=== PATIENT | male | born 1965 | race Caucasian/White ===

== ENCOUNTER 2018-01-19 14:39 | Inpatient (IN) | payer OTHER ==
[2018-01-19] VITALS (13 sets, daily range): BP systolic 70–124; BP diastolic 36–64
[~2018-01-19] VITALS: Ht 190.5 cm; Wt 85.8 kg
--- OUTSIDE RECORDS SUMMARY | 2018-01-19 14:46 | XMS REPORT ---
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 Allergies, Adverse Reactions, Alerts This patient has no known allergies or adverse reactions. Medications This patient has no known medications. Results Test Description Test Time Test Comments Text Results Atomic Results Result Comments PREALBUMIN 2017-12-21 04:54:00 PREALBUMIN (BEAKER) (test ejnc=986) 19 mg/dL 14-45 PROTEIN, [id number] 04:49:00* Test Item Value Reference Range Comments TOTAL PROTEIN (BEAKER) (test rtdt=517) 7.2 gm/dL 6.0-8.3 [id number] 04:49:00* Test Item Value Reference Range Comments ALBUMIN (BEAKER) (test twvp=3479) 3.3 g/dL 3.5-5.0 ANG, CV ACCESS, [id number] 16:19:00Pls insert PICCReason for exam:->very difficult access, pt with multiple antbiotics,FINAL REPORT Exam: PICC insertion Clinical History: Need for long-term IV antibiotics Consent: Risks and benefits were explained to the patient who gave consent to the procedure. Complication: Non immediate. Total fluoro time: 0.2 minutes Total images 1 Procedure: Sterile barrier technique was followed including cap, mask, sterile gown, sterile gloves, sterile sheet, hand hygiene and 2% chlorhexidine for cutaneous antisepsis. The left arm was prepped and draped in usual sterile fashion. 2% lidocaine was used as local anesthetics. Under ultrasound guidance the left basilic vein, which is patent, was accessed using a 21g micropuncture needle. A hard copy of the ultrasound image was obtained. A 5 FR dual lumen PICC was inserted through the venotomy site until the tip is at the cavoatrial junction under fluoroscopic guidance. The lumens aspirated and flushed easily. The patient tolerated the procedure well without any adverse reactions and was transferred from the radiology department in stable condition. Impression: Successful PICC insertion as described. Signed: Ian Sibley MDReport Verified Date/Time: 12/18/2017 16:19:15 Reading Location: [facility] Radiology Reading Room , CHEST, 1 VIEW, NON [id number] 13:55: 00Reason for exam:->PICC line placement Should this be performed at the bedside? ->YesFINAL REPORT Chest one view AP 12/18/2017 1:55 PM CLINICAL INDICATION: PICC line placement COMPARISON: 11/23/2017 IMPRESSION: The tip of a left PICC projects over the superior vena cava. Cardiomediastinal contours are stable. There is central pulmonary vasculature congestion without overt pulmonary edema. Opacity in the right lung base suggests a combination of small volume pleural fluid and airspace disease, atelectasis versus pneumonia. There is subsegmental atelectasis in the left lung base. Remaining support hardware is unchanged in position. Signed: Ryder Baker Verified Date/Time: 12/18/2017 13:55:58 Reading Location: [facility] C013W Consult Reading Room [id number] 08:24:00* Test Item Value Reference Range Comments PHOSPHORUS (BEAKER) (test iyqw=065) 3.6 mg/dL 2.3-4.7 [id number] 08:24:00* Test Item Value Reference Range Comments MAGNESIUM (BEAKER) (test qept=939) 1.6 mg/dL 1.6-2.6 BASIC METABOLIC [id number] 08:24:00* Test Item Value Reference Range Comments SODIUM (BEAKER) (test gtiv=165) 141 meq/L 136-145 POTASSIUM (BEAKER) (test euiy=029) 4.3 meq/L 3.5-5.1 CHLORIDE (BEAKER) (test btiv=837) 100 meq/L 98-107 CO2 (BEAKER) (test tvjk=469) 32 meq/L 22-29 BLOOD UREA NITROGEN (BEAKER) (test wdvo=528) 24 mg/dL 7-21 CREATININE (BEAKER) (test fqmi=137) 0.46 mg/dL 0.57-1.25 GLUCOSE RANDOM (BEAKER) (test aosz=878) 100 mg/dL 70-105 CALCIUM (BEAKER) (test lzmr=379) 9.1 mg/dL 8.4-10.2 EGFR (BEAKER) (test ogxs=5725) 192 mL/min/1.73 sq m ESTIMATED GFR IS NOT ACCURATE CREATININE CLEARANCE IN PREDICTING GLOMERULAR FILTRATION RATE. ESTIMATED GFR IS NOT APPLICABLE FOR DIALYSIS PATIENTS. FL, ESOPH, SWALLOW FUNCTION, WITH CINE OR [id number] 17:35:00Reason for exam:->dysphagiaFINAL REPORT Modified barium swallow exam with speech pathology service CLINICAL HISTORY: dysphagia IMPRESSION: Please see the speech pathology service report for details. Barium contrast of multiple consistencies is given to the patient to swallow. Fluoroscopic observation is performed during swallowing. No aspiration Fluoro time: 0.95 minutes Number of images: 12 Signed: Wil Blackmaneport Verified Date/Time: 06/2018 17:35:33 Reading Location: [address] Ortho Consult Reading Room [id number] 04:40:00* Test Item Value Reference Range Comments PHOSPHORUS (BEAKER) (test oiws=230) 3.3 mg/dL 2.3-4.7 [id number] 04:40:00* Test Item Value Reference Range Comments MAGNESIUM (BEAKER) (test sjbf=385) 1.8 mg/dL 1.6-2.6 BASIC METABOLIC [id number] 04:40:00* Test Item Value Reference Range Comments SODIUM (BEAKER) (test ggwm=328) 142 meq/L 136-145 POTASSIUM (BEAKER) (test ityk=047) 3.7 meq/L 3.5-5.1 CHLORIDE (BEAKER) (test ggjr=861) 100 meq/L 98-107 CO2 (BEAKER) (test uyeb=274) 36 meq/L 22-29 BLOOD UREA NITROGEN (BEAKER) (test gqal=514) 26 mg/dL 7-21 CREATININE (BEAKER) (test abyh=495) 0.41 mg/dL 0.57-1.25 GLUCOSE RANDOM (BEAKER) (test vqae=317) 108 mg/dL 70-105 CALCIUM (BEAKER) (test vksz=119) 8.9 mg/dL 8.4-10.2 EGFR (BEAKER) (test bwaa=3019) 220 mL/min/1.73 sq m ESTIMATED GFR IS NOT ACCURATE CREATININE CLEARANCE IN PREDICTING GLOMERULAR FILTRATION RATE. ESTIMATED GFR IS NOT APPLICABLE FOR DIALYSIS PATIENTS. [id number] 04:14:00* Test Item Value Reference Range Comments PHOSPHORUS (BEAKER) (test bgwc=053) 3.6 mg/dL 2.3-4.7 [id number] 04:14:00* Test Item Value Reference Range Comments MAGNESIUM (BEAKER) (test futa=039) 1.6 mg/dL 1.6-2.6 BASIC METABOLIC [id number] 04:14:00* Test Item Value Reference Range Comments SODIUM (BEAKER) (test xosu=469) 142 meq/L 136-145 POTASSIUM (BEAKER) (test rebo=763) 3.7 meq/L 3.5-5.1 CHLORIDE (BEAKER) (test ufui=865) 101 meq/L 98-107 CO2 (BEAKER) (test fxqy=834) 34 meq/L 22-29 BLOOD UREA NITROGEN (BEAKER) (test oipu=374) 25 mg/dL 7-21 CREATININE (BEAKER) (test vlsv=086) 0.45 mg/dL 0.57-1.25 GLUCOSE RANDOM (BEAKER) (test feix=097) 120 mg/dL 70-105 CALCIUM (BEAKER) (test eejd=172) 9.0 mg/dL 8.4-10.2 EGFR (BEAKER) (test ympr=4093) 197 mL/min/1.73 sq m ESTIMATED GFR IS NOT ACCURATE CREATININE CLEARANCE IN PREDICTING GLOMERULAR FILTRATION RATE. ESTIMATED GFR IS NOT APPLICABLE FOR DIALYSIS PATIENTS. [id number] 03:45:00* Test Item Value Reference Range Comments PHOSPHORUS (BEAKER) (test lpna=273) 3.8 mg/dL 2.3-4.7 [id number] 03:45:00* Test Item Value Reference Range Comments MAGNESIUM (BEAKER) (test edem=725) 1.9 mg/dL 1.6-2.6 BASIC METABOLIC [id number] 03:45:00* Test Item Value Reference Range Comments SODIUM (BEAKER) (test oact=725) 141 meq/L 136-145 POTASSIUM (BEAKER) (test qoib=449) 3.6 meq/L 3.5-5.1 CHLORIDE (BEAKER) (test pzxi=259) 100 meq/L 98-107 CO2 (BEAKER) (test glnd=975) 35 meq/L 22-29 BLOOD UREA NITROGEN (BEAKER) (test oixk=151) 27 mg/dL 7-21 CREATININE (BEAKER) (test fojw=064) 0.42 mg/dL 0.57-1.25 GLUCOSE RANDOM (BEAKER) (test bvse=455) 107 mg/dL 70-105 CALCIUM (BEAKER) (test vtkx=589) 9.0 mg/dL 8.4-10.2 EGFR (BEAKER) (test nbcc=3587) 214 mL/min/1.73 sq m ESTIMATED GFR IS NOT ACCURATE CREATININE CLEARANCE IN PREDICTING GLOMERULAR FILTRATION RATE. ESTIMATED GFR IS NOT APPLICABLE FOR DIALYSIS PATIENTS. CBC W/PLT COUNT & AUTO [id number] 03:23:00* Test Item Value Reference Range Comments WHITE BLOOD CELL COUNT (BEAKER) (test ehdl=661) 6.9 K/ L 3.5-10.5 RED BLOOD CELL COUNT (BEAKER) (test ywsn=398) 3.40 M/ L 4.63-6.08 HEMOGLOBIN (BEAKER) (test kgry=036) 8.4 GM/DL 13.7-17.5 HEMATOCRIT (BEAKER) (test ugli=113) 28.4 % 40.1-51.0 MEAN CORPUSCULAR VOLUME (BEAKER) (test asxm=939) 83.5 fL 79.0-92.2 MEAN CORPUSCULAR HEMOGLOBIN (BEAKER) (test buut=928) 24.7 pg 25.7-32.2 MEAN CORPUSCULAR HEMOGLOBIN CONC (BEAKER) (test jtgs=818) 29.6 GM/DL 32.3- 36.5 RED CELL DISTRIBUTION WIDTH (BEAKER) (test iltz=245) 16.1 % 11.6-14.4 PLATELET COUNT (BEAKER) (test clcj=461) 195 K/CU MM 150-450 MEAN PLATELET VOLUME (BEAKER) (test xcip=239) 9.5 fL 9.4-12.4 NUCLEATED RED BLOOD CELLS (BEAKER) (test fwba=027) 0 /100 WBC 0-0 NEUTROPHILS RELATIVE PERCENT (BEAKER) (test blin=741) 58 % LYMPHOCYTES RELATIVE PERCENT (BEAKER) (test fzot=079) 23 % MONOCYTES RELATIVE PERCENT (BEAKER) (test ldcw=133) 13 % EOSINOPHILS RELATIVE PERCENT (BEAKER) (test bzyl=669) 5 % BASOPHILS RELATIVE PERCENT (BEAKER) (test jxyd=459) 0 % NEUTROPHILS ABSOLUTE COUNT (BEAKER) (test oqtx=226) 4.03 K/ L 1.78-5.38 LYMPHOCYTES ABSOLUTE COUNT (BEAKER) (test uril=078) 1.61 K/ L 1.32-3.57 MONOCYTES ABSOLUTE COUNT (BEAKER) (test buqq=928) 0.87 K/ L 0.30-0.82 EOSINOPHILS ABSOLUTE COUNT (BEAKER) (test enbt=947) 0.37 K/ L 0.04-0.54 BASOPHILS ABSOLUTE COUNT (BEAKER) (test kibk=026) 0.03 K/ L 0.01-0.08 IMMATURE GRANULOCYTES-RELATIVE PERCENT (BEAKER) (test wbyk=3375) 0 % 0-1 [id number] 05:28:00* Test Item Value Reference Range Comments PREALBUMIN (BEAKER) (test ltsa=650) 21 mg/dL 14-45 PROTEIN, [id number] 05:24:00* Test Item Value Reference Range Comments TOTAL PROTEIN (BEAKER) (test qcys=369) 7.4 gm/dL 6.0-8.3 [id number] 05:24:00* Test Item Value Reference Range Comments MAGNESIUM (BEAKER) (test pjpq=138) 1.6 mg/dL 1.6-2.6 [id number] 05:24:00* Test Item Value Reference Range Comments PHOSPHORUS (BEAKER) (test sbwo=291) 3.5 mg/dL 2.3-4.7 BASIC METABOLIC [id number] 05:24:00* Test Item Value Reference Range Comments SODIUM (BEAKER) (test dcjl=453) 142 meq/L 136-145 POTASSIUM (BEAKER) (test sbfv=759) 3.9 meq/L 3.5-5.1 CHLORIDE (BEAKER) (test dwrb=403) 100 meq/L 98-107 CO2 (BEAKER) (test vnfj=228) 35 meq/L 22-29 BLOOD UREA NITROGEN (BEAKER) (test tsss=048) 22 mg/dL 7-21 CREATININE (BEAKER) (test oqss=578) 0.43 mg/dL 0.57-1.25 GLUCOSE RANDOM (BEAKER) (test utte=629) 103 mg/dL 70-105 CALCIUM (BEAKER) (test uflw=860) 9.3 mg/dL 8.4-10.2 EGFR (BEAKER) (test ygek=9351) 208 mL/min/1.73 sq m ESTIMATED GFR IS NOT ACCURATE CREATININE CLEARANCE IN PREDICTING GLOMERULAR FILTRATION RATE. ESTIMATED GFR IS NOT APPLICABLE FOR DIALYSIS PATIENTS. [id number] 05:24:00* Test Item Value Reference Range Comments ALBUMIN (BEAKER) (test fqzg=9690) 3.4 g/dL 3.5-5.0 [id number] 05:53:00* Test Item Value Reference Range Comments PHOSPHORUS (BEAKER) (test mjlf=594) 3.4 mg/dL 2.3-4.7 [id number] 05:53:00* Test Item Value Reference Range Comments MAGNESIUM (BEAKER) (test jreu=021) 1.7 mg/dL 1.6-2.6 BASIC METABOLIC [id number] 05:53:00* Test Item Value Reference Range Comments SODIUM (BEAKER) (test pppv=688) 141 meq/L 136-145 POTASSIUM (BEAKER) (test ituf=051) 4.0 meq/L 3.5-5.1 CHLORIDE (BEAKER) (test fqda=583) 100 meq/L 98-107 CO2 (BEAKER) (test odjn=438) 33 meq/L 22-29 BLOOD UREA NITROGEN (BEAKER) (test ghjr=788) 24 mg/dL 7-21 CREATININE (BEAKER) (test adke=418) 0.40 mg/dL 0.57-1.25 GLUCOSE RANDOM (BEAKER) (test nmdn=956) 92 mg/dL 70-105 CALCIUM (BEAKER) (test sejw=024) 9.1 mg/dL 8.4-10.2 EGFR (BEAKER) (test vdds=9152) 226 mL/min/1.73 sq m ESTIMATED GFR IS NOT ACCURATE CREATININE CLEARANCE IN PREDICTING GLOMERULAR FILTRATION RATE. ESTIMATED GFR IS NOT APPLICABLE FOR DIALYSIS PATIENTS. [id number] 04:34:00* Test Item Value Reference Range Comments PHOSPHORUS (BEAKER) (test ohko=772) 3.3 mg/dL 2.3-4.7 [id number] 04:34:00* Test Item Value Reference Range Comments MAGNESIUM (BEAKER) (test rkfi=594) 1.7 mg/dL 1.6-2.6 BASIC METABOLIC [id number] 04:34:00* Test Item Value Reference Range Comments SODIUM (BEAKER) (test jfuq=789) 142 meq/L 136-145 POTASSIUM (BEAKER) (test zmhk=791) 3.8 meq/L 3.5-5.1 CHLORIDE (BEAKER) (test wubj=056) 100 meq/L 98-107 CO2 (BEAKER) (test bywg=239) 34 meq/L 22-29 BLOOD UREA NITROGEN (BEAKER) (test chzc=623) 24 mg/dL 7-21 CREATININE (BEAKER) (test wczc=857) 0.46 mg/dL 0.57-1.25 GLUCOSE RANDOM (BEAKER) (test isoh=445) 111 mg/dL 70-105 CALCIUM (BEAKER) (test jrtb=107) 9.2 mg/dL 8.4-10.2 EGFR (BEAKER) (test idib=1942) 192 mL/min/1.73 sq m ESTIMATED GFR IS NOT ACCURATE CREATININE CLEARANCE IN PREDICTING GLOMERULAR FILTRATION RATE. ESTIMATED GFR IS NOT APPLICABLE FOR DIALYSIS PATIENTS. CBC W/PLT COUNT & AUTO [id number] 03:33:00* Test Item Value Reference Range Comments WHITE BLOOD CELL COUNT (BEAKER) (test otai=320) 5.3 K/ L 3.5-10.5 RED BLOOD CELL COUNT (BEAKER) (test oxux=940) 3.50 M/ L 4.63-6.08 HEMOGLOBIN (BEAKER) (test barq=504) 8.7 GM/DL 13.7-17.5 HEMATOCRIT (BEAKER) (test inro=479) 29.0 % 40.1-51.0 MEAN CORPUSCULAR VOLUME (BEAKER) (test cmgs=721) 82.9 fL 79.0-92.2 MEAN CORPUSCULAR HEMOGLOBIN (BEAKER) (test mpso=261) 24.9 pg 25.7-32.2 MEAN CORPUSCULAR HEMOGLOBIN CONC (BEAKER) (test pbmo=567) 30.0 GM/DL 32.3- 36.5 RED CELL DISTRIBUTION WIDTH (BEAKER) (test cmtc=690) 15.9 % 11.6-14.4 PLATELET COUNT (BEAKER) (test pgcv=258) 234 K/CU MM 150-450 MEAN PLATELET VOLUME (BEAKER) (test mrrl=941) 10.3 fL 9.4-12.4 NUCLEATED RED BLOOD CELLS (BEAKER) (test dlzd=683) 0 /100 WBC 0-0 NEUTROPHILS RELATIVE PERCENT (BEAKER) (test vtku=889) 58 % LYMPHOCYTES RELATIVE PERCENT (BEAKER) (test wsaa=315) 27 % MONOCYTES RELATIVE PERCENT (BEAKER) (test lkng=293) 10 % EOSINOPHILS RELATIVE PERCENT (BEAKER) (test zqce=952) 5 % BASOPHILS RELATIVE PERCENT (BEAKER) (test hoap=746) 1 % NEUTROPHILS ABSOLUTE COUNT (BEAKER) (test dalu=711) 3.08 K/ L 1.78-5.38 LYMPHOCYTES ABSOLUTE COUNT (BEAKER) (test wdso=330) 1.44 K/ L 1.32-3.57 MONOCYTES ABSOLUTE COUNT (BEAKER) (test egaq=009) 0.52 K/ L 0.30-0.82 EOSINOPHILS ABSOLUTE COUNT (BEAKER) (test gkls=344) 0.24 K/ L 0.04-0.54 BASOPHILS ABSOLUTE COUNT (BEAKER) (test loyk=984) 0.03 K/ L 0.01-0.08 IMMATURE GRANULOCYTES-RELATIVE PERCENT (BEAKER) (test kwtf=8805) 0 % 0-1 [id number] 07:35:00* Test Item Value Reference Range Comments PHOSPHORUS (BEAKER) (test vnmf=290) 3.6 mg/dL 2.3-4.7 [id number] 07:35:00* Test Item Value Reference Range Comments MAGNESIUM (BEAKER) (test rven=935) 1.6 mg/dL 1.6-2.6 BASIC METABOLIC [id number] 07:35:00* Test Item Value Reference Range Comments SODIUM (BEAKER) (test exsf=104) 141 meq/L 136-145 POTASSIUM (BEAKER) (test yagt=315) 4.0 meq/L 3.5-5.1 CHLORIDE (BEAKER) (test ytfb=492) 102 meq/L 98-107 CO2 (BEAKER) (test zrvg=893) 30 meq/L 22-29 BLOOD UREA NITROGEN (BEAKER) (test iwvr=279) 22 mg/dL 7-21 CREATININE (BEAKER) (test mfta=435) 0.43 mg/dL 0.57-1.25 GLUCOSE RANDOM (BEAKER) (test peeb=187) 96 mg/dL 70-105 CALCIUM (BEAKER) (test efyi=974) 9.1 mg/dL 8.4-10.2 EGFR (BEAKER) (test ezqi=4400) 208 mL/min/1.73 sq m ESTIMATED GFR IS NOT ACCURATE CREATININE CLEARANCE IN PREDICTING GLOMERULAR FILTRATION RATE. ESTIMATED GFR IS NOT APPLICABLE FOR DIALYSIS PATIENTS. [id number] 05:27:00* Test Item Value Reference Range Comments PHOSPHORUS (BEAKER) (test xagh=347) 3.4 mg/dL 2.3-4.7 [id number] 05:27:00* Test Item Value Reference Range Comments MAGNESIUM (BEAKER) (test zglz=502) 1.7 mg/dL 1.6-2.6 BASIC METABOLIC [id number] 05:27:00* Test Item Value Reference Range Comments SODIUM (BEAKER) (test lqiw=192) 138 meq/L 136-145 POTASSIUM (BEAKER) (test yxgd=091) 3.8 meq/L 3.5-5.1 CHLORIDE (BEAKER) (test rsdp=750) 100 meq/L 98-107 CO2 (BEAKER) (test krej=664) 31 meq/L 22-29 BLOOD UREA NITROGEN (BEAKER) (test etxz=284) 25 mg/dL 7-21 CREATININE (BEAKER) (test hpvx=446) 0.42 mg/dL 0.57-1.25 GLUCOSE RANDOM (BEAKER) (test mden=123) 106 mg/dL 70-105 CALCIUM (BEAKER) (test tihp=772) 8.8 mg/dL 8.4-10.2 EGFR (BEAKER) (test wkkm=4541) 214 mL/min/1.73 sq m ESTIMATED GFR IS NOT ACCURATE CREATININE CLEARANCE IN PREDICTING GLOMERULAR FILTRATION RATE. ESTIMATED GFR IS NOT APPLICABLE FOR DIALYSIS PATIENTS. CBC W/PLT COUNT & AUTO [id number] 04:51:00* Test Item Value Reference Range Comments WHITE BLOOD CELL COUNT (BEAKER) (test ebaq=366) 6.8 K/ L 3.5-10.5 RED BLOOD CELL COUNT (BEAKER) (test tana=397) 3.59 M/ L 4.63-6.08 HEMOGLOBIN (BEAKER) (test vsut=881) 8.9 GM/DL 13.7-17.5 HEMATOCRIT (BEAKER) (test uwwf=691) 29.9 % 40.1-51.0 MEAN CORPUSCULAR VOLUME (BEAKER) (test cadu=676) 83.3 fL 79.0-92.2 MEAN CORPUSCULAR HEMOGLOBIN (BEAKER) (test avuy=231) 24.8 pg 25.7-32.2 MEAN CORPUSCULAR HEMOGLOBIN CONC (BEAKER) (test jfuc=929) 29.8 GM/DL 32.3- 36.5 RED CELL DISTRIBUTION WIDTH (BEAKER) (test ciyh=510) 15.8 % 11.6-14.4 PLATELET COUNT (BEAKER) (test fvls=933) 218 K/CU MM 150-450 MEAN PLATELET VOLUME (BEAKER) (test jssm=069) 9.7 fL 9.4-12.4 NUCLEATED RED BLOOD CELLS (BEAKER) (test zpbr=450) 0 /100 WBC 0-0 NEUTROPHILS RELATIVE PERCENT (BEAKER) (test nbmn=099) 62 % LYMPHOCYTES RELATIVE PERCENT (BEAKER) (test vhly=055) 23 % MONOCYTES RELATIVE PERCENT (BEAKER) (test azxj=906) 10 % EOSINOPHILS RELATIVE PERCENT (BEAKER) (test bkhu=561) 5 % BASOPHILS RELATIVE PERCENT (BEAKER) (test xaqa=674) 0 % NEUTROPHILS ABSOLUTE COUNT (BEAKER) (test jfob=227) 4.22 K/ L 1.78-5.38 LYMPHOCYTES ABSOLUTE COUNT (BEAKER) (test myki=796) 1.54 K/ L 1.32-3.57 MONOCYTES ABSOLUTE COUNT (BEAKER) (test oigd=428) 0.68 K/ L 0.30-0.82 EOSINOPHILS ABSOLUTE COUNT (BEAKER) (test nyea=562) 0.32 K/ L 0.04-0.54 BASOPHILS ABSOLUTE COUNT (BEAKER) (test bwge=884) 0.03 K/ L 0.01-0.08 IMMATURE GRANULOCYTES-RELATIVE PERCENT (BEAKER) (test qsbr=8960) 0 % 0-1 [id number] 04:50:00* Test Item Value Reference Range Comments PHOSPHORUS (BEAKER) (test ckhg=372) 3.8 mg/dL 2.3-4.7 [id number] 04:50:00* Test Item Value Reference Range Comments MAGNESIUM (BEAKER) (test ugdg=965) 1.8 mg/dL 1.6-2.6 BASIC METABOLIC [id number] 04:50:00* Test Item Value Reference Range Comments SODIUM (BEAKER) (test cxdq=388) 139 meq/L 136-145 POTASSIUM (BEAKER) (test qtkz=403) 3.7 meq/L 3.5-5.1 CHLORIDE (BEAKER) (test qsgi=495) 100 meq/L 98-107 CO2 (BEAKER) (test ktbq=401) 34 meq/L 22-29 BLOOD UREA NITROGEN (BEAKER) (test stxl=427) 25 mg/dL 7-21 CREATININE (BEAKER) (test aosu=274) 0.43 mg/dL 0.57-1.25 GLUCOSE RANDOM (BEAKER) (test fbmd=842) 117 mg/dL 70-105 CALCIUM (BEAKER) (test brns=517) 8.6 mg/dL 8.4-10.2 EGFR (BEAKER) (test sqyo=1103) 208 mL/min/1.73 sq m ESTIMATED GFR IS NOT ACCURATE CREATININE CLEARANCE IN PREDICTING GLOMERULAR FILTRATION RATE. ESTIMATED GFR IS NOT APPLICABLE FOR DIALYSIS PATIENTS. PROTEIN, [id number] 03:55:00* Test Item Value Reference Range Comments TOTAL PROTEIN (BEAKER) (test aulj=088) 7.0 gm/dL 6.0-8.3 [id number] 03:55:00* Test Item Value Reference Range Comments MAGNESIUM (BEAKER) (test ccpq=443) 1.5 mg/dL 1.6-2.6 [id number] 03:55:00* Test Item Value Reference Range Comments PHOSPHORUS (BEAKER) (test hahg=438) 3.6 mg/dL 2.3-4.7 BASIC METABOLIC [id number] 03:55:00* Test Item Value Reference Range Comments SODIUM (BEAKER) (test ocay=611) 140 meq/L 136-145 POTASSIUM (BEAKER) (test fjxw=044) 3.6 meq/L 3.5-5.1 CHLORIDE (BEAKER) (test hdfx=650) 101 meq/L 98-107 CO2 (BEAKER) (test elyb=035) 32 meq/L 22-29 BLOOD UREA NITROGEN (BEAKER) (test xcuq=570) 26 mg/dL 7-21 CREATININE (BEAKER) (test naom=507) 0.42 mg/dL 0.57-1.25 GLUCOSE RANDOM (BEAKER) (test ppap=065) 100 mg/dL 70-105 CALCIUM (BEAKER) (test zovd=270) 8.6 mg/dL 8.4-10.2 EGFR (BEAKER) (test oaif=9885) 214 mL/min/1.73 sq m ESTIMATED GFR IS NOT ACCURATE CREATININE CLEARANCE IN PREDICTING GLOMERULAR FILTRATION RATE. ESTIMATED GFR IS NOT APPLICABLE FOR DIALYSIS PATIENTS. [id number] 03:55:00* Test Item Value Reference Range Comments ALBUMIN (BEAKER) (test dphv=2053) 3.2 g/dL 3.5-5.0 CREATINE KINASE (CK)2017-12-07 03:55:00* Test Item Value Reference Range Comments CREATINE KINASE TOTAL (BEAKER) (test bkec=754) 65 U/L 29-200 [id number] 03:53:00* Test Item Value Reference Range Comments PREALBUMIN (BEAKER) (test iifr=162) 22 mg/dL 14-45 [id number] 04:54:00* Test Item Value Reference Range Comments PHOSPHORUS (BEAKER) (test aiqe=306) 3.7 mg/dL 2.3-4.7 [id number] 04:54:00* Test Item Value Reference Range Comments MAGNESIUM (BEAKER) (test iulm=860) 1.9 mg/dL 1.6-2.6 BASIC METABOLIC [id number] 04:54:00* Test Item Value Reference Range Comments SODIUM (BEAKER) (test xgkq=198) 142 meq/L 136-145 POTASSIUM (BEAKER) (test qbef=727) 4.0 meq/L 3.5-5.1 CHLORIDE (BEAKER) (test ghsn=213) 101 meq/L 98-107 CO2 (BEAKER) (test dgrh=118) 33 meq/L 22-29 BLOOD UREA NITROGEN (BEAKER) (test qsgc=816) 28 mg/dL 7-21 CREATININE (BEAKER) (test tysa=123) 0.43 mg/dL 0.57-1.25 GLUCOSE RANDOM (BEAKER) (test pjex=769) 92 mg/dL 70-105 CALCIUM (BEAKER) (test gflb=593) 9.1 mg/dL 8.4-10.2 EGFR (BEAKER) (test blir=3111) 208 mL/min/1.73 sq m ESTIMATED GFR IS NOT ACCURATE CREATININE CLEARANCE IN PREDICTING GLOMERULAR FILTRATION RATE. ESTIMATED GFR IS NOT APPLICABLE FOR DIALYSIS PATIENTS. CBC W/PLT COUNT & AUTO [id number] 04:37:00* Test Item Value Reference Range Comments WHITE BLOOD CELL COUNT (BEAKER) (test drtr=873) 6.3 K/ L 3.5-10.5 RED BLOOD CELL COUNT (BEAKER) (test soyr=159) 3.52 M/ L 4.63-6.08 HEMOGLOBIN (BEAKER) (test bepu=231) 8.7 GM/DL 13.7-17.5 HEMATOCRIT (BEAKER) (test bprs=305) 29.4 % 40.1-51.0 MEAN CORPUSCULAR VOLUME (BEAKER) (test opht=829) 83.5 fL 79.0-92.2 MEAN CORPUSCULAR HEMOGLOBIN (BEAKER) (test xpao=369) 24.7 pg 25.7-32.2 MEAN CORPUSCULAR HEMOGLOBIN CONC (BEAKER) (test jcsr=763) 29.6 GM/DL 32.3- 36.5 RED CELL DISTRIBUTION WIDTH (BEAKER) (test govr=730) 15.9 % 11.6-14.4 PLATELET COUNT (BEAKER) (test crtt=184) 246 K/CU MM 150-450 MEAN PLATELET VOLUME (BEAKER) (test wynb=364) 9.8 fL 9.4-12.4 NUCLEATED RED BLOOD CELLS (BEAKER) (test srim=244) 0 /100 WBC 0-0 NEUTROPHILS RELATIVE PERCENT (BEAKER) (test sqmo=028) 51 % LYMPHOCYTES RELATIVE PERCENT (BEAKER) (test fqqf=981) 32 % MONOCYTES RELATIVE PERCENT (BEAKER) (test yqzv=194) 10 % EOSINOPHILS RELATIVE PERCENT (BEAKER) (test prss=891) 5 % BASOPHILS RELATIVE PERCENT (BEAKER) (test yglw=165) 1 % NEUTROPHILS ABSOLUTE COUNT (BEAKER) (test ypnt=243) 3.22 K/ L 1.78-5.38 LYMPHOCYTES ABSOLUTE COUNT (BEAKER) (test ddsy=388) 2.02 K/ L 1.32-3.57 MONOCYTES ABSOLUTE COUNT (BEAKER) (test bzwe=381) 0.65 K/ L 0.30-0.82 EOSINOPHILS ABSOLUTE COUNT (BEAKER) (test peqi=865) 0.32 K/ L 0.04-0.54 BASOPHILS ABSOLUTE COUNT (BEAKER) (test lyxr=446) 0.04 K/ L 0.01-0.08 IMMATURE GRANULOCYTES-RELATIVE PERCENT (BEAKER) (test nttz=0759) 0 % 0-1 [id number] 06:57:00* Test Item Value Reference Range Comments PHOSPHORUS (BEAKER) (test twrx=318) 3.5 mg/dL 2.3-4.7 [id number] 06:57:00* Test Item Value Reference Range Comments MAGNESIUM (BEAKER) (test rzjv=843) 1.6 mg/dL 1.6-2.6 BASIC METABOLIC [id number] 06:57:00* Test Item Value Reference Range Comments SODIUM (BEAKER) (test ogee=747) 139 meq/L 136-145 POTASSIUM (BEAKER) (test drvi=360) 4.1 meq/L 3.5-5.1 CHLORIDE (BEAKER) (test qzbe=674) 100 meq/L 98-107 CO2 (BEAKER) (test eadk=383) 30 meq/L 22-29 BLOOD UREA NITROGEN (BEAKER) (test xzxb=024) 27 mg/dL 7-21 CREATININE (BEAKER) (test zghf=840) 0.44 mg/dL 0.57-1.25 GLUCOSE RANDOM (BEAKER) (test seis=949) 102 mg/dL 70-105 CALCIUM (BEAKER) (test uqpf=733) 8.8 mg/dL 8.4-10.2 EGFR (BEAKER) (test jsmm=4183) 202 mL/min/1.73 sq m ESTIMATED GFR IS NOT ACCURATE CREATININE CLEARANCE IN PREDICTING GLOMERULAR FILTRATION RATE. ESTIMATED GFR IS NOT APPLICABLE FOR DIALYSIS PATIENTS. [id number] 06:46:00* Test Item Value Reference Range Comments PHOSPHORUS (BEAKER) (test isww=814) 3.5 mg/dL 2.3-4.7 [id number] 06:46:00* Test Item Value Reference Range Comments MAGNESIUM (BEAKER) (test mphu=485) 1.8 mg/dL 1.6-2.6 BASIC METABOLIC [id number] 06:46:00* Test Item Value Reference Range Comments SODIUM (BEAKER) (test qevv=362) 141 meq/L 136-145 POTASSIUM (BEAKER) (test ivdx=456) 4.1 meq/L 3.5-5.1 CHLORIDE (BEAKER) (test zwtq=375) 100 meq/L 98-107 CO2 (BEAKER) (test harh=235) 35 meq/L 22-29 BLOOD UREA NITROGEN (BEAKER) (test wbih=365) 25 mg/dL 7-21 CREATININE (BEAKER) (test rnyg=193) 0.41 mg/dL 0.57-1.25 GLUCOSE RANDOM (BEAKER) (test vgek=732) 85 mg/dL 70-105 CALCIUM (BEAKER) (test bjfi=255) 9.1 mg/dL 8.4-10.2 EGFR (BEAKER) (test cfue=3122) 220 mL/min/1.73 sq m ESTIMATED GFR IS NOT ACCURATE CREATININE CLEARANCE IN PREDICTING GLOMERULAR FILTRATION RATE. ESTIMATED GFR IS NOT APPLICABLE FOR DIALYSIS PATIENTS. [id number] 06:22:00* Test Item Value Reference Range Comments PHOSPHORUS (BEAKER) (test hnkl=032) 3.1 mg/dL 2.3-4.7 [id number] 06:22:00* Test Item Value Reference Range Comments MAGNESIUM (BEAKER) (test nupm=373) 1.8 mg/dL 1.6-2.6 BASIC METABOLIC [id number] 06:22:00* Test Item Value Reference Range Comments SODIUM (BEAKER) (test ygpt=834) 141 meq/L 136-145 POTASSIUM (BEAKER) (test fido=809) 3.9 meq/L 3.5-5.1 CHLORIDE (BEAKER) (test grfv=654) 101 meq/L 98-107 CO2 (BEAKER) (test zrnx=611) 33 meq/L 22-29 BLOOD UREA NITROGEN (BEAKER) (test pqdm=068) 31 mg/dL 7-21 CREATININE (BEAKER) (test sovz=027) 0.44 mg/dL 0.57-1.25 GLUCOSE RANDOM (BEAKER) (test hksp=356) 93 mg/dL 70-105 CALCIUM (BEAKER) (test rzvf=086) 8.9 mg/dL 8.4-10.2 EGFR (BEAKER) (test eyiw=4257) 202 mL/min/1.73 sq m ESTIMATED GFR IS NOT ACCURATE CREATININE CLEARANCE IN PREDICTING GLOMERULAR FILTRATION RATE. ESTIMATED GFR IS NOT APPLICABLE FOR DIALYSIS PATIENTS. CBC W/PLT COUNT & AUTO [id number] 05:44:00* Test Item Value Reference Range Comments WHITE BLOOD CELL COUNT (BEAKER) (test ogxr=049) 7.2 K/ L 3.5-10.5 RED BLOOD CELL COUNT (BEAKER) (test jdky=709) 3.51 M/ L 4.63-6.08 HEMOGLOBIN (BEAKER) (test osxi=695) 8.7 GM/DL 13.7-17.5 HEMATOCRIT (BEAKER) (test cdzn=186) 29.7 % 40.1-51.0 MEAN CORPUSCULAR VOLUME (BEAKER) (test xgzl=297) 84.6 fL 79.0-92.2 MEAN CORPUSCULAR HEMOGLOBIN (BEAKER) (test axzq=378) 24.8 pg 25.7-32.2 MEAN CORPUSCULAR HEMOGLOBIN CONC (BEAKER) (test oopr=704) 29.3 GM/DL 32.3- 36.5 RED CELL DISTRIBUTION WIDTH (BEAKER) (test cspc=388) 15.9 % 11.6-14.4 PLATELET COUNT (BEAKER) (test xipa=728) 265 K/CU MM 150-450 MEAN PLATELET VOLUME (BEAKER) (test dvyh=133) 10.5 fL 9.4-12.4 NUCLEATED RED BLOOD CELLS (BEAKER) (test fjmr=764) 0 /100 WBC 0-0 NEUTROPHILS RELATIVE PERCENT (BEAKER) (test jrjc=621) 57 % LYMPHOCYTES RELATIVE PERCENT (BEAKER) (test brsb=351) 30 % MONOCYTES RELATIVE PERCENT (BEAKER) (test eghz=572) 9 % EOSINOPHILS RELATIVE PERCENT (BEAKER) (test zcrf=570) 4 % BASOPHILS RELATIVE PERCENT (BEAKER) (test wyux=255) 1 % NEUTROPHILS ABSOLUTE COUNT (BEAKER) (test fhyq=623) 4.05 K/ L 1.78-5.38 LYMPHOCYTES ABSOLUTE COUNT (BEAKER) (test mivt=420) 2.12 K/ L 1.32-3.57 MONOCYTES ABSOLUTE COUNT (BEAKER) (test caql=025) 0.62 K/ L 0.30-0.82 EOSINOPHILS ABSOLUTE COUNT (BEAKER) (test tbik=822) 0.29 K/ L 0.04-0.54 BASOPHILS ABSOLUTE COUNT (BEAKER) (test oele=938) 0.05 K/ L 0.01-0.08 IMMATURE GRANULOCYTES-RELATIVE PERCENT (BEAKER) (test mlje=4638) 0 % 0-1 [id number] 09:23:00* Test Item Value Reference Range Comments PHOSPHORUS (BEAKER) (test fhpu=951) 3.8 mg/dL 2.3-4.7 [id number] 09:23:00* Test Item Value Reference Range Comments MAGNESIUM (BEAKER) (test yhas=562) 1.7 mg/dL 1.6-2.6 BASIC METABOLIC [id number] 09:23:00* Test Item Value Reference Range Comments SODIUM (BEAKER) (test pvwj=463) 140 meq/L 136-145 POTASSIUM (BEAKER) (test gsjw=688) 4.3 meq/L 3.5-5.1 CHLORIDE (BEAKER) (test iqxv=779) 102 meq/L 98-107 CO2 (BEAKER) (test ospo=097) 31 meq/L 22-29 BLOOD UREA NITROGEN (BEAKER) (test pqan=578) 31 mg/dL 7-21 CREATININE (BEAKER) (test jzha=218) 0.43 mg/dL 0.57-1.25 GLUCOSE RANDOM (BEAKER) (test ocdh=504) 93 mg/dL 70-105 CALCIUM (BEAKER) (test dmfh=057) 9.0 mg/dL 8.4-10.2 EGFR (BEAKER) (test fqll=2991) 208 mL/min/1.73 sq m ESTIMATED GFR IS NOT ACCURATE CREATININE CLEARANCE IN PREDICTING GLOMERULAR FILTRATION RATE. ESTIMATED GFR IS NOT APPLICABLE FOR DIALYSIS PATIENTS. AFB CULTURE + [id number] 08:30:00* Test Item Value Reference Range Comments CULTURE (BEAKER) (test budu=0359) No acid-fast bacilli isolated in 42 days AFB SMEAR (BEAKER) (test ezce=671) No acid fast bacilli seen [id number] 06:32:00* Test Item Value Reference Range Comments PHOSPHORUS (BEAKER) (test vdkg=875) 3.4 mg/dL 2.3-4.7 [id number] 06:32:00* Test Item Value Reference Range Comments MAGNESIUM (BEAKER) (test btux=336) 1.7 mg/dL 1.6-2.6 BASIC METABOLIC [id number] 06:32:00* Test Item Value Reference Range Comments SODIUM (BEAKER) (test lasw=846) 142 meq/L 136-145 POTASSIUM (BEAKER) (test uhxb=002) 3.7 meq/L 3.5-5.1 CHLORIDE (BEAKER) (test aiyn=951) 101 meq/L 98-107 CO2 (BEAKER) (test sgya=034) 33 meq/L 22-29 BLOOD UREA NITROGEN (BEAKER) (test qcgg=113) 26 mg/dL 7-21 CREATININE (BEAKER) (test fyav=587) 0.42 mg/dL 0.57-1.25 GLUCOSE RANDOM (BEAKER) (test tsre=527) 95 mg/dL 70-105 CALCIUM (BEAKER) (test coni=833) 8.9 mg/dL 8.4-10.2 EGFR (BEAKER) (test odhs=6135) 214 mL/min/1.73 sq m ESTIMATED GFR IS NOT ACCURATE CREATININE CLEARANCE IN PREDICTING GLOMERULAR FILTRATION RATE. ESTIMATED GFR IS NOT APPLICABLE FOR DIALYSIS PATIENTS. [id number] 05:55:00* Test Item Value Reference Range Comments PREALBUMIN (BEAKER) (test lmxq=380) 21 mg/dL 14-45 PROTEIN, [id number] 05:46:00* Test Item Value Reference Range Comments TOTAL PROTEIN (BEAKER) (test mbxl=158) 7.0 gm/dL 6.0-8.3 [id number] 05:46:00* Test Item Value Reference Range Comments MAGNESIUM (BEAKER) (test aegl=647) 1.7 mg/dL 1.6-2.6 [id number] 05:46:00* Test Item Value Reference Range Comments PHOSPHORUS (BEAKER) (test xunh=836) 3.5 mg/dL 2.3-4.7 BASIC METABOLIC [id number] 05:46:00* Test Item Value Reference Range Comments SODIUM (BEAKER) (test cqpo=947) 142 meq/L 136-145 POTASSIUM (BEAKER) (test ffbc=360) 3.8 meq/L 3.5-5.1 CHLORIDE (BEAKER) (test zpok=735) 103 meq/L 98-107 CO2 (BEAKER) (test lfdu=716) 33 meq/L 22-29 BLOOD UREA NITROGEN (BEAKER) (test qhns=844) 29 mg/dL 7-21 CREATININE (BEAKER) (test eved=116) 0.44 mg/dL 0.57-1.25 GLUCOSE RANDOM (BEAKER) (test lslz=684) 107 mg/dL 70-105 CALCIUM (BEAKER) (test puvy=871) 8.8 mg/dL 8.4-10.2 EGFR (BEAKER) (test jiya=7037) 202 mL/min/1.73 sq m ESTIMATED GFR IS NOT ACCURATE CREATININE CLEARANCE IN PREDICTING GLOMERULAR FILTRATION RATE. ESTIMATED GFR IS NOT APPLICABLE FOR DIALYSIS PATIENTS. [id number] 05:46:00* Test Item Value Reference Range Comments ALBUMIN (BEAKER) (test qyal=6394) 3.3 g/dL 3.5-5.0 CREATINE KINASE (CK)2017-11-30 05:46:00* Test Item Value Reference Range Comments CREATINE KINASE TOTAL (BEAKER) (test ppux=344) 73 U/L 29-200 CBC W/PLT COUNT & AUTO [id number] 05:01:00* Test Item Value Reference Range Comments WHITE BLOOD CELL COUNT (BEAKER) (test oxsi=573) 7.1 K/ L 3.5-10.5 RED BLOOD CELL COUNT (BEAKER) (test wdqa=254) 3.48 M/ L 4.63-6.08 HEMOGLOBIN (BEAKER) (test vlhn=183) 8.7 GM/DL 13.7-17.5 HEMATOCRIT (BEAKER) (test gpbx=923) 29.3 % 40.1-51.0 MEAN CORPUSCULAR VOLUME (BEAKER) (test cgzu=306) 84.2 fL 79.0-92.2 MEAN CORPUSCULAR HEMOGLOBIN (BEAKER) (test kffj=277) 25.0 pg 25.7-32.2 MEAN CORPUSCULAR HEMOGLOBIN CONC (BEAKER) (test oshs=878) 29.7 GM/DL 32.3- 36.5 RED CELL DISTRIBUTION WIDTH (BEAKER) (test agam=332) 15.6 % 11.6-14.4 PLATELET COUNT (BEAKER) (test ijmf=346) 263 K/CU MM 150-450 MEAN PLATELET VOLUME (BEAKER) (test wylw=204) 10.2 fL 9.4-12.4 NUCLEATED RED BLOOD CELLS (BEAKER) (test nqgb=751) 0 /100 WBC 0-0 NEUTROPHILS RELATIVE PERCENT (BEAKER) (test zbok=874) 57 % LYMPHOCYTES RELATIVE PERCENT (BEAKER) (test ukgl=655) 29 % MONOCYTES RELATIVE PERCENT (BEAKER) (test eaol=951) 8 % EOSINOPHILS RELATIVE PERCENT (BEAKER) (test xzvd=980) 5 % BASOPHILS RELATIVE PERCENT (BEAKER) (test ssff=451) 1 % NEUTROPHILS ABSOLUTE COUNT (BEAKER) (test bahe=127) 4.07 K/ L 1.78-5.38 LYMPHOCYTES ABSOLUTE COUNT (BEAKER) (test txdt=074) 2.08 K/ L 1.32-3.57 MONOCYTES ABSOLUTE COUNT (BEAKER) (test wrpv=589) 0.60 K/ L 0.30-0.82 EOSINOPHILS ABSOLUTE COUNT (BEAKER) (test ppyq=420) 0.32 K/ L 0.04-0.54 BASOPHILS ABSOLUTE COUNT (BEAKER) (test ggfg=603) 0.05 K/ L 0.01-0.08 IMMATURE GRANULOCYTES-RELATIVE PERCENT (BEAKER) (test lara=3794) 0 % 0-1 [id number] 05:02:00* Test Item Value Reference Range Comments PHOSPHORUS (BEAKER) (test eazn=966) 3.4 mg/dL 2.3-4.7 [id number] 05:02:00* Test Item Value Reference Range Comments MAGNESIUM (BEAKER) (test vbnr=037) 1.7 mg/dL 1.6-2.6 BASIC METABOLIC [id number] 05:02:00* Test Item Value Reference Range Comments SODIUM (BEAKER) (test fcjz=981) 141 meq/L 136-145 POTASSIUM (BEAKER) (test kcdj=989) 3.8 meq/L 3.5-5.1 CHLORIDE (BEAKER) (test uskx=442) 102 meq/L 98-107 CO2 (BEAKER) (test sjvz=424) 33 meq/L 22-29 BLOOD UREA NITROGEN (BEAKER) (test gkir=735) 31 mg/dL 7-21 CREATININE (BEAKER) (test iulx=280) 0.40 mg/dL 0.57-1.25 GLUCOSE RANDOM (BEAKER) (test hlif=509) 102 mg/dL 70-105 CALCIUM (BEAKER) (test mddb=497) 8.9 mg/dL 8.4-10.2 EGFR (BEAKER) (test gqpi=5523) 226 mL/min/1.73 sq m ESTIMATED GFR IS NOT ACCURATE CREATININE CLEARANCE IN PREDICTING GLOMERULAR FILTRATION RATE. ESTIMATED GFR IS NOT APPLICABLE FOR DIALYSIS PATIENTS. BLOOD GAS, [id number] 06:59:00* Test Item Value Reference Range Comments PH ARTERIAL (BEAKER) (test etbr=437) 7.36 7.35-7.45 PCO2 ARTERIAL (BEAKER) (test pkbp=945) 64 mmHg 35-45 PO2 ARTERIAL (BEAKER) (test drsn=112) 120 mmHg 80-90 O2 SATURATION ARTERIAL (BEAKER) (test tmzo=507) 98.0 % 96.0-97.0 HCO3 ARTERIAL (BEAKER) (test cgfa=928) 35 mmol/L 21-29 BASE EXCESS ARTERIAL (BEAKER) (test wmvm=244) 7.8 mmol/L -2.0-3.0 PATIENT TEMPERATURE (BEAKER) (test zwyv=7351) 37.5 C FIO2 (BEAKER) (test pqel=5778) 40.0 % SEDIMENTATION [id number] 06:16:00* Test Item Value Reference Range Comments SEDIMENTATION RATE, ERYTHROCYTE (BEAKER) (test zyke=778) 76 mm/HR 0-20 BASIC METABOLIC [id number] 04:54:00* Test Item Value Reference Range Comments SODIUM (BEAKER) (test cujy=884) 141 meq/L 136-145 POTASSIUM (BEAKER) (test xjbp=952) 4.2 meq/L 3.5-5.1 CHLORIDE (BEAKER) (test szji=990) 101 meq/L 98-107 CO2 (BEAKER) (test tlyr=775) 31 meq/L 22-29 BLOOD UREA NITROGEN (BEAKER) (test rjph=990) 26 mg/dL 7-21 CREATININE (BEAKER) (test mpsu=724) 0.45 mg/dL 0.57-1.25 GLUCOSE RANDOM (BEAKER) (test xfsd=227) 101 mg/dL 70-105 CALCIUM (BEAKER) (test tgzn=967) 9.1 mg/dL 8.4-10.2 EGFR (BEAKER) (test dpdi=3699) 197 mL/min/1.73 sq m ESTIMATED GFR IS NOT ACCURATE CREATININE CLEARANCE IN PREDICTING GLOMERULAR FILTRATION RATE. ESTIMATED GFR IS NOT APPLICABLE FOR DIALYSIS PATIENTS. [id number] 04:39:00* Test Item Value Reference Range Comments PHOSPHORUS (BEAKER) (test poxp=812) 3.7 mg/dL 2.3-4.7 [id number] 04:39:00* Test Item Value Reference Range Comments MAGNESIUM (BEAKER) (test dnbq=669) 1.8 mg/dL 1.6-2.6 C-REACTIVE [id number] 04:39:00* Test Item Value Reference Range Comments C-REACTIVE PROTEIN (BEAKER) (test hrad=607) 2.61 mg/dL 0.00-0.50 [id number] 04:24:00* Test Item Value Reference Range Comments PHOSPHORUS (BEAKER) (test hqsn=024) 3.8 mg/dL 2.3-4.7 [id number] 04:24:00* Test Item Value Reference Range Comments MAGNESIUM (BEAKER) (test rqve=152) 1.8 mg/dL 1.6-2.6 BASIC METABOLIC [id number] 04:24:00* Test Item Value Reference Range Comments SODIUM (BEAKER) (test vjln=268) 142 meq/L 136-145 POTASSIUM (BEAKER) (test gsnr=544) 4.2 meq/L 3.5-5.1 CHLORIDE (BEAKER) (test qjtb=198) 104 meq/L 98-107 CO2 (BEAKER) (test wadj=393) 32 meq/L 22-29 BLOOD UREA NITROGEN (BEAKER) (test aeot=271) 31 mg/dL 7-21 CREATININE (BEAKER) (test rumq=668) 0.44 mg/dL 0.57-1.25 GLUCOSE RANDOM (BEAKER) (test cqse=845) 97 mg/dL 70-105 CALCIUM (BEAKER) (test vfdc=568) 9.0 mg/dL 8.4-10.2 EGFR (BEAKER) (test scwl=3911) 202 mL/min/1.73 sq m ESTIMATED GFR IS NOT ACCURATE CREATININE CLEARANCE IN PREDICTING GLOMERULAR FILTRATION RATE. ESTIMATED GFR IS NOT APPLICABLE FOR DIALYSIS PATIENTS. CBC W/PLT COUNT & AUTO [id number] 04:08:00* Test Item Value Reference Range Comments WHITE BLOOD CELL COUNT (BEAKER) (test wvyb=669) 7.2 K/ L 3.5-10.5 RED BLOOD CELL COUNT (BEAKER) (test bmyy=872) 3.44 M/ L 4.63-6.08 HEMOGLOBIN (BEAKER) (test xzwx=897) 8.7 GM/DL 13.7-17.5 HEMATOCRIT (BEAKER) (test lzpa=404) 29.2 % 40.1-51.0 MEAN CORPUSCULAR VOLUME (BEAKER) (test tvia=716) 84.9 fL 79.0-92.2 MEAN CORPUSCULAR HEMOGLOBIN (BEAKER) (test vgkp=969) 25.3 pg 25.7-32.2 MEAN CORPUSCULAR HEMOGLOBIN CONC (BEAKER) (test rcgg=658) 29.8 GM/DL 32.3- 36.5 RED CELL DISTRIBUTION WIDTH (BEAKER) (test aneq=160) 15.9 % 11.6-14.4 PLATELET COUNT (BEAKER) (test cnwa=083) 262 K/CU MM 150-450 MEAN PLATELET VOLUME (BEAKER) (test yppx=383) 9.7 fL 9.4-12.4 NUCLEATED RED BLOOD CELLS (BEAKER) (test hwio=514) 0 /100 WBC 0-0 NEUTROPHILS RELATIVE PERCENT (BEAKER) (test fzre=473) 57 % LYMPHOCYTES RELATIVE PERCENT (BEAKER) (test cxmu=407) 29 % MONOCYTES RELATIVE PERCENT (BEAKER) (test uszq=432) 8 % EOSINOPHILS RELATIVE PERCENT (BEAKER) (test runs=138) 4 % BASOPHILS RELATIVE PERCENT (BEAKER) (test yqzv=148) 1 % NEUTROPHILS ABSOLUTE COUNT (BEAKER) (test vywh=141) 4.11 K/ L 1.78-5.38 LYMPHOCYTES ABSOLUTE COUNT (BEAKER) (test wnew=216) 2.11 K/ L 1.32-3.57 MONOCYTES ABSOLUTE COUNT (BEAKER) (test tydd=343) 0.60 K/ L 0.30-0.82 EOSINOPHILS ABSOLUTE COUNT (BEAKER) (test xqyt=265) 0.31 K/ L 0.04-0.54 BASOPHILS ABSOLUTE COUNT (BEAKER) (test hplq=997) 0.05 K/ L 0.01-0.08 IMMATURE GRANULOCYTES-RELATIVE PERCENT (BEAKER) (test aixp=8842) 0 % 0-1 CBC W/PLT COUNT & AUTO [id number] 10:06:00* Test Item Value Reference Range Comments WHITE BLOOD CELL COUNT (BEAKER) (test ruzb=577) 7.2 K/ L 3.5-10.5 RED BLOOD CELL COUNT (BEAKER) (test jxnp=555) 3.70 M/ L 4.63-6.08 HEMOGLOBIN (BEAKER) (test yagh=955) 9.3 GM/DL 13.7-17.5 HEMATOCRIT (BEAKER) (test yvey=814) 31.6 % 40.1-51.0 MEAN CORPUSCULAR VOLUME (BEAKER) (test gqod=209) 85.4 fL 79.0-92.2 MEAN CORPUSCULAR HEMOGLOBIN (BEAKER) (test deqt=492) 25.1 pg 25.7-32.2 MEAN CORPUSCULAR HEMOGLOBIN CONC (BEAKER) (test ilsc=397) 29.4 GM/DL 32.3- 36.5 RED CELL DISTRIBUTION WIDTH (BEAKER) (test yxzu=056) 15.9 % 11.6-14.4 PLATELET COUNT (BEAKER) (test lhci=942) 267 K/CU MM 150-450 MEAN PLATELET VOLUME (BEAKER) (test djfq=713) 9.9 fL 9.4-12.4 NUCLEATED RED BLOOD CELLS (BEAKER) (test usoa=501) 0 /100 WBC 0-0 NEUTROPHILS RELATIVE PERCENT (BEAKER) (test euta=901) 61 % LYMPHOCYTES RELATIVE PERCENT (BEAKER) (test gsdm=873) 25 % MONOCYTES RELATIVE PERCENT (BEAKER) (test ngzj=848) 8 % EOSINOPHILS RELATIVE PERCENT (BEAKER) (test jexu=589) 5 % BASOPHILS RELATIVE PERCENT (BEAKER) (test biap=373) 1 % NEUTROPHILS ABSOLUTE COUNT (BEAKER) (test dhoq=237) 4.38 K/ L 1.78-5.38 LYMPHOCYTES ABSOLUTE COUNT (BEAKER) (test sqrs=855) 1.77 K/ L 1.32-3.57 MONOCYTES ABSOLUTE COUNT (BEAKER) (test hwev=122) 0.60 K/ L 0.30-0.82 EOSINOPHILS ABSOLUTE COUNT (BEAKER) (test uwej=619) 0.39 K/ L 0.04-0.54 BASOPHILS ABSOLUTE COUNT (BEAKER) (test vewj=451) 0.05 K/ L 0.01-0.08 IMMATURE GRANULOCYTES-RELATIVE PERCENT (BEAKER) (test gjab=6600) 0 % 0-1 [id number] 04:52:00* Test Item Value Reference Range Comments PHOSPHORUS (BEAKER) (test ihrb=537) 3.2 mg/dL 2.3-4.7 [id number] 04:52:00* Test Item Value Reference Range Comments MAGNESIUM (BEAKER) (test nzdd=241) 1.7 mg/dL 1.6-2.6 BASIC METABOLIC [id number] 04:52:00* Test Item Value Reference Range Comments SODIUM (BEAKER) (test llng=681) 144 meq/L 136-145 POTASSIUM (BEAKER) (test buqe=131) 3.7 meq/L 3.5-5.1 CHLORIDE (BEAKER) (test dxtz=485) 106 meq/L 98-107 CO2 (BEAKER) (test wbmo=859) 31 meq/L 22-29 BLOOD UREA NITROGEN (BEAKER) (test nsxt=075) 39 mg/dL 7-21 CREATININE (URSULAAKER) (test tjto=410) 0.43 mg/dL 0.57-1.25 GLUCOSE RANDOM (IFRAH) (test opkg=185) 117 mg/dL 70-105 CALCIUM (BEAKER) (test wkrm=129) 9.0 mg/dL 8.4-10.2 EGFR (IFRAH) (test kxoh=2198) 208 mL/min/1.73 sq m ESTIMATED GFR IS NOT ACCURATE CREATININE CLEARANCE IN PREDICTING GLOMERULAR FILTRATION RATE. ESTIMATED GFR IS NOT APPLICABLE FOR DIALYSIS PATIENTS. CT, SOFT TISSUE NECK, [id number] 13:37:00FINAL REPORT CT neck soft tissues with contrast Comparison: October 08, 2017 Reason for exam: follow up previous cervical osteo and abscess ; Discussion: Multiple axial CT images of the neck are provided after IV contrast evaluated from the orbital region to the upper chest level. Dose modulation, iterative reconstruction, and/or weight based adjustment of the mA/kV was utilized to reduce the radiation dose to as low as reasonably achievable. Visible intracranial and intraorbital contents are unremarkable. Superficial and deep facial soft tissues unremarkable. Paranasal sinuses and temporal bones are unremarkable. Tracheostomy is in place. The right-sided piriform sinus is effaced but without grossly apparent regional mass. The appearance is similar to the prior study. Cervical fusion is again noted from C4 to C7 with intervertebral grafts. Posterior element fusion extends from C4 to T1. Hazy sclerotic vertebral body changes are seen at each level from C4 to T1 and involving the right-sided superior T2 region all unchanged. Chronic osteomyelitis could not be excluded. There is ill-defined infiltration along the paraspinal paravertebral region low cervical and upper thoracic region minimally regressed in appearance from that of the prior study. Nonspecific air focus along the ventral right perivertebral region near the midline is present at the C5 and C6 levels, grossly unchanged. Pleural effusions are persistent right greater than left albeit improved. Impressions: Minimally regressed paraspinal infiltrative changes in the cervical thoracic region with persistence of a nonspecific air focus at the C5/[address] neck appearance is otherwise similar. Signed: Evin Griggs Verified Date/Time: 2017 13:37:07 [id number] 05:51:00* Test Item Value Reference Range Comments PHOSPHORUS (BEAKER) (test oamx=157) 4.3 mg/dL 2.3-4.7 [id number] 05:51:00* Test Item Value Reference Range Comments MAGNESIUM (BEAKER) (test pkjk=659) 1.8 mg/dL 1.6-2.6 BASIC METABOLIC [id number] 05:51:00* Test Item Value Reference Range Comments SODIUM (BEAKER) (test eihu=554) 144 meq/L 136-145 POTASSIUM (BEAKER) (test vcth=918) 3.9 meq/L 3.5-5.1 CHLORIDE (BEAKER) (test ogld=496) 106 meq/L 98-107 CO2 (BEAKER) (test rrqd=772) 30 meq/L 22-29 BLOOD UREA NITROGEN (BEAKER) (test ldee=612) 44 mg/dL 7-21 CREATININE (BEAKER) (test okwq=069) 0.44 mg/dL 0.57-1.25 GLUCOSE RANDOM (BEAKER) (test bxmg=041) 98 mg/dL 70-105 CALCIUM (BEAKER) (test rrmy=995) 9.2 mg/dL 8.4-10.2 EGFR (BEAKER) (test msul=6017) 202 mL/min/1.73 sq m ESTIMATED GFR IS NOT ACCURATE CREATININE CLEARANCE IN PREDICTING GLOMERULAR FILTRATION RATE. ESTIMATED GFR IS NOT APPLICABLE FOR DIALYSIS PATIENTS. SPUTUM CULTURE + GRAM [id number] 10:08:00* Test Item Value Reference Range Comments CULTURE (BEAKER) (test mpar=5152) Amikacin (test code=1) Susceptible 0-16 , Resistant <0 or >16 Aztreonam (test code=32) Susceptible 0-8 , Resistant <0 or >8 Cefepime (test code=51) Susceptible 0-8 , Resistant <0 or >8 Ceftazidime (test code=27) Susceptible 0-8 , Resistant <0 or >8 Ciprofloxacin (test code=7) Susceptible 0-1 , Resistant <0 or >1 Doripenem (test bosw=606) Susceptible 0-2 , Resistant <0 or >2 Gentamicin (test code=18) Susceptible 0-4 , Resistant <0 or >4 Imipenem (test code=19) Susceptible 0-2 , Resistant <0 or >2 Levofloxacin (test code=22) Susceptible 0-2 , Resistant <0 or >2 Meropenem (test code=34) Susceptible 0-2 , Resistant <0 or >2 Piperacillin (test code=24) Susceptible 0-16 , Resistant <0 or >16 Piperacillin + Tazobactam (test code=29) Susceptible 0-16 , Resistant <0 or >16 Tobramycin (test code=25) Susceptible 0-4 , Resistant <0 or >4 CULTURE ([employer] 360 TechnologyAKER) (test bwse=0282) 4+ Pseudomonas aeruginosa CULTURE (BEAKER) (test hlmd=0167) KLEBSIELLA PNEUMONIAE 2+ Klebsiella pneumoniaeESBL Positive Amikacin (test code=1) Aztreonam (test code=32) Cefepime (test code=51) Cefoxitin (test code=68) Ceftazidime (test code=27) Ceftriaxone (test code=52) Ertapenem (test code=38) Gentamicin (test code=18) Levofloxacin (test code=22) Meropenem (test code=34) Piperacillin + Tazobactam (test code=29) Tetracycline (test code=2) Tobramycin (test code=25) Trimethoprim + Sulfamethoxazole (test code=47) CULTURE (BEAKER) (test fhfx=0803) ACINETOBACTER BAUMANNII COMPLEX 2+ Acinetobacter baumannii complex Amikacin (test code=1) Susceptible 0-16 , Resistant <0 or >16 Ampicillin + Sulbactam (test code=6) Susceptible 0-8 , Resistant <0 or >8 Cefepime (test code=51) Susceptible 0-8 , Resistant <0 or >8 Ceftazidime (test code=27) Susceptible 0-8 , Resistant <0 or >8 Ceftriaxone (test code=52) Susceptible 0-8 , Resistant <0 or >8 Ciprofloxacin (test code=7) Susceptible 0-1 , Resistant <0 or >1 Gentamicin (test code=18) Susceptible 0-4 , Resistant <0 or >4 Imipenem (test code=19) Susceptible 0-2 , Resistant <0 or >2 Levofloxacin (test code=22) Susceptible 0-2 , Resistant <0 or >2 Meropenem (test code=34) Susceptible 0-2 , Resistant <0 or >2 Minocycline (test code=35) Susceptible 0-4 , Resistant <0 or >4 Piperacillin (test code=24) Susceptible 0-16 , Resistant <0 or >16 Piperacillin + Tazobactam (test code=29) Susceptible 0-16 , Resistant <0 or >16 Tetracycline (test code=2) Susceptible 0-4 , Resistant <0 or >4 Tobramycin (test code=25) Susceptible 0-4 , Resistant <0 or >4 Trimethoprim + Sulfamethoxazole (test code=47) Susceptible 0-40 , Resistant <0 or >40 GRAM STAIN RESULT (BEAKER) (test oxhf=1159) 3+ WBCs GRAM STAIN RESULT (BEAKER) (test tbfu=533611) 0-5 epithelial cells GRAM STAIN RESULT (BEAKER) (test srba=510539) No organisms seen 1+ yeastNo Normal respiratory rodney [id number] 08:09:00* Test Item Value Reference Range Comments PREALBUMIN (BEAKER) (test dpua=463) 25 mg/dL 14-45 Specimen slightly hemolyzed [id number] 07:04:00* Test Item Value Reference Range Comments PHOSPHORUS (BEAKER) (test srjl=605) 3.8 mg/dL 2.3-4.7 [id number] 07:04:00* Test Item Value Reference Range Comments MAGNESIUM (BEAKER) (test ltsd=356) 1.6 mg/dL 1.6-2.6 BASIC METABOLIC [id number] 07:04:00* Test Item Value Reference Range Comments SODIUM (BEAKER) (test idtw=624) 141 meq/L 136-145 POTASSIUM (BEAKER) (test vjxj=078) 3.8 meq/L 3.5-5.1 CHLORIDE (BEAKER) (test mvuj=361) 104 meq/L 98-107 CO2 (BEAKER) (test olit=610) 29 meq/L 22-29 BLOOD UREA NITROGEN (BEAKER) (test sdtm=211) 27 mg/dL 7-21 CREATININE (BEAKER) (test juei=286) 0.47 mg/dL 0.57-1.25 GLUCOSE RANDOM (BEAKER) (test sftn=150) 115 mg/dL 70-105 CALCIUM (BEAKER) (test nqgg=108) 9.3 mg/dL 8.4-10.2 EGFR (BEAKER) (test dhap=4132) 188 mL/min/1.73 sq m ESTIMATED GFR IS NOT ACCURATE CREATININE CLEARANCE IN PREDICTING GLOMERULAR FILTRATION RATE. ESTIMATED GFR IS NOT APPLICABLE FOR DIALYSIS PATIENTS. CBC W/PLT COUNT & AUTO [id number] 06:27:00* Test Item Value Reference Range Comments WHITE BLOOD CELL COUNT (BEAKER) (test trym=005) 8.4 K/ L 3.5-10.5 RED BLOOD CELL COUNT (BEAKER) (test utkq=050) 4.02 M/ L 4.63-6.08 HEMOGLOBIN (BEAKER) (test rutm=261) 10.1 GM/DL 13.7-17.5 HEMATOCRIT (BEAKER) (test xlru=286) 34.0 % 40.1-51.0 MEAN CORPUSCULAR VOLUME (BEAKER) (test kkui=230) 84.6 fL 79.0-92.2 MEAN CORPUSCULAR HEMOGLOBIN (BEAKER) (test rpon=084) 25.1 pg 25.7-32.2 MEAN CORPUSCULAR HEMOGLOBIN CONC (BEAKER) (test spnb=168) 29.7 GM/DL 32.3- 36.5 RED CELL DISTRIBUTION WIDTH (BEAKER) (test higo=650) 15.9 % 11.6-14.4 PLATELET COUNT (BEAKER) (test pnju=003) 280 K/CU MM 150-450 MEAN PLATELET VOLUME (BEAKER) (test hckn=020) 9.7 fL 9.4-12.4 NUCLEATED RED BLOOD CELLS (BEAKER) (test iknl=843) 0 /100 WBC 0-0 NEUTROPHILS RELATIVE PERCENT (BEAKER) (test vlgj=695) 59 % LYMPHOCYTES RELATIVE PERCENT (BEAKER) (test sizx=642) 26 % MONOCYTES RELATIVE PERCENT (BEAKER) (test kqal=746) 9 % EOSINOPHILS RELATIVE PERCENT (BEAKER) (test vuli=436) 6 % BASOPHILS RELATIVE PERCENT (BEAKER) (test tzyn=697) 1 % NEUTROPHILS ABSOLUTE COUNT (BEAKER) (test ylxl=705) 4.90 K/ L 1.78-5.38 LYMPHOCYTES ABSOLUTE COUNT (BEAKER) (test eotg=657) 2.13 K/ L 1.32-3.57 MONOCYTES ABSOLUTE COUNT (BEAKER) (test gbrr=206) 0.75 K/ L 0.30-0.82 EOSINOPHILS ABSOLUTE COUNT (BEAKER) (test xrva=675) 0.47 K/ L 0.04-0.54 BASOPHILS ABSOLUTE COUNT (BEAKER) (test fgpx=367) 0.08 K/ L 0.01-0.08 IMMATURE GRANULOCYTES-RELATIVE PERCENT (BEAKER) (test xbot=3026) 0 % 0-1 RAD, CHEST, 1 VIEW, NON [id number] 03:24:00Reason for exam:->follow up PneumoniaShould this be performed at the bedside?->YesFINAL REPORT CLINICAL INDICATION: Follow-up pneumonia Comparison: 11/09/2017 A frontal view of the chest is submitted. There is stable prominence of the cardiac silhouette.. Central pulmonary vascular congestion and bilateral interstitial and patchy airspace opacities, centered on the perihilar lungs, are suggestive of pulmonary edema. A moderate right and small left pleural effusions appear similar to previous as do subjacent pulmonary opacities, probably a combination of atelectasis and edema. Pneumonitis should be excluded clinically. There is no pneumothorax. A tracheostomy tube is stable. IMPRESSION : No significant interval change. Signed: [facility] MDReport Verified Date/ Time: 11/23/2017 03:24:46 Reading Location: [address] Reading Room -GLUCOSE [id number] 21:06:00* Test Item Value Reference Range Comments POC-GLUCOSE METER (BEAKER) (test wvek=6859) 99 mg/dL 70-110 TESTED AT [place] [id number] [facility] [id number] 04:16:00* Test Item Value Reference Range Comments MAGNESIUM (BEAKER) (test jboa=247) 1.6 mg/dL 1.6-2.6 Specimen slightly hemolyzed [id number] 04:16:00* Test Item Value Reference Range Comments PHOSPHORUS (BEAKER) (test aqds=382) 3.6 mg/dL 2.3-4.7 Specimen slightly hemolyzed BASIC METABOLIC [id number] 04:16:00* Test Item Value Reference Range Comments SODIUM (BEAKER) (test zret=112) 141 meq/L 136-145 POTASSIUM (BEAKER) (test mgei=129) 3.7 meq/L 3.5-5.1 Specimen slightly hemolyzed CHLORIDE (BEAKER) (test xlca=604) 107 meq/L 98-107 CO2 (BEAKER) (test cugn=180) 26 meq/L 22-29 BLOOD UREA NITROGEN (BEAKER) (test mkzb=599) 31 mg/dL 7-21 CREATININE (BEAKER) (test dmxt=001) 0.40 mg/dL 0.57-1.25 Specimen slightly hemolyzed GLUCOSE RANDOM (BEAKER) (test uxpn=973) 96 mg/dL 70-105 CALCIUM (BEAKER) (test shxf=382) 8.6 mg/dL 8.4-10.2 EGFR (BEAKER) (test wfsd=2929) 226 mL/min/1.73 sq m ESTIMATED GFR IS NOT ACCURATE CREATININE CLEARANCE IN PREDICTING GLOMERULAR FILTRATION RATE. ESTIMATED GFR IS NOT APPLICABLE FOR DIALYSIS PATIENTS. CBC W/PLT COUNT & AUTO [id number] 05:52:00* Test Item Value Reference Range Comments WHITE BLOOD CELL COUNT (BEAKER) (test ymmp=215) 6.5 K/ L 3.5-10.5 RED BLOOD CELL COUNT (BEAKER) (test iumu=517) 3.99 M/ L 4.63-6.08 HEMOGLOBIN (BEAKER) (test kclj=254) 10.1 GM/DL 13.7-17.5 HEMATOCRIT (BEAKER) (test spdy=613) 33.7 % 40.1-51.0 MEAN CORPUSCULAR VOLUME (BEAKER) (test dzcg=100) 84.5 fL 79.0-92.2 MEAN CORPUSCULAR HEMOGLOBIN (BEAKER) (test kilo=648) 25.3 pg 25.7-32.2 MEAN CORPUSCULAR HEMOGLOBIN CONC (BEAKER) (test tybq=937) 30.0 GM/DL 32.3- 36.5 RED CELL DISTRIBUTION WIDTH (BEAKER) (test wpec=618) 16.1 % 11.6-14.4 PLATELET COUNT (BEAKER) (test fsnc=161) 295 K/CU MM 150-450 MEAN PLATELET VOLUME (BEAKER) (test qsoh=332) 10.0 fL 9.4-12.4 NUCLEATED RED BLOOD CELLS (BEAKER) (test hidd=886) 0 /100 WBC 0-0 NEUTROPHILS RELATIVE PERCENT (BEAKER) (test bqqd=301) 53 % LYMPHOCYTES RELATIVE PERCENT (BEAKER) (test neik=219) 33 % MONOCYTES RELATIVE PERCENT (BEAKER) (test xobr=058) 9 % EOSINOPHILS RELATIVE PERCENT (BEAKER) (test mvca=794) 4 % BASOPHILS RELATIVE PERCENT (BEAKER) (test nzry=142) 1 % NEUTROPHILS ABSOLUTE COUNT (BEAKER) (test bjrv=777) 3.50 K/ L 1.78-5.38 LYMPHOCYTES ABSOLUTE COUNT (BEAKER) (test spfb=691) 2.16 K/ L 1.32-3.57 MONOCYTES ABSOLUTE COUNT (BEAKER) (test alfs=459) 0.56 K/ L 0.30-0.82 EOSINOPHILS ABSOLUTE COUNT (BEAKER) (test zrcx=300) 0.26 K/ L 0.04-0.54 BASOPHILS ABSOLUTE COUNT (BEAKER) (test jvtb=968) 0.05 K/ L 0.01-0.08 IMMATURE GRANULOCYTES-RELATIVE PERCENT (BEAKER) (test fwtk=1021) 0 % 0-1 [id number] 05:00:00* Test Item Value Reference Range Comments PHOSPHORUS (BEAKER) (test lxmh=174) 3.8 mg/dL 2.3-4.7 [id number] 05:00:00* Test Item Value Reference Range Comments MAGNESIUM (BEAKER) (test qrck=545) 1.7 mg/dL 1.6-2.6 BASIC METABOLIC [id number] 05:00:00* Test Item Value Reference Range Comments SODIUM (BEAKER) (test daec=261) 141 meq/L 136-145 POTASSIUM (BEAKER) (test xvfl=728) 4.2 meq/L 3.5-5.1 CHLORIDE (BEAKER) (test xrtf=798) 104 meq/L 98-107 CO2 (BEAKER) (test oknv=068) 29 meq/L 22-29 BLOOD UREA NITROGEN (BEAKER) (test hwdp=635) 34 mg/dL 7-21 CREATININE (BEAKER) (test ucik=118) 0.42 mg/dL 0.57-1.25 GLUCOSE RANDOM (BEAKER) (test umrd=348) 106 mg/dL 70-105 CALCIUM (BEAKER) (test dqed=392) 9.4 mg/dL 8.4-10.2 EGFR (BEAKER) (test gkww=7444) 214 mL/min/1.73 sq m ESTIMATED GFR IS NOT ACCURATE CREATININE CLEARANCE IN PREDICTING GLOMERULAR FILTRATION RATE. ESTIMATED GFR IS NOT APPLICABLE FOR DIALYSIS PATIENTS. [id number] 06:14:00* Test Item Value Reference Range Comments MAGNESIUM (BEAKER) (test xass=362) 1.7 mg/dL 1.6-2.6 Specimen slightly hemolyzed [id number] 06:14:00* Test Item Value Reference Range Comments PHOSPHORUS (BEAKER) (test kzlh=009) 3.0 mg/dL 2.3-4.7 Specimen slightly hemolyzed BASIC METABOLIC [id number] 06:14:00* Test Item Value Reference Range Comments SODIUM (BEAKER) (test gzho=231) 141 meq/L 136-145 POTASSIUM (BEAKER) (test itbu=926) 4.2 meq/L 3.5-5.1 Specimen slightly hemolyzed CHLORIDE (BEAKER) (test xoxe=589) 105 meq/L 98-107 CO2 (BEAKER) (test hrdl=821) 24 meq/L 22-29 BLOOD UREA NITROGEN (BEAKER) (test vial=037) 28 mg/dL 7-21 CREATININE (BEAKER) (test vstr=071) 0.48 mg/dL 0.57-1.25 Specimen slightly hemolyzed GLUCOSE RANDOM (BEAKER) (test ojgo=082) 100 mg/dL 70-105 CALCIUM (BEAKER) (test qlud=549) 9.1 mg/dL 8.4-10.2 EGFR (BEAKER) (test gyvx=9545) 183 mL/min/1.73 sq m ESTIMATED GFR IS NOT ACCURATE CREATININE CLEARANCE IN PREDICTING GLOMERULAR FILTRATION RATE. ESTIMATED GFR IS NOT APPLICABLE FOR DIALYSIS PATIENTS. [id number] 10:01:00* Test Item Value Reference Range Comments PHOSPHORUS (BEAKER) (test cbbo=346) 3.8 mg/dL 2.3-4.7 [id number] 10:01:00* Test Item Value Reference Range Comments MAGNESIUM (BEAKER) (test srhz=565) 1.6 mg/dL 1.6-2.6 BASIC METABOLIC [id number] 10:01:00* Test Item Value Reference Range Comments SODIUM (BEAKER) (test fpfo=793) 143 meq/L 136-145 POTASSIUM (BEAKER) (test hpwl=031) 4.0 meq/L 3.5-5.1 CHLORIDE (BEAKER) (test gqtd=848) 102 meq/L 98-107 CO2 (BEAKER) (test mypt=975) 33 meq/L 22-29 BLOOD UREA NITROGEN (BEAKER) (test kihb=320) 27 mg/dL 7-21 CREATININE (BEAKER) (test lbdv=541) 0.48 mg/dL 0.57-1.25 GLUCOSE RANDOM (BEAKER) (test prvj=575) 120 mg/dL 70-105 CALCIUM (BEAKER) (test bxde=541) 9.4 mg/dL 8.4-10.2 EGFR (BEAKER) (test syvn=8152) 183 mL/min/1.73 sq m ESTIMATED GFR IS NOT ACCURATE CREATININE CLEARANCE IN PREDICTING GLOMERULAR FILTRATION RATE. ESTIMATED GFR IS NOT APPLICABLE FOR DIALYSIS PATIENTS. CBC W/PLT COUNT & AUTO [id number] 09:50:00* Test Item Value Reference Range Comments WHITE BLOOD CELL COUNT (BEAKER) (test rerd=750) 7.3 K/ L 3.5-10.5 RED BLOOD CELL COUNT (BEAKER) (test pekb=684) 3.96 M/ L 4.63-6.08 HEMOGLOBIN (BEAKER) (test zoca=496) 10.0 GM/DL 13.7-17.5 HEMATOCRIT (BEAKER) (test rntc=494) 33.9 % 40.1-51.0 MEAN CORPUSCULAR VOLUME (BEAKER) (test euzg=931) 85.6 fL 79.0-92.2 MEAN CORPUSCULAR HEMOGLOBIN (BEAKER) (test mvwx=780) 25.3 pg 25.7-32.2 MEAN CORPUSCULAR HEMOGLOBIN CONC (BEAKER) (test jkop=181) 29.5 GM/DL 32.3- 36.5 RED CELL DISTRIBUTION WIDTH (BEAKER) (test gfis=576) 16.2 % 11.6-14.4 PLATELET COUNT (BEAKER) (test fbqo=602) 262 K/CU MM 150-450 MEAN PLATELET VOLUME (BEAKER) (test vhkq=118) 9.5 fL 9.4-12.4 NUCLEATED RED BLOOD CELLS (BEAKER) (test gkcp=021) 0 /100 WBC 0-0 NEUTROPHILS RELATIVE PERCENT (BEAKER) (test texl=153) 60 % LYMPHOCYTES RELATIVE PERCENT (BEAKER) (test jtzt=144) 26 % MONOCYTES RELATIVE PERCENT (BEAKER) (test igvt=906) 9 % EOSINOPHILS RELATIVE PERCENT (BEAKER) (test sxzo=062) 4 % BASOPHILS RELATIVE PERCENT (BEAKER) (test tscw=413) 1 % NEUTROPHILS ABSOLUTE COUNT (BEAKER) (test ucox=402) 4.35 K/ L 1.78-5.38 LYMPHOCYTES ABSOLUTE COUNT (BEAKER) (test xdts=221) 1.86 K/ L 1.32-3.57 MONOCYTES ABSOLUTE COUNT (BEAKER) (test vsbg=583) 0.67 K/ L 0.30-0.82 EOSINOPHILS ABSOLUTE COUNT (BEAKER) (test verd=490) 0.32 K/ L 0.04-0.54 BASOPHILS ABSOLUTE COUNT (BEAKER) (test cfrc=138) 0.04 K/ L 0.01-0.08 IMMATURE GRANULOCYTES-RELATIVE PERCENT (BEAKER) (test vzad=7068) 0 % 0-1 CALCIUM, [id number] 09:41:00* Test Item Value Reference Range Comments CALCIUM IONIZED (BEAKER) (test hmmn=058) 1.13 mmol/L 1.12-1.27 PH, BLOOD (BEAKER) (test fgjq=1630) 7.37 CBC W/PLT COUNT & AUTO [id number] 05:04:00* Test Item Value Reference Range Comments WHITE BLOOD CELL COUNT (BEAKER) (test qhkp=116) 7.0 K/ L 3.5-10.5 RED BLOOD CELL COUNT (BEAKER) (test gkja=513) 4.03 M/ L 4.63-6.08 HEMOGLOBIN (BEAKER) (test bvcj=435) 10.4 GM/DL 13.7-17.5 HEMATOCRIT (BEAKER) (test nucs=504) 34.4 % 40.1-51.0 MEAN CORPUSCULAR VOLUME (BEAKER) (test vztc=586) 85.4 fL 79.0-92.2 MEAN CORPUSCULAR HEMOGLOBIN (BEAKER) (test fomk=712) 25.8 pg 25.7-32.2 MEAN CORPUSCULAR HEMOGLOBIN CONC (BEAKER) (test vvzq=221) 30.2 GM/DL 32.3- 36.5 RED CELL DISTRIBUTION WIDTH (BEAKER) (test hgms=918) 16.3 % 11.6-14.4 PLATELET COUNT (BEAKER) (test sqyu=893) 266 K/CU MM 150-450 MEAN PLATELET VOLUME (BEAKER) (test vdai=971) 10.1 fL 9.4-12.4 NUCLEATED RED BLOOD CELLS (BEAKER) (test qspb=955) 0 /100 WBC 0-0 NEUTROPHILS RELATIVE PERCENT (BEAKER) (test pvdw=007) 58 % LYMPHOCYTES RELATIVE PERCENT (BEAKER) (test qxgs=050) 27 % MONOCYTES RELATIVE PERCENT (BEAKER) (test tcdm=560) 9 % EOSINOPHILS RELATIVE PERCENT (BEAKER) (test wyfv=409) 5 % BASOPHILS RELATIVE PERCENT (BEAKER) (test thvp=871) 1 % NEUTROPHILS ABSOLUTE COUNT (BEAKER) (test dhli=114) 4.04 K/ L 1.78-5.38 LYMPHOCYTES ABSOLUTE COUNT (BEAKER) (test mlsu=054) 1.85 K/ L 1.32-3.57 MONOCYTES ABSOLUTE COUNT (BEAKER) (test xyjs=063) 0.65 K/ L 0.30-0.82 EOSINOPHILS ABSOLUTE COUNT (BEAKER) (test wvkp=184) 0.33 K/ L 0.04-0.54 BASOPHILS ABSOLUTE COUNT (BEAKER) (test zmth=703) 0.05 K/ L 0.01-0.08 IMMATURE GRANULOCYTES-RELATIVE PERCENT (BEAKER) (test euaq=9567) 1 % 0-1 [id number] 04:25:00* Test Item Value Reference Range Comments PHOSPHORUS (BEAKER) (test kgkn=544) 3.4 mg/dL 2.3-4.7 [id number] 04:25:00* Test Item Value Reference Range Comments MAGNESIUM (BEAKER) (test kmer=736) 1.6 mg/dL 1.6-2.6 BASIC METABOLIC [id number] 04:25:00* Test Item Value Reference Range Comments SODIUM (BEAKER) (test vfqs=394) 142 meq/L 136-145 POTASSIUM (BEAKER) (test gqwd=905) 4.1 meq/L 3.5-5.1 CHLORIDE (BEAKER) (test kevz=250) 103 meq/L 98-107 CO2 (BEAKER) (test zojb=561) 30 meq/L 22-29 BLOOD UREA NITROGEN (BEAKER) (test tabf=628) 30 mg/dL 7-21 CREATININE (BEAKER) (test lgwb=803) 0.43 mg/dL 0.57-1.25 GLUCOSE RANDOM (BEAKER) (test bohw=569) 107 mg/dL 70-105 CALCIUM (BEAKER) (test gxvh=430) 9.2 mg/dL 8.4-10.2 EGFR (BEAKER) (test mykb=0045) 208 mL/min/1.73 sq m ESTIMATED GFR IS NOT ACCURATE CREATININE CLEARANCE IN PREDICTING GLOMERULAR FILTRATION RATE. ESTIMATED GFR IS NOT APPLICABLE FOR DIALYSIS PATIENTS. [id number] 06:30:00* Test Item Value Reference Range Comments MAGNESIUM (BEAKER) (test ktjd=369) 1.6 mg/dL 1.6-2.6 [id number] 06:30:00* Test Item Value Reference Range Comments PHOSPHORUS (BEAKER) (test ihau=626) 2.8 mg/dL 2.3-4.7 BASIC METABOLIC [id number] 06:30:00* Test Item Value Reference Range Comments SODIUM (BEAKER) (test naox=997) 140 meq/L 136-145 POTASSIUM (BEAKER) (test pqgq=003) 4.2 meq/L 3.5-5.1 CHLORIDE (BEAKER) (test oxpa=728) 100 meq/L 98-107 CO2 (BEAKER) (test blct=874) 33 meq/L 22-29 BLOOD UREA NITROGEN (BEAKER) (test lygc=793) 35 mg/dL 7-21 CREATININE (BEAKER) (test ecng=793) 0.42 mg/dL 0.57-1.25 GLUCOSE RANDOM (BEAKER) (test qffa=580) 116 mg/dL 70-105 CALCIUM (BEAKER) (test nhss=308) 9.2 mg/dL 8.4-10.2 EGFR (BEAKER) (test ylzx=9086) 214 mL/min/1.73 sq m ESTIMATED GFR IS NOT ACCURATE CREATININE CLEARANCE IN PREDICTING GLOMERULAR FILTRATION RATE. ESTIMATED GFR IS NOT APPLICABLE FOR DIALYSIS PATIENTS. FUNGUS CULTURE + [id number] 16:29:00* Test Item Value Reference Range Comments CULTURE (BEAKER) (test hayc=9614) No fungus isolated in 28 days FUNGUS SMEAR (BEAKER) (test wltc=9670) No fungi seen [id number] 05:46:00* Test Item Value Reference Range Comments PREALBUMIN (BEAKER) (test cxno=368) 23 mg/dL 14-45 PROTEIN, [id number] 05:38:00* Test Item Value Reference Range Comments TOTAL PROTEIN (BEAKER) (test xjvj=797) 7.0 gm/dL 6.0-8.3 [id number] 05:38:00* Test Item Value Reference Range Comments MAGNESIUM (BEAKER) (test eitd=655) 1.6 mg/dL 1.6-2.6 [id number] 05:38:00* Test Item Value Reference Range Comments PHOSPHORUS (BEAKER) (test cgac=741) 2.8 mg/dL 2.3-4.7 BASIC METABOLIC [id number] 05:38:00* Test Item Value Reference Range Comments SODIUM (BEAKER) (test jrpg=281) 142 meq/L 136-145 POTASSIUM (BEAKER) (test frbf=130) 3.7 meq/L 3.5-5.1 CHLORIDE (BEAKER) (test aotv=305) 104 meq/L 98-107 CO2 (BEAKER) (test cfpo=877) 30 meq/L 22-29 BLOOD UREA NITROGEN (BEAKER) (test smur=485) 35 mg/dL 7-21 CREATININE (BEAKER) (test pwgm=204) 0.41 mg/dL 0.57-1.25 GLUCOSE RANDOM (BEAKER) (test blhg=625) 106 mg/dL 70-105 CALCIUM (BEAKER) (test btod=037) 8.9 mg/dL 8.4-10.2 EGFR (BEAKER) (test jgxz=8927) 220 mL/min/1.73 sq m ESTIMATED GFR IS NOT ACCURATE CREATININE CLEARANCE IN PREDICTING GLOMERULAR FILTRATION RATE. ESTIMATED GFR IS NOT APPLICABLE FOR DIALYSIS PATIENTS. [id number] 05:38:00* Test Item Value Reference Range Comments ALBUMIN (BEAKER) (test ojou=0994) 3.2 g/dL 3.5-5.0 CREATINE KINASE (CK)2017-11-16 05:38:00* Test Item Value Reference Range Comments CREATINE KINASE TOTAL (BEAKER) (test phgr=366) 67 U/L 29-200 [id number] 10:22:00* Test Item Value Reference Range Comments PHOSPHORUS (BEAKER) (test ekic=131) 3.5 mg/dL 2.3-4.7 [id number] 10:22:00* Test Item Value Reference Range Comments MAGNESIUM (BEAKER) (test nkgf=442) 1.5 mg/dL 1.6-2.6 BASIC METABOLIC [id number] 10:22:00* Test Item Value Reference Range Comments SODIUM (BEAKER) (test gbva=205) 140 meq/L 136-145 POTASSIUM (BEAKER) (test vfml=680) 4.3 meq/L 3.5-5.1 CHLORIDE (BEAKER) (test glnh=620) 101 meq/L 98-107 CO2 (BEAKER) (test osqs=827) 34 meq/L 22-29 BLOOD UREA NITROGEN (BEAKER) (test xunk=233) 29 mg/dL 7-21 CREATININE (BEAKER) (test rzac=216) 0.44 mg/dL 0.57-1.25 GLUCOSE RANDOM (BEAKER) (test oixn=683) 125 mg/dL 70-105 CALCIUM (BEAKER) (test zqre=308) 8.9 mg/dL 8.4-10.2 EGFR (BEAKER) (test wmcx=6283) 202 mL/min/1.73 sq m ESTIMATED GFR IS NOT ACCURATE CREATININE CLEARANCE IN PREDICTING GLOMERULAR FILTRATION RATE. ESTIMATED GFR IS NOT APPLICABLE FOR DIALYSIS PATIENTS. CBC W/PLT COUNT & AUTO [id number] 09:34:00* Test Item Value Reference Range Comments WHITE BLOOD CELL COUNT (BEAKER) (test wzxw=742) 6.8 K/ L 3.5-10.5 RED BLOOD CELL COUNT (BEAKER) (test syls=548) 3.71 M/ L 4.63-6.08 HEMOGLOBIN (BEAKER) (test bnfe=650) 9.5 GM/DL 13.7-17.5 HEMATOCRIT (BEAKER) (test hbly=596) 32.1 % 40.1-51.0 MEAN CORPUSCULAR VOLUME (BEAKER) (test xkrh=890) 86.5 fL 79.0-92.2 MEAN CORPUSCULAR HEMOGLOBIN (BEAKER) (test raho=335) 25.6 pg 25.7-32.2 MEAN CORPUSCULAR HEMOGLOBIN CONC (BEAKER) (test cblv=932) 29.6 GM/DL 32.3- 36.5 RED CELL DISTRIBUTION WIDTH (BEAKER) (test nagy=100) 16.5 % 11.6-14.4 PLATELET COUNT (BEAKER) (test terr=102) 246 K/CU MM 150-450 MEAN PLATELET VOLUME (BEAKER) (test zzqd=641) 10.2 fL 9.4-12.4 NUCLEATED RED BLOOD CELLS (BEAKER) (test rbiq=549) 0 /100 WBC 0-0 NEUTROPHILS RELATIVE PERCENT (BEAKER) (test znsx=943) 69 % LYMPHOCYTES RELATIVE PERCENT (BEAKER) (test xjxk=083) 21 % MONOCYTES RELATIVE PERCENT (BEAKER) (test opvc=413) 6 % EOSINOPHILS RELATIVE PERCENT (BEAKER) (test qxke=921) 3 % BASOPHILS RELATIVE PERCENT (BEAKER) (test nqds=423) 1 % NEUTROPHILS ABSOLUTE COUNT (BEAKER) (test dfwo=183) 4.65 K/ L 1.78-5.38 LYMPHOCYTES ABSOLUTE COUNT (BEAKER) (test kzwt=098) 1.41 K/ L 1.32-3.57 MONOCYTES ABSOLUTE COUNT (BEAKER) (test pgxr=319) 0.43 K/ L 0.30-0.82 EOSINOPHILS ABSOLUTE COUNT (BEAKER) (test vqem=989) 0.21 K/ L 0.04-0.54 BASOPHILS ABSOLUTE COUNT (BEAKER) (test sdyg=865) 0.04 K/ L 0.01-0.08 IMMATURE GRANULOCYTES-RELATIVE PERCENT (BEAKER) (test tgnf=9661) 0 % 0-1 HEMOGLOBIN AND [id number] 11:00:00* Test Item Value Reference Range Comments HEMOGLOBIN (BEAKER) (test rtrt=984) 9.1 GM/DL 13.7-17.5 HEMATOCRIT (BEAKER) (test nvxi=300) 30.5 % 40.1-51.0 NOTIFY W/ RESULTS OF REPEAT H/HCBC W/PLT COUNT & AUTO [id number] 07:39:00* Test Item Value Reference Range Comments WHITE BLOOD CELL COUNT (BEAKER) (test wnej=736) 5.5 K/ L 3.5-10.5 RED BLOOD CELL COUNT (BEAKER) (test kdbp=118) 2.76 M/ L 4.63-6.08 HEMOGLOBIN (BEAKER) (test mfbd=819) 7.2 GM/DL 13.7-17.5 HEMATOCRIT (BEAKER) (test tjfx=620) 24.4 % 40.1-51.0 MEAN CORPUSCULAR VOLUME (BEAKER) (test suel=067) 88.4 fL 79.0-92.2 MEAN CORPUSCULAR HEMOGLOBIN (BEAKER) (test qdnj=953) 26.1 pg 25.7-32.2 MEAN CORPUSCULAR HEMOGLOBIN CONC (BEAKER) (test wfey=933) 29.5 GM/DL 32.3- 36.5 RED CELL DISTRIBUTION WIDTH (BEAKER) (test gjvb=556) 16.8 % 11.6-14.4 PLATELET COUNT (BEAKER) (test vwgo=421) 94 K/CU MM 150-450 MEAN PLATELET VOLUME (BEAKER) (test cseb=695) 11.4 fL 9.4-12.4 NUCLEATED RED BLOOD CELLS (BEAKER) (test hzer=704) 0 /100 WBC 0-0 NEUTROPHILS RELATIVE PERCENT (BEAKER) (test wuis=734) 60 % LYMPHOCYTES RELATIVE PERCENT (BEAKER) (test ktig=566) 25 % MONOCYTES RELATIVE PERCENT (BEAKER) (test kflv=314) 10 % EOSINOPHILS RELATIVE PERCENT (BEAKER) (test fesn=127) 5 % BASOPHILS RELATIVE PERCENT (BEAKER) (test zsnm=796) 0 % NEUTROPHILS ABSOLUTE COUNT (BEAKER) (test msrz=961) 3.30 K/ L 1.78-5.38 LYMPHOCYTES ABSOLUTE COUNT (BEAKER) (test paun=350) 1.38 K/ L 1.32-3.57 MONOCYTES ABSOLUTE COUNT (BEAKER) (test kfdj=028) 0.56 K/ L 0.30-0.82 EOSINOPHILS ABSOLUTE COUNT (BEAKER) (test qlko=427) 0.25 K/ L 0.04-0.54 BASOPHILS ABSOLUTE COUNT (BEAKER) (test qlep=170) 0.02 K/ L 0.01-0.08 IMMATURE GRANULOCYTES-RELATIVE PERCENT (BEAKER) (test nsmp=3723) 0 % 0-1 [id number] 06:36:00* Test Item Value Reference Range Comments PHOSPHORUS (BEAKER) (test oewd=790) 4.0 mg/dL 2.3-4.7 [id number] 06:36:00* Test Item Value Reference Range Comments MAGNESIUM (BEAKER) (test pzfv=370) 1.6 mg/dL 1.6-2.6 BASIC METABOLIC [id number] 06:36:00* Test Item Value Reference Range Comments SODIUM (BEAKER) (test ilrs=694) 140 meq/L 136-145 POTASSIUM (BEAKER) (test wyah=489) 4.5 meq/L 3.5-5.1 CHLORIDE (BEAKER) (test ljim=989) 105 meq/L 98-107 CO2 (BEAKER) (test qsjc=404) 26 meq/L 22-29 BLOOD UREA NITROGEN (BEAKER) (test wagb=026) 26 mg/dL 7-21 CREATININE (BEAKER) (test wnnn=118) 0.40 mg/dL 0.57-1.25 GLUCOSE RANDOM (BEAKER) (test dlwg=236) 89 mg/dL 70-105 CALCIUM (BEAKER) (test ldqr=388) 8.6 mg/dL 8.4-10.2 EGFR (BEAKER) (test zhju=7513) 226 mL/min/1.73 sq m ESTIMATED GFR IS NOT ACCURATE CREATININE CLEARANCE IN PREDICTING GLOMERULAR FILTRATION RATE. ESTIMATED GFR IS NOT APPLICABLE FOR DIALYSIS PATIENTS. [id number] 05:49:00* Test Item Value Reference Range Comments PHOSPHORUS (BEAKER) (test aonb=938) 3.3 mg/dL 2.3-4.7 [id number] 05:49:00* Test Item Value Reference Range Comments MAGNESIUM (BEAKER) (test hryb=933) 1.7 mg/dL 1.6-2.6 BASIC METABOLIC [id number] 05:49:00* Test Item Value Reference Range Comments SODIUM (BEAKER) (test oynp=903) 141 meq/L 136-145 POTASSIUM (BEAKER) (test qbmx=681) 3.8 meq/L 3.5-5.1 CHLORIDE (BEAKER) (test niac=014) 103 meq/L 98-107 CO2 (BEAKER) (test abzt=017) 32 meq/L 22-29 BLOOD UREA NITROGEN (BEAKER) (test cyzz=607) 25 mg/dL 7-21 CREATININE (BEAKER) (test jfih=455) 0.43 mg/dL 0.57-1.25 GLUCOSE RANDOM (BEAKER) (test ifjp=276) 106 mg/dL 70-105 CALCIUM (BEAKER) (test ripg=738) 8.8 mg/dL 8.4-10.2 EGFR (BEAKER) (test pwtr=8645) 208 mL/min/1.73 sq m ESTIMATED GFR IS NOT ACCURATE CREATININE CLEARANCE IN PREDICTING GLOMERULAR FILTRATION RATE. ESTIMATED GFR IS NOT APPLICABLE FOR DIALYSIS PATIENTS. CBC W/PLT COUNT & AUTO [id number] 05:08:00* Test Item Value Reference Range Comments WHITE BLOOD CELL COUNT (BEAKER) (test ditu=516) 8.4 K/ L 3.5-10.5 RED BLOOD CELL COUNT (BEAKER) (test kpel=648) 3.56 M/ L 4.63-6.08 HEMOGLOBIN (BEAKER) (test hnbq=640) 9.1 GM/DL 13.7-17.5 HEMATOCRIT (BEAKER) (test tocw=675) 30.9 % 40.1-51.0 MEAN CORPUSCULAR VOLUME (BEAKER) (test neqv=388) 86.8 fL 79.0-92.2 MEAN CORPUSCULAR HEMOGLOBIN (BEAKER) (test iokj=783) 25.6 pg 25.7-32.2 MEAN CORPUSCULAR HEMOGLOBIN CONC (BEAKER) (test oxcd=990) 29.4 GM/DL 32.3- 36.5 RED CELL DISTRIBUTION WIDTH (BEAKER) (test xgdi=293) 16.9 % 11.6-14.4 PLATELET COUNT (BEAKER) (test asgz=106) 260 K/CU MM 150-450 MEAN PLATELET VOLUME (BEAKER) (test ggkl=479) 10.5 fL 9.4-12.4 NUCLEATED RED BLOOD CELLS (BEAKER) (test oziw=915) 0 /100 WBC 0-0 NEUTROPHILS RELATIVE PERCENT (BEAKER) (test rihs=937) 61 % LYMPHOCYTES RELATIVE PERCENT (BEAKER) (test vbes=004) 24 % MONOCYTES RELATIVE PERCENT (BEAKER) (test gfqg=238) 10 % EOSINOPHILS RELATIVE PERCENT (BEAKER) (test dveq=293) 4 % BASOPHILS RELATIVE PERCENT (BEAKER) (test lynr=841) 1 % NEUTROPHILS ABSOLUTE COUNT (BEAKER) (test wjso=810) 5.14 K/ L 1.78-5.38 LYMPHOCYTES ABSOLUTE COUNT (BEAKER) (test bshn=628) 2.01 K/ L 1.32-3.57 MONOCYTES ABSOLUTE COUNT (BEAKER) (test vosl=215) 0.86 K/ L 0.30-0.82 EOSINOPHILS ABSOLUTE COUNT (BEAKER) (test jlyf=999) 0.35 K/ L 0.04-0.54 BASOPHILS ABSOLUTE COUNT (BEAKER) (test vail=300) 0.05 K/ L 0.01-0.08 IMMATURE GRANULOCYTES-RELATIVE PERCENT (BEAKER) (test fayw=4343) 0 % 0-1 [id number] 05:52:00* Test Item Value Reference Range Comments PHOSPHORUS (BEAKER) (test upfv=417) 2.6 mg/dL 2.3-4.7 [id number] 05:52:00* Test Item Value Reference Range Comments MAGNESIUM (BEAKER) (test dpor=975) 1.7 mg/dL 1.6-2.6 BASIC METABOLIC [id number] 05:52:00* Test Item Value Reference Range Comments SODIUM (BEAKER) (test dvie=997) 140 meq/L 136-145 POTASSIUM (BEAKER) (test iwcv=001) 3.1 meq/L 3.5-5.1 CHLORIDE (BEAKER) (test aadw=577) 101 meq/L 98-107 CO2 (BEAKER) (test zfml=617) 32 meq/L 22-29 BLOOD UREA NITROGEN (BEAKER) (test tder=538) 28 mg/dL 7-21 CREATININE (BEAKER) (test rplr=460) 0.42 mg/dL 0.57-1.25 GLUCOSE RANDOM (BEAKER) (test hlee=357) 108 mg/dL 70-105 CALCIUM (BEAKER) (test mhcv=556) 8.7 mg/dL 8.4-10.2 EGFR (BEAKER) (test glyh=1162) 214 mL/min/1.73 sq m ESTIMATED GFR IS NOT ACCURATE CREATININE CLEARANCE IN PREDICTING GLOMERULAR FILTRATION RATE. ESTIMATED GFR IS NOT APPLICABLE FOR DIALYSIS PATIENTS. CBC W/PLT COUNT & AUTO [id number] 05:35:00* Test Item Value Reference Range Comments WHITE BLOOD CELL COUNT (BEAKER) (test ggpp=465) 7.0 K/ L 3.5-10.5 RED BLOOD CELL COUNT (BEAKER) (test spbw=170) 3.48 M/ L 4.63-6.08 HEMOGLOBIN (BEAKER) (test jhoa=101) 9.0 GM/DL 13.7-17.5 HEMATOCRIT (BEAKER) (test nqzg=105) 29.9 % 40.1-51.0 MEAN CORPUSCULAR VOLUME (BEAKER) (test rmvz=861) 85.9 fL 79.0-92.2 MEAN CORPUSCULAR HEMOGLOBIN (BEAKER) (test jaaj=913) 25.9 pg 25.7-32.2 MEAN CORPUSCULAR HEMOGLOBIN CONC (BEAKER) (test skev=704) 30.1 GM/DL 32.3- 36.5 RED CELL DISTRIBUTION WIDTH (BEAKER) (test nehh=806) 17.1 % 11.6-14.4 PLATELET COUNT (BEAKER) (test jjvl=207) 267 K/CU MM 150-450 MEAN PLATELET VOLUME (BEAKER) (test qdvd=983) 10.4 fL 9.4-12.4 NUCLEATED RED BLOOD CELLS (BEAKER) (test swpx=059) 0 /100 WBC 0-0 NEUTROPHILS RELATIVE PERCENT (BEAKER) (test rejh=966) 60 % LYMPHOCYTES RELATIVE PERCENT (BEAKER) (test btyw=528) 26 % MONOCYTES RELATIVE PERCENT (BEAKER) (test wsfu=731) 9 % EOSINOPHILS RELATIVE PERCENT (BEAKER) (test lvmr=639) 4 % BASOPHILS RELATIVE PERCENT (BEAKER) (test zdqu=564) 0 % NEUTROPHILS ABSOLUTE COUNT (BEAKER) (test oalf=682) 4.17 K/ L 1.78-5.38 LYMPHOCYTES ABSOLUTE COUNT (BEAKER) (test cjxr=208) 1.81 K/ L 1.32-3.57 MONOCYTES ABSOLUTE COUNT (BEAKER) (test wnxx=647) 0.66 K/ L 0.30-0.82 EOSINOPHILS ABSOLUTE COUNT (BEAKER) (test hqhw=767) 0.31 K/ L 0.04-0.54 BASOPHILS ABSOLUTE COUNT (BEAKER) (test wcwt=857) 0.03 K/ L 0.01-0.08 IMMATURE GRANULOCYTES-RELATIVE PERCENT (BEAKER) (test dtas=7562) 0 % 0-1 [id number] 09:14:00* Test Item Value Reference Range Comments MAGNESIUM (BEAKER) (test wsue=665) 1.7 mg/dL 1.6-2.6 Specimen slightly hemolyzed [id number] 09:14:00* Test Item Value Reference Range Comments PHOSPHORUS (BEAKER) (test jmsl=424) 3.1 mg/dL 2.3-4.7 Specimen slightly hemolyzed BASIC METABOLIC [id number] 09:14:00* Test Item Value Reference Range Comments SODIUM (BEAKER) (test rcye=984) 141 meq/L 136-145 POTASSIUM (BEAKER) (test rqte=818) 4.0 meq/L 3.5-5.1 Specimen slightly hemolyzed CHLORIDE (BEAKER) (test sdrv=984) 103 meq/L 98-107 CO2 (BEAKER) (test fthm=111) 30 meq/L 22-29 BLOOD UREA NITROGEN (BEAKER) (test yxbw=239) 19 mg/dL 7-21 CREATININE (BEAKER) (test dcjq=957) 0.41 mg/dL 0.57-1.25 Specimen slightly hemolyzed GLUCOSE RANDOM (BEAKER) (test sout=844) 108 mg/dL 70-105 CALCIUM (BEAKER) (test bknk=287) 8.9 mg/dL 8.4-10.2 EGFR (BEAKER) (test qbes=4447) 220 mL/min/1.73 sq m ESTIMATED GFR IS NOT ACCURATE CREATININE CLEARANCE IN PREDICTING GLOMERULAR FILTRATION RATE. ESTIMATED GFR IS NOT APPLICABLE FOR DIALYSIS PATIENTS. CBC W/PLT COUNT & AUTO [id number] 08:37:00* Test Item Value Reference Range Comments WHITE BLOOD CELL COUNT (BEAKER) (test ivon=123) 8.7 K/ L 3.5-10.5 RED BLOOD CELL COUNT (BEAKER) (test dgoa=763) 3.51 M/ L 4.63-6.08 HEMOGLOBIN (BEAKER) (test jmxk=510) 9.0 GM/DL 13.7-17.5 HEMATOCRIT (BEAKER) (test lmcs=093) 30.4 % 40.1-51.0 MEAN CORPUSCULAR VOLUME (BEAKER) (test mvua=468) 86.6 fL 79.0-92.2 MEAN CORPUSCULAR HEMOGLOBIN (BEAKER) (test oznq=320) 25.6 pg 25.7-32.2 MEAN CORPUSCULAR HEMOGLOBIN CONC (BEAKER) (test wnbi=715) 29.6 GM/DL 32.3- 36.5 RED CELL DISTRIBUTION WIDTH (BEAKER) (test abew=764) 17.0 % 11.6-14.4 PLATELET COUNT (BEAKER) (test ewlp=559) 252 K/CU MM 150-450 MEAN PLATELET VOLUME (BEAKER) (test rouu=614) 10.7 fL 9.4-12.4 NUCLEATED RED BLOOD CELLS (BEAKER) (test ebjm=378) 0 /100 WBC 0-0 NEUTROPHILS RELATIVE PERCENT (BEAKER) (test vzaz=007) 75 % LYMPHOCYTES RELATIVE PERCENT (BEAKER) (test bqyj=752) 14 % MONOCYTES RELATIVE PERCENT (BEAKER) (test udij=813) 8 % EOSINOPHILS RELATIVE PERCENT (BEAKER) (test ygie=166) 2 % BASOPHILS RELATIVE PERCENT (BEAKER) (test adhg=829) 1 % NEUTROPHILS ABSOLUTE COUNT (BEAKER) (test hyjp=232) 6.52 K/ L 1.78-5.38 LYMPHOCYTES ABSOLUTE COUNT (BEAKER) (test jaaz=896) 1.26 K/ L 1.32-3.57 MONOCYTES ABSOLUTE COUNT (BEAKER) (test zfvy=343) 0.71 K/ L 0.30-0.82 EOSINOPHILS ABSOLUTE COUNT (BEAKER) (test qxuy=790) 0.17 K/ L 0.04-0.54 BASOPHILS ABSOLUTE COUNT (BEAKER) (test anmm=909) 0.05 K/ L 0.01-0.08 IMMATURE GRANULOCYTES-RELATIVE PERCENT (BEAKER) (test gfre=5884) 0 % 0-1 [id number] 13:14:00Medical Cytology Report Case: [id number] Authorizing Provider: Jimmie Cooper, Collected: 11/05/2017 Brigid YANEZ Ordering Location: [address] Received: 0827 Pathologist: Shelly Thompson MD Specimen: Pleural, Right RIGHT PLEURAL FLUID (CYTOSPINS): - NO MALIGNANT CELLS IDENTIFIED Signing Pathologist Direct Phone Line: [phone] signed by Shelly Thompson MD on 11/10/2017 at 1:14 [id number] pleural effusionRIGHT PLEURAL [id number] ml brown fluid; 4 cytospins preparedCollected: [id number]: [id number] [facility], Department of Pathology, [address] [place] [address], [facility], Department of Pathology, [address] [place] [address], CLNNXOWUAE LEVEL, [id number] 12:02:00* Test Item Value Reference Range Comments VANCOMYCIN TROUGH (BEAKER) (test wour=449) 16.9 ug/mL 10.0-20.0 CBC W/PLT COUNT & AUTO [id number] 08:58:00* Test Item Value Reference Range Comments WHITE BLOOD CELL COUNT (BEAKER) (test mhlu=310) 6.2 K/ L 3.5-10.5 RED BLOOD CELL COUNT (BEAKER) (test qknc=961) 3.36 M/ L 4.63-6.08 HEMOGLOBIN (BEAKER) (test teoh=923) 8.7 GM/DL 13.7-17.5 HEMATOCRIT (BEAKER) (test zkde=607) 29.5 % 40.1-51.0 MEAN CORPUSCULAR VOLUME (BEAKER) (test zqpc=245) 87.8 fL 79.0-92.2 MEAN CORPUSCULAR HEMOGLOBIN (BEAKER) (test wmkl=842) 25.9 pg 25.7-32.2 MEAN CORPUSCULAR HEMOGLOBIN CONC (BEAKER) (test njms=810) 29.5 GM/DL 32.3- 36.5 RED CELL DISTRIBUTION WIDTH (BEAKER) (test cjkl=312) 17.1 % 11.6-14.4 PLATELET COUNT (BEAKER) (test osds=579) 251 K/CU MM 150-450 MEAN PLATELET VOLUME (BEAKER) (test hnvi=918) 10.1 fL 9.4-12.4 NUCLEATED RED BLOOD CELLS (BEAKER) (test szgx=125) 0 /100 WBC 0-0 NEUTROPHILS RELATIVE PERCENT (BEAKER) (test egmu=269) 66 % LYMPHOCYTES RELATIVE PERCENT (BEAKER) (test gdzs=615) 20 % MONOCYTES RELATIVE PERCENT (BEAKER) (test hkjk=240) 9 % EOSINOPHILS RELATIVE PERCENT (BEAKER) (test mvpx=948) 4 % BASOPHILS RELATIVE PERCENT (BEAKER) (test pidv=109) 1 % NEUTROPHILS ABSOLUTE COUNT (BEAKER) (test xfbm=211) 4.10 K/ L 1.78-5.38 LYMPHOCYTES ABSOLUTE COUNT (BEAKER) (test sojg=967) 1.26 K/ L 1.32-3.57 MONOCYTES ABSOLUTE COUNT (BEAKER) (test mpeb=999) 0.53 K/ L 0.30-0.82 EOSINOPHILS ABSOLUTE COUNT (BEAKER) (test bntt=255) 0.26 K/ L 0.04-0.54 BASOPHILS ABSOLUTE COUNT (BEAKER) (test sfwe=978) 0.03 K/ L 0.01-0.08 IMMATURE GRANULOCYTES-RELATIVE PERCENT (BEAKER) (test kqaw=2913) 1 % 0-1 (MANUAL DIFFERENTIAL)2017-11-10 08:58:00* Test Item Value Reference Range Comments TOTAL COUNTED (BEAKER) (test ieky=1801) WBC MORPHOLOGY (BEAKER) (test fddk=455) Normal PLT MORPHOLOGY (BEAKER) (test yppp=649) Normal RBC MORPHOLOGY (BEAKER) (test glxh=475) Normal [id number] 04:11:00* Test Item Value Reference Range Comments PHOSPHORUS (BEAKER) (test zbof=033) 2.6 mg/dL 2.3-4.7 [id number] 04:11:00* Test Item Value Reference Range Comments MAGNESIUM (BEAKER) (test sgwp=461) 1.6 mg/dL 1.6-2.6 BASIC METABOLIC [id number] 04:11:00* Test Item Value Reference Range Comments SODIUM (BEAKER) (test josd=376) 142 meq/L 136-145 POTASSIUM (BEAKER) (test mqio=977) 3.8 meq/L 3.5-5.1 CHLORIDE (BEAKER) (test ivfl=748) 103 meq/L 98-107 CO2 (BEAKER) (test jlac=699) 32 meq/L 22-29 BLOOD UREA NITROGEN (BEAKER) (test hosg=538) 23 mg/dL 7-21 CREATININE (BEAKER) (test vtsn=049) 0.42 mg/dL 0.57-1.25 GLUCOSE RANDOM (BEAKER) (test umow=612) 134 mg/dL 70-105 CALCIUM (BEAKER) (test rtdc=493) 8.8 mg/dL 8.4-10.2 EGFR (BEAKER) (test pklp=9006) 214 mL/min/1.73 sq m ESTIMATED GFR IS NOT ACCURATE CREATININE CLEARANCE IN PREDICTING GLOMERULAR FILTRATION RATE. ESTIMATED GFR IS NOT APPLICABLE FOR DIALYSIS PATIENTS. PROTEIN, [id number] 05:22:00* Test Item Value Reference Range Comments TOTAL PROTEIN (BEAKER) (test ovdy=967) 7.2 gm/dL 6.0-8.3 [id number] 05:22:00* Test Item Value Reference Range Comments MAGNESIUM (BEAKER) (test elbn=550) 1.6 mg/dL 1.6-2.6 [id number] 05:22:00* Test Item Value Reference Range Comments PHOSPHORUS (BEAKER) (test yzhp=799) 2.8 mg/dL 2.3-4.7 BASIC METABOLIC [id number] 05:22:00* Test Item Value Reference Range Comments SODIUM (BEAKER) (test ewvm=509) 143 meq/L 136-145 POTASSIUM (BEAKER) (test ubgz=592) 4.1 meq/L 3.5-5.1 CHLORIDE (BEAKER) (test lvnu=197) 103 meq/L 98-107 CO2 (BEAKER) (test vhdw=565) 32 meq/L 22-29 BLOOD UREA NITROGEN (BEAKER) (test oxnv=474) 26 mg/dL 7-21 CREATININE (BEAKER) (test njib=594) 0.43 mg/dL 0.57-1.25 GLUCOSE RANDOM (BEAKER) (test xyrq=741) 112 mg/dL 70-105 CALCIUM (BEAKER) (test mepc=169) 9.1 mg/dL 8.4-10.2 EGFR (BEAKER) (test bxvj=0693) 208 mL/min/1.73 sq m ESTIMATED GFR IS NOT ACCURATE CREATININE CLEARANCE IN PREDICTING GLOMERULAR FILTRATION RATE. ESTIMATED GFR IS NOT APPLICABLE FOR DIALYSIS PATIENTS. [id number] 05:22:00* Test Item Value Reference Range Comments ALBUMIN (BEAKER) (test jzjl=6648) 3.2 g/dL 3.5-5.0 CREATINE KINASE (CK)2017-11-09 05:22:00* Test Item Value Reference Range Comments CREATINE KINASE TOTAL (BEAKER) (test fcic=608) 64 U/L 29-200 [id number] 05:20:00* Test Item Value Reference Range Comments PREALBUMIN (BEAKER) (test cfao=675) 22 mg/dL 14-45 CBC W/PLT COUNT & AUTO [id number] 04:47:00* Test Item Value Reference Range Comments WHITE BLOOD CELL COUNT (BEAKER) (test jjwq=158) 5.7 K/ L 3.5-10.5 RED BLOOD CELL COUNT (BEAKER) (test volb=849) 3.50 M/ L 4.63-6.08 HEMOGLOBIN (BEAKER) (test tuta=297) 9.0 GM/DL 13.7-17.5 HEMATOCRIT (BEAKER) (test wqns=813) 30.8 % 40.1-51.0 MEAN CORPUSCULAR VOLUME (BEAKER) (test rjip=716) 88.0 fL 79.0-92.2 MEAN CORPUSCULAR HEMOGLOBIN (BEAKER) (test qmxv=348) 25.7 pg 25.7-32.2 MEAN CORPUSCULAR HEMOGLOBIN CONC (BEAKER) (test nvsl=570) 29.2 GM/DL 32.3- 36.5 RED CELL DISTRIBUTION WIDTH (BEAKER) (test sfwi=024) 17.1 % 11.6-14.4 PLATELET COUNT (BEAKER) (test myji=565) 272 K/CU MM 150-450 MEAN PLATELET VOLUME (BEAKER) (test ugdw=641) 10.3 fL 9.4-12.4 NUCLEATED RED BLOOD CELLS (BEAKER) (test udcn=343) 0 /100 WBC 0-0 NEUTROPHILS RELATIVE PERCENT (BEAKER) (test xaga=385) 61 % LYMPHOCYTES RELATIVE PERCENT (BEAKER) (test svhr=675) 28 % MONOCYTES RELATIVE PERCENT (BEAKER) (test trpk=210) 6 % EOSINOPHILS RELATIVE PERCENT (BEAKER) (test mmuz=421) 4 % BASOPHILS RELATIVE PERCENT (BEAKER) (test elee=186) 1 % NEUTROPHILS ABSOLUTE COUNT (BEAKER) (test prsq=763) 3.50 K/ L 1.78-5.38 LYMPHOCYTES ABSOLUTE COUNT (BEAKER) (test ieum=184) 1.59 K/ L 1.32-3.57 MONOCYTES ABSOLUTE COUNT (BEAKER) (test cgrb=271) 0.36 K/ L 0.30-0.82 EOSINOPHILS ABSOLUTE COUNT (BEAKER) (test gepk=969) 0.24 K/ L 0.04-0.54 BASOPHILS ABSOLUTE COUNT (BEAKER) (test ebpi=554) 0.04 K/ L 0.01-0.08 IMMATURE GRANULOCYTES-RELATIVE PERCENT (BEAKER) (test vjba=3810) 0 % 0-1 RAD, CHEST, 1 VIEW, NON [id number] 04:38:00Reason for exam:->medistinal abscessShould this be performed at the bedside?->YesFINAL REPORT CLINICAL INDICATION: Mediastinal abscess Comparison: 11/08/2017 The cardiomediastinal contours are stable. Central pulmonary vascular congestion and right greater than left parenchymal and pleuralopacities are unchanged. There is no pneumothorax. A tracheostomy tube is stable. Signed: Cruz Hampton MDReport Verified Date/Time: 11/09/2017 04:38:30 Reading Location: [address] Reading Room FLUID CULTURE + GRAM [id number] 12:57:00* Test Item Value Reference Range Comments CULTURE (BEAKER) (test yvih=5490) No growth GRAM STAIN RESULT (BEAKER) (test fdsr=2987) 1+ WBCs GRAM STAIN RESULT (BEAKER) (test eogg=99807) No organisms seen RAD, CHEST, 1 VIEW, NON [id number] 08:14:00Reason for exam:->medistinal abscessShould this be performed at the bedside?->YesFINAL REPORT TECHNIQUE: Frontal view of the chest. INDICATION: 52-year-old man with mediastinal abscess. COMPARISON: Chest radiograph 11/07/2017. FINDINGS: LINES/ TUBES: Unchanged tracheostomy tube. LUNGS/PLEURA: No significant change in the small right pleural effusion and adjacent airspace opacities in the right mid and lower lung zones. Unchanged trace left pleural effusion. Persistent central pulmonary venous congestion. No pneumothorax. HEART AND MEDIASTINUM: The cardiomediastinal silhouette is enlarged, but unchanged. SOFT TISSUES AND BONES : Unchanged cervical fusion hardware. IMPRESSION:No significant change since . Signed: Christina Prescott MDReport Verified Date/Time: 11/08/2017 08:14 :54 Reading Location: [facility] C013Y CT Body Reading Room [id number] 05:41:00* Test Item Value Reference Range Comments PHOSPHORUS (BEAKER) (test pczu=969) 3.2 mg/dL 2.3-4.7 [id number] 05:41:00* Test Item Value Reference Range Comments MAGNESIUM (BEAKER) (test cuyx=630) 1.7 mg/dL 1.6-2.6 BASIC METABOLIC [id number] 05:41:00* Test Item Value Reference Range Comments SODIUM (BEAKER) (test orcl=105) 141 meq/L 136-145 POTASSIUM (BEAKER) (test tssq=550) 4.2 meq/L 3.5-5.1 CHLORIDE (BEAKER) (test csgu=513) 102 meq/L 98-107 CO2 (BEAKER) (test ldmg=542) 31 meq/L 22-29 BLOOD UREA NITROGEN (BEAKER) (test edjr=175) 16 mg/dL 7-21 CREATININE (BEAKER) (test nqig=807) 0.39 mg/dL 0.57-1.25 GLUCOSE RANDOM (BEAKER) (test pvcm=067) 88 mg/dL 70-105 CALCIUM (BEAKER) (test hjyl=446) 8.9 mg/dL 8.4-10.2 EGFR (BEAKER) (test fkao=1128) 233 mL/min/1.73 sq m ESTIMATED GFR IS NOT ACCURATE CREATININE CLEARANCE IN PREDICTING GLOMERULAR FILTRATION RATE. ESTIMATED GFR IS NOT APPLICABLE FOR DIALYSIS PATIENTS. CBC W/PLT COUNT & AUTO [id number] 05:18:00* Test Item Value Reference Range Comments WHITE BLOOD CELL COUNT (BEAKER) (test sfkm=141) 5.7 K/ L 3.5-10.5 RED BLOOD CELL COUNT (BEAKER) (test ilsm=421) 3.34 M/ L 4.63-6.08 HEMOGLOBIN (BEAKER) (test hleo=333) 8.7 GM/DL 13.7-17.5 HEMATOCRIT (BEAKER) (test ctlr=635) 29.5 % 40.1-51.0 MEAN CORPUSCULAR VOLUME (BEAKER) (test fjgj=135) 88.3 fL 79.0-92.2 MEAN CORPUSCULAR HEMOGLOBIN (BEAKER) (test nrqq=615) 26.0 pg 25.7-32.2 MEAN CORPUSCULAR HEMOGLOBIN CONC (BEAKER) (test ztpp=183) 29.5 GM/DL 32.3- 36.5 RED CELL DISTRIBUTION WIDTH (BEAKER) (test icwz=987) 17.3 % 11.6-14.4 PLATELET COUNT (BEAKER) (test zynh=650) 256 K/CU MM 150-450 MEAN PLATELET VOLUME (BEAKER) (test bgvx=566) 10.0 fL 9.4-12.4 NUCLEATED RED BLOOD CELLS (BEAKER) (test ejnb=934) 0 /100 WBC 0-0 NEUTROPHILS RELATIVE PERCENT (BEAKER) (test gbjl=297) 60 % LYMPHOCYTES RELATIVE PERCENT (BEAKER) (test zpiw=730) 25 % MONOCYTES RELATIVE PERCENT (BEAKER) (test euph=974) 9 % EOSINOPHILS RELATIVE PERCENT (BEAKER) (test rsog=580) 5 % BASOPHILS RELATIVE PERCENT (BEAKER) (test sajk=236) 1 % NEUTROPHILS ABSOLUTE COUNT (BEAKER) (test mjhc=180) 3.41 K/ L 1.78-5.38 LYMPHOCYTES ABSOLUTE COUNT (BEAKER) (test sjou=009) 1.40 K/ L 1.32-3.57 MONOCYTES ABSOLUTE COUNT (BEAKER) (test eixx=637) 0.52 K/ L 0.30-0.82 EOSINOPHILS ABSOLUTE COUNT (BEAKER) (test lemg=600) 0.30 K/ L 0.04-0.54 BASOPHILS ABSOLUTE COUNT (BEAKER) (test spxs=959) 0.04 K/ L 0.01-0.08 IMMATURE GRANULOCYTES-RELATIVE PERCENT (BEAKER) (test bcoi=4920) 0 % 0-1 RAD, CHEST, 1 VIEW, NON [id number] 11:18:00Reason for exam:->medistinal abscessShould this be performed at the bedside?->YesFINAL REPORT Chest, 1 view Clinical history: mediastinal abscess Comparison: 2016 Discussion: There is no pneumothorax. Again seen are layering bilateral pleural effusions with associated atelectasis or airspace disease, which appears similar. The cardiac silhouette is enlarged with persistent perihilar edema. Support hardware appears in appropriate positions. No acute osseous abnormality. Signed: Matheus Baires MDReport Verified Date/Time: 11/07/2017 11:18: 38 Reading Location: [facility] C013X Ortho Consult Reading Room [id number] 07:29:00* Test Item Value Reference Range Comments PHOSPHORUS (BEAKER) (test fkkx=927) 3.0 mg/dL 2.3-4.7 [id number] 07:29:00* Test Item Value Reference Range Comments MAGNESIUM (BEAKER) (test bwsb=675) 1.6 mg/dL 1.6-2.6 BASIC METABOLIC [id number] 07:29:00* Test Item Value Reference Range Comments SODIUM (BEAKER) (test qmtu=713) 141 meq/L 136-145 POTASSIUM (BEAKER) (test veun=418) 3.9 meq/L 3.5-5.1 CHLORIDE (BEAKER) (test akxh=795) 103 meq/L 98-107 CO2 (BEAKER) (test lfjn=056) 32 meq/L 22-29 BLOOD UREA NITROGEN (BEAKER) (test vrjk=192) 19 mg/dL 7-21 CREATININE (BEAKER) (test wuhj=646) 0.41 mg/dL 0.57-1.25 GLUCOSE RANDOM (BEAKER) (test nkzt=368) 102 mg/dL 70-105 CALCIUM (BEAKER) (test lrzk=226) 9.0 mg/dL 8.4-10.2 EGFR (BEAKER) (test nqtm=7752) 220 mL/min/1.73 sq m ESTIMATED GFR IS NOT ACCURATE CREATININE CLEARANCE IN PREDICTING GLOMERULAR FILTRATION RATE. ESTIMATED GFR IS NOT APPLICABLE FOR DIALYSIS PATIENTS. CBC W/PLT COUNT & AUTO [id number] 06:56:00* Test Item Value Reference Range Comments WHITE BLOOD CELL COUNT (BEAKER) (test blmr=217) 5.7 K/ L 3.5-10.5 RED BLOOD CELL COUNT (BEAKER) (test gazm=752) 3.36 M/ L 4.63-6.08 HEMOGLOBIN (BEAKER) (test kxxr=815) 8.6 GM/DL 13.7-17.5 HEMATOCRIT (BEAKER) (test tkyd=431) 29.5 % 40.1-51.0 MEAN CORPUSCULAR VOLUME (BEAKER) (test pnrr=302) 87.8 fL 79.0-92.2 MEAN CORPUSCULAR HEMOGLOBIN (BEAKER) (test ezhq=728) 25.6 pg 25.7-32.2 MEAN CORPUSCULAR HEMOGLOBIN CONC (BEAKER) (test yfzj=763) 29.2 GM/DL 32.3- 36.5 RED CELL DISTRIBUTION WIDTH (BEAKER) (test oflj=893) 17.3 % 11.6-14.4 PLATELET COUNT (BEAKER) (test hcpk=478) 273 K/CU MM 150-450 MEAN PLATELET VOLUME (BEAKER) (test doaz=311) 10.5 fL 9.4-12.4 NUCLEATED RED BLOOD CELLS (BEAKER) (test xcny=997) 0 /100 WBC 0-0 NEUTROPHILS RELATIVE PERCENT (BEAKER) (test kuon=705) 57 % LYMPHOCYTES RELATIVE PERCENT (BEAKER) (test gkcl=712) 28 % MONOCYTES RELATIVE PERCENT (BEAKER) (test xnxv=285) 9 % EOSINOPHILS RELATIVE PERCENT (BEAKER) (test ulyf=256) 5 % BASOPHILS RELATIVE PERCENT (BEAKER) (test iwnp=075) 1 % NEUTROPHILS ABSOLUTE COUNT (BEAKER) (test sloy=469) 3.25 K/ L 1.78-5.38 LYMPHOCYTES ABSOLUTE COUNT (BEAKER) (test mpsg=572) 1.62 K/ L 1.32-3.57 MONOCYTES ABSOLUTE COUNT (BEAKER) (test lgzw=924) 0.50 K/ L 0.30-0.82 EOSINOPHILS ABSOLUTE COUNT (BEAKER) (test vgwm=321) 0.29 K/ L 0.04-0.54 BASOPHILS ABSOLUTE COUNT (BEAKER) (test fgxp=795) 0.04 K/ L 0.01-0.08 IMMATURE GRANULOCYTES-RELATIVE PERCENT (BEAKER) (test vfzo=8412) 0 % 0-1 [id number] 05:39:00* Test Item Value Reference Range Comments PHOSPHORUS (BEAKER) (test bvrn=762) 2.9 mg/dL 2.3-4.7 [id number] 05:39:00* Test Item Value Reference Range Comments MAGNESIUM (BEAKER) (test refp=461) 1.5 mg/dL 1.6-2.6 BASIC METABOLIC [id number] 05:39:00* Test Item Value Reference Range Comments SODIUM (BEAKER) (test keme=921) 141 meq/L 136-145 POTASSIUM (BEAKER) (test auti=167) 3.9 meq/L 3.5-5.1 CHLORIDE (BEAKER) (test usnc=483) 103 meq/L 98-107 CO2 (BEAKER) (test ockw=884) 30 meq/L 22-29 BLOOD UREA NITROGEN (BEAKER) (test ylsg=810) 20 mg/dL 7-21 CREATININE (BEAKER) (test hfxy=630) 0.39 mg/dL 0.57-1.25 GLUCOSE RANDOM (BEAKER) (test ucup=976) 94 mg/dL 70-105 CALCIUM (BEAKER) (test dwwa=258) 8.8 mg/dL 8.4-10.2 EGFR (BEAKER) (test ohli=1155) 233 mL/min/1.73 sq m ESTIMATED GFR IS NOT ACCURATE CREATININE CLEARANCE IN PREDICTING GLOMERULAR FILTRATION RATE. ESTIMATED GFR IS NOT APPLICABLE FOR DIALYSIS PATIENTS. CBC W/PLT COUNT & AUTO [id number] 05:12:00* Test Item Value Reference Range Comments WHITE BLOOD CELL COUNT (BEAKER) (test bzbw=643) 6.1 K/ L 3.5-10.5 RED BLOOD CELL COUNT (BEAKER) (test dinn=176) 3.28 M/ L 4.63-6.08 HEMOGLOBIN (BEAKER) (test osdb=988) 8.5 GM/DL 13.7-17.5 HEMATOCRIT (BEAKER) (test tsai=869) 28.6 % 40.1-51.0 MEAN CORPUSCULAR VOLUME (BEAKER) (test vtgq=446) 87.2 fL 79.0-92.2 MEAN CORPUSCULAR HEMOGLOBIN (BEAKER) (test akek=259) 25.9 pg 25.7-32.2 MEAN CORPUSCULAR HEMOGLOBIN CONC (BEAKER) (test qjvi=747) 29.7 GM/DL 32.3- 36.5 RED CELL DISTRIBUTION WIDTH (BEAKER) (test tcfm=303) 17.4 % 11.6-14.4 PLATELET COUNT (BEAKER) (test qano=290) 268 K/CU MM 150-450 MEAN PLATELET VOLUME (BEAKER) (test gktm=296) 10.0 fL 9.4-12.4 NUCLEATED RED BLOOD CELLS (BEAKER) (test iifp=535) 0 /100 WBC 0-0 NEUTROPHILS RELATIVE PERCENT (BEAKER) (test tvho=874) 62 % LYMPHOCYTES RELATIVE PERCENT (BEAKER) (test yazs=963) 24 % MONOCYTES RELATIVE PERCENT (BEAKER) (test wnvt=078) 9 % EOSINOPHILS RELATIVE PERCENT (BEAKER) (test thlu=301) 5 % BASOPHILS RELATIVE PERCENT (BEAKER) (test rxfk=630) 1 % NEUTROPHILS ABSOLUTE COUNT (BEAKER) (test cnlj=177) 3.75 K/ L 1.78-5.38 LYMPHOCYTES ABSOLUTE COUNT (BEAKER) (test ysth=696) 1.47 K/ L 1.32-3.57 MONOCYTES ABSOLUTE COUNT (BEAKER) (test dlmc=424) 0.52 K/ L 0.30-0.82 EOSINOPHILS ABSOLUTE COUNT (BEAKER) (test yjsy=005) 0.29 K/ L 0.04-0.54 BASOPHILS ABSOLUTE COUNT (BEAKER) (test gjgm=822) 0.04 K/ L 0.01-0.08 IMMATURE GRANULOCYTES-RELATIVE PERCENT (BEAKER) (test diez=2417) 0 % 0-1 RAD, CHEST, 1 VIEW, NON [id number] 04:09:00Reason for exam:->medistinal abscessShould this be performed at the bedside?->YesFINAL REPORT CLINICAL INDICATION: Mediastinal abscess Comparison: 11/05/2017 The cardiomediastinal contours are stable. Central pulmonary vascular congestion and bilateral parenchymal and pleural opacities are unchanged. There is no pneumothorax. Support lines are stable. Signed: Cruz Hampton MDRollieort Verified Date/Time: 11/06/2017 04:09:19 Reading Location: [address] Reading Room ATE DEHYDROGENASE (LDH), BODY [id number] 14:49:00* Test Item Value Reference Range Comments LACTATE DEHYDROGENASE FLUID (BEAKER) (test hzxg=936) 92 U/L Light's criteria identifies effusions if one or more are pre Absence of reference range indicates that normals have not been defined.Assay performance has not been validated for this type of specimen.PROTEIN, BODY [id number] 14:49:00* Test Item Value Reference Range Comments PROTEIN FLUID (BEAKER) (test wjaj=599) 2.6 g/dL Light's criteria identifies effusions if one or more are pre Absence of reference range indicates that normals have not been defined.Assay performance has not been validated for this type of specimen.RAD, CHEST, 1 VIEW , NON [id number] 14:19:00Reason for exam:->right thoracentesis Reason for exam:->right thoracentesisFINAL REPORT INDICATION: right thoracentesisright thoracentesis COMPARISON: November 05, 2017 at 3:58 AM TECHNIQUE: Chest radiograph, single view, portable technique. FINDINGS / IMPRESSION: Right pleural effusion is decreased in size, remains moderate. Moderate left pleural effusion unchanged. No pneumothorax. Enlarged heart shadow and tracheostomy tube again demonstrated. Left retrocardiac opacity likely represents atelectasis related to the pleural effusion. Signed: Estuardo Peck MDReport Verified Date/Time: 11/05/2017 14:19:49 Reading Location: [facility] Reading Room U/S, [id number] 14:11:00Laterality?-> RightReason for exam:->SOB, right moderate plueral effusionSpecimen to be collected:->yesFINAL REPORT Ultrasound guided right thoracentesis: Pre/post procedure diagnosis: Pleural effusion Approach: Right Posterior Lateral Intercostal Sedation: None Local Anesthesia: 1% Xylocaine Findings: The risks, benefits, and alternatives of the procedure were explained. Questions were answered, and informed, written consent was then obtained. After an appropriate site for drainage was found, the skin was prepped and draped, and local anesthesia was given. A 5 F multipurpose catheter was inserted into the right pleural space, and approximately 1200 cc of clear yellow pleural fluid was aspirated. Specimen were collected for the lab. No immediate complications were noted. A post-procedure chest radiograph is pending. Estimated blood loss: None. Impression: Uncomplicated ultrasound- guided right thoracentesis Signed: Matheus Baires Verified Date/Time: 14:11:24 Reading Location: [address] Ortho Consult Reading Room HROMBIN TIME/[id number] 10:35:00* Test Item Value Reference Range Comments PROTIME (BEAKER) (test lsbx=263) 16.1 seconds 11.7-14.7 INR (BEAKER) (test wiis=445) 1.3 <=5.9 RECOMMENDED COUMADIN/WARFARIN INR THERAPY RANGESSTANDARD DOSE: 2.0 - 3.0 Includes: PROPHYLAXIS for venous thrombosis, systemic embolization; TREATMENT for venous thrombosis and/or pulmonary embolus.HIGH RISK: Target INR is 2.5-3.5 for patients with mechanical heart valves.[id number] 10:35:00* Test Item Value Reference Range Comments PARTIAL THROMBOPLASTIN TIME (BEAKER) (test ccju=389) 34.3 seconds 22.5-36.0 RAD, CHEST, 1 VIEW, NON [id number] 04:19:00Reason for exam:->medistinal abscessShould this be performed at the bedside?->YesFINAL REPORT CLINICAL INDICATION: Mediastinal abscess Comparison: 11/04/2017 The cardiomediastinal contours are stable. Central pulmonary vascular congestion and bilateral parenchymal and pleural opacities are unchanged. There is no pneumothorax. Support lines are stable. Signed: Hampton, Cruz MDReport Verified Date/Time: 11/05/2017 04:19:52 Reading Location: [address] Reading Room [id number] 04:07:00* Test Item Value Reference Range Comments PHOSPHORUS (BEAKER) (test guzr=618) 2.8 mg/dL 2.3-4.7 [id number] 04:07:00* Test Item Value Reference Range Comments MAGNESIUM (BEAKER) (test gzkl=021) 1.6 mg/dL 1.6-2.6 BASIC METABOLIC [id number] 04:07:00* Test Item Value Reference Range Comments SODIUM (BEAKER) (test lakp=645) 142 meq/L 136-145 POTASSIUM (BEAKER) (test wfyg=183) 3.4 meq/L 3.5-5.1 CHLORIDE (BEAKER) (test irhh=890) 103 meq/L 98-107 CO2 (BEAKER) (test anbr=960) 31 meq/L 22-29 BLOOD UREA NITROGEN (BEAKER) (test hmog=571) 22 mg/dL 7-21 CREATININE (BEAKER) (test cews=532) 0.41 mg/dL 0.57-1.25 GLUCOSE RANDOM (BEAKER) (test ovfi=961) 113 mg/dL 70-105 CALCIUM (BEAKER) (test snlc=688) 8.9 mg/dL 8.4-10.2 EGFR (BEAKER) (test vlne=9817) 220 mL/min/1.73 sq m ESTIMATED GFR IS NOT ACCURATE CREATININE CLEARANCE IN PREDICTING GLOMERULAR FILTRATION RATE. ESTIMATED GFR IS NOT APPLICABLE FOR DIALYSIS PATIENTS. CBC W/PLT COUNT & AUTO [id number] 03:36:00* Test Item Value Reference Range Comments WHITE BLOOD CELL COUNT (BEAKER) (test aiwx=836) 6.7 K/ L 3.5-10.5 RED BLOOD CELL COUNT (BEAKER) (test tvnl=756) 3.49 M/ L 4.63-6.08 HEMOGLOBIN (BEAKER) (test fkmm=038) 8.9 GM/DL 13.7-17.5 HEMATOCRIT (BEAKER) (test visc=280) 30.2 % 40.1-51.0 MEAN CORPUSCULAR VOLUME (BEAKER) (test vmsn=880) 86.5 fL 79.0-92.2 MEAN CORPUSCULAR HEMOGLOBIN (BEAKER) (test ivju=698) 25.5 pg 25.7-32.2 MEAN CORPUSCULAR HEMOGLOBIN CONC (BEAKER) (test pumz=324) 29.5 GM/DL 32.3- 36.5 RED CELL DISTRIBUTION WIDTH (BEAKER) (test myou=086) 17.6 % 11.6-14.4 PLATELET COUNT (BEAKER) (test ixdo=595) 285 K/CU MM 150-450 MEAN PLATELET VOLUME (BEAKER) (test omof=456) 9.8 fL 9.4-12.4 NUCLEATED RED BLOOD CELLS (BEAKER) (test ucvx=052) 0 /100 WBC 0-0 NEUTROPHILS RELATIVE PERCENT (BEAKER) (test rcxy=042) 66 % LYMPHOCYTES RELATIVE PERCENT (BEAKER) (test qemb=565) 22 % MONOCYTES RELATIVE PERCENT (BEAKER) (test fnzs=940) 8 % EOSINOPHILS RELATIVE PERCENT (BEAKER) (test barp=214) 4 % BASOPHILS RELATIVE PERCENT (BEAKER) (test hhyg=308) 1 % NEUTROPHILS ABSOLUTE COUNT (BEAKER) (test iqnv=036) 4.37 K/ L 1.78-5.38 LYMPHOCYTES ABSOLUTE COUNT (BEAKER) (test kjwm=516) 1.44 K/ L 1.32-3.57 MONOCYTES ABSOLUTE COUNT (BEAKER) (test ktbd=874) 0.51 K/ L 0.30-0.82 EOSINOPHILS ABSOLUTE COUNT (BEAKER) (test eetd=835) 0.29 K/ L 0.04-0.54 BASOPHILS ABSOLUTE COUNT (BEAKER) (test nhwu=332) 0.04 K/ L 0.01-0.08 IMMATURE GRANULOCYTES-RELATIVE PERCENT (BEAKER) (test itfs=6896) 0 % 0-1 [id number] 11:10:00* Test Item Value Reference Range Comments PHOSPHORUS (BEAKER) (test jjid=644) 4.1 mg/dL 2.3-4.7 [id number] 11:10:00* Test Item Value Reference Range Comments MAGNESIUM (BEAKER) (test pfel=404) 1.7 mg/dL 1.6-2.6 BASIC METABOLIC [id number] 11:10:00* Test Item Value Reference Range Comments SODIUM (BEAKER) (test agux=146) 139 meq/L 136-145 POTASSIUM (BEAKER) (test hjkj=671) 4.5 meq/L 3.5-5.1 CHLORIDE (BEAKER) (test ilbw=397) 100 meq/L 98-107 CO2 (BEAKER) (test ghby=858) 35 meq/L 22-29 BLOOD UREA NITROGEN (BEAKER) (test jeww=296) 21 mg/dL 7-21 CREATININE (BEAKER) (test roxj=734) 0.41 mg/dL 0.57-1.25 GLUCOSE RANDOM (BEAKER) (test vvgb=365) 120 mg/dL 70-105 CALCIUM (BEAKER) (test uhju=172) 8.9 mg/dL 8.4-10.2 EGFR (BEAKER) (test myen=1584) 220 mL/min/1.73 sq m ESTIMATED GFR IS NOT ACCURATE CREATININE CLEARANCE IN PREDICTING GLOMERULAR FILTRATION RATE. ESTIMATED GFR IS NOT APPLICABLE FOR DIALYSIS PATIENTS. CBC W/PLT COUNT & AUTO [id number] 10:51:00* Test Item Value Reference Range Comments WHITE BLOOD CELL COUNT (BEAKER) (test ebph=371) 7.2 K/ L 3.5-10.5 RED BLOOD CELL COUNT (BEAKER) (test kacm=066) 3.33 M/ L 4.63-6.08 HEMOGLOBIN (BEAKER) (test ijmx=868) 8.7 GM/DL 13.7-17.5 HEMATOCRIT (BEAKER) (test wnpw=321) 29.7 % 40.1-51.0 MEAN CORPUSCULAR VOLUME (BEAKER) (test dezg=189) 89.2 fL 79.0-92.2 MEAN CORPUSCULAR HEMOGLOBIN (BEAKER) (test lqig=747) 26.1 pg 25.7-32.2 MEAN CORPUSCULAR HEMOGLOBIN CONC (BEAKER) (test xhqy=136) 29.3 GM/DL 32.3- 36.5 RED CELL DISTRIBUTION WIDTH (BEAKER) (test wvlh=692) 17.6 % 11.6-14.4 PLATELET COUNT (BEAKER) (test sbzv=191) 265 K/CU MM 150-450 MEAN PLATELET VOLUME (BEAKER) (test lvuz=760) 9.8 fL 9.4-12.4 NUCLEATED RED BLOOD CELLS (BEAKER) (test oqma=498) 0 /100 WBC 0-0 NEUTROPHILS RELATIVE PERCENT (BEAKER) (test luab=966) 61 % LYMPHOCYTES RELATIVE PERCENT (BEAKER) (test wmja=966) 23 % MONOCYTES RELATIVE PERCENT (BEAKER) (test sbrg=912) 11 % EOSINOPHILS RELATIVE PERCENT (BEAKER) (test kxjj=429) 4 % BASOPHILS RELATIVE PERCENT (BEAKER) (test leew=733) 1 % NEUTROPHILS ABSOLUTE COUNT (BEAKER) (test bbct=019) 4.33 K/ L 1.78-5.38 LYMPHOCYTES ABSOLUTE COUNT (BEAKER) (test zzuz=728) 1.64 K/ L 1.32-3.57 MONOCYTES ABSOLUTE COUNT (BEAKER) (test olun=036) 0.80 K/ L 0.30-0.82 EOSINOPHILS ABSOLUTE COUNT (BEAKER) (test pafe=914) 0.31 K/ L 0.04-0.54 BASOPHILS ABSOLUTE COUNT (BEAKER) (test iqji=910) 0.05 K/ L 0.01-0.08 IMMATURE GRANULOCYTES-RELATIVE PERCENT (BEAKER) (test wkxl=2269) 0 % 0-1 RAD, CHEST, 1 VIEW, NON [id number] 07:25:00Reason for exam:->medistinal abscessShould this be performed at the bedside?->YesFINAL REPORT CLINICAL HISTORY: mediastinal abscess TECHNIQUE: 1 view of the chest. COMPARISON: 11/03/2017 IMPRESSION: A tracheostomy tube is again seen. Diffuse bilateral airspace opacities with moderate right and small left pleural effusions are grossly unchanged. The cardiomediastinal silhouette is magnified by technique and unchanged. Cervical fusion hardware is again seen. Signed: Eva Olmedo MDReport Verified Date/Time: 11/04/2017 07:25:26 Reading Location : [facility] Radiology Reading Room HROMBIN [id number] 17:22:00* Test Item Value Reference Range Comments PROTIME (BEAKER) (test xnzi=670) 16.9 seconds 11.7-14.7 INR (BEAKER) (test flta=029) 1.4 <=5.9 RECOMMENDED COUMADIN/WARFARIN INR THERAPY RANGESSTANDARD DOSE: 2.0 - 3.0 Includes: PROPHYLAXIS for venous thrombosis, systemic embolization; TREATMENT for venous thrombosis and/or pulmonary embolus.HIGH RISK: Target INR is 2.5-3.5 for patients with mechanical heart valves.PROTEIN, [id number] 05:45:00* Test Item Value Reference Range Comments TOTAL PROTEIN (BEAKER) (test cndm=158) 6.7 gm/dL 6.0-8.3 [id number] 05:45:00* Test Item Value Reference Range Comments MAGNESIUM (BEAKER) (test fpzm=012) 1.7 mg/dL 1.6-2.6 [id number] 05:45:00* Test Item Value Reference Range Comments PHOSPHORUS (BEAKER) (test hicl=937) 2.7 mg/dL 2.3-4.7 BASIC METABOLIC [id number] 05:45:00* Test Item Value Reference Range Comments SODIUM (BEAKER) (test vcif=041) 143 meq/L 136-145 POTASSIUM (BEAKER) (test uagp=808) 3.3 meq/L 3.5-5.1 CHLORIDE (BEAKER) (test npmk=685) 104 meq/L 98-107 CO2 (BEAKER) (test lxyn=747) 30 meq/L 22-29 BLOOD UREA NITROGEN (BEAKER) (test htwa=370) 15 mg/dL 7-21 CREATININE (BEAKER) (test xpdp=058) 0.40 mg/dL 0.57-1.25 GLUCOSE RANDOM (BEAKER) (test eymu=102) 111 mg/dL 70-105 CALCIUM (BEAKER) (test ceis=411) 8.8 mg/dL 8.4-10.2 EGFR (BEAKER) (test wadl=2468) 226 mL/min/1.73 sq m ESTIMATED GFR IS NOT ACCURATE CREATININE CLEARANCE IN PREDICTING GLOMERULAR FILTRATION RATE. ESTIMATED GFR IS NOT APPLICABLE FOR DIALYSIS PATIENTS. LACTATE DEHYDROGENASE (LDH)2017-11-03 05:45:00* Test Item Value Reference Range Comments LACTATE DEHYDROGENASE (BEAKER) (test vtee=320) 207 U/L 125-220 CBC W/PLT COUNT & AUTO [id number] 05:32:00* Test Item Value Reference Range Comments WHITE BLOOD CELL COUNT (BEAKER) (test prps=083) 8.2 K/ L 3.5-10.5 RED BLOOD CELL COUNT (BEAKER) (test ovkt=979) 3.22 M/ L 4.63-6.08 HEMOGLOBIN (BEAKER) (test magv=048) 8.3 GM/DL 13.7-17.5 HEMATOCRIT (BEAKER) (test mykp=752) 27.7 % 40.1-51.0 MEAN CORPUSCULAR VOLUME (BEAKER) (test lrjy=725) 86.0 fL 79.0-92.2 MEAN CORPUSCULAR HEMOGLOBIN (BEAKER) (test xvfl=268) 25.8 pg 25.7-32.2 MEAN CORPUSCULAR HEMOGLOBIN CONC (BEAKER) (test lvhd=570) 30.0 GM/DL 32.3- 36.5 RED CELL DISTRIBUTION WIDTH (BEAKER) (test ceto=031) 17.9 % 11.6-14.4 PLATELET COUNT (BEAKER) (test tyap=348) 317 K/CU MM 150-450 MEAN PLATELET VOLUME (BEAKER) (test eilp=015) 9.9 fL 9.4-12.4 NUCLEATED RED BLOOD CELLS (BEAKER) (test ttfz=546) 0 /100 WBC 0-0 NEUTROPHILS RELATIVE PERCENT (BEAKER) (test muwj=761) 69 % LYMPHOCYTES RELATIVE PERCENT (BEAKER) (test tyln=048) 18 % MONOCYTES RELATIVE PERCENT (BEAKER) (test rmxd=482) 9 % EOSINOPHILS RELATIVE PERCENT (BEAKER) (test xfnm=753) 3 % BASOPHILS RELATIVE PERCENT (BEAKER) (test jkbv=457) 1 % NEUTROPHILS ABSOLUTE COUNT (BEAKER) (test wjmd=464) 5.69 K/ L 1.78-5.38 LYMPHOCYTES ABSOLUTE COUNT (BEAKER) (test zpvz=217) 1.44 K/ L 1.32-3.57 MONOCYTES ABSOLUTE COUNT (BEAKER) (test ftzx=222) 0.75 K/ L 0.30-0.82 EOSINOPHILS ABSOLUTE COUNT (BEAKER) (test dzbx=048) 0.24 K/ L 0.04-0.54 BASOPHILS ABSOLUTE COUNT (BEAKER) (test nywv=454) 0.04 K/ L 0.01-0.08 IMMATURE GRANULOCYTES-RELATIVE PERCENT (BEAKER) (test hdzg=9084) 1 % 0-1 RAD, CHEST, 1 VIEW, NON [id number] 04:34:00Reason for exam:->medistinal abscessShould this be performed at the bedside?->YesFINAL REPORT CLINICAL INDICATION: Mediastinal abscess Comparison: 11/02/2017 The cardiomediastinal contours are stable. Central pulmonary vascular congestion and bilateral parenchymal and pleural opacities are similar to previous. There is no pneumothorax. Support lines are stable. Signed: Cruz Hampton MDReport Verified Date/Time: 11/03/2017 04:34:39 Reading Location: [address] Reading Room Electronically signed by: CRUZ HAMPTON M.D. on 04:34 AM B-TYPE NATRIURETIC FACTOR (BNP)2017-11-02 17:54:00* Test Item Value Reference Range Comments B-TYPE NATRIURETIC PEPTIDE (IFRAH) (test apkw=283) 584 pg/mL 0-100 RAD, CHEST, 1 VIEW, NON [id number] 08:33:00Reason for exam:->medistinal abscess Should this be performed at the bedside?->YesFINAL REPORT HISTORY : mediastinal abscess. Comparison: 11/01/2017 Comment: Single portable view of the chest was obtained. The cardiac silhouette size is enlarged. There are findings of pulmonary venous congestion. Interstitial prominence may represent interstitial edema. There are bilateral pleural effusions, right greater than left, with some adjacent consolidation/airspace disease. Support lines and tubes and hardware are in stable position. A looped density over the neck region may represent a drainage catheter. The findings should be correlated with the patient's procedural history. No definite pneumothorax is seen. Signed: Fatoumata Francisco MDReport Verified Date/Time: 2016 08:33:20 Reading Location: [address] Reading Room -GLUCOSE [id number] 06:24:00* Test Item Value Reference Range Comments POC-GLUCOSE METER (IFRAH) (test xgmn=3276) 101 mg/dL 70-110 TESTED AT [address] [address] [id number] 05:39:00* Test Item Value Reference Range Comments PREALBUMIN (BEAKER) (test wyqr=937) 23 mg/dL 14-45 Specimen slightly hemolyzed CBC W/PLT COUNT & AUTO [id number] 05:31:00* Test Item Value Reference Range Comments WHITE BLOOD CELL COUNT (BEAKER) (test ufhj=431) 6.7 K/ L 3.5-10.5 RED BLOOD CELL COUNT (BEAKER) (test qwbi=037) 3.29 M/ L 4.63-6.08 HEMOGLOBIN (BEAKER) (test bwln=968) 8.7 GM/DL 13.7-17.5 HEMATOCRIT (BEAKER) (test dsic=887) 28.9 % 40.1-51.0 MEAN CORPUSCULAR VOLUME (BEAKER) (test oneb=037) 87.8 fL 79.0-92.2 MEAN CORPUSCULAR HEMOGLOBIN (BEAKER) (test wayu=664) 26.4 pg 25.7-32.2 MEAN CORPUSCULAR HEMOGLOBIN CONC (BEAKER) (test didn=497) 30.1 GM/DL 32.3- 36.5 RED CELL DISTRIBUTION WIDTH (BEAKER) (test iilm=809) 18.3 % 11.6-14.4 PLATELET COUNT (BEAKER) (test yjic=882) 265 K/CU MM 150-450 MEAN PLATELET VOLUME (BEAKER) (test zirn=817) 9.3 fL 9.4-12.4 NUCLEATED RED BLOOD CELLS (BEAKER) (test ciou=841) 0 /100 WBC 0-0 NEUTROPHILS RELATIVE PERCENT (BEAKER) (test lyps=473) 56 % LYMPHOCYTES RELATIVE PERCENT (BEAKER) (test nyeg=492) 29 % MONOCYTES RELATIVE PERCENT (BEAKER) (test topa=582) 11 % EOSINOPHILS RELATIVE PERCENT (BEAKER) (test svjc=059) 3 % BASOPHILS RELATIVE PERCENT (BEAKER) (test tkbz=546) 1 % NEUTROPHILS ABSOLUTE COUNT (BEAKER) (test ijne=387) 3.74 K/ L 1.78-5.38 LYMPHOCYTES ABSOLUTE COUNT (BEAKER) (test jlnw=138) 1.95 K/ L 1.32-3.57 MONOCYTES ABSOLUTE COUNT (BEAKER) (test abzb=802) 0.75 K/ L 0.30-0.82 EOSINOPHILS ABSOLUTE COUNT (BEAKER) (test ikwb=546) 0.22 K/ L 0.04-0.54 BASOPHILS ABSOLUTE COUNT (BEAKER) (test vief=951) 0.04 K/ L 0.01-0.08 IMMATURE GRANULOCYTES-RELATIVE PERCENT (BEAKER) (test abeq=9770) 1 % 0-1 PROTEIN, [id number] 05:17:00* Test Item Value Reference Range Comments TOTAL PROTEIN (BEAKER) (test ukbb=574) 6.9 gm/dL 6.0-8.3 [id number] 05:17:00* Test Item Value Reference Range Comments MAGNESIUM (BEAKER) (test wseb=477) 1.5 mg/dL 1.6-2.6 [id number] 05:17:00* Test Item Value Reference Range Comments PHOSPHORUS (BEAKER) (test gemd=249) 3.0 mg/dL 2.3-4.7 BASIC METABOLIC [id number] 05:17:00* Test Item Value Reference Range Comments SODIUM (BEAKER) (test addm=426) 142 meq/L 136-145 POTASSIUM (BEAKER) (test dgbo=474) 3.8 meq/L 3.5-5.1 CHLORIDE (BEAKER) (test czxe=419) 103 meq/L 98-107 CO2 (BEAKER) (test jixi=333) 30 meq/L 22-29 BLOOD UREA NITROGEN (BEAKER) (test clxq=980) 20 mg/dL 7-21 CREATININE (BEAKER) (test lybc=792) 0.42 mg/dL 0.57-1.25 GLUCOSE RANDOM (BEAKER) (test btav=141) 98 mg/dL 70-105 CALCIUM (BEAKER) (test cdlg=117) 8.5 mg/dL 8.4-10.2 EGFR (BEAKER) (test yukd=3316) 214 mL/min/1.73 sq m ESTIMATED GFR IS NOT ACCURATE CREATININE CLEARANCE IN PREDICTING GLOMERULAR FILTRATION RATE. ESTIMATED GFR IS NOT APPLICABLE FOR DIALYSIS PATIENTS. [id number] 05:17:00* Test Item Value Reference Range Comments ALBUMIN (BEAKER) (test zkmq=1219) 2.9 g/dL 3.5-5.0 CREATINE KINASE (CK)2017-11-02 05:17:00* Test Item Value Reference Range Comments CREATINE KINASE TOTAL (BEAKER) (test iqys=634) 50 U/L 29-200 POCT-GLUCOSE [id number] 00:04:00* Test Item Value Reference Range Comments POC-GLUCOSE METER (BEAKER) (test erfp=6541) 127 mg/dL 70-[address] [facility] [address] [facility] [address] RAD, CHEST, 1 VIEW, NON [id number] 14:56:00Reason for exam:->sobShould this be performed at the bedside?->YesFINAL REPORT TECHNIQUE : Single view of the chest. COMPARISON: 11/01/2017 FINDINGS: Bilateral patchy interstitial and airspace opacities are stable. There are small to moderate, right greater than left trace pleural effusions. No gross pneumothorax.No gross new lung parenchymal changes. Support lines and tubes are stable. IMPRESSION: 1. No significant interval change. Signed: Darion Balderas MDReport Verified Date/ Time: 11/01/2017 14:56:12 Reading Location: [address] Transitional Reading Room , CHEST, 1 VIEW, NON [id number] 11:12:00Reason for exam:->medistinal abscessShould this be performed at the bedside?->YesFINAL REPORT Comparison: 10/31/2017 TECHNIQUE: Single view of the chest FINDINGS: Bilateral interstitial and airspace opacities and pleural effusions, right greater than left are stable. Support lines and tubes are stable. No pneumothorax. IMPRESSION:. No significant interval change. Signed: Darion Balderas MDReport Verified Date/Time: 11/01/2017 11:12:51 Reading Location: [address] Transitional Reading Room UM CULTURE + GRAM [id number] 08:23:00* Test Item Value Reference Range Comments CULTURE (BEAKER) (test vgda=5570) Amikacin (test code=1) Susceptible 0-16 , Resistant <0 or >16 Aztreonam (test code=32) Susceptible 0-8 , Resistant <0 or >8 Cefepime (test code=51) Susceptible 0-8 , Resistant <0 or >8 Ceftazidime (test code=27) Susceptible 0-8 , Resistant <0 or >8 Ciprofloxacin (test code=7) Susceptible 0-1 , Resistant <0 or >1 Doripenem (test fomv=604) Susceptible 0-2 , Resistant <0 or >2 Gentamicin (test code=18) Susceptible 0-4 , Resistant <0 or >4 Imipenem (test code=19) Susceptible 0-2 , Resistant <0 or >2 Levofloxacin (test code=22) Susceptible 0-2 , Resistant <0 or >2 Meropenem (test code=34) Susceptible 0-2 , Resistant <0 or >2 Piperacillin (test code=24) Susceptible 0-16 , Resistant <0 or >16 Piperacillin + Tazobactam (test code=29) Susceptible 0-16 , Resistant <0 or >16 Tobramycin (test code=25) Susceptible 0-4 , Resistant <0 or >4 CULTURE (BEAKER) (test qbhm=4739) 4+ Pseudomonas aeruginosa CULTURE (BEAKER) (test rlbn=1326) 4+ Pseudomonas aeruginosaof a second type GRAM STAIN RESULT (BEAKER) (test amqs=9836) 1+ WBCs GRAM STAIN RESULT (BEAKER) (test rfej=802502) 0-5 epithelial cells GRAM STAIN RESULT (BEAKER) (test vltf=176469) <1+ gram negative rods 3+ Normal respiratory rodney [id number] 06:25:00* Test Item Value Reference Range Comments PHOSPHORUS (BEAKER) (test pemg=854) 2.6 mg/dL 2.3-4.7 [id number] 06:25:00* Test Item Value Reference Range Comments MAGNESIUM (BEAKER) (test omtm=223) 1.6 mg/dL 1.6-2.6 BASIC METABOLIC [id number] 06:25:00* Test Item Value Reference Range Comments SODIUM (BEAKER) (test ojxw=845) 141 meq/L 136-145 POTASSIUM (BEAKER) (test ydjn=457) 3.5 meq/L 3.5-5.1 CHLORIDE (BEAKER) (test oiwv=957) 104 meq/L 98-107 CO2 (BEAKER) (test eltb=121) 28 meq/L 22-29 BLOOD UREA NITROGEN (BEAKER) (test ycsc=817) 17 mg/dL 7-21 CREATININE (BEAKER) (test jfjo=764) 0.36 mg/dL 0.57-1.25 GLUCOSE RANDOM (BEAKER) (test bhjr=232) 92 mg/dL 70-105 CALCIUM (BEAKER) (test asvx=930) 8.4 mg/dL 8.4-10.2 EGFR (BEAKER) (test etpn=4571) 255 mL/min/1.73 sq m ESTIMATED GFR IS NOT ACCURATE CREATININE CLEARANCE IN PREDICTING GLOMERULAR FILTRATION RATE. ESTIMATED GFR IS NOT APPLICABLE FOR DIALYSIS PATIENTS. CBC W/PLT COUNT & AUTO [id number] 05:33:00* Test Item Value Reference Range Comments WHITE BLOOD CELL COUNT (BEAKER) (test kqfl=114) 5.7 K/ L 3.5-10.5 RED BLOOD CELL COUNT (BEAKER) (test sjjd=975) 3.06 M/ L 4.63-6.08 HEMOGLOBIN (BEAKER) (test ajbl=818) 8.0 GM/DL 13.7-17.5 HEMATOCRIT (BEAKER) (test lmnt=912) 27.3 % 40.1-51.0 MEAN CORPUSCULAR VOLUME (BEAKER) (test kzop=221) 89.2 fL 79.0-92.2 MEAN CORPUSCULAR HEMOGLOBIN (BEAKER) (test vzpy=801) 26.1 pg 25.7-32.2 MEAN CORPUSCULAR HEMOGLOBIN CONC (BEAKER) (test vvop=634) 29.3 GM/DL 32.3- 36.5 RED CELL DISTRIBUTION WIDTH (BEAKER) (test sdnv=461) 18.0 % 11.6-14.4 PLATELET COUNT (BEAKER) (test jjyh=757) 283 K/CU MM 150-450 MEAN PLATELET VOLUME (BEAKER) (test luqo=121) 10.0 fL 9.4-12.4 NUCLEATED RED BLOOD CELLS (BEAKER) (test bdgg=742) 0 /100 WBC 0-0 NEUTROPHILS RELATIVE PERCENT (BEAKER) (test rrdy=332) 60 % LYMPHOCYTES RELATIVE PERCENT (BEAKER) (test lljc=209) 24 % MONOCYTES RELATIVE PERCENT (BEAKER) (test aomm=651) 11 % EOSINOPHILS RELATIVE PERCENT (BEAKER) (test ghna=412) 5 % BASOPHILS RELATIVE PERCENT (BEAKER) (test unhm=559) 1 % NEUTROPHILS ABSOLUTE COUNT (BEAKER) (test aoaq=643) 3.40 K/ L 1.78-5.38 LYMPHOCYTES ABSOLUTE COUNT (BEAKER) (test nsfq=861) 1.33 K/ L 1.32-3.57 MONOCYTES ABSOLUTE COUNT (BEAKER) (test bohl=457) 0.60 K/ L 0.30-0.82 EOSINOPHILS ABSOLUTE COUNT (BEAKER) (test tmxz=473) 0.27 K/ L 0.04-0.54 BASOPHILS ABSOLUTE COUNT (BEAKER) (test wqiq=063) 0.04 K/ L 0.01-0.08 IMMATURE GRANULOCYTES-RELATIVE PERCENT (BEAKER) (test goow=7508) 0 % 0-1 RAD, CHEST, 1 VIEW, NON [id number] 03:51:00Reason for exam:->medistinal abscessShould this be performed at the bedside?->YesFINAL REPORT RAD, CHEST, 1 VIEW, NON DEPT INDICATION: medistinal abscess COMPARISON : Prior day's exam TECHNIQUE: Portable frontal view of the chest. IMPRESSION: Stable tracheostomy tube.Cardiomediastinal silhouette stable.Stable right greater than left pleural effusions.Stable vascular congestion.No acute osseous abnormality. Signed: May Talavera MDReport Verified Date/Time: 10/31/2017 03 :51:03 Reading Location: [address] Ortho Consult Reading Room - GLUCOSE [id number] 11:42:00* Test Item Value Reference Range Comments POC-GLUCOSE METER (BEAKER) (test yumk=3689) 142 mg/dL 70-110 TESTED AT [address] [address] RAD, CHEST, 1 VIEW, NON [id number] 07:16:00Reason for exam:->medistinal abscessShould this be performed at the bedside?->YesFINAL REPORT AP chest HISTORY: Mediastinal abscess COMPARISON: 10/29/2017 IMPRESSION :Tracheostomy tube present. Mild cardiomegaly. Mild pulmonary edema. Moderate right effusion. No appreciable interval change. Signed: Mehdi Cramer MDReport Verified Date/Time: 10/30/2017 07:16:47 Reading Location: [facility] Radiology Reading Room W/PLT COUNT & AUTO [id number] 06:14: 00* Test Item Value Reference Range Comments WHITE BLOOD CELL COUNT (BEAKER) (test wgka=425) 6.5 K/ L 3.5-10.5 RED BLOOD CELL COUNT (BEAKER) (test fotv=291) 3.00 M/ L 4.63-6.08 HEMOGLOBIN (BEAKER) (test gacx=303) 7.9 GM/DL 13.7-17.5 HEMATOCRIT (BEAKER) (test epzk=072) 26.8 % 40.1-51.0 MEAN CORPUSCULAR VOLUME (BEAKER) (test vffg=262) 89.3 fL 79.0-92.2 MEAN CORPUSCULAR HEMOGLOBIN (BEAKER) (test ohtw=451) 26.3 pg 25.7-32.2 MEAN CORPUSCULAR HEMOGLOBIN CONC (BEAKER) (test gtdk=539) 29.5 GM/DL 32.3- 36.5 RED CELL DISTRIBUTION WIDTH (BEAKER) (test hpvp=178) 18.0 % 11.6-14.4 PLATELET COUNT (BEAKER) (test ivfb=122) 277 K/CU MM 150-450 MEAN PLATELET VOLUME (BEAKER) (test glpu=722) 9.5 fL 9.4-12.4 NUCLEATED RED BLOOD CELLS (BEAKER) (test jgjw=518) 0 /100 WBC 0-0 NEUTROPHILS RELATIVE PERCENT (BEAKER) (test kswl=986) 58 % LYMPHOCYTES RELATIVE PERCENT (BEAKER) (test pohy=835) 26 % MONOCYTES RELATIVE PERCENT (BEAKER) (test xmzp=744) 10 % EOSINOPHILS RELATIVE PERCENT (BEAKER) (test ckgh=820) 6 % BASOPHILS RELATIVE PERCENT (BEAKER) (test ymof=948) 1 % NEUTROPHILS ABSOLUTE COUNT (BEAKER) (test bqby=979) 3.74 K/ L 1.78-5.38 LYMPHOCYTES ABSOLUTE COUNT (BEAKER) (test vqks=709) 1.67 K/ L 1.32-3.57 MONOCYTES ABSOLUTE COUNT (BEAKER) (test zeuo=963) 0.65 K/ L 0.30-0.82 EOSINOPHILS ABSOLUTE COUNT (BEAKER) (test lhke=249) 0.36 K/ L 0.04-0.54 BASOPHILS ABSOLUTE COUNT (BEAKER) (test xmfj=236) 0.03 K/ L 0.01-0.08 IMMATURE GRANULOCYTES-RELATIVE PERCENT (BEAKER) (test tksw=5225) 1 % 0-1 [id number] 05:14:00* Test Item Value Reference Range Comments FERRITIN (BEAKER) (test rzia=903) 707 ng/mL 5-275 [id number] 04:58:00* Test Item Value Reference Range Comments PHOSPHORUS (BEAKER) (test yzzj=830) 3.0 mg/dL 2.3-4.7 [id number] 04:58:00* Test Item Value Reference Range Comments MAGNESIUM (BEAKER) (test oltj=784) 1.7 mg/dL 1.6-2.6 BASIC METABOLIC [id number] 04:58:00* Test Item Value Reference Range Comments SODIUM (BEAKER) (test qjwa=736) 142 meq/L 136-145 POTASSIUM (BEAKER) (test isny=703) 3.8 meq/L 3.5-5.1 CHLORIDE (BEAKER) (test mure=080) 107 meq/L 98-107 CO2 (BEAKER) (test cyff=582) 27 meq/L 22-29 BLOOD UREA NITROGEN (BEAKER) (test rhae=840) 15 mg/dL 7-21 CREATININE (BEAKER) (test whsn=263) 0.39 mg/dL 0.57-1.25 GLUCOSE RANDOM (BEAKER) (test tewc=813) 104 mg/dL 70-105 CALCIUM (BEAKER) (test jzda=382) 8.4 mg/dL 8.4-10.2 EGFR (BEAKER) (test mwee=8454) 233 mL/min/1.73 sq m ESTIMATED GFR IS NOT ACCURATE CREATININE CLEARANCE IN PREDICTING GLOMERULAR FILTRATION RATE. ESTIMATED GFR IS NOT APPLICABLE FOR DIALYSIS PATIENTS. IRON, TIBC, % SAT. (WITHOUT FERRITIN)2017-10-30 04:52:00* Test Item Value Reference Range Comments IRON (BEAKER) (test uhzk=484) 36 ug/dL 40-160 TOTAL IRON BINDING CAPACITY (BEAKER) (test tpea=077) 233 ug/dL 250-450 IRON % SATURATION (2) (BEAKER) (test awbq=2551) 15 % 20-55 HEMOGLOBIN AND [id number] 11:27:00* Test Item Value Reference Range Comments HEMOGLOBIN (BEAKER) (test leyx=431) 8.0 GM/DL 13.7-17.5 HEMATOCRIT (BEAKER) (test njbe=838) 26.9 % 40.1-51.0 BLOOD [id number] 10:00:00* Test Item Value Reference Range Comments CULTURE (BEAKER) (test gcfg=1246) No growth in 5 days BLOOD [id number] 10:00:00* Test Item Value Reference Range Comments CULTURE (BEAKER) (test wbwu=2259) No growth in 5 days (MANUAL DIFFERENTIAL)2017-10-29 09:39:00* Test Item Value Reference Range Comments TOTAL COUNTED (BEAKER) (test tpwt=3310) WBC MORPHOLOGY (BEAKER) (test nzsl=511) Normal LARGE PLT(BEAKER) (test obdh=2346) Present HYPOCHROMIA (BEAKER) (test noxy=005) 1+ few POLYCHROMATOPHILLIC RBCS(BEAKER) (test otng=322) 1+ few CBC W/PLT COUNT & AUTO [id number] 09:38:00* Test Item Value Reference Range Comments WHITE BLOOD CELL COUNT (BEAKER) (test zmzu=650) 7.6 K/ L 3.5-10.5 RED BLOOD CELL COUNT (BEAKER) (test rbgm=054) 3.02 M/ L 4.63-6.08 HEMOGLOBIN (BEAKER) (test mhlx=445) 7.9 GM/DL 13.7-17.5 HEMATOCRIT (BEAKER) (test mltt=038) 26.7 % 40.1-51.0 MEAN CORPUSCULAR VOLUME (BEAKER) (test desv=691) 88.4 fL 79.0-92.2 MEAN CORPUSCULAR HEMOGLOBIN (BEAKER) (test hqar=936) 26.2 pg 25.7-32.2 MEAN CORPUSCULAR HEMOGLOBIN CONC (BEAKER) (test deyv=590) 29.6 GM/DL 32.3- 36.5 RED CELL DISTRIBUTION WIDTH (BEAKER) (test uvpl=997) 18.2 % 11.6-14.4 PLATELET COUNT (BEAKER) (test nigg=909) 348 K/CU MM 150-450 MEAN PLATELET VOLUME (BEAKER) (test upiq=945) 9.9 fL 9.4-12.4 NUCLEATED RED BLOOD CELLS (BEAKER) (test mcsr=225) 0 /100 WBC 0-0 NEUTROPHILS RELATIVE PERCENT (BEAKER) (test pdsq=019) 65 % LYMPHOCYTES RELATIVE PERCENT (BEAKER) (test thet=929) 20 % MONOCYTES RELATIVE PERCENT (BEAKER) (test mdqf=981) 9 % EOSINOPHILS RELATIVE PERCENT (BEAKER) (test hywt=734) 5 % BASOPHILS RELATIVE PERCENT (BEAKER) (test wlav=777) 1 % NEUTROPHILS ABSOLUTE COUNT (BEAKER) (test vkgp=491) 4.98 K/ L 1.78-5.38 LYMPHOCYTES ABSOLUTE COUNT (BEAKER) (test wtng=580) 1.51 K/ L 1.32-3.57 MONOCYTES ABSOLUTE COUNT (BEAKER) (test onwl=327) 0.69 K/ L 0.30-0.82 EOSINOPHILS ABSOLUTE COUNT (BEAKER) (test iaaw=161) 0.37 K/ L 0.04-0.54 BASOPHILS ABSOLUTE COUNT (BEAKER) (test rzho=763) 0.04 K/ L 0.01-0.08 IMMATURE GRANULOCYTES-RELATIVE PERCENT (BEAKER) (test padg=1225) 0 % 0-1 RAD, CHEST, 1 VIEW, NON [id number] 08:04:00Reason for exam:->medistinal abscessShould this be performed at the bedside?->YesFINAL REPORT Chest one view. Clinical history: mediastinal abscess Comparison: Discussion: A frontal chest is provided. Cardiomediastinal contours are unchanged. Lines and tubes are in stable position. There are small bilateral effusions, and unchanged bibasilar opacities. No pneumothorax. Signed : Wil Blackman Verified Date/Time: 10/29/2017 08:04:18 Reading Location: [facility] Radiology Reading Room [id number] 06:16:00* Test Item Value Reference Range Comments PHOSPHORUS (BEAKER) (test hhwt=654) 3.2 mg/dL 2.3-4.7 [id number] 06:16:00* Test Item Value Reference Range Comments MAGNESIUM (BEAKER) (test psnv=059) 1.8 mg/dL 1.6-2.6 BASIC METABOLIC [id number] 06:16:00* Test Item Value Reference Range Comments SODIUM (BEAKER) (test ypda=916) 142 meq/L 136-145 POTASSIUM (BEAKER) (test zpnn=794) 3.7 meq/L 3.5-5.1 CHLORIDE (BEAKER) (test csox=390) 105 meq/L 98-107 CO2 (BEAKER) (test tgfm=613) 28 meq/L 22-29 BLOOD UREA NITROGEN (BEAKER) (test lfxu=190) 18 mg/dL 7-21 CREATININE (BEAKER) (test bjtl=289) 0.39 mg/dL 0.57-1.25 GLUCOSE RANDOM (BEAKER) (test nyjx=726) 98 mg/dL 70-105 CALCIUM (BEAKER) (test ibrh=372) 8.9 mg/dL 8.4-10.2 EGFR (BEAKER) (test onmk=0721) 233 mL/min/1.73 sq m ESTIMATED GFR IS NOT ACCURATE CREATININE CLEARANCE IN PREDICTING GLOMERULAR FILTRATION RATE. ESTIMATED GFR IS NOT APPLICABLE FOR DIALYSIS PATIENTS. VANCOMYCIN LEVEL, [id number] 10:47:00* Test Item Value Reference Range Comments VANCOMYCIN TROUGH (BEAKER) (test rhtz=448) 17.5 ug/mL 10.0-20.0 [id number] 05:24:00* Test Item Value Reference Range Comments PHOSPHORUS (BEAKER) (test ccrb=836) 3.0 mg/dL 2.3-4.7 [id number] 05:24:00* Test Item Value Reference Range Comments MAGNESIUM (BEAKER) (test nklj=484) 1.7 mg/dL 1.6-2.6 BASIC METABOLIC [id number] 05:24:00* Test Item Value Reference Range Comments SODIUM (BEAKER) (test cfok=923) 141 meq/L 136-145 POTASSIUM (BEAKER) (test pvta=806) 3.5 meq/L 3.5-5.1 CHLORIDE (BEAKER) (test yprs=282) 104 meq/L 98-107 CO2 (BEAKER) (test puzx=074) 29 meq/L 22-29 BLOOD UREA NITROGEN (BEAKER) (test owrs=838) 21 mg/dL 7-21 CREATININE (BEAKER) (test axgx=394) 0.38 mg/dL 0.57-1.25 GLUCOSE RANDOM (BEAKER) (test ezas=087) 94 mg/dL 70-105 CALCIUM (BEAKER) (test mdey=770) 8.6 mg/dL 8.4-10.2 EGFR (BEAKER) (test amou=0763) 240 mL/min/1.73 sq m ESTIMATED GFR IS NOT ACCURATE CREATININE CLEARANCE IN PREDICTING GLOMERULAR FILTRATION RATE. ESTIMATED GFR IS NOT APPLICABLE FOR DIALYSIS PATIENTS. CBC W/PLT COUNT & AUTO [id number] 04:36:00* Test Item Value Reference Range Comments WHITE BLOOD CELL COUNT (BEAKER) (test jehi=572) 5.9 K/ L 3.5-10.5 RED BLOOD CELL COUNT (BEAKER) (test wtpo=431) 3.87 M/ L 4.63-6.08 HEMOGLOBIN (BEAKER) (test sdcq=560) 10.2 GM/DL 13.7-17.5 HEMATOCRIT (BEAKER) (test zrma=796) 34.9 % 40.1-51.0 MEAN CORPUSCULAR VOLUME (BEAKER) (test zcfz=223) 90.2 fL 79.0-92.2 MEAN CORPUSCULAR HEMOGLOBIN (BEAKER) (test xppr=784) 26.4 pg 25.7-32.2 MEAN CORPUSCULAR HEMOGLOBIN CONC (BEAKER) (test wfoi=478) 29.2 GM/DL 32.3- 36.5 RED CELL DISTRIBUTION WIDTH (BEAKER) (test qbsv=272) 18.2 % 11.6-14.4 PLATELET COUNT (BEAKER) (test teoj=909) 280 K/CU MM 150-450 MEAN PLATELET VOLUME (BEAKER) (test adaf=776) 9.9 fL 9.4-12.4 NUCLEATED RED BLOOD CELLS (BEAKER) (test sljh=918) 0 /100 WBC 0-0 NEUTROPHILS RELATIVE PERCENT (BEAKER) (test rild=172) 55 % LYMPHOCYTES RELATIVE PERCENT (BEAKER) (test dehp=742) 29 % MONOCYTES RELATIVE PERCENT (BEAKER) (test zkre=268) 8 % EOSINOPHILS RELATIVE PERCENT (BEAKER) (test jxta=153) 6 % BASOPHILS RELATIVE PERCENT (BEAKER) (test ugwm=165) 1 % NEUTROPHILS ABSOLUTE COUNT (BEAKER) (test rkdm=765) 3.25 K/ L 1.78-5.38 LYMPHOCYTES ABSOLUTE COUNT (BEAKER) (test extg=401) 1.71 K/ L 1.32-3.57 MONOCYTES ABSOLUTE COUNT (BEAKER) (test wqps=480) 0.49 K/ L 0.30-0.82 EOSINOPHILS ABSOLUTE COUNT (BEAKER) (test blwr=956) 0.37 K/ L 0.04-0.54 BASOPHILS ABSOLUTE COUNT (BEAKER) (test iuic=240) 0.05 K/ L 0.01-0.08 IMMATURE GRANULOCYTES-RELATIVE PERCENT (BEAKER) (test ktij=9298) 0 % 0-1 RAD, CHEST, 1 VIEW, NON [id number] 04:04:00Reason for exam:->medistinal abscessShould this be performed at the bedside?->YesFINAL REPORT EXAMINATION: AP PORTABLE CHEST RADIOGRAPH CLINICAL INDICATION: Mediastinal abscess IMPRESSION: Compared with 10/27/2017. Tip of the tracheostomy tube projects over the midline near the level the clavicles approximately 7 cm superior to the luis. The parenchymal lung opacities and superimposed pleural effusions are grossly stable. No definite evidence of new lung consolidation or pneumothorax. Cardiac and mediastinal contours are also unchanged. In summary, no significant interval change. Signed: Nataly Harman MDReport Verified Date/Time: 10/28/2017 04:04:34 Reading Location: [address] Reading Room CULTURE + [id number] 09:12:00* Test Item Value Reference Range Comments CULTURE (BEAKER) (test xbxd=2422) No acid-fast bacilli isolated in 42 days AFB SMEAR (BEAKER) (test ypwh=953) No acid fast bacilli seen RAD, CHEST, 1 VIEW, NON [id number] 07:28:00Reason for exam:->medistinal abscessShould this be performed at the bedside?->YesFINAL REPORT HISTORY : mediastinal abscess. Comparison: 10/26/2017 Comment: Single portable view of the chest was obtained. The cardiac silhouette size is enlarged. Tracheostomy tube is in place. No pneumothorax is seen. There is some pulmonary venous congestion. There is a small right-sided pleural effusion with some adjacent consolidation that could represent atelectasis, pneumonitis or aspiration. There appears to be partial atelectasis/collapse of the right lower lobe. Signed: Fatoumata Francisco MDReport Verified Date/Time: 10/27/2017 07:28:23 Reading Location: [facility] Radiology Reading Room [id number] 05:58: 00* Test Item Value Reference Range Comments PHOSPHORUS (BEAKER) (test jbec=223) 3.0 mg/dL 2.3-4.7 [id number] 05:58:00* Test Item Value Reference Range Comments MAGNESIUM (BEAKER) (test tqmj=450) 1.5 mg/dL 1.6-2.6 BASIC METABOLIC [id number] 05:58:00* Test Item Value Reference Range Comments SODIUM (BEAKER) (test zhef=950) 141 meq/L 136-145 POTASSIUM (BEAKER) (test pmtq=119) 3.8 meq/L 3.5-5.1 CHLORIDE (BEAKER) (test nxyu=313) 104 meq/L 98-107 CO2 (BEAKER) (test cfmu=943) 28 meq/L 22-29 BLOOD UREA NITROGEN (BEAKER) (test ueuq=308) 30 mg/dL 7-21 CREATININE (BEAKER) (test wckn=082) 0.40 mg/dL 0.57-1.25 GLUCOSE RANDOM (BEAKER) (test pvyz=182) 106 mg/dL 70-105 CALCIUM (BEAKER) (test ottz=749) 9.0 mg/dL 8.4-10.2 EGFR (BEAKER) (test shyr=9120) 226 mL/min/1.73 sq m ESTIMATED GFR IS NOT ACCURATE CREATININE CLEARANCE IN PREDICTING GLOMERULAR FILTRATION RATE. ESTIMATED GFR IS NOT APPLICABLE FOR DIALYSIS PATIENTS. CBC W/PLT COUNT & AUTO [id number] 05:41:00* Test Item Value Reference Range Comments WHITE BLOOD CELL COUNT (BEAKER) (test lymb=741) 8.4 K/ L 3.5-10.5 RED BLOOD CELL COUNT (BEAKER) (test ikgx=839) 3.50 M/ L 4.63-6.08 HEMOGLOBIN (BEAKER) (test avfx=642) 9.2 GM/DL 13.7-17.5 HEMATOCRIT (BEAKER) (test twwe=749) 30.6 % 40.1-51.0 MEAN CORPUSCULAR VOLUME (BEAKER) (test shne=318) 87.4 fL 79.0-92.2 MEAN CORPUSCULAR HEMOGLOBIN (BEAKER) (test mqzc=074) 26.3 pg 25.7-32.2 MEAN CORPUSCULAR HEMOGLOBIN CONC (BEAKER) (test pylm=300) 30.1 GM/DL 32.3- 36.5 RED CELL DISTRIBUTION WIDTH (BEAKER) (test nsju=795) 18.0 % 11.6-14.4 PLATELET COUNT (BEAKER) (test uilz=199) 365 K/CU MM 150-450 MEAN PLATELET VOLUME (BEAKER) (test fpsw=963) 9.9 fL 9.4-12.4 NUCLEATED RED BLOOD CELLS (BEAKER) (test ivvp=133) 0 /100 WBC 0-0 NEUTROPHILS RELATIVE PERCENT (BEAKER) (test mwqt=379) 64 % LYMPHOCYTES RELATIVE PERCENT (BEAKER) (test famo=392) 22 % MONOCYTES RELATIVE PERCENT (BEAKER) (test ewfz=356) 8 % EOSINOPHILS RELATIVE PERCENT (BEAKER) (test pjyt=211) 6 % BASOPHILS RELATIVE PERCENT (BEAKER) (test ozme=664) 1 % NEUTROPHILS ABSOLUTE COUNT (BEAKER) (test mvgc=170) 5.34 K/ L 1.78-5.38 LYMPHOCYTES ABSOLUTE COUNT (BEAKER) (test plia=707) 1.85 K/ L 1.32-3.57 MONOCYTES ABSOLUTE COUNT (BEAKER) (test kwah=910) 0.63 K/ L 0.30-0.82 EOSINOPHILS ABSOLUTE COUNT (BEAKER) (test fito=832) 0.46 K/ L 0.04-0.54 BASOPHILS ABSOLUTE COUNT (BEAKER) (test ycrv=389) 0.05 K/ L 0.01-0.08 IMMATURE GRANULOCYTES-RELATIVE PERCENT (BEAKER) (test zzsx=5991) 0 % 0-1 VANCOMYCIN LEVEL, [id number] 00:59:00* Test Item Value Reference Range Comments VANCOMYCIN TROUGH (BEAKER) (test zyqh=124) 13.6 ug/mL 10.0-20.0 Please obtain vancomycin trough prior to 2100 dose. Hold dose if level >20. Thank you!PROTEIN, [id number] 10:31:00* Test Item Value Reference Range Comments TOTAL PROTEIN (BEAKER) (test mpqa=758) 6.8 gm/dL 6.0-8.3 [id number] 10:31:00* Test Item Value Reference Range Comments MAGNESIUM (BEAKER) (test mmwd=848) 1.5 mg/dL 1.6-2.6 [id number] 10:31:00* Test Item Value Reference Range Comments PHOSPHORUS (BEAKER) (test xbko=916) 3.6 mg/dL 2.3-4.7 BASIC METABOLIC [id number] 10:31:00* Test Item Value Reference Range Comments SODIUM (BEAKER) (test pvif=200) 141 meq/L 136-145 POTASSIUM (BEAKER) (test csye=617) 3.6 meq/L 3.5-5.1 CHLORIDE (BEAKER) (test dwxc=920) 104 meq/L 98-107 CO2 (BEAKER) (test jbew=217) 30 meq/L 22-29 BLOOD UREA NITROGEN (BEAKER) (test mawa=750) 24 mg/dL 7-21 CREATININE (BEAKER) (test fpiu=266) 0.41 mg/dL 0.57-1.25 GLUCOSE RANDOM (BEAKER) (test urxy=088) 104 mg/dL 70-105 CALCIUM (BEAKER) (test arkl=314) 8.6 mg/dL 8.4-10.2 EGFR (BEAKER) (test lirf=5348) 220 mL/min/1.73 sq m ESTIMATED GFR IS NOT ACCURATE CREATININE CLEARANCE IN PREDICTING GLOMERULAR FILTRATION RATE. ESTIMATED GFR IS NOT APPLICABLE FOR DIALYSIS PATIENTS. [id number] 10:31:00* Test Item Value Reference Range Comments ALBUMIN (BEAKER) (test uglu=9583) 2.8 g/dL 3.5-5.0 CREATINE KINASE (CK)2017-10-26 10:31:00* Test Item Value Reference Range Comments CREATINE KINASE TOTAL (BEAKER) (test krru=060) 67 U/L 29-200 [id number] 10:18:00* Test Item Value Reference Range Comments PREALBUMIN (BEAKER) (test pzpx=381) 20 mg/dL 14-45 URINE [id number] 09:12:00* Test Item Value Reference Range Comments CULTURE (BEAKER) (test brci=1473) No growth SPUTUM CULTURE + GRAM [id number] 08:43:00* Test Item Value Reference Range Comments CULTURE (BEAKER) (test ppff=7962) Amikacin (test code=1) Aztreonam (test code=32) Cefepime (test code=51) Ceftazidime (test code=27) Ciprofloxacin (test code=7) Doripenem (test xghj=097) Gentamicin (test code=18) Imipenem (test code=19) Levofloxacin (test code=22) Meropenem (test code=34) Piperacillin (test code=24) Piperacillin + Tazobactam (test code=29) Tobramycin (test code=25) CULTURE (BEAKER) (test uhoq=4960) KLEBSIELLA PNEUMONIAE SSP PNEUMONIAE 2+ Pseudomonas aeruginosa Amikacin (test code=1) Ampicillin + Sulbactam (test code=6) Aztreonam (test code=32) Cefepime (test code=51) Cefoxitin (test code=68) Ceftazidime (test code=27) Ceftriaxone (test code=52) Gentamicin (test code=18) Levofloxacin (test code=22) Meropenem (test code=34) Nitrofurantoin (test code=23) Piperacillin + Tazobactam (test code=29) Tetracycline (test code=2) Tobramycin (test code=25) Trimethoprim + Sulfamethoxazole (test code=47) CULTURE (BEAKER) (test aweg=6452) <1+ Klebsiella pneumoniae ssp pneumoniaeESBL Positive GRAM STAIN RESULT (BEAKER) (test dpyr=4349) 3+ WBCs GRAM STAIN RESULT (BEAKER) (test vypz=251944) 5-10 epithelial cells GRAM STAIN RESULT (BEAKER) (test wqhp=175733) <1+ gram negative rods No Normal respiratory rodney presentC W/PLT COUNT & AUTO [id number] 06:03:00* Test Item Value Reference Range Comments WHITE BLOOD CELL COUNT (BEAKER) (test aqzt=503) 9.1 K/ L 3.5-10.5 RED BLOOD CELL COUNT (BEAKER) (test rfew=863) 3.48 M/ L 4.63-6.08 HEMOGLOBIN (BEAKER) (test roda=428) 9.1 GM/DL 13.7-17.5 HEMATOCRIT (BEAKER) (test xlfv=693) 30.8 % 40.1-51.0 MEAN CORPUSCULAR VOLUME (BEAKER) (test depg=612) 88.5 fL 79.0-92.2 MEAN CORPUSCULAR HEMOGLOBIN (BEAKER) (test glwi=117) 26.1 pg 25.7-32.2 MEAN CORPUSCULAR HEMOGLOBIN CONC (BEAKER) (test pqhz=829) 29.5 GM/DL 32.3- 36.5 RED CELL DISTRIBUTION WIDTH (BEAKER) (test toki=165) 18.6 % 11.6-14.4 PLATELET COUNT (BEAKER) (test azzr=578) 347 K/CU MM 150-450 MEAN PLATELET VOLUME (BEAKER) (test oqaq=626) 10.1 fL 9.4-12.4 NUCLEATED RED BLOOD CELLS (BEAKER) (test cgin=782) 0 /100 WBC 0-0 NEUTROPHILS RELATIVE PERCENT (BEAKER) (test frtp=621) 68 % LYMPHOCYTES RELATIVE PERCENT (BEAKER) (test mjvx=391) 18 % MONOCYTES RELATIVE PERCENT (BEAKER) (test qeja=677) 8 % EOSINOPHILS RELATIVE PERCENT (BEAKER) (test vins=233) 6 % BASOPHILS RELATIVE PERCENT (BEAKER) (test ihnf=938) 0 % NEUTROPHILS ABSOLUTE COUNT (BEAKER) (test tkdn=524) 6.18 K/ L 1.78-5.38 LYMPHOCYTES ABSOLUTE COUNT (BEAKER) (test mxzh=516) 1.65 K/ L 1.32-3.57 MONOCYTES ABSOLUTE COUNT (BEAKER) (test uakg=027) 0.69 K/ L 0.30-0.82 EOSINOPHILS ABSOLUTE COUNT (BEAKER) (test hzwq=119) 0.50 K/ L 0.04-0.54 BASOPHILS ABSOLUTE COUNT (BEAKER) (test hela=379) 0.03 K/ L 0.01-0.08 IMMATURE GRANULOCYTES-RELATIVE PERCENT (BEAKER) (test uvgs=7263) 0 % 0-1 RAD, CHEST, 1 VIEW, NON [id number] 05:18:00Reason for exam:->medistinal abscessShould this be performed at the bedside?->YesFINAL REPORT RAD, CHEST, 1 VIEW, NON DEPT INDICATION: medistinal abscess COMPARISON : Prior day's exam FINDINGS: Portable frontal view of the chest. IMPRESSION: Support Lines: Tracheostomy tube projects over the tracheal air column. Lungs and pleura: Atelectatic changes noted bilaterally. Moderate right pleural effusion similar to prior. No pneumothorax.Heart and mediastinum: Stable contours. Additional findings: None. Signed: JR Newton Robert MDReport Verified Date/Time: 10/26/2017 05:18:49 Reading Location: [address] Body Reading Room W/PLT COUNT & AUTO [id number] 12:13:00* Test Item Value Reference Range Comments WHITE BLOOD CELL COUNT (BEAKER) (test htoe=434) 8.9 K/ L 3.5-10.5 RED BLOOD CELL COUNT (BEAKER) (test apks=024) 3.31 M/ L 4.63-6.08 HEMOGLOBIN (BEAKER) (test zcap=854) 8.8 GM/DL 13.7-17.5 HEMATOCRIT (BEAKER) (test pacl=464) 29.8 % 40.1-51.0 MEAN CORPUSCULAR VOLUME (BEAKER) (test mefu=191) 90.0 fL 79.0-92.2 MEAN CORPUSCULAR HEMOGLOBIN (BEAKER) (test rtxo=453) 26.6 pg 25.7-32.2 MEAN CORPUSCULAR HEMOGLOBIN CONC (BEAKER) (test txov=599) 29.5 GM/DL 32.3- 36.5 RED CELL DISTRIBUTION WIDTH (BEAKER) (test nmsf=331) 18.7 % 11.6-14.4 PLATELET COUNT (BEAKER) (test tibk=745) 282 K/CU MM 150-450 MEAN PLATELET VOLUME (BEAKER) (test hphy=069) 10.0 fL 9.4-12.4 NUCLEATED RED BLOOD CELLS (BEAKER) (test mmaj=303) 0 /100 WBC 0-0 NEUTROPHILS RELATIVE PERCENT (BEAKER) (test damd=993) 60 % LYMPHOCYTES RELATIVE PERCENT (BEAKER) (test jzra=610) 27 % MONOCYTES RELATIVE PERCENT (BEAKER) (test bpia=781) 8 % EOSINOPHILS RELATIVE PERCENT (BEAKER) (test iwgb=162) 4 % BASOPHILS RELATIVE PERCENT (BEAKER) (test ymbk=123) 0 % NEUTROPHILS ABSOLUTE COUNT (BEAKER) (test vvdf=915) 5.34 K/ L 1.78-5.38 LYMPHOCYTES ABSOLUTE COUNT (BEAKER) (test hhlu=638) 2.41 K/ L 1.32-3.57 MONOCYTES ABSOLUTE COUNT (BEAKER) (test nwab=911) 0.74 K/ L 0.30-0.82 EOSINOPHILS ABSOLUTE COUNT (BEAKER) (test ckaj=323) 0.31 K/ L 0.04-0.54 BASOPHILS ABSOLUTE COUNT (BEAKER) (test kcbk=245) 0.03 K/ L 0.01-0.08 IMMATURE GRANULOCYTES-RELATIVE PERCENT (BEAKER) (test tnff=2194) 1 % 0-1 (MANUAL DIFFERENTIAL)2017-10-25 12:13:00* Test Item Value Reference Range Comments TOTAL COUNTED (BEAKER) (test rtcr=2029) WBC MORPHOLOGY (BEAKER) (test cudk=720) Normal PLT MORPHOLOGY (BEAKER) (test zdeb=631) Normal RBC MORPHOLOGY (BEAKER) (test oniu=970) Normal [id number] 08:20:00* Test Item Value Reference Range Comments PHOSPHORUS (BEAKER) (test bfyt=531) 3.3 mg/dL 2.3-4.7 [id number] 08:20:00* Test Item Value Reference Range Comments MAGNESIUM (BEAKER) (test xwir=376) 1.6 mg/dL 1.6-2.6 BASIC METABOLIC [id number] 08:20:00* Test Item Value Reference Range Comments SODIUM (BEAKER) (test zzsd=313) 140 meq/L 136-145 POTASSIUM (BEAKER) (test nuly=780) 3.3 meq/L 3.5-5.1 CHLORIDE (BEAKER) (test urbt=837) 103 meq/L 98-107 CO2 (BEAKER) (test ejbt=550) 31 meq/L 22-29 BLOOD UREA NITROGEN (BEAKER) (test zmsy=033) 21 mg/dL 7-21 CREATININE (BEAKER) (test kxdy=640) 0.41 mg/dL 0.57-1.25 GLUCOSE RANDOM (BEAKER) (test yvjj=873) 101 mg/dL 70-105 CALCIUM (BEAKER) (test zami=130) 8.7 mg/dL 8.4-10.2 EGFR (BEAKER) (test wowr=8182) 220 mL/min/1.73 sq m ESTIMATED GFR IS NOT ACCURATE CREATININE CLEARANCE IN PREDICTING GLOMERULAR FILTRATION RATE. ESTIMATED GFR IS NOT APPLICABLE FOR DIALYSIS PATIENTS. RAD, CHEST, 1 VIEW, NON [id number] 08:09:00Reason for exam:->medistinal abscessShould this be performed at the bedside?->YesFINAL REPORT AP view of the chest dated 10/25/2017 COMPARISON: Prior study yesterday CLINICAL INFORMATION: medistinal abscess Comment: Heart is enlarged. Pulmonary vasculature is unremarkable. There is small to moderate right pleural effusion with the right lower lobe subsegmental atelectasis. The rest of the lungs are clear. Tracheostomy tube lobe remains in place. IMPRESSION: No interval change. Signed: Leslee June MDReport Verified Date/Time: 10/25/2017 08 :09:32 Reading Location: [facility] B1 C013Y CT Body Reading Room W/PLT COUNT & AUTO [id number] 07:51:00* Test Item Value Reference Range Comments WHITE BLOOD CELL COUNT (BEAKER) (test sbxc=106) 8.7 K/ L 3.5-10.5 RED BLOOD CELL COUNT (BEAKER) (test krmq=486) 3.03 M/ L 4.63-6.08 HEMOGLOBIN (BEAKER) (test oywq=681) 8.0 GM/DL 13.7-17.5 HEMATOCRIT (BEAKER) (test kvru=157) 26.7 % 40.1-51.0 MEAN CORPUSCULAR VOLUME (BEAKER) (test rvxa=379) 88.1 fL 79.0-92.2 MEAN CORPUSCULAR HEMOGLOBIN (BEAKER) (test nwoe=852) 26.4 pg 25.7-32.2 MEAN CORPUSCULAR HEMOGLOBIN CONC (BEAKER) (test jjkx=781) 30.0 GM/DL 32.3- 36.5 RED CELL DISTRIBUTION WIDTH (BEAKER) (test bprc=267) 18.7 % 11.6-14.4 PLATELET COUNT (BEAKER) (test ivso=090) 328 K/CU MM 150-450 MEAN PLATELET VOLUME (BEAKER) (test txwa=004) 9.7 fL 9.4-12.4 NUCLEATED RED BLOOD CELLS (BEAKER) (test ivbe=635) 0 /100 WBC 0-0 NEUTROPHILS RELATIVE PERCENT (BEAKER) (test sxnm=019) 63 % LYMPHOCYTES RELATIVE PERCENT (BEAKER) (test gcjs=964) 25 % MONOCYTES RELATIVE PERCENT (BEAKER) (test myei=732) 8 % EOSINOPHILS RELATIVE PERCENT (BEAKER) (test zaqm=226) 4 % BASOPHILS RELATIVE PERCENT (BEAKER) (test aywa=514) 1 % NEUTROPHILS ABSOLUTE COUNT (BEAKER) (test qhnm=718) 5.44 K/ L 1.78-5.38 LYMPHOCYTES ABSOLUTE COUNT (BEAKER) (test kcrb=919) 2.13 K/ L 1.32-3.57 MONOCYTES ABSOLUTE COUNT (BEAKER) (test adqf=385) 0.72 K/ L 0.30-0.82 EOSINOPHILS ABSOLUTE COUNT (BEAKER) (test rdoy=141) 0.31 K/ L 0.04-0.54 BASOPHILS ABSOLUTE COUNT (BEAKER) (test mjbk=238) 0.04 K/ L 0.01-0.08 IMMATURE GRANULOCYTES-RELATIVE PERCENT (BEAKER) (test dyvl=8582) 1 % 0-1 POCT-GLUCOSE [id number] 06:34:00* Test Item Value Reference Range Comments POC-GLUCOSE METER (BEAKER) (test pqen=6272) 105 mg/dL 70-[address] [facility] [address] [facility] [address] POCT-GLUCOSE [id number] 00:34:00* Test Item Value Reference Range Comments POC-GLUCOSE METER (BEAKER) (test gesz=6342) 132 mg/dL 70-110 TESTED AT [place] [id number] [facility] [address] POCT-GLUCOSE [id number] 18:56:00* Test Item Value Reference Range Comments POC-GLUCOSE METER (BEAKER) (test oqhj=6011) 128 mg/dL 70-110 TESTED AT [address] [address] POCT-GLUCOSE [id number] 12:43:00* Test Item Value Reference Range Comments POC-GLUCOSE METER (BEAKER) (test fyva=4798) 132 mg/dL 70-110 TESTED AT [address] [address] POCT-GLUCOSE [id number] 06:11:00* Test Item Value Reference Range Comments POC-GLUCOSE METER (BEAKER) (test vunx=4063) 101 mg/dL 70-110 TESTED AT [address] [address] [id number] 05:55:00* Test Item Value Reference Range Comments PHOSPHORUS (BEAKER) (test omhy=277) 2.6 mg/dL 2.3-4.7 [id number] 05:55:00* Test Item Value Reference Range Comments MAGNESIUM (BEAKER) (test eiib=543) 2.0 mg/dL 1.6-2.6 BASIC METABOLIC [id number] 05:55:00* Test Item Value Reference Range Comments SODIUM (BEAKER) (test ippe=713) 142 meq/L 136-145 POTASSIUM (BEAKER) (test lfsp=757) 3.4 meq/L 3.5-5.1 CHLORIDE (BEAKER) (test ifow=862) 103 meq/L 98-107 CO2 (BEAKER) (test banr=438) 30 meq/L 22-29 BLOOD UREA NITROGEN (BEAKER) (test vhsv=916) 18 mg/dL 7-21 CREATININE (BEAKER) (test fweo=294) 0.42 mg/dL 0.57-1.25 GLUCOSE RANDOM (BEAKER) (test late=332) 115 mg/dL 70-105 CALCIUM (BEAKER) (test ecwf=919) 8.2 mg/dL 8.4-10.2 EGFR (BEAKER) (test wdun=0125) 214 mL/min/1.73 sq m ESTIMATED GFR IS NOT ACCURATE CREATININE CLEARANCE IN PREDICTING GLOMERULAR FILTRATION RATE. ESTIMATED GFR IS NOT APPLICABLE FOR DIALYSIS PATIENTS. CBC W/PLT COUNT & AUTO [id number] 05:13:00* Test Item Value Reference Range Comments WHITE BLOOD CELL COUNT (BEAKER) (test krib=531) 10.6 K/ L 3.5-10.5 RED BLOOD CELL COUNT (BEAKER) (test pnah=839) 2.81 M/ L 4.63-6.08 HEMOGLOBIN (BEAKER) (test uxbf=055) 7.5 GM/DL 13.7-17.5 HEMATOCRIT (BEAKER) (test wihw=420) 24.8 % 40.1-51.0 MEAN CORPUSCULAR VOLUME (BEAKER) (test pnnq=668) 88.3 fL 79.0-92.2 MEAN CORPUSCULAR HEMOGLOBIN (BEAKER) (test ibed=942) 26.7 pg 25.7-32.2 MEAN CORPUSCULAR HEMOGLOBIN CONC (BEAKER) (test joou=664) 30.2 GM/DL 32.3- 36.5 RED CELL DISTRIBUTION WIDTH (BEAKER) (test wxlc=200) 18.6 % 11.6-14.4 PLATELET COUNT (BEAKER) (test jngi=241) 327 K/CU MM 150-450 MEAN PLATELET VOLUME (BEAKER) (test jtig=976) 9.5 fL 9.4-12.4 NUCLEATED RED BLOOD CELLS (BEAKER) (test ntyh=549) 0 /100 WBC 0-0 NEUTROPHILS RELATIVE PERCENT (BEAKER) (test trks=724) 67 % LYMPHOCYTES RELATIVE PERCENT (BEAKER) (test qeiv=889) 24 % MONOCYTES RELATIVE PERCENT (BEAKER) (test uibq=276) 6 % EOSINOPHILS RELATIVE PERCENT (BEAKER) (test rjlz=229) 3 % BASOPHILS RELATIVE PERCENT (BEAKER) (test yiix=786) 0 % NEUTROPHILS ABSOLUTE COUNT (BEAKER) (test wdda=530) 7.06 K/ L 1.78-5.38 LYMPHOCYTES ABSOLUTE COUNT (BEAKER) (test xwnh=111) 2.52 K/ L 1.32-3.57 MONOCYTES ABSOLUTE COUNT (BEAKER) (test cedv=381) 0.62 K/ L 0.30-0.82 EOSINOPHILS ABSOLUTE COUNT (BEAKER) (test suna=685) 0.29 K/ L 0.04-0.54 BASOPHILS ABSOLUTE COUNT (BEAKER) (test aiuu=634) 0.03 K/ L 0.01-0.08 IMMATURE GRANULOCYTES-RELATIVE PERCENT (BEAKER) (test cdva=2370) 1 % 0-1 RAD, CHEST, 1 VIEW, NON [id number] 04:39:00Reason for exam:->medistinal abscessShould this be performed at the bedside?->YesFINAL REPORT RAD, CHEST, 1 VIEW, NON DEPT INDICATION: medistinal abscess COMPARISON : Prior day's exam FINDINGS: Portable frontal view of the chest. IMPRESSION: Support Lines: Unchanged tracheostomy tube. Lungs and pleura: Decreasing right effusion. Stable small left effusion. No pneumothorax.Heart and mediastinum: Unchanged appearance of the mediastinal contours.Additional findings: None. Signed: JR Newton Robert MDReport Verified Date/Time: 10/24/2017 04:39: 18 Reading Location: [facility] C013Y CT Body Reading Room ALYSIS W/ [id number] 01:10:00* Test Item Value Reference Range Comments COLOR (BEAKER) (test attl=540) Yellow CLARITY (BEAKER) (test snhs=065) Hazy SPECIFIC GRAVITY UA (BEAKER) (test blia=786) 1.013 1.001-1.035 PH UA (BEAKER) (test deuy=850) 8.0 5.0-8.0 PROTEIN UA (BEAKER) (test zxem=207) 20 mg/dL Negative GLUCOSE UA (BEAKER) (test fxjl=597) Negative Negative KETONES UA (BEAKER) (test innh=827) Negative Negative BILIRUBIN UA (BEAKER) (test kekg=590) Negative Negative BLOOD UA (BEAKER) (test lrkb=211) Negative Negative NITRITE UA (BEAKER) (test dfly=006) Negative Negative LEUKOCYTE ESTERASE UA (BEAKER) (test ngts=976) Negative Negative UROBILINOGEN UA (BEAKER) (test pvwj=487) 0.2 mg/dL 0.2-1.0 RBC UA (BEAKER) (test wfsy=151) 15 /HPF WBC UA (BEAKER) (test hmcg=818) 6 /HPF BACTERIA (BEAKER) (test misp=483) Occasional MUCUS (BEAKER) (test omea=7528) Few SQUAMOUS EPITHELIAL (BEAKER) (test tdqj=764) 1 /HPF HYALINE CASTS (BEAKER) (test kcjz=621) 5 /LPF AMORPHOUS CRYSTALS (BEAKER) (test psag=6688) Few SOURCE(BEAKER) (test icbs=1894) Urine, Suprapubic Aspirate POCT-GLUCOSE [id number] 00:06:00* Test Item Value Reference Range Comments POC-GLUCOSE METER (BEAKER) (test efpp=3346) 158 mg/dL 70-[address] [facility] [address] [facility] [address] [id number] 19:14:00* Test Item Value Reference Range Comments MAGNESIUM (BEAKER) (test aluh=948) 1.4 mg/dL 1.6-2.6 BASIC METABOLIC [id number] 19:14:00* Test Item Value Reference Range Comments SODIUM (BEAKER) (test gxje=807) 142 meq/L 136-145 POTASSIUM (BEAKER) (test gqom=803) 3.7 meq/L 3.5-5.1 CHLORIDE (BEAKER) (test zxyu=354) 104 meq/L 98-107 CO2 (BEAKER) (test vnve=625) 28 meq/L 22-29 BLOOD UREA NITROGEN (BEAKER) (test ahxd=387) 19 mg/dL 7-21 CREATININE (BEAKER) (test tfcz=877) 0.41 mg/dL 0.57-1.25 GLUCOSE RANDOM (BEAKER) (test mxnz=204) 121 mg/dL 70-105 CALCIUM (BEAKER) (test rcby=305) 8.4 mg/dL 8.4-10.2 EGFR (BEAKER) (test acry=8346) 220 mL/min/1.73 sq m ESTIMATED GFR IS NOT ACCURATE CREATININE CLEARANCE IN PREDICTING GLOMERULAR FILTRATION RATE. ESTIMATED GFR IS NOT APPLICABLE FOR DIALYSIS PATIENTS. POCT-GLUCOSE [id number] 18:57:00* Test Item Value Reference Range Comments POC-GLUCOSE METER (BEAKER) (test poax=6701) 128 mg/dL 70-[address] [facility] [address] [facility] [address] BLOOD [id number] 17:00:00* Test Item Value Reference Range Comments CULTURE (BEAKER) (test bupg=2633) No growth in 5 days BLOOD [id number] 17:00:00* Test Item Value Reference Range Comments CULTURE (BEAKER) (test vyht=1082) No growth in 5 days POCT-GLUCOSE [id number] 15:38:00* Test Item Value Reference Range Comments POC-GLUCOSE METER (BEAKER) (test tojd=9314) 128 mg/dL 70-[address] [facility] [address] [facility] [address] BLOOD [id number] 13:04:00* Test Item Value Reference Range Comments CULTURE (BEAKER) (test lrfz=4501) From Anaerobic Bottle Only Same organism has been isolated from cultures(s) of the same body site and collection date. Repeat identification and susceptibility testing performed only after consultation with the clinical microbiology laboratory.Refer to previous culture ofCoagulase negative Staphylococcus GRAM STAIN RESULT (BEAKER) (test rhll=9534) From anaerobic bottle only: gram positive cocci in clusters POCT-GLUCOSE [id number] 06:29:00* Test Item Value Reference Range Comments POC-GLUCOSE METER (BEAKER) (test brnr=8182) 91 mg/dL 70-[address] [facility] [address] [facility] [address] [id number] 05:42:00* Test Item Value Reference Range Comments PHOSPHORUS (BEAKER) (test ctbi=356) 3.5 mg/dL 2.3-4.7 [id number] 05:42:00* Test Item Value Reference Range Comments MAGNESIUM (BEAKER) (test vemc=958) 1.6 mg/dL 1.6-2.6 BASIC METABOLIC [id number] 05:42:00* Test Item Value Reference Range Comments SODIUM (BEAKER) (test wkkc=887) 144 meq/L 136-145 POTASSIUM (BEAKER) (test uwie=623) 3.6 meq/L 3.5-5.1 CHLORIDE (BEAKER) (test wiqb=075) 103 meq/L 98-107 CO2 (BEAKER) (test jhdw=329) 35 meq/L 22-29 BLOOD UREA NITROGEN (BEAKER) (test owpa=967) 19 mg/dL 7-21 CREATININE (BEAKER) (test veys=892) 0.38 mg/dL 0.57-1.25 GLUCOSE RANDOM (BEAKER) (test ztor=462) 94 mg/dL 70-105 CALCIUM (BEAKER) (test plls=936) 8.7 mg/dL 8.4-10.2 EGFR (BEAKER) (test vrwr=1721) 240 mL/min/1.73 sq m ESTIMATED GFR IS NOT ACCURATE CREATININE CLEARANCE IN PREDICTING GLOMERULAR FILTRATION RATE. ESTIMATED GFR IS NOT APPLICABLE FOR DIALYSIS PATIENTS. CBC W/PLT COUNT & AUTO [id number] 05:30:00* Test Item Value Reference Range Comments WHITE BLOOD CELL COUNT (BEAKER) (test zezs=713) 7.0 K/ L 3.5-10.5 RED BLOOD CELL COUNT (BEAKER) (test zlln=035) 3.08 M/ L 4.63-6.08 HEMOGLOBIN (BEAKER) (test oppm=065) 8.2 GM/DL 13.7-17.5 HEMATOCRIT (BEAKER) (test wiyi=971) 27.8 % 40.1-51.0 MEAN CORPUSCULAR VOLUME (BEAKER) (test zieo=460) 90.3 fL 79.0-92.2 MEAN CORPUSCULAR HEMOGLOBIN (BEAKER) (test qzwy=379) 26.6 pg 25.7-32.2 MEAN CORPUSCULAR HEMOGLOBIN CONC (BEAKER) (test pjky=445) 29.5 GM/DL 32.3- 36.5 RED CELL DISTRIBUTION WIDTH (BEAKER) (test focu=219) 18.9 % 11.6-14.4 PLATELET COUNT (BEAKER) (test flox=871) 337 K/CU MM 150-450 MEAN PLATELET VOLUME (BEAKER) (test zpzz=993) 9.8 fL 9.4-12.4 NUCLEATED RED BLOOD CELLS (BEAKER) (test ngav=657) 0 /100 WBC 0-0 NEUTROPHILS RELATIVE PERCENT (BEAKER) (test pjua=799) 55 % LYMPHOCYTES RELATIVE PERCENT (BEAKER) (test smoz=040) 29 % MONOCYTES RELATIVE PERCENT (BEAKER) (test wcxo=149) 9 % EOSINOPHILS RELATIVE PERCENT (BEAKER) (test slew=491) 6 % BASOPHILS RELATIVE PERCENT (BEAKER) (test cvpa=702) 1 % NEUTROPHILS ABSOLUTE COUNT (BEAKER) (test ipzl=382) 3.83 K/ L 1.78-5.38 LYMPHOCYTES ABSOLUTE COUNT (BEAKER) (test tqmm=160) 2.05 K/ L 1.32-3.57 MONOCYTES ABSOLUTE COUNT (BEAKER) (test oajl=369) 0.60 K/ L 0.30-0.82 EOSINOPHILS ABSOLUTE COUNT (BEAKER) (test zbnv=481) 0.45 K/ L 0.04-0.54 BASOPHILS ABSOLUTE COUNT (BEAKER) (test peck=792) 0.04 K/ L 0.01-0.08 IMMATURE GRANULOCYTES-RELATIVE PERCENT (BEAKER) (test qoqi=8595) 0 % 0-1 RAD, CHEST, 1 VIEW, NON [id number] 03:17:00Reason for exam:->medistinal abscessShould this be performed at the bedside?->YesFINAL REPORT RAD, CHEST, 1 VIEW, NON DEPT INDICATION: medistinal abscess COMPARISON : Prior day's exam FINDINGS: Portable frontal view of the chest. IMPRESSION: Support Lines: Tracheostomy tube terminates over the midline trachea. Lungs and pleura: Improving effusion on the right, still at least moderate in size. Trace left effusion. No new airspace disease. No pneumothorax.Heart and mediastinum: Visible contours are stable.Additional findings: None. Signed: JR Newton Robert MDReport Verified Date/Time: 10/23/2017 03:17:57 Reading Location: [facility] C013Y CT Body Reading Room -GLUCOSE [id number] 00:21:00* Test Item Value Reference Range Comments POC-GLUCOSE METER (BEAKER) (test zcmm=7674) 125 mg/dL 70-110 [address]ED AT [address] [address] POCT-GLUCOSE [id number] 17:25:00* Test Item Value Reference Range Comments POC-GLUCOSE METER (BEAKER) (test rfaz=5330) 129 mg/dL 70-110 TESTED AT [address] [place] [address] POCT-GLUCOSE [id number] 12:27:00* Test Item Value Reference Range Comments POC-GLUCOSE METER (BEAKER) (test wifh=7298) 129 mg/dL 70-110 TESTED AT [address] [address] POCT-GLUCOSE [id number] 06:21:00* Test Item Value Reference Range Comments POC-GLUCOSE METER (BEAKER) (test ehhy=2202) 101 mg/dL 70-110 TESTED AT [address] [address] [id number] 05:44:00* Test Item Value Reference Range Comments MAGNESIUM (BEAKER) (test zcpj=106) 1.4 mg/dL 1.6-2.6 Specimen slightly hemolyzed [id number] 05:44:00* Test Item Value Reference Range Comments PHOSPHORUS (BEAKER) (test rgdt=155) 2.8 mg/dL 2.3-4.7 Specimen slightly hemolyzed BASIC METABOLIC [id number] 05:44:00* Test Item Value Reference Range Comments SODIUM (BEAKER) (test uaul=644) 144 meq/L 136-145 POTASSIUM (BEAKER) (test vizi=715) 3.4 meq/L 3.5-5.1 Specimen slightly hemolyzed CHLORIDE (BEAKER) (test tgxb=641) 102 meq/L 98-107 CO2 (BEAKER) (test xzgu=084) 34 meq/L 22-29 BLOOD UREA NITROGEN (BEAKER) (test avow=194) 16 mg/dL 7-21 CREATININE (BEAKER) (test qrjn=100) 0.36 mg/dL 0.57-1.25 Specimen slightly hemolyzed GLUCOSE RANDOM (BEAKER) (test wexj=306) 98 mg/dL 70-105 CALCIUM (BEAKER) (test qzvo=313) 8.5 mg/dL 8.4-10.2 EGFR (BEAKER) (test gyun=9340) 255 mL/min/1.73 sq m ESTIMATED GFR IS NOT ACCURATE CREATININE CLEARANCE IN PREDICTING GLOMERULAR FILTRATION RATE. ESTIMATED GFR IS NOT APPLICABLE FOR DIALYSIS PATIENTS. CBC W/PLT COUNT & AUTO [id number] 05:22:00* Test Item Value Reference Range Comments WHITE BLOOD CELL COUNT (BEAKER) (test vfvl=803) 8.8 K/ L 3.5-10.5 RED BLOOD CELL COUNT (BEAKER) (test akga=264) 2.99 M/ L 4.63-6.08 HEMOGLOBIN (BEAKER) (test wzpo=509) 7.9 GM/DL 13.7-17.5 HEMATOCRIT (BEAKER) (test aomm=418) 27.0 % 40.1-51.0 MEAN CORPUSCULAR VOLUME (BEAKER) (test icwz=200) 90.3 fL 79.0-92.2 MEAN CORPUSCULAR HEMOGLOBIN (BEAKER) (test lmlm=574) 26.4 pg 25.7-32.2 MEAN CORPUSCULAR HEMOGLOBIN CONC (BEAKER) (test eiqy=142) 29.3 GM/DL 32.3- 36.5 RED CELL DISTRIBUTION WIDTH (BEAKER) (test napb=070) 18.9 % 11.6-14.4 PLATELET COUNT (BEAKER) (test cvwr=581) 369 K/CU MM 150-450 MEAN PLATELET VOLUME (BEAKER) (test kkmw=993) 9.8 fL 9.4-12.4 NUCLEATED RED BLOOD CELLS (BEAKER) (test rtga=212) 0 /100 WBC 0-0 NEUTROPHILS RELATIVE PERCENT (BEAKER) (test lecy=323) 64 % LYMPHOCYTES RELATIVE PERCENT (BEAKER) (test reev=350) 21 % MONOCYTES RELATIVE PERCENT (BEAKER) (test tque=552) 10 % EOSINOPHILS RELATIVE PERCENT (BEAKER) (test emzu=113) 4 % BASOPHILS RELATIVE PERCENT (BEAKER) (test sgzx=983) 1 % NEUTROPHILS ABSOLUTE COUNT (BEAKER) (test mzol=881) 5.66 K/ L 1.78-5.38 LYMPHOCYTES ABSOLUTE COUNT (BEAKER) (test zeru=633) 1.87 K/ L 1.32-3.57 MONOCYTES ABSOLUTE COUNT (BEAKER) (test umyl=102) 0.85 K/ L 0.30-0.82 EOSINOPHILS ABSOLUTE COUNT (BEAKER) (test awdd=762) 0.38 K/ L 0.04-0.54 BASOPHILS ABSOLUTE COUNT (BEAKER) (test tdno=755) 0.04 K/ L 0.01-0.08 IMMATURE GRANULOCYTES-RELATIVE PERCENT (BEAKER) (test wjhb=9737) 1 % 0-1 RAD, CHEST, 1 VIEW, NON [id number] 03:43:00Reason for exam:->medistinal abscessShould this be performed at the bedside?->YesFINAL REPORT RAD, CHEST, 1 VIEW, NON DEPT INDICATION: medistinal abscess COMPARISON : Prior day's exam FINDINGS: Portable frontal view of the chest. IMPRESSION: Limited by patient rotation.Support Lines: Stable position and tracheostomy tube. Lungs and pleura: Worsening effusion on the right. Stable appearance of the left airspaces.Heart and mediastinum: Comparable mediastinal contours are unchanged.Additional findings: None. Signed: JR Newton Robert MDReport Verified Date/Time: 10/22/2017 03:43:37 Reading Location: [facility] C013Y CT Body Reading Room -GLUCOSE [id number] 00:27:00* Test Item Value Reference Range Comments POC-GLUCOSE METER (BEAKER) (test vczn=3567) 146 mg/dL 70-110 [address]ED AT [address] [address] POCT-GLUCOSE [id number] 17:57:00* Test Item Value Reference Range Comments POC-GLUCOSE METER (BEAKER) (test dnrw=3833) 127 mg/dL 70-110 TESTED AT [address] [address] POCT-GLUCOSE [id number] 11:51:00* Test Item Value Reference Range Comments POC-GLUCOSE METER (BEAKER) (test sblz=8505) 136 mg/dL 70-110 TESTED AT [address] [address] POCT-GLUCOSE [id number] 05:31:00* Test Item Value Reference Range Comments POC-GLUCOSE METER (BEAKER) (test elni=2110) 111 mg/dL 70-110 TESTED AT [address] [address] [id number] 05:15:00* Test Item Value Reference Range Comments MAGNESIUM (BEAKER) (test ekfl=868) 1.5 mg/dL 1.6-2.6 BASIC METABOLIC [id number] 05:15:00* Test Item Value Reference Range Comments SODIUM (BEAKER) (test tppv=443) 144 meq/L 136-145 POTASSIUM (BEAKER) (test msnh=608) 3.3 meq/L 3.5-5.1 CHLORIDE (BEAKER) (test zlza=158) 102 meq/L 98-107 CO2 (BEAKER) (test efmd=775) 32 meq/L 22-29 BLOOD UREA NITROGEN (BEAKER) (test ihpc=864) 16 mg/dL 7-21 CREATININE (BEAKER) (test ysdf=428) 0.37 mg/dL 0.57-1.25 GLUCOSE RANDOM (BEAKER) (test krch=686) 93 mg/dL 70-105 CALCIUM (BEAKER) (test iccy=982) 8.6 mg/dL 8.4-10.2 EGFR (BEAKER) (test iboc=8171) 247 mL/min/1.73 sq m ESTIMATED GFR IS NOT ACCURATE CREATININE CLEARANCE IN PREDICTING GLOMERULAR FILTRATION RATE. ESTIMATED GFR IS NOT APPLICABLE FOR DIALYSIS PATIENTS. [id number] 05:14:00* Test Item Value Reference Range Comments PHOSPHORUS (BEAKER) (test ylyv=853) 3.2 mg/dL 2.3-4.7 CBC W/PLT COUNT & AUTO [id number] 04:48:00* Test Item Value Reference Range Comments WHITE BLOOD CELL COUNT (BEAKER) (test yczf=620) 8.7 K/ L 3.5-10.5 RED BLOOD CELL COUNT (BEAKER) (test lsvl=243) 3.11 M/ L 4.63-6.08 HEMOGLOBIN (BEAKER) (test conf=075) 8.3 GM/DL 13.7-17.5 HEMATOCRIT (BEAKER) (test aiee=057) 27.9 % 40.1-51.0 MEAN CORPUSCULAR VOLUME (BEAKER) (test cwxm=454) 89.7 fL 79.0-92.2 MEAN CORPUSCULAR HEMOGLOBIN (BEAKER) (test xhgz=744) 26.7 pg 25.7-32.2 MEAN CORPUSCULAR HEMOGLOBIN CONC (BEAKER) (test flxw=425) 29.7 GM/DL 32.3- 36.5 RED CELL DISTRIBUTION WIDTH (BEAKER) (test awzu=444) 19.1 % 11.6-14.4 PLATELET COUNT (BEAKER) (test tmgr=417) 343 K/CU MM 150-450 MEAN PLATELET VOLUME (BEAKER) (test hfdt=968) 9.6 fL 9.4-12.4 NUCLEATED RED BLOOD CELLS (BEAKER) (test fvjt=803) 0 /100 WBC 0-0 NEUTROPHILS RELATIVE PERCENT (BEAKER) (test otci=964) 54 % LYMPHOCYTES RELATIVE PERCENT (BEAKER) (test dyxw=482) 26 % MONOCYTES RELATIVE PERCENT (BEAKER) (test nbpc=090) 14 % EOSINOPHILS RELATIVE PERCENT (BEAKER) (test ukci=401) 4 % BASOPHILS RELATIVE PERCENT (BEAKER) (test bxrs=865) 1 % NEUTROPHILS ABSOLUTE COUNT (BEAKER) (test wwqv=691) 4.75 K/ L 1.78-5.38 LYMPHOCYTES ABSOLUTE COUNT (BEAKER) (test vrej=658) 2.29 K/ L 1.32-3.57 MONOCYTES ABSOLUTE COUNT (BEAKER) (test vgmy=796) 1.24 K/ L 0.30-0.82 EOSINOPHILS ABSOLUTE COUNT (BEAKER) (test uqda=212) 0.36 K/ L 0.04-0.54 BASOPHILS ABSOLUTE COUNT (BEAKER) (test hnmr=683) 0.04 K/ L 0.01-0.08 IMMATURE GRANULOCYTES-RELATIVE PERCENT (BEAKER) (test cvrv=6363) 1 % 0-1 RAD, CHEST, 1 VIEW, NON [id number] 03:39:00Reason for exam:->medistinal abscessShould this be performed at the bedside?->YesFINAL REPORT RAD, CHEST, 1 VIEW, NON DEPT INDICATION: medistinal abscess COMPARISON : Prior day's exam FINDINGS: Portable frontal view of the chest. IMPRESSION: Support Lines: Tracheostomy tube projects over the tracheal air column. Lungs and pleura: No significant improvement in bilateral pleural effusions. No new consolidation. Basilar subsegmental atelectasis. No pneumothorax.Heart and mediastinum: Stable contours. Additional findings: None. Signed: JR Newton Robert MDReport Verified Date/Time: 10/21/2017 03:39:45 Reading Location: [address] Body Reading Room -GLUCOSE [id number] 23:45:00* Test Item Value Reference Range Comments POC-GLUCOSE METER (BEAKER) (test ucwo=0411) 149 mg/dL 70-110 TESTED AT [place] [id number] [facility] [address] POCT-GLUCOSE [id number] 18:58:00* Test Item Value Reference Range Comments POC-GLUCOSE METER (BEAKER) (test lsix=5337) 112 mg/dL 70-110 TESTED AT [address] [address] CATHETER TIP [id number] 14:00:00* Test Item Value Reference Range Comments CULTURE (BEAKER) (test kzee=9692) Clindamycin (test code=10) Erythromycin (test code=4) Levofloxacin (test code=22) Linezolid (test code=40) Nitrofurantoin (test code=23) Oxacillin (test code=14) Rifampin (test code=43) Tetracycline (test code=2) Trimethoprim + Sulfamethoxazole (test code=47) Vancomycin (test code=13) CULTURE (BEAKER) (test ctms=1743) 30-49 Colonies On Direct Plate Coagulase negative Staphylococcus CULTURE (BEAKER) (test xovc=9572) <15 Colonies On Direct Plate Coagulase negative Staphylococcusof a second type Organism(s) under evaluationPOCT-GLUCOSE [id number] 11:58:00* Test Item Value Reference Range Comments POC-GLUCOSE METER (BEAKER) (test mcjl=9312) 144 mg/dL 70-110 TESTED AT [address] [address] OCCULT BLOOD, [id number] 11:35:00* Test Item Value Reference Range Comments FECAL OCCULT BLOOD (BEAKER) (test ftlq=264) Negative Negative VANCOMYCIN LEVEL, [id number] 10:23:00* Test Item Value Reference Range Comments VANCOMYCIN TROUGH (BEAKER) (test kwsk=819) 16.0 ug/mL 10.0-20.0 BLOOD [id number] 10:00:00* Test Item Value Reference Range Comments CULTURE (BEAKER) (test gqpb=3991) No growth in 5 days [id number] 06:28:00* Test Item Value Reference Range Comments PHOSPHORUS (BEAKER) (test zigj=186) 2.8 mg/dL 2.3-4.7 [id number] 06:28:00* Test Item Value Reference Range Comments MAGNESIUM (BEAKER) (test jvqj=052) 1.4 mg/dL 1.6-2.6 BASIC METABOLIC [id number] 06:28:00* Test Item Value Reference Range Comments SODIUM (BEAKER) (test gwjz=940) 141 meq/L 136-145 POTASSIUM (BEAKER) (test tifi=431) 3.7 meq/L 3.5-5.1 CHLORIDE (BEAKER) (test otlw=832) 102 meq/L 98-107 CO2 (BEAKER) (test gzec=021) 32 meq/L 22-29 BLOOD UREA NITROGEN (BEAKER) (test ytao=186) 18 mg/dL 7-21 CREATININE (BEAKER) (test neco=698) 0.38 mg/dL 0.57-1.25 GLUCOSE RANDOM (BEAKER) (test nboz=958) 92 mg/dL 70-105 CALCIUM (BEAKER) (test ctmy=284) 8.6 mg/dL 8.4-10.2 EGFR (BEAKER) (test dkco=5948) 240 mL/min/1.73 sq m ESTIMATED GFR IS NOT ACCURATE CREATININE CLEARANCE IN PREDICTING GLOMERULAR FILTRATION RATE. ESTIMATED GFR IS NOT APPLICABLE FOR DIALYSIS PATIENTS. CBC (HEMOGRAM ONLY)2017-10-20 06:09:00* Test Item Value Reference Range Comments WHITE BLOOD CELL COUNT (BEAKER) (test mrou=464) 8.4 K/ L 3.5-10.5 RED BLOOD CELL COUNT (BEAKER) (test gabo=126) 3.19 M/ L 4.63-6.08 HEMOGLOBIN (BEAKER) (test dklk=258) 8.6 GM/DL 13.7-17.5 HEMATOCRIT (BEAKER) (test ttgj=690) 28.9 % 40.1-51.0 MEAN CORPUSCULAR VOLUME (BEAKER) (test nmwb=898) 90.6 fL 79.0-92.2 MEAN CORPUSCULAR HEMOGLOBIN (BEAKER) (test ssrc=850) 27.0 pg 25.7-32.2 MEAN CORPUSCULAR HEMOGLOBIN CONC (BEAKER) (test whwq=901) 29.8 GM/DL 32.3- 36.5 RED CELL DISTRIBUTION WIDTH (BEAKER) (test kdfg=632) 18.9 % 11.6-14.4 PLATELET COUNT (BEAKER) (test ezhm=020) 349 K/CU MM 150-450 MEAN PLATELET VOLUME (BEAKER) (test agpr=026) 9.7 fL 9.4-12.4 NUCLEATED RED BLOOD CELLS (BEAKER) (test svde=903) 0 /100 WBC 0-0 CBC W/PLT COUNT & AUTO [id number] 06:09:00* Test Item Value Reference Range Comments WHITE BLOOD CELL COUNT (BEAKER) (test fehu=763) 8.4 K/ L 3.5-10.5 RED BLOOD CELL COUNT (BEAKER) (test sloq=837) 3.19 M/ L 4.63-6.08 HEMOGLOBIN (BEAKER) (test xjzb=075) 8.6 GM/DL 13.7-17.5 HEMATOCRIT (BEAKER) (test cmxm=930) 28.9 % 40.1-51.0 MEAN CORPUSCULAR VOLUME (BEAKER) (test vjjm=613) 90.6 fL 79.0-92.2 MEAN CORPUSCULAR HEMOGLOBIN (BEAKER) (test vqtb=245) 27.0 pg 25.7-32.2 MEAN CORPUSCULAR HEMOGLOBIN CONC (BEAKER) (test poqj=516) 29.8 GM/DL 32.3- 36.5 RED CELL DISTRIBUTION WIDTH (BEAKER) (test elcu=173) 18.9 % 11.6-14.4 PLATELET COUNT (BEAKER) (test yoyc=470) 349 K/CU MM 150-450 MEAN PLATELET VOLUME (BEAKER) (test fnuj=708) 9.7 fL 9.4-12.4 NUCLEATED RED BLOOD CELLS (BEAKER) (test osdp=989) 0 /100 WBC 0-0 NEUTROPHILS RELATIVE PERCENT (BEAKER) (test dxnu=620) 62 % LYMPHOCYTES RELATIVE PERCENT (BEAKER) (test yzic=564) 22 % MONOCYTES RELATIVE PERCENT (BEAKER) (test nwub=797) 12 % EOSINOPHILS RELATIVE PERCENT (BEAKER) (test yamy=532) 4 % BASOPHILS RELATIVE PERCENT (BEAKER) (test vdqf=603) 0 % NEUTROPHILS ABSOLUTE COUNT (BEAKER) (test oieh=222) 5.19 K/ L 1.78-5.38 LYMPHOCYTES ABSOLUTE COUNT (BEAKER) (test sasd=235) 1.82 K/ L 1.32-3.57 MONOCYTES ABSOLUTE COUNT (BEAKER) (test ptka=625) 1.01 K/ L 0.30-0.82 EOSINOPHILS ABSOLUTE COUNT (BEAKER) (test rctb=243) 0.32 K/ L 0.04-0.54 BASOPHILS ABSOLUTE COUNT (BEAKER) (test iybs=163) 0.03 K/ L 0.01-0.08 IMMATURE GRANULOCYTES-RELATIVE PERCENT (BEAKER) (test slue=5772) 1 % 0-1 POCT-GLUCOSE [id number] 05:52:00* Test Item Value Reference Range Comments POC-GLUCOSE METER (BEAKER) (test ccrl=9139) 119 mg/dL 70-110 TESTED AT [place] [address] BLOOD [id number] 05:01:00* Test Item Value Reference Range Comments CULTURE (BEAKER) (test qzsp=7704) No growth in 5 days RAD, CHEST, 1 VIEW, NON [id number] 03:43:00Reason for exam:->medistinal abscessShould this be performed at the bedside?->YesFINAL REPORT CLINICAL INDICATION: Mediastinal abscess Comparison: 10/19/2017 The cardiomediastinal contours are stable. Central pulmonary vascular congestion and right greater than left parenchymal and pleural opacities are unchanged. There is no pneumothorax. A tracheostomy tube is stable in position. Signed: Cruz Hampton MDReport Verified Date/Time: 10/20/2017 03:43:51 Reading Location : [address] Reading Room -GLUCOSE [id number] 00:13:00* Test Item Value Reference Range Comments POC-GLUCOSE METER (BEAKER) (test udgf=3221) 128 mg/dL 70-110 TESTED AT [place] [address] BLOOD [id number] 23:00:00* Test Item Value Reference Range Comments CULTURE (BEAKER) (test gbpl=0055) No growth in 5 days [id number] 18:45:00* Test Item Value Reference Range Comments POTASSIUM (BEAKER) (test ourg=015) 3.9 meq/L 3.5-5.1 [id number] 18:45:00* Test Item Value Reference Range Comments MAGNESIUM (BEAKER) (test stcy=141) 1.4 mg/dL 1.6-2.6 POCT-GLUCOSE [id number] 17:50:00* Test Item Value Reference Range Comments POC-GLUCOSE METER (BEAKER) (test cmbx=1589) 123 mg/dL 70-110 TESTED AT [place] [address] BASIC METABOLIC [id number] 17:07:00* Test Item Value Reference Range Comments SODIUM (BEAKER) (test sodm=786) 137 meq/L 136-145 POTASSIUM (BEAKER) (test jzqg=572) 5.2 meq/L 3.5-5.1 Specimen markedly hemolyzed CHLORIDE (BEAKER) (test ltip=589) 99 meq/L 98-107 CO2 (BEAKER) (test wnsc=979) 30 meq/L 22-29 BLOOD UREA NITROGEN (BEAKER) (test iqoz=681) 18 mg/dL 7-21 CREATININE (BEAKER) (test juqm=225) 0.41 mg/dL 0.57-1.25 Specimen markedly hemolyzed GLUCOSE RANDOM (BEAKER) (test ssax=021) 124 mg/dL 70-105 CALCIUM (BEAKER) (test crkt=159) 8.4 mg/dL 8.4-10.2 EGFR (BEAKER) (test dsqi=0629) 220 mL/min/1.73 sq m ESTIMATED GFR IS NOT ACCURATE CREATININE CLEARANCE IN PREDICTING GLOMERULAR FILTRATION RATE. ESTIMATED GFR IS NOT APPLICABLE FOR DIALYSIS PATIENTS. POCT-GLUCOSE [id number] 13:01:00* Test Item Value Reference Range Comments POC-GLUCOSE METER (BEAKER) (test twzb=3050) 98 mg/dL 70-110 TESTED AT [place] [address] SURGICALLY OBTAINED CULTURE + GRAM [id number] 11:43:00* Test Item Value Reference Range Comments CULTURE (BEAKER) (test qdvx=5385) Clindamycin (test code=10) Erythromycin (test code=4) Levofloxacin (test code=22) Linezolid (test code=40) Oxacillin (test code=14) Rifampin (test code=43) Tetracycline (test code=2) Trimethoprim + Sulfamethoxazole (test code=47) Vancomycin (test code=13) CULTURE (BEAKER) (test hyjw=2294) <1+ Coagulase negative Staphylococcus GRAM STAIN RESULT (BEAKER) (test ybxw=1880) No WBCs GRAM STAIN RESULT (BEAKER) (test fhgh=782033) No organisms seen RAD, CHEST, 1 VIEW, NON [id number] 07:51:00Reason for exam:->medistinal abscessShould this be performed at the bedside?->YesFINAL REPORT Chest one view. Clinical history: mediastinal abscess Comparison: 08/2017 Discussion: A frontal chest is provided. Cardiomediastinal contours are unchanged. Tracheostomy tube is in stable position. There are small left, moderate right pleural effusions, along with bibasilar listhesis or consolidation. No pneumothorax. Signed: Wil Blackman Verified Date/Time: 10/19/2017 07:51:24 Reading Location: [facility] Radiology Reading Room - GLUCOSE [id number] 07:02:00* Test Item Value Reference Range Comments POC-GLUCOSE METER (BEAKER) (test yjfa=0638) 96 mg/dL 70-[address] [facility] [address] [facility] [address] [id number] 05:16:00* Test Item Value Reference Range Comments PREALBUMIN (BEAKER) (test lbsc=565) 20 mg/dL 14-45 PROTEIN, [id number] 05:01:00* Test Item Value Reference Range Comments TOTAL PROTEIN (BEAKER) (test piku=291) 6.9 gm/dL 6.0-8.3 [id number] 05:01:00* Test Item Value Reference Range Comments MAGNESIUM (BEAKER) (test zvfr=128) 1.7 mg/dL 1.6-2.6 [id number] 05:01:00* Test Item Value Reference Range Comments PHOSPHORUS (BEAKER) (test kchd=039) 2.9 mg/dL 2.3-4.7 BASIC METABOLIC [id number] 05:01:00* Test Item Value Reference Range Comments SODIUM (BEAKER) (test dkyt=208) 141 meq/L 136-145 POTASSIUM (BEAKER) (test accu=333) 3.7 meq/L 3.5-5.1 CHLORIDE (BEAKER) (test tgbh=516) 100 meq/L 98-107 CO2 (BEAKER) (test lpmb=567) 32 meq/L 22-29 BLOOD UREA NITROGEN (BEAKER) (test zldp=886) 14 mg/dL 7-21 CREATININE (BEAKER) (test irxl=438) 0.39 mg/dL 0.57-1.25 GLUCOSE RANDOM (BEAKER) (test vfoc=851) 97 mg/dL 70-105 CALCIUM (BEAKER) (test tkhl=326) 8.5 mg/dL 8.4-10.2 EGFR (BEAKER) (test mklc=3465) 233 mL/min/1.73 sq m ESTIMATED GFR IS NOT ACCURATE CREATININE CLEARANCE IN PREDICTING GLOMERULAR FILTRATION RATE. ESTIMATED GFR IS NOT APPLICABLE FOR DIALYSIS PATIENTS. [id number] 05:01:00* Test Item Value Reference Range Comments ALBUMIN (BEAKER) (test vvhi=5549) 2.7 g/dL 3.5-5.0 CREATINE KINASE (CK)2017-10-19 05:01:00* Test Item Value Reference Range Comments CREATINE KINASE TOTAL (BEAKER) (test wewj=383) 46 U/L 29-200 CBC W/PLT COUNT & AUTO [id number] 04:17:00* Test Item Value Reference Range Comments WHITE BLOOD CELL COUNT (BEAKER) (test qyhj=517) 7.8 K/ L 3.5-10.5 RED BLOOD CELL COUNT (BEAKER) (test sasn=072) 3.31 M/ L 4.63-6.08 HEMOGLOBIN (BEAKER) (test xkxx=557) 9.0 GM/DL 13.7-17.5 HEMATOCRIT (BEAKER) (test isrt=866) 29.8 % 40.1-51.0 MEAN CORPUSCULAR VOLUME (BEAKER) (test vasb=087) 90.0 fL 79.0-92.2 MEAN CORPUSCULAR HEMOGLOBIN (BEAKER) (test akqg=405) 27.2 pg 25.7-32.2 MEAN CORPUSCULAR HEMOGLOBIN CONC (BEAKER) (test yexu=774) 30.2 GM/DL 32.3- 36.5 RED CELL DISTRIBUTION WIDTH (BEAKER) (test oblr=636) 19.1 % 11.6-14.4 PLATELET COUNT (BEAKER) (test uisp=543) 344 K/CU MM 150-450 MEAN PLATELET VOLUME (BEAKER) (test epoh=724) 9.7 fL 9.4-12.4 NUCLEATED RED BLOOD CELLS (BEAKER) (test ucfr=520) 0 /100 WBC 0-0 NEUTROPHILS RELATIVE PERCENT (BEAKER) (test cmwl=840) 60 % LYMPHOCYTES RELATIVE PERCENT (BEAKER) (test clyy=916) 25 % MONOCYTES RELATIVE PERCENT (BEAKER) (test ebrx=459) 9 % EOSINOPHILS RELATIVE PERCENT (BEAKER) (test niou=477) 5 % BASOPHILS RELATIVE PERCENT (BEAKER) (test ditk=980) 1 % NEUTROPHILS ABSOLUTE COUNT (BEAKER) (test eaao=476) 4.66 K/ L 1.78-5.38 LYMPHOCYTES ABSOLUTE COUNT (BEAKER) (test zcpb=100) 1.93 K/ L 1.32-3.57 MONOCYTES ABSOLUTE COUNT (BEAKER) (test lkjk=545) 0.70 K/ L 0.30-0.82 EOSINOPHILS ABSOLUTE COUNT (BEAKER) (test ssmf=254) 0.37 K/ L 0.04-0.54 BASOPHILS ABSOLUTE COUNT (BEAKER) (test naxs=201) 0.05 K/ L 0.01-0.08 IMMATURE GRANULOCYTES-RELATIVE PERCENT (BEAKER) (test zhap=6390) 1 % 0-1 ANAEROBIC [id number] 04:16:00* Test Item Value Reference Range Comments CULTURE (BEAKER) (test uaek=8758) No anaerobes isolated POCT-GLUCOSE [id number] 23:35:00* Test Item Value Reference Range Comments POC-GLUCOSE METER (BEAKER) (test bvfv=1438) 140 mg/dL 70-110 [address]ED AT [address] [address] POCT-GLUCOSE [id number] 18:11:00* Test Item Value Reference Range Comments POC-GLUCOSE METER (BEAKER) (test fdyl=8901) 129 mg/dL 70-110 TESTED AT [address] [place] [address] [id number] 16:14:00* Test Item Value Reference Range Comments MAGNESIUM (BEAKER) (test uhvu=989) 1.4 mg/dL 1.6-2.6 BASIC METABOLIC [id number] 16:14:00* Test Item Value Reference Range Comments SODIUM (BEAKER) (test wgnr=789) 140 meq/L 136-145 POTASSIUM (BEAKER) (test sflz=521) 4.0 meq/L 3.5-5.1 CHLORIDE (BEAKER) (test ebex=085) 100 meq/L 98-107 CO2 (BEAKER) (test czwj=982) 33 meq/L 22-29 BLOOD UREA NITROGEN (BEAKER) (test weis=407) 15 mg/dL 7-21 CREATININE (BEAKER) (test xwpr=275) 0.39 mg/dL 0.57-1.25 GLUCOSE RANDOM (BEAKER) (test istr=463) 114 mg/dL 70-105 CALCIUM (BEAKER) (test atwv=660) 8.2 mg/dL 8.4-10.2 EGFR (BEAKER) (test vmaw=2389) 233 mL/min/1.73 sq m ESTIMATED GFR IS NOT ACCURATE CREATININE CLEARANCE IN PREDICTING GLOMERULAR FILTRATION RATE. ESTIMATED GFR IS NOT APPLICABLE FOR DIALYSIS PATIENTS. BLOOD [id number] 12:15:00* Test Item Value Reference Range Comments CULTURE (BEAKER) (test dxxl=5632) Clindamycin (test code=10) Erythromycin (test code=4) Levofloxacin (test code=22) Linezolid (test code=40) Oxacillin (test code=14) Rifampin (test code=43) Tetracycline (test code=2) Trimethoprim + Sulfamethoxazole (test code=47) Vancomycin (test code=13) CULTURE (BEAKER) (test lvpp=1533) From Aerobic Bottle Only Coagulase negative Staphylococcus GRAM STAIN RESULT (BEAKER) (test vtxc=5579) From aerobic bottle only: gram positive cocci in clusters Coagulase Negative Staphylococcus Species (CoNS) DETECTED, Methicillin Resistant First line therapy: Vancomycin Coagulase Negative Staphylococcus ( CoNS) DETECTEDmecA DETECTEDPossible contamination.The likelihood of pathogenicity is increased if the organism is observed in multiple blood cultures obtained from separate venipunctures. Other organisms and resistance markers not contained in this PCR panel cannot be excluded and follow-up of traditional culture results is required. This sample was tested at the [facility] Clinical Microbiology Laboratory using the [employer] Blood Culture ID Panel. This test is FDA cleared for in vitro diagnostic use and has been verified and approved by the [facility] Clinical Microbiology laboratory for clinical use. Reference Range: Not DetectedPOCT-GLUCOSE [id number] 11:44:00 * Test Item Value Reference Range Comments POC-GLUCOSE METER (BEAKER) (test tqmn=6378) 136 mg/dL 70-110 TESTED AT [address] [address] RAD, CHEST, 1 VIEW, NON [id number] 07:17:00Reason for exam:->medistinal abscessShould this be performed at the bedside?->YesFINAL REPORT Chest, one view. HISTORY: Mediastinal abscess COMPARISON: 10/17/2017 IMPRESSION: Limited evaluation due to patient positioning. The right costophrenic angle is excluded from the yemlk-dm-tyjv on both of the images submitted. Unchanged moderate right pleural effusion and trace left pleural effusion. No new focal consolidation. Unchanged bibasilar atelectasis. Cardiomediastinal silhouette is enlarged but unchanged from prior examination. Tracheostomy tube and partially visualized cervical spinal hardware. Signed: Rad Olson Verified Date/Time: 10/18/2017 07:17:11 Reading Location: [facility] C013Y CT Body Reading Room -GLUCOSE [id number] 06:34:00* Test Item Value Reference Range Comments POC-GLUCOSE METER (BEAKER) (test hsjr=0454) 91 mg/dL 70-110 TESTED AT [address] [address] [id number] 06:17:00* Test Item Value Reference Range Comments PHOSPHORUS (BEAKER) (test dion=085) 3.1 mg/dL 2.3-4.7 [id number] 06:17:00* Test Item Value Reference Range Comments MAGNESIUM (BEAKER) (test njkw=828) 1.6 mg/dL 1.6-2.6 BASIC METABOLIC [id number] 06:17:00* Test Item Value Reference Range Comments SODIUM (BEAKER) (test tdei=951) 140 meq/L 136-145 POTASSIUM (BEAKER) (test eosn=341) 4.1 meq/L 3.5-5.1 CHLORIDE (BEAKER) (test oeod=728) 101 meq/L 98-107 CO2 (BEAKER) (test qglf=945) 33 meq/L 22-29 BLOOD UREA NITROGEN (BEAKER) (test xflw=336) 14 mg/dL 7-21 CREATININE (BEAKER) (test emkd=746) 0.37 mg/dL 0.57-1.25 GLUCOSE RANDOM (BEAKER) (test qzku=893) 91 mg/dL 70-105 CALCIUM (BEAKER) (test fftz=667) 8.3 mg/dL 8.4-10.2 EGFR (BEAKER) (test tzba=5688) 247 mL/min/1.73 sq m ESTIMATED GFR IS NOT ACCURATE CREATININE CLEARANCE IN PREDICTING GLOMERULAR FILTRATION RATE. ESTIMATED GFR IS NOT APPLICABLE FOR DIALYSIS PATIENTS. CBC W/PLT COUNT & AUTO [id number] 05:23:00* Test Item Value Reference Range Comments WHITE BLOOD CELL COUNT (BEAKER) (test xekf=196) 6.5 K/ L 3.5-10.5 RED BLOOD CELL COUNT (BEAKER) (test nhju=300) 2.95 M/ L 4.63-6.08 HEMOGLOBIN (BEAKER) (test fjwh=196) 8.0 GM/DL 13.7-17.5 HEMATOCRIT (BEAKER) (test ijmj=530) 26.8 % 40.1-51.0 MEAN CORPUSCULAR VOLUME (BEAKER) (test exnj=509) 90.8 fL 79.0-92.2 MEAN CORPUSCULAR HEMOGLOBIN (BEAKER) (test bdsn=740) 27.1 pg 25.7-32.2 MEAN CORPUSCULAR HEMOGLOBIN CONC (BEAKER) (test nppf=926) 29.9 GM/DL 32.3- 36.5 RED CELL DISTRIBUTION WIDTH (BEAKER) (test gplf=027) 19.1 % 11.6-14.4 PLATELET COUNT (BEAKER) (test svzw=291) 312 K/CU MM 150-450 MEAN PLATELET VOLUME (BEAKER) (test yxhj=159) 9.9 fL 9.4-12.4 NUCLEATED RED BLOOD CELLS (BEAKER) (test tarp=638) 0 /100 WBC 0-0 NEUTROPHILS RELATIVE PERCENT (BEAKER) (test kepm=303) 52 % LYMPHOCYTES RELATIVE PERCENT (BEAKER) (test gdfx=389) 29 % MONOCYTES RELATIVE PERCENT (BEAKER) (test kjbb=767) 11 % EOSINOPHILS RELATIVE PERCENT (BEAKER) (test vzfa=881) 6 % BASOPHILS RELATIVE PERCENT (BEAKER) (test nxyq=910) 1 % NEUTROPHILS ABSOLUTE COUNT (BEAKER) (test nmdb=296) 3.42 K/ L 1.78-5.38 LYMPHOCYTES ABSOLUTE COUNT (BEAKER) (test dmmq=531) 1.90 K/ L 1.32-3.57 MONOCYTES ABSOLUTE COUNT (BEAKER) (test qzdr=618) 0.74 K/ L 0.30-0.82 EOSINOPHILS ABSOLUTE COUNT (BEAKER) (test ekbz=714) 0.39 K/ L 0.04-0.54 BASOPHILS ABSOLUTE COUNT (BEAKER) (test ebtq=136) 0.05 K/ L 0.01-0.08 IMMATURE GRANULOCYTES-RELATIVE PERCENT (BEAKER) (test dghk=0313) 1 % 0-1 OCCULT BLOOD, [id number] 00:30:00* Test Item Value Reference Range Comments FECAL OCCULT BLOOD (BEAKER) (test degi=556) Negative Negative POCT-GLUCOSE [id number] 23:54:00* Test Item Value Reference Range Comments POC-GLUCOSE METER (BEAKER) (test pyny=9668) 126 mg/dL 70-[address] [facility] [address] [facility] [address] POCT-GLUCOSE [id number] 17:42:00* Test Item Value Reference Range Comments POC-GLUCOSE METER (BEAKER) (test foym=6875) 161 mg/dL 70-[address] [facility] [address] [facility] [address] [id number] 16:12:00* Test Item Value Reference Range Comments MAGNESIUM (BEAKER) (test otsq=169) 1.7 mg/dL 1.6-2.6 BASIC METABOLIC [id number] 16:12:00* Test Item Value Reference Range Comments SODIUM (BEAKER) (test cvkn=303) 141 meq/L 136-145 POTASSIUM (BEAKER) (test eazn=546) 3.9 meq/L 3.5-5.1 CHLORIDE (BEAKER) (test ogyy=637) 102 meq/L 98-107 CO2 (BEAKER) (test hdhw=935) 32 meq/L 22-29 BLOOD UREA NITROGEN (BEAKER) (test tytf=981) 13 mg/dL 7-21 CREATININE (BEAKER) (test kmcl=015) 0.40 mg/dL 0.57-1.25 GLUCOSE RANDOM (BEAKER) (test cdbp=320) 122 mg/dL 70-105 CALCIUM (BEAKER) (test jbtk=524) 8.4 mg/dL 8.4-10.2 EGFR (BEAKER) (test esna=7830) 226 mL/min/1.73 sq m ESTIMATED GFR IS NOT ACCURATE CREATININE CLEARANCE IN PREDICTING GLOMERULAR FILTRATION RATE. ESTIMATED GFR IS NOT APPLICABLE FOR DIALYSIS PATIENTS. POCT-GLUCOSE [id number] 12:35:00* Test Item Value Reference Range Comments POC-GLUCOSE METER (BEAKER) (test pnri=1003) 142 mg/dL 70-110 [address]ED AT [address] [address] [id number] 06:54:00* Test Item Value Reference Range Comments PHOSPHORUS (BEAKER) (test nkua=976) 3.2 mg/dL 2.3-4.7 [id number] 06:54:00* Test Item Value Reference Range Comments MAGNESIUM (BEAKER) (test uxyx=901) 1.8 mg/dL 1.6-2.6 BASIC METABOLIC [id number] 06:54:00* Test Item Value Reference Range Comments SODIUM (BEAKER) (test deel=559) 140 meq/L 136-145 POTASSIUM (BEAKER) (test sbsv=795) 4.1 meq/L 3.5-5.1 CHLORIDE (BEAKER) (test lmbk=924) 102 meq/L 98-107 CO2 (BEAKER) (test fxxh=948) 32 meq/L 22-29 BLOOD UREA NITROGEN (BEAKER) (test ldid=144) 16 mg/dL 7-21 CREATININE (BEAKER) (test xeov=180) 0.39 mg/dL 0.57-1.25 GLUCOSE RANDOM (BEAKER) (test nxdx=183) 101 mg/dL 70-105 CALCIUM (BEAKER) (test jnbx=934) 8.3 mg/dL 8.4-10.2 EGFR (BEAKER) (test nrbw=0296) 233 mL/min/1.73 sq m ESTIMATED GFR IS NOT ACCURATE CREATININE CLEARANCE IN PREDICTING GLOMERULAR FILTRATION RATE. ESTIMATED GFR IS NOT APPLICABLE FOR DIALYSIS PATIENTS. CBC W/PLT COUNT & AUTO [id number] 06:53:00* Test Item Value Reference Range Comments WHITE BLOOD CELL COUNT (BEAKER) (test qxoh=713) 8.4 K/ L 3.5-10.5 RED BLOOD CELL COUNT (BEAKER) (test irti=602) 3.09 M/ L 4.63-6.08 HEMOGLOBIN (BEAKER) (test sfww=900) 8.3 GM/DL 13.7-17.5 HEMATOCRIT (BEAKER) (test hczl=710) 28.0 % 40.1-51.0 MEAN CORPUSCULAR VOLUME (BEAKER) (test fzuq=774) 90.6 fL 79.0-92.2 MEAN CORPUSCULAR HEMOGLOBIN (BEAKER) (test evyr=171) 26.9 pg 25.7-32.2 MEAN CORPUSCULAR HEMOGLOBIN CONC (BEAKER) (test vouk=391) 29.6 GM/DL 32.3- 36.5 RED CELL DISTRIBUTION WIDTH (BEAKER) (test cbjg=627) 19.4 % 11.6-14.4 PLATELET COUNT (BEAKER) (test rjgy=459) 339 K/CU MM 150-450 MEAN PLATELET VOLUME (BEAKER) (test eqgk=642) 10.1 fL 9.4-12.4 NUCLEATED RED BLOOD CELLS (BEAKER) (test jega=341) 0 /100 WBC 0-0 NEUTROPHILS RELATIVE PERCENT (BEAKER) (test xnpn=451) 61 % LYMPHOCYTES RELATIVE PERCENT (BEAKER) (test fhsd=682) 25 % MONOCYTES RELATIVE PERCENT (BEAKER) (test hixo=123) 9 % EOSINOPHILS RELATIVE PERCENT (BEAKER) (test hspc=980) 4 % BASOPHILS RELATIVE PERCENT (BEAKER) (test snkt=137) 1 % NEUTROPHILS ABSOLUTE COUNT (BEAKER) (test sohf=940) 5.15 K/ L 1.78-5.38 LYMPHOCYTES ABSOLUTE COUNT (BEAKER) (test rbst=468) 2.10 K/ L 1.32-3.57 MONOCYTES ABSOLUTE COUNT (BEAKER) (test dzxh=391) 0.78 K/ L 0.30-0.82 EOSINOPHILS ABSOLUTE COUNT (BEAKER) (test qfdb=135) 0.33 K/ L 0.04-0.54 BASOPHILS ABSOLUTE COUNT (BEAKER) (test rblp=840) 0.04 K/ L 0.01-0.08 IMMATURE GRANULOCYTES-RELATIVE PERCENT (BEAKER) (test brvs=2603) 0 % 0-1 POCT-GLUCOSE [id number] 06:28:00* Test Item Value Reference Range Comments POC-GLUCOSE METER (BEAKER) (test mfyn=3959) 114 mg/dL 70-110 [address]ED AT [address] [address] RAD, CHEST, 1 VIEW, NON [id number] 06:22:00Reason for exam:->medistinal abscessShould this be performed at the bedside?->YesFINAL REPORT RAD, CHEST, 1 VIEW, NON DEPT INDICATION: medistinal abscess COMPARISON : Prior day's exam FINDINGS: Portable frontal view of the chest. IMPRESSION: Support Lines: Stable position of tracheostomy tube. Lungs and pleura: Improving aeration with persistent interstitial congestion and layering bilateral effusions. No pneumothorax.Heart and mediastinum: Stable contours. Additional findings: None. Signed: JR Newton Robert MDReport Verified Date/Time: 10/17/2017 06:22:18 Reading Location: [address] Body Reading Room /CONCENTRATION [id number] 00:38:00* Test Item Value Reference Range Comments CONCENTRATION CHARGED (BEAKER) (test jitu=6226) Done POCT-GLUCOSE [id number] 23:56:00* Test Item Value Reference Range Comments POC-GLUCOSE METER (BEAKER) (test xjms=6480) 100 mg/dL 70-110 TESTED AT [address] [address] POCT-GLUCOSE [id number] 18:30:00* Test Item Value Reference Range Comments POC-GLUCOSE METER (BEAKER) (test wswz=0628) 130 mg/dL 70-110 TESTED AT [facility] [address] [facility] [address] [id number] 16:41:00* Test Item Value Reference Range Comments PHOSPHORUS (BEAKER) (test btch=849) 3.2 mg/dL 2.3-4.7 [id number] 16:37:00* Test Item Value Reference Range Comments MAGNESIUM (BEAKER) (test bynl=658) 1.9 mg/dL 1.6-2.6 BASIC METABOLIC [id number] 16:37:00* Test Item Value Reference Range Comments SODIUM (BEAKER) (test ozpa=894) 141 meq/L 136-145 POTASSIUM (BEAKER) (test vfhh=878) 3.9 meq/L 3.5-5.1 CHLORIDE (BEAKER) (test ucxl=645) 102 meq/L 98-107 CO2 (BEAKER) (test upar=271) 32 meq/L 22-29 BLOOD UREA NITROGEN (BEAKER) (test dijm=937) 17 mg/dL 7-21 CREATININE (BEAKER) (test mvlg=257) 0.43 mg/dL 0.57-1.25 GLUCOSE RANDOM (BEAKER) (test ihgt=676) 130 mg/dL 70-105 CALCIUM (BEAKER) (test dcoq=070) 8.0 mg/dL 8.4-10.2 EGFR (BEAKER) (test keuc=0128) 208 mL/min/1.73 sq m ESTIMATED GFR IS NOT ACCURATE CREATININE CLEARANCE IN PREDICTING GLOMERULAR FILTRATION RATE. ESTIMATED GFR IS NOT APPLICABLE FOR DIALYSIS PATIENTS. TISSUE [id number] 15:20:00Surgical Pathology Report Case: [id number] Authorizing Provider: So Zarate MD Collected: 10/15/2017 1708 Ordering Location: [place] [address] ICU Received: 10/16/2017 0807 Pathologist: Shelly Thompson MD Specimen: Portacath, For ID PORT-A-CATH, REMOVAL: - FIRER ELECTRIC LOCOMOTIVE IDENTIFIED (SEE GROSS DESCRIPTION) Signing Pathologist Direct Phone Line: [phone] signed by Shelly Thompsno MD on 10/16/2017 at 3:20 PMDB/[id number] Port-A- TgyjkbdvEogr-X-Ltpg Received fresh labeled "Port-A-Cath" is a 25.2 cm in length x 0.2 cm in diameter segment of white plastic tubing with an attached 3.0 x 3.0 x 1.5 cm, purple plastic injection port. Specimen is for gross identification only. DB/ew POCT-GLUCOSE [id number] 13:12:00* Test Item Value Reference Range Comments POC-GLUCOSE METER (BEAKER) (test cthv=9273) 112 mg/dL 70-[address] [facility] [address] [facility] [address] RAD, CHEST, 1 VIEW, NON [id number] 08:57:00Reason for exam:->medistinal abscessShould this be performed at the bedside?->YesFINAL REPORT Chest one view INDICATION: Mediastinal abscess COMPARISON: 10/15/2017 IMPRESSION: Two frontal images of the chest were provided. Left jugular line has been removed. Tracheostomy tube and spinal fixation hardware are again noted. The cardiac silhouette is partially obscured but stable. Mediastinal widening is stable. Right greater than left pleural effusions have likely redistributed. Vascular congestion and diffuse interstitial and lower lung predominant airspace opacities are stable with no new consolidation seen. No pneumothorax is identified. Signed: Stefan Barrios MDReport Verified Date/ Time: 10/16/2017 08:57:15 Reading Location: [facility] Radiology Reading Room TINE KINASE (CK), TOTAL AND [id number] 08:49:00* Test Item Value Reference Range Comments CREATINE KINASE TOTAL (BEAKER) (test gwod=274) 54 U/L 29-200 CREATINE KINASE-MB (BEAKER) (test zgyn=961) 3.4 ng/mL 0.0-6.6 CREATINE KINASE-MB INDEX (BEAKER) (test bipz=535) 6.3 % CK-MB Reference Range:<6.7 Normal6.7-10.0 Borderline>10.0 AbnormalTROPONIN [id number] 08:49:00* Test Item Value Reference Range Comments TROPONIN I (BEAKER) (test auss=626) < ng/mL 0.00-0.03 Troponin I (TnI) levels must be interpreted in the context of the presenting symptoms and the clinical findings. Elevated TnI levels indicate myocardial damage, but are not specific for ischemic heart disease. Elevated TnI levels are seen in patients with other cardiac conditions (including myocarditis and congestive heart failure), and slight TnI elevations occur in patients with other conditions, including sepsis, renal failure, acidosis, acute neurological disease, and persistent tachyarrhythmia.POCT-GLUCOSE [id number] 06:32:00* Test Item Value Reference Range Comments POC-GLUCOSE METER (BEAKER) (test ivrr=7430) 108 mg/dL 70-[address] [facility] [address] [facility] [address] BASIC METABOLIC [id number] 05:50:00* Test Item Value Reference Range Comments SODIUM (BEAKER) (test kksa=106) 140 meq/L 136-145 POTASSIUM (BEAKER) (test ccnf=505) 3.8 meq/L 3.5-5.1 CHLORIDE (BEAKER) (test abiz=763) 105 meq/L 98-107 CO2 (BEAKER) (test jwvq=815) 28 meq/L 22-29 BLOOD UREA NITROGEN (BEAKER) (test rgti=401) 15 mg/dL 7-21 CREATININE (BEAKER) (test bzkg=023) 0.36 mg/dL 0.57-1.25 GLUCOSE RANDOM (BEAKER) (test tkom=196) 109 mg/dL 70-105 CALCIUM (BEAKER) (test rjtz=572) 7.9 mg/dL 8.4-10.2 EGFR (BEAKER) (test vbbw=9151) 255 mL/min/1.73 sq m ESTIMATED GFR IS NOT ACCURATE CREATININE CLEARANCE IN PREDICTING GLOMERULAR FILTRATION RATE. ESTIMATED GFR IS NOT APPLICABLE FOR DIALYSIS PATIENTS. [id number] 05:48:00* Test Item Value Reference Range Comments PHOSPHORUS (BEAKER) (test yizz=006) 3.7 mg/dL 2.3-4.7 [id number] 05:48:00* Test Item Value Reference Range Comments MAGNESIUM (BEAKER) (test shsr=740) 1.7 mg/dL 1.6-2.6 CBC W/PLT COUNT & AUTO [id number] 04:46:00* Test Item Value Reference Range Comments WHITE BLOOD CELL COUNT (BEAKER) (test amvk=639) 6.8 K/ L 3.5-10.5 RED BLOOD CELL COUNT (BEAKER) (test ztmy=934) 2.99 M/ L 4.63-6.08 HEMOGLOBIN (BEAKER) (test vljz=573) 8.1 GM/DL 13.7-17.5 HEMATOCRIT (BEAKER) (test nslg=794) 27.0 % 40.1-51.0 MEAN CORPUSCULAR VOLUME (BEAKER) (test hlcg=075) 90.3 fL 79.0-92.2 MEAN CORPUSCULAR HEMOGLOBIN (BEAKER) (test mvyr=671) 27.1 pg 25.7-32.2 MEAN CORPUSCULAR HEMOGLOBIN CONC (BEAKER) (test oybg=169) 30.0 GM/DL 32.3- 36.5 RED CELL DISTRIBUTION WIDTH (BEAKER) (test muai=090) 19.3 % 11.6-14.4 PLATELET COUNT (BEAKER) (test omnn=230) 276 K/CU MM 150-450 MEAN PLATELET VOLUME (BEAKER) (test hsry=725) 9.8 fL 9.4-12.4 NUCLEATED RED BLOOD CELLS (BEAKER) (test evbo=972) 0 /100 WBC 0-0 NEUTROPHILS RELATIVE PERCENT (BEAKER) (test fyti=144) 63 % LYMPHOCYTES RELATIVE PERCENT (BEAKER) (test taks=253) 23 % MONOCYTES RELATIVE PERCENT (BEAKER) (test alfi=040) 8 % EOSINOPHILS RELATIVE PERCENT (BEAKER) (test aeyb=331) 5 % BASOPHILS RELATIVE PERCENT (BEAKER) (test dihi=759) 1 % NEUTROPHILS ABSOLUTE COUNT (BEAKER) (test ahmp=631) 4.31 K/ L 1.78-5.38 LYMPHOCYTES ABSOLUTE COUNT (BEAKER) (test crhq=141) 1.58 K/ L 1.32-3.57 MONOCYTES ABSOLUTE COUNT (BEAKER) (test wuxw=924) 0.55 K/ L 0.30-0.82 EOSINOPHILS ABSOLUTE COUNT (BEAKER) (test lppj=222) 0.32 K/ L 0.04-0.54 BASOPHILS ABSOLUTE COUNT (BEAKER) (test rhpv=809) 0.05 K/ L 0.01-0.08 IMMATURE GRANULOCYTES-RELATIVE PERCENT (BEAKER) (test sfkm=2459) 0 % 0-1 POCT-GLUCOSE [id number] 23:50:00* Test Item Value Reference Range Comments POC-GLUCOSE METER (BEAKER) (test qhyh=0442) 100 mg/dL 70-110 TESTED AT [address] [address] VANCOMYCIN LEVEL, [id number] 21:56:00* Test Item Value Reference Range Comments VANCOMYCIN TROUGH (BEAKER) (test knvg=139) 11.5 ug/mL 10.0-20.0 30 mins before 4th [id number] 18:53:00* Test Item Value Reference Range Comments MAGNESIUM (BEAKER) (test kbes=106) 1.6 mg/dL 1.6-2.6 BASIC METABOLIC [id number] 18:53:00* Test Item Value Reference Range Comments SODIUM (BEAKER) (test rfpv=424) 141 meq/L 136-145 POTASSIUM (BEAKER) (test oooh=452) 3.9 meq/L 3.5-5.1 CHLORIDE (BEAKER) (test wjep=080) 105 meq/L 98-107 CO2 (BEAKER) (test lqdm=141) 29 meq/L 22-29 BLOOD UREA NITROGEN (BEAKER) (test cobi=423) 13 mg/dL 7-21 CREATININE (BEAKER) (test rhpp=492) 0.39 mg/dL 0.57-1.25 GLUCOSE RANDOM (BEAKER) (test svnd=632) 94 mg/dL 70-105 CALCIUM (BEAKER) (test tshv=269) 8.4 mg/dL 8.4-10.2 EGFR (BEAKER) (test fvqv=1855) 233 mL/min/1.73 sq m ESTIMATED GFR IS NOT ACCURATE CREATININE CLEARANCE IN PREDICTING GLOMERULAR FILTRATION RATE. ESTIMATED GFR IS NOT APPLICABLE FOR DIALYSIS PATIENTS. POCT-GLUCOSE [id number] 18:18:00* Test Item Value Reference Range Comments POC-GLUCOSE METER (BEAKER) (test xxcg=1746) 89 mg/dL 70-110 [address]ED AT [address] [address] POCT-GLUCOSE [id number] 12:06:00* Test Item Value Reference Range Comments POC-GLUCOSE METER (BEAKER) (test uvhr=6169) 100 mg/dL 70-110 TESTED AT [address] [place] [address] [id number] 11:56:00* Test Item Value Reference Range Comments MAGNESIUM (BEAKER) (test juaj=969) 1.7 mg/dL 1.6-2.6 BASIC METABOLIC [id number] 11:56:00* Test Item Value Reference Range Comments SODIUM (BEAKER) (test tldn=896) 141 meq/L 136-145 POTASSIUM (BEAKER) (test pmha=364) 4.2 meq/L 3.5-5.1 CHLORIDE (BEAKER) (test cvmg=780) 106 meq/L 98-107 CO2 (BEAKER) (test pjlc=670) 30 meq/L 22-29 BLOOD UREA NITROGEN (BEAKER) (test afnn=529) 13 mg/dL 7-21 CREATININE (BEAKER) (test xdyn=235) 0.36 mg/dL 0.57-1.25 GLUCOSE RANDOM (BEAKER) (test ywrj=474) 96 mg/dL 70-105 CALCIUM (BEAKER) (test silz=236) 8.3 mg/dL 8.4-10.2 EGFR (BEAKER) (test phfa=2123) 255 mL/min/1.73 sq m ESTIMATED GFR IS NOT ACCURATE CREATININE CLEARANCE IN PREDICTING GLOMERULAR FILTRATION RATE. ESTIMATED GFR IS NOT APPLICABLE FOR DIALYSIS PATIENTS. POCT-GLUCOSE [id number] 06:10:00* Test Item Value Reference Range Comments POC-GLUCOSE METER (BEAKER) (test jpcs=7753) 86 mg/dL 70-110 TESTED AT [address] [address] RAD, CHEST, 1 VIEW, NON [id number] 05:48:00Reason for exam:->medistinal abscessShould this be performed at the bedside?->YesFINAL REPORT Comparison exam: 10/14/2017 Right pleural effusion unchanged. No pneumothorax. Stable cardiomediastinal contours. Appropriately positioned tracheostomy tube. Signed: Jimbo [place] Verified Date/Time: 2016 05:48:48 Reading Location: [address] Consult Reading Room [id number] 04:57:00* Test Item Value Reference Range Comments PHOSPHORUS (BEAKER) (test xsik=280) 2.8 mg/dL 2.3-4.7 [id number] 04:57:00* Test Item Value Reference Range Comments MAGNESIUM (BEAKER) (test ddwp=065) 1.9 mg/dL 1.6-2.6 BASIC METABOLIC [id number] 04:57:00* Test Item Value Reference Range Comments SODIUM (BEAKER) (test ytdf=290) 140 meq/L 136-145 POTASSIUM (BEAKER) (test bxzu=353) 4.1 meq/L 3.5-5.1 CHLORIDE (BEAKER) (test hlfh=015) 105 meq/L 98-107 CO2 (BEAKER) (test epbt=937) 27 meq/L 22-29 BLOOD UREA NITROGEN (BEAKER) (test tkdk=410) 16 mg/dL 7-21 CREATININE (BEAKER) (test jbvs=484) 0.35 mg/dL 0.57-1.25 GLUCOSE RANDOM (BEAKER) (test hzal=583) 88 mg/dL 70-105 CALCIUM (BEAKER) (test npgi=624) 8.0 mg/dL 8.4-10.2 EGFR (BEAKER) (test epyl=7146) 264 mL/min/1.73 sq m ESTIMATED GFR IS NOT ACCURATE CREATININE CLEARANCE IN PREDICTING GLOMERULAR FILTRATION RATE. ESTIMATED GFR IS NOT APPLICABLE FOR DIALYSIS PATIENTS. PT/[id number] 04:57:00* Test Item Value Reference Range Comments PROTIME (BEAKER) (test luur=350) 16.1 seconds 11.7-14.7 INR (BEAKER) (test dcfa=148) 1.3 <=5.9 PARTIAL THROMBOPLASTIN TIME (BEAKER) (test cqib=595) 41.3 seconds 22.5-36.0 RECOMMENDED COUMADIN/WARFARIN INR THERAPY RANGESSTANDARD DOSE: 2.0 - 3.0 Includes: PROPHYLAXIS for venous thrombosis, systemic embolization; TREATMENT for venous thrombosis and/or pulmonary embolus.HIGH RISK: Target INR is 2.5-3.5 for patients with mechanical heart valves.PROTHROMBIN TIME/[id number] 04:56: 00* Test Item Value Reference Range Comments PROTIME (BEAKER) (test jpqt=305) 16.1 seconds 11.7-14.7 INR (BEAKER) (test kemq=083) 1.3 <=5.9 RECOMMENDED COUMADIN/WARFARIN INR THERAPY RANGESSTANDARD DOSE: 2.0 - 3.0 Includes: PROPHYLAXIS for venous thrombosis, systemic embolization; TREATMENT for venous thrombosis and/or pulmonary embolus.HIGH RISK: Target INR is 2.5-3.5 for patients with mechanical heart valves.CBC W/PLT COUNT & AUTO [id number] 04:47:00* Test Item Value Reference Range Comments WHITE BLOOD CELL COUNT (BEAKER) (test mgpq=512) 6.6 K/ L 3.5-10.5 RED BLOOD CELL COUNT (BEAKER) (test ctzt=157) 2.95 M/ L 4.63-6.08 HEMOGLOBIN (BEAKER) (test gxtu=382) 7.9 GM/DL 13.7-17.5 HEMATOCRIT (BEAKER) (test ldvw=140) 26.1 % 40.1-51.0 MEAN CORPUSCULAR VOLUME (BEAKER) (test ztxl=635) 88.5 fL 79.0-92.2 MEAN CORPUSCULAR HEMOGLOBIN (BEAKER) (test tznu=530) 26.8 pg 25.7-32.2 MEAN CORPUSCULAR HEMOGLOBIN CONC (BEAKER) (test rgha=852) 30.3 GM/DL 32.3- 36.5 RED CELL DISTRIBUTION WIDTH (BEAKER) (test vzoe=523) 19.5 % 11.6-14.4 PLATELET COUNT (BEAKER) (test tgrc=218) 265 K/CU MM 150-450 MEAN PLATELET VOLUME (BEAKER) (test sxlx=085) 10.1 fL 9.4-12.4 NUCLEATED RED BLOOD CELLS (BEAKER) (test yxws=104) 0 /100 WBC 0-0 NEUTROPHILS RELATIVE PERCENT (BEAKER) (test jwjc=217) 56 % LYMPHOCYTES RELATIVE PERCENT (BEAKER) (test ndly=686) 28 % MONOCYTES RELATIVE PERCENT (BEAKER) (test ktjq=546) 10 % EOSINOPHILS RELATIVE PERCENT (BEAKER) (test bbqf=534) 5 % BASOPHILS RELATIVE PERCENT (BEAKER) (test tjve=689) 1 % NEUTROPHILS ABSOLUTE COUNT (BEAKER) (test jusc=827) 3.70 K/ L 1.78-5.38 LYMPHOCYTES ABSOLUTE COUNT (BEAKER) (test hkbj=817) 1.87 K/ L 1.32-3.57 MONOCYTES ABSOLUTE COUNT (BEAKER) (test izho=541) 0.68 K/ L 0.30-0.82 EOSINOPHILS ABSOLUTE COUNT (BEAKER) (test tvtg=146) 0.31 K/ L 0.04-0.54 BASOPHILS ABSOLUTE COUNT (BEAKER) (test cvna=165) 0.04 K/ L 0.01-0.08 IMMATURE GRANULOCYTES-RELATIVE PERCENT (BEAKER) (test ptpz=3497) 0 % 0-1 POCT-GLUCOSE [id number] 00:32:00* Test Item Value Reference Range Comments POC-GLUCOSE METER (BEAKER) (test xtlo=7036) 119 mg/dL 70-110 TESTED AT [address] [address] BASIC METABOLIC [id number] 18:06:00* Test Item Value Reference Range Comments SODIUM (BEAKER) (test zydx=334) 141 meq/L 136-145 POTASSIUM (BEAKER) (test yiwb=118) 3.5 meq/L 3.5-5.1 CHLORIDE (BEAKER) (test vjrq=792) 107 meq/L 98-107 CO2 (BEAKER) (test whdu=636) 30 meq/L 22-29 BLOOD UREA NITROGEN (BEAKER) (test trjf=693) 19 mg/dL 7-21 CREATININE (BEAKER) (test mcab=377) 0.37 mg/dL 0.57-1.25 GLUCOSE RANDOM (BEAKER) (test caod=138) 119 mg/dL 70-105 CALCIUM (BEAKER) (test yqey=282) 7.8 mg/dL 8.4-10.2 EGFR (BEAKER) (test yssb=6832) 247 mL/min/1.73 sq m ESTIMATED GFR IS NOT ACCURATE CREATININE CLEARANCE IN PREDICTING GLOMERULAR FILTRATION RATE. ESTIMATED GFR IS NOT APPLICABLE FOR DIALYSIS PATIENTS. 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 Other organisms and resistance markers not contained in this PCR panel cannot be excluded and follow-up of traditional culture results is required. This sample was tested at the [facility] Clinical Microbiology Laboratory using the [employer] Blood Culture ID Panel. This test is FDA cleared for in vitro diagnostic use and has been verified and approved by the [facility] Clinical Microbiology laboratory for clinical use. Reference Range: Not DetectedPOCT-GLUCOSE [id number] 12:41:00 * Test Item Value Reference Range Comments POC-GLUCOSE METER (BEAKER) (test lwsf=4631) 123 mg/dL 70-110 TESTED AT [address] [address] BASIC METABOLIC [id number] 11:22:00* Test Item Value Reference Range Comments SODIUM (BEAKER) (test zwly=697) 138 meq/L 136-145 POTASSIUM (BEAKER) (test pqrn=090) 4.4 meq/L 3.5-5.1 CHLORIDE (BEAKER) (test oivu=054) 106 meq/L 98-107 CO2 (BEAKER) (test xdlf=316) 29 meq/L 22-29 BLOOD UREA NITROGEN (BEAKER) (test chtd=980) 22 mg/dL 7-21 CREATININE (BEAKER) (test cctc=712) 0.38 mg/dL 0.57-1.25 GLUCOSE RANDOM (BEAKER) (test esgo=725) 136 mg/dL 70-105 CALCIUM (BEAKER) (test zxol=801) 7.9 mg/dL 8.4-10.2 EGFR (BEAKER) (test hxca=8706) 240 mL/min/1.73 sq m ESTIMATED GFR IS NOT ACCURATE CREATININE CLEARANCE IN PREDICTING GLOMERULAR FILTRATION RATE. ESTIMATED GFR IS NOT APPLICABLE FOR DIALYSIS PATIENTS. [id number] 11:04:00* Test Item Value Reference Range Comments MAGNESIUM (BEAKER) (test yhto=199) 2.0 mg/dL 1.6-2.6 POCT-GLUCOSE [id number] 07:13:00* Test Item Value Reference Range Comments POC-GLUCOSE METER (BEAKER) (test pzvr=8985) 109 mg/dL 70-[address] [facility] [address] [facility] [address] BASIC METABOLIC [id number] 04:40:00* Test Item Value Reference Range Comments SODIUM (BEAKER) (test urwc=572) 138 meq/L 136-145 POTASSIUM (BEAKER) (test qvnm=876) 3.6 meq/L 3.5-5.1 CHLORIDE (BEAKER) (test rqjr=296) 106 meq/L 98-107 CO2 (BEAKER) (test jact=166) 26 meq/L 22-29 BLOOD UREA NITROGEN (BEAKER) (test kkwi=636) 22 mg/dL 7-21 CREATININE (BEAKER) (test hrwv=068) 0.39 mg/dL 0.57-1.25 GLUCOSE RANDOM (BEAKER) (test rjrc=613) 114 mg/dL 70-105 CALCIUM (BEAKER) (test cifz=484) 7.6 mg/dL 8.4-10.2 EGFR (BEAKER) (test hxmt=1460) 233 mL/min/1.73 sq m ESTIMATED GFR IS NOT ACCURATE CREATININE CLEARANCE IN PREDICTING GLOMERULAR FILTRATION RATE. ESTIMATED GFR IS NOT APPLICABLE FOR DIALYSIS PATIENTS. [id number] 04:31:00* Test Item Value Reference Range Comments PHOSPHORUS (BEAKER) (test shfj=261) 3.0 mg/dL 2.3-4.7 [id number] 04:31:00* Test Item Value Reference Range Comments MAGNESIUM (BEAKER) (test zcxs=258) 1.6 mg/dL 1.6-2.6 CBC W/PLT COUNT & AUTO [id number] 04:24:00* Test Item Value Reference Range Comments WHITE BLOOD CELL COUNT (BEAKER) (test wpur=392) 8.2 K/ L 3.5-10.5 RED BLOOD CELL COUNT (BEAKER) (test dbug=592) 3.00 M/ L 4.63-6.08 HEMOGLOBIN (BEAKER) (test iukq=488) 8.1 GM/DL 13.7-17.5 HEMATOCRIT (BEAKER) (test thpb=990) 26.2 % 40.1-51.0 MEAN CORPUSCULAR VOLUME (BEAKER) (test btwa=201) 87.3 fL 79.0-92.2 MEAN CORPUSCULAR HEMOGLOBIN (BEAKER) (test tohv=664) 27.0 pg 25.7-32.2 MEAN CORPUSCULAR HEMOGLOBIN CONC (BEAKER) (test fjih=392) 30.9 GM/DL 32.3- 36.5 RED CELL DISTRIBUTION WIDTH (BEAKER) (test dgwk=405) 20.0 % 11.6-14.4 PLATELET COUNT (BEAKER) (test dnsg=872) 266 K/CU MM 150-450 MEAN PLATELET VOLUME (BEAKER) (test wdqh=386) 10.3 fL 9.4-12.4 NUCLEATED RED BLOOD CELLS (BEAKER) (test yocw=043) 0 /100 WBC 0-0 NEUTROPHILS RELATIVE PERCENT (BEAKER) (test xesp=928) 60 % LYMPHOCYTES RELATIVE PERCENT (BEAKER) (test bugt=272) 25 % MONOCYTES RELATIVE PERCENT (BEAKER) (test fkft=499) 10 % EOSINOPHILS RELATIVE PERCENT (BEAKER) (test mpcn=650) 4 % BASOPHILS RELATIVE PERCENT (BEAKER) (test adrs=670) 1 % NEUTROPHILS ABSOLUTE COUNT (BEAKER) (test ngzz=637) 4.95 K/ L 1.78-5.38 LYMPHOCYTES ABSOLUTE COUNT (BEAKER) (test dlaj=559) 2.04 K/ L 1.32-3.57 MONOCYTES ABSOLUTE COUNT (BEAKER) (test vzys=164) 0.82 K/ L 0.30-0.82 EOSINOPHILS ABSOLUTE COUNT (BEAKER) (test bwxm=590) 0.35 K/ L 0.04-0.54 BASOPHILS ABSOLUTE COUNT (BEAKER) (test rfsj=565) 0.05 K/ L 0.01-0.08 IMMATURE GRANULOCYTES-RELATIVE PERCENT (BEAKER) (test kqfa=8976) 0 % 0-1 RAD, CHEST, 1 VIEW, NON [id number] 03:22:00Reason for exam:->medistinal abscessShould this be performed at the bedside?->YesFINAL REPORT Comparison exam: 10/13/2017 Right pleural effusion and right parahilar/ lower lobe opacities unchanged. No pneumothorax. Stable cardiomediastinal contours. Appropriately positioned tracheostomy tube. Left chest port terminates in the distal superior vena cava. Signed: Jimbo Shaikhe[place] Verified Date/Time: 10/14/2017 03:22:30 Reading Location: [facility] C013X Ortho Consult Reading Room -GLUCOSE [id number] 01:04:00* Test Item Value Reference Range Comments POC-GLUCOSE METER (BEAKER) (test usnz=9759) 126 mg/dL 70-[address] [facility] [address] [facility] [address] POCT-GLUCOSE [id number] 18:28:00* Test Item Value Reference Range Comments POC-GLUCOSE METER (BEAKER) (test pqph=9057) 132 mg/dL 70-110 TESTED AT [address] [address] BASIC METABOLIC [id number] 17:51:00* Test Item Value Reference Range Comments SODIUM (BEAKER) (test speb=265) 139 meq/L 136-145 POTASSIUM (BEAKER) (test hotl=028) 3.2 meq/L 3.5-5.1 CHLORIDE (BEAKER) (test zmbs=991) 108 meq/L 98-107 CO2 (BEAKER) (test ojtu=200) 25 meq/L 22-29 BLOOD UREA NITROGEN (BEAKER) (test hnjc=829) 26 mg/dL 7-21 CREATININE (BEAKER) (test rxua=423) 0.42 mg/dL 0.57-1.25 GLUCOSE RANDOM (BEAKER) (test jcdz=599) 132 mg/dL 70-105 CALCIUM (BEAKER) (test frlz=678) 7.4 mg/dL 8.4-10.2 EGFR (BEAKER) (test orjw=6891) 214 mL/min/1.73 sq m ESTIMATED GFR IS NOT ACCURATE CREATININE CLEARANCE IN PREDICTING GLOMERULAR FILTRATION RATE. ESTIMATED GFR IS NOT APPLICABLE FOR DIALYSIS PATIENTS. [id number] 17:39:00* Test Item Value Reference Range Comments MAGNESIUM (BEAKER) (test oxyb=399) 2.0 mg/dL 1.6-2.6 FUNGUS CULTURE + [id number] 16:38:00* Test Item Value Reference Range Comments CULTURE (BEAKER) (test njxu=2917) No fungus isolated in 28 days FUNGUS SMEAR (BEAKER) (test brhu=7084) No fungi seen POCT-GLUCOSE [id number] 12:41:00* Test Item Value Reference Range Comments POC-GLUCOSE METER (BEAKER) (test snko=6150) 132 mg/dL 70-[address] [facility] [address] [facility] [address] BASIC METABOLIC [id number] 10:13:00* Test Item Value Reference Range Comments SODIUM (BEAKER) (test jqmy=732) 139 meq/L 136-145 POTASSIUM (BEAKER) (test tydf=540) 4.3 meq/L 3.5-5.1 CHLORIDE (BEAKER) (test ovls=223) 110 meq/L 98-107 CO2 (BEAKER) (test ttrv=153) 23 meq/L 22-29 BLOOD UREA NITROGEN (BEAKER) (test imnj=508) 26 mg/dL 7-21 CREATININE (BEAKER) (test wgvy=860) 0.40 mg/dL 0.57-1.25 GLUCOSE RANDOM (BEAKER) (test blva=720) 119 mg/dL 70-105 CALCIUM (BEAKER) (test rxrt=384) 7.8 mg/dL 8.4-10.2 EGFR (BEAKER) (test elun=0006) 226 mL/min/1.73 sq m ESTIMATED GFR IS NOT ACCURATE CREATININE CLEARANCE IN PREDICTING GLOMERULAR FILTRATION RATE. ESTIMATED GFR IS NOT APPLICABLE FOR DIALYSIS PATIENTS. [id number] 09:47:00* Test Item Value Reference Range Comments MAGNESIUM (BEAKER) (test lusn=843) 2.0 mg/dL 1.6-2.6 HEPATIC FUNCTION [id number] 09:47:00* Test Item Value Reference Range Comments TOTAL PROTEIN (BEAKER) (test vjfc=709) 6.0 gm/dL 6.0-8.3 ALBUMIN (BEAKER) (test fgqf=9967) 2.1 g/dL 3.5-5.0 BILIRUBIN TOTAL (BEAKER) (test svqr=292) 0.3 mg/dL 0.2-1.2 BILIRUBIN DIRECT (BEAKER) (test vcsu=653) 0.1 mg/dL 0.1-0.5 ALKALINE PHOSPHATASE (BEAKER) (test ycrs=145) 202 U/L 40-150 AST (SGOT) (BEAKER) (test yoyt=904) 19 U/L 5-34 ALT (SGPT) (BEAKER) (test ecqf=219) 14 U/L 6-55 POCT-GLUCOSE [id number] 06:28:00* Test Item Value Reference Range Comments POC-GLUCOSE METER (BEAKER) (test ludo=3946) 101 mg/dL 70-[address] [facility] [address] [facility] [address] BASIC METABOLIC [id number] 04:27:00* Test Item Value Reference Range Comments SODIUM (BEAKER) (test xdyh=945) 139 meq/L 136-145 POTASSIUM (BEAKER) (test aicd=027) 3.7 meq/L 3.5-5.1 CHLORIDE (BEAKER) (test onqc=216) 109 meq/L 98-107 CO2 (BEAKER) (test zact=846) 23 meq/L 22-29 BLOOD UREA NITROGEN (BEAKER) (test bnsx=682) 24 mg/dL 7-21 CREATININE (BEAKER) (test homn=694) 0.37 mg/dL 0.57-1.25 GLUCOSE RANDOM (BEAKER) (test slzx=469) 118 mg/dL 70-105 CALCIUM (BEAKER) (test ztxh=175) 7.6 mg/dL 8.4-10.2 EGFR (BEAKER) (test bchx=7663) 247 mL/min/1.73 sq m ESTIMATED GFR IS NOT ACCURATE CREATININE CLEARANCE IN PREDICTING GLOMERULAR FILTRATION RATE. ESTIMATED GFR IS NOT APPLICABLE FOR DIALYSIS PATIENTS. [id number] 04:23:00* Test Item Value Reference Range Comments PHOSPHORUS (BEAKER) (test doxp=928) 2.9 mg/dL 2.3-4.7 [id number] 04:23:00* Test Item Value Reference Range Comments MAGNESIUM (BEAKER) (test oeda=914) 1.9 mg/dL 1.6-2.6 CBC W/PLT COUNT & AUTO [id number] 04:02:00* Test Item Value Reference Range Comments WHITE BLOOD CELL COUNT (BEAKER) (test xyme=936) 10.4 K/ L 3.5-10.5 RED BLOOD CELL COUNT (BEAKER) (test ntif=914) 3.00 M/ L 4.63-6.08 HEMOGLOBIN (BEAKER) (test sqmb=422) 8.0 GM/DL 13.7-17.5 HEMATOCRIT (BEAKER) (test kdmd=875) 26.3 % 40.1-51.0 MEAN CORPUSCULAR VOLUME (BEAKER) (test tviu=161) 87.7 fL 79.0-92.2 MEAN CORPUSCULAR HEMOGLOBIN (BEAKER) (test scil=488) 26.7 pg 25.7-32.2 MEAN CORPUSCULAR HEMOGLOBIN CONC (BEAKER) (test fcrw=571) 30.4 GM/DL 32.3- 36.5 RED CELL DISTRIBUTION WIDTH (BEAKER) (test vrfj=193) 20.1 % 11.6-14.4 PLATELET COUNT (BEAKER) (test lmwk=250) 296 K/CU MM 150-450 MEAN PLATELET VOLUME (BEAKER) (test ntiv=895) 9.9 fL 9.4-12.4 NUCLEATED RED BLOOD CELLS (BEAKER) (test aasl=005) 0 /100 WBC 0-0 NEUTROPHILS RELATIVE PERCENT (BEAKER) (test epoq=582) 67 % LYMPHOCYTES RELATIVE PERCENT (BEAKER) (test focf=193) 19 % MONOCYTES RELATIVE PERCENT (BEAKER) (test dqtr=879) 9 % EOSINOPHILS RELATIVE PERCENT (BEAKER) (test jskt=830) 4 % BASOPHILS RELATIVE PERCENT (BEAKER) (test gses=249) 1 % NEUTROPHILS ABSOLUTE COUNT (BEAKER) (test jaxn=756) 7.00 K/ L 1.78-5.38 LYMPHOCYTES ABSOLUTE COUNT (BEAKER) (test kehr=314) 2.01 K/ L 1.32-3.57 MONOCYTES ABSOLUTE COUNT (BEAKER) (test yybu=881) 0.93 K/ L 0.30-0.82 EOSINOPHILS ABSOLUTE COUNT (BEAKER) (test lqmw=829) 0.36 K/ L 0.04-0.54 BASOPHILS ABSOLUTE COUNT (BEAKER) (test wxwo=396) 0.06 K/ L 0.01-0.08 IMMATURE GRANULOCYTES-RELATIVE PERCENT (BEAKER) (test mkfc=6483) 0 % 0-1 RAD, CHEST, 1 VIEW, NON [id number] 04:01:00Reason for exam:->medistinal abscessShould this be performed at the bedside?->YesFINAL REPORT EXAMINATION: AP PORTABLE CHEST RADIOGRAPH CLINICAL INDICATION: Mediastinal abscess IMPRESSION: Compared with 10/11/2017 Support tube and catheter positions are unchanged. Opacities are again noted in both lungs with a predominantly basilar distribution. Although a component of atelectasis is suspected, mild superimposed edema or an underlying pneumonia cannot be excluded. The superimposed pleural effusions are stable. Cardiac and mediastinal contours are also unchanged. No evidence of new lung consolidation or pneumothorax. In summary, no significant interval change. Signed: Nataly Harman MDReport Verified Date/Time: 10/13/2017 04:01:12 Reading Location: [address] Reading Room -GLUCOSE [id number] 23:44:00* Test Item Value Reference Range Comments POC-GLUCOSE METER (BEAKER) (test rocf=9810) 133 mg/dL 70-[address] [facility] [address] [place] [address] BASIC METABOLIC [id number] 22:23:00* Test Item Value Reference Range Comments SODIUM (BEAKER) (test xkqo=527) 138 meq/L 136-145 POTASSIUM (BEAKER) (test xgrv=381) 5.5 meq/L 3.5-5.1 CHLORIDE (BEAKER) (test pysz=654) 108 meq/L 98-107 CO2 (BEAKER) (test mepl=465) 25 meq/L 22-29 BLOOD UREA NITROGEN (BEAKER) (test ouve=821) 23 mg/dL 7-21 CREATININE (BEAKER) (test nrft=490) 0.38 mg/dL 0.57-1.25 GLUCOSE RANDOM (BEAKER) (test rlas=233) 124 mg/dL 70-105 CALCIUM (BEAKER) (test izai=606) 7.7 mg/dL 8.4-10.2 EGFR (BEAKER) (test cznq=0368) 240 mL/min/1.73 sq m ESTIMATED GFR IS NOT ACCURATE CREATININE CLEARANCE IN PREDICTING GLOMERULAR FILTRATION RATE. ESTIMATED GFR IS NOT APPLICABLE FOR DIALYSIS PATIENTS. [id number] 22:19:00* Test Item Value Reference Range Comments MAGNESIUM (BEAKER) (test fjsh=425) 1.6 mg/dL 1.6-2.6 POCT-GLUCOSE [id number] 18:09:00* Test Item Value Reference Range Comments POC-GLUCOSE METER (BEAKER) (test ecbr=0553) 136 mg/dL 70-[address] [facility] [address] [facility] [address] INFLUENZA A H1N1 [id number] 16:23:00* Test Item Value Reference Range Comments INFLUENZA A RNA (BEAKER) (test qhkk=0358) Not Detected Not Detected, Inconclusive NOVEL H1N1 RNA (BEAKER) (test ddgi=2861) Not Detected Not Detected, Inconclusive These assays were performed by real-time RT-PCR (airline counter agent-PCR) utilizing fluorogenic hydrolysis probe technology for the detection of human Influenza A viruses and the differential detection of novel H1N1 Influenza virus in respiratory specimens. The test is composed of (1) an RNA extraction from patient specimen, and (2) airline counter agent-PCR amplification and detection with human Influenza A and novel U9O1-hvycrftw primers and probes. A well-conserved region of the Influenza A matrix gene is targeted in one set of reactions to identify both seasonal Influenza A and novel H1N1 Influenza virus in the specimen. In addition, a specific region of the hemagglutinin gene is targeted to differentiate the novel H1N1 virus from the seasonal human influenza. An internal control is used to confirm PCR amplification. Genetic variation and other factors can affect the accuracy of nucleic acid testing; therefore, the results should be interpreted in light of clinical data. This test was developed and its performance characteristics determined by the [facility] Pathology Department, Section of Molecular Pathology. It has not been cleared or approved by the U.S. Food and Drug Administration (FDA). Since FDA approval is not required for clinical use of the test, validation was done as required by The Clinical Laboratory Amendments of 1988.These assays were performed by real-time RT-PCR (airline counter agent-PCR) utilizing fluorogenic hydrolysis probe technology for the detection of human Influenza A viruses and the differential detection of novel H1N1 Influenza virus in respiratory specimens. The test is composed of (1) an RNA extraction from patient specimen, and (2) airline counter agent-PCR amplification and detection with human Influenza A and novel A7I3-rrgqhyog primers and probes. A well-conserved region of the Influenza A matrix gene is targeted in one set of reactions to identify both seasonal Influenza A and novel H1N1 Influenza virus in the specimen. In addition, a specific region of the hemagglutinin gene is targeted to differentiate the novel H1N1 virus from the seasonal human influenza. An internal control is used to confirm PCR amplification. Genetic variation and other factors can affect the accuracy of nucleic acid testing; therefore, the results should be interpreted in light of clinical data. This test was developed and its performance characteristics determined by the [facility] Pathology Department, Section of Molecular Pathology. It has not been cleared or approved by the U.S. Food and Drug Administration ( FDA). Since FDA approval is not required for clinical use of the test, validation was done as required by The Clinical Laboratory Amendments of 1988.BLOOD GAS, [id number] 15:54:00* Test Item Value Reference Range Comments PH ARTERIAL (BEAKER) (test cnms=895) 7.45 7.35-7.45 PCO2 ARTERIAL (BEAKER) (test hban=241) 38 mmHg 35-45 PO2 ARTERIAL (BEAKER) (test efsa=515) 332 mmHg 80-90 O2 SATURATION ARTERIAL (BEAKER) (test qqpm=016) 99.8 % 96.0-97.0 HCO3 ARTERIAL (BEAKER) (test ovjy=335) 25 mmol/L 21-29 BASE EXCESS ARTERIAL (BEAKER) (test pxut=382) 1.4 mmol/L -2.0-3.0 PATIENT TEMPERATURE (BEAKER) (test kext=6835) 37.0 C FIO2 (BEAKER) (test uoyz=6836) 50.0 % POCT-GLUCOSE [id number] 11:58:00* Test Item Value Reference Range Comments POC-GLUCOSE METER (BEAKER) (test nwro=9984) 118 mg/dL 70-[address] [facility] [address] [facility] [address] AFB CULTURE + [id number] 10:48:00* Test Item Value Reference Range Comments CULTURE (BEAKER) (test bfoi=2198) No acid-fast bacilli isolated in 42 days AFB SMEAR (BEAKER) (test wjcn=812) No acid fast bacilli seen BASIC METABOLIC [id number] 08:21:00* Test Item Value Reference Range Comments SODIUM (BEAKER) (test ruqw=248) 140 meq/L 136-145 POTASSIUM (BEAKER) (test pvtr=583) 3.3 meq/L 3.5-5.1 CHLORIDE (BEAKER) (test wraz=566) 106 meq/L 98-107 CO2 (BEAKER) (test ldcq=201) 25 meq/L 22-29 BLOOD UREA NITROGEN (BEAKER) (test qqxd=406) 20 mg/dL 7-21 CREATININE (BEAKER) (test xuot=512) 0.37 mg/dL 0.57-1.25 GLUCOSE RANDOM (BEAKER) (test uhzg=470) 80 mg/dL 70-105 CALCIUM (BEAKER) (test ivxv=354) 7.8 mg/dL 8.4-10.2 EGFR (BEAKER) (test xwma=2145) 247 mL/min/1.73 sq m ESTIMATED GFR IS NOT ACCURATE CREATININE CLEARANCE IN PREDICTING GLOMERULAR FILTRATION RATE. ESTIMATED GFR IS NOT APPLICABLE FOR DIALYSIS PATIENTS. [id number] 08:19:00* Test Item Value Reference Range Comments PHOSPHORUS (BEAKER) (test rrag=230) 3.7 mg/dL 2.3-4.7 [id number] 08:19:00* Test Item Value Reference Range Comments MAGNESIUM (BEAKER) (test zbjb=631) 1.2 mg/dL 1.6-2.6 RAPID INFLUENZA A&B [id number] 07:22:00* Test Item Value Reference Range Comments RAPID INFLUENZA A AG (BEAKER) (test diga=2367) Negative Negative, Inconclusive RAPID INFLUENZA B AG (BEAKER) (test wjqm=2787) Negative Negative, Inconclusive [id number] 07:17:00* Test Item Value Reference Range Comments PREALBUMIN (BEAKER) (test vmgr=842) 11 mg/dL 14-45 Specimen moderately hemolyzed BASIC METABOLIC [id number] 06:59:00* Test Item Value Reference Range Comments SODIUM (BEAKER) (test gaaa=464) 133 meq/L 136-145 POTASSIUM (BEAKER) (test xxqr=340) 8.8 meq/L 3.5-5.1 Specimen markedly hemolyzed CHLORIDE (BEAKER) (test xbqt=737) 105 meq/L 98-107 CO2 (BEAKER) (test usto=222) 21 meq/L 22-29 BLOOD UREA NITROGEN (BEAKER) (test suir=909) 19 mg/dL 7-21 CREATININE (BEAKER) (test hmoo=237) 0.39 mg/dL 0.57-1.25 Specimen markedly hemolyzed GLUCOSE RANDOM (BEAKER) (test rnrn=656) 97 mg/dL 70-105 CALCIUM (BEAKER) (test iznx=183) 7.4 mg/dL 8.4-10.2 EGFR (BEAKER) (test whhw=0300) 233 mL/min/1.73 sq m ESTIMATED GFR IS NOT ACCURATE CREATININE CLEARANCE IN PREDICTING GLOMERULAR FILTRATION RATE. ESTIMATED GFR IS NOT APPLICABLE FOR DIALYSIS PATIENTS. [id number] 06:16:00* Test Item Value Reference Range Comments MAGNESIUM (BEAKER) (test iicm=599) 2.6 mg/dL 1.6-2.6 Specimen markedly hemolyzed [id number] 06:16:00* Test Item Value Reference Range Comments PHOSPHORUS (BEAKER) (test rkhc=431) 4.6 mg/dL 2.3-4.7 Specimen markedly hemolyzed PROTEIN, [id number] 06:16:00* Test Item Value Reference Range Comments TOTAL PROTEIN (BEAKER) (test rnun=175) 7.0 gm/dL 6.0-8.3 Specimen markedly hemolyzed CREATINE KINASE (CK), TOTAL AND [id number] 06:16:00* Test Item Value Reference Range Comments CREATINE KINASE TOTAL (BEAKER) (test jwqf=727) 43 U/L 29-200 CREATINE KINASE-MB (BEAKER) (test xtut=724) 2.2 ng/mL 0.0-6.6 CREATINE KINASE-MB INDEX (BEAKER) (test hqck=888) 5.1 % CK-MB Reference Range:<6.7 Normal6.7-10.0 Borderline>10.0 AbnormalTROPONIN [id number] 05:43:00* Test Item Value Reference Range Comments TROPONIN I (BEAKER) (test ktwb=771) 0.02 ng/mL 0.00-0.03 Troponin I (TnI) levels must be interpreted in the context of the presenting symptoms and the clinical findings. Elevated TnI levels indicate myocardial damage, but are not specific for ischemic heart disease. Elevated TnI levels are seen in patients with other cardiac conditions (including myocarditis and congestive heart failure), and slight TnI elevations occur in patients with other conditions, including sepsis, renal failure, acidosis, acute neurological disease, and persistent tachyarrhythmia.B-TYPE NATRIURETIC FACTOR (BNP) 05:41:00* Test Item Value Reference Range Comments B-TYPE NATRIURETIC PEPTIDE (BEAKER) (test acfu=498) 154 pg/mL 0-100 CBC (HEMOGRAM ONLY)2017-10-12 04:52:00* Test Item Value Reference Range Comments WHITE BLOOD CELL COUNT (BEAKER) (test ubhm=782) 12.3 K/ L 3.5-10.5 RED BLOOD CELL COUNT (BEAKER) (test izex=568) 3.24 M/ L 4.63-6.08 HEMOGLOBIN (BEAKER) (test zdyt=239) 8.6 GM/DL 13.7-17.5 HEMATOCRIT (BEAKER) (test jvrg=789) 28.3 % 40.1-51.0 MEAN CORPUSCULAR VOLUME (BEAKER) (test nuhq=522) 87.3 fL 79.0-92.2 MEAN CORPUSCULAR HEMOGLOBIN (BEAKER) (test xugh=239) 26.5 pg 25.7-32.2 MEAN CORPUSCULAR HEMOGLOBIN CONC (BEAKER) (test auxu=956) 30.4 GM/DL 32.3- 36.5 RED CELL DISTRIBUTION WIDTH (BEAKER) (test mgkl=317) 20.8 % 11.6-14.4 PLATELET COUNT (BEAKER) (test ruhc=510) 279 K/CU MM 150-450 MEAN PLATELET VOLUME (BEAKER) (test rejn=256) 9.8 fL 9.4-12.4 NUCLEATED RED BLOOD CELLS (BEAKER) (test eygy=600) 0 /100 WBC 0-0 CBC W/PLT COUNT & AUTO [id number] 04:11:00* Test Item Value Reference Range Comments WHITE BLOOD CELL COUNT (BEAKER) (test hcgk=288) 11.9 K/ L 3.5-10.5 RED BLOOD CELL COUNT (BEAKER) (test ddex=190) 3.04 M/ L 4.63-6.08 HEMOGLOBIN (BEAKER) (test rozz=715) 8.1 GM/DL 13.7-17.5 HEMATOCRIT (BEAKER) (test atdh=309) 26.7 % 40.1-51.0 MEAN CORPUSCULAR VOLUME (BEAKER) (test gfhi=302) 87.8 fL 79.0-92.2 MEAN CORPUSCULAR HEMOGLOBIN (BEAKER) (test xaqa=254) 26.6 pg 25.7-32.2 MEAN CORPUSCULAR HEMOGLOBIN CONC (BEAKER) (test nzcw=873) 30.3 GM/DL 32.3- 36.5 RED CELL DISTRIBUTION WIDTH (BEAKER) (test nbst=907) 21.0 % 11.6-14.4 PLATELET COUNT (BEAKER) (test hbpz=326) 279 K/CU MM 150-450 MEAN PLATELET VOLUME (BEAKER) (test fxpu=051) 9.8 fL 9.4-12.4 NUCLEATED RED BLOOD CELLS (BEAKER) (test jxbf=415) 0 /100 WBC 0-0 NEUTROPHILS RELATIVE PERCENT (BEAKER) (test pius=538) 79 % LYMPHOCYTES RELATIVE PERCENT (BEAKER) (test cmun=284) 13 % MONOCYTES RELATIVE PERCENT (BEAKER) (test tbsq=963) 7 % EOSINOPHILS RELATIVE PERCENT (BEAKER) (test vfxk=820) 1 % BASOPHILS RELATIVE PERCENT (BEAKER) (test uzsp=801) 0 % NEUTROPHILS ABSOLUTE COUNT (BEAKER) (test zsit=747) 9.41 K/ L 1.78-5.38 LYMPHOCYTES ABSOLUTE COUNT (BEAKER) (test lved=076) 1.49 K/ L 1.32-3.57 MONOCYTES ABSOLUTE COUNT (BEAKER) (test rcmf=589) 0.79 K/ L 0.30-0.82 EOSINOPHILS ABSOLUTE COUNT (BEAKER) (test vopg=787) 0.16 K/ L 0.04-0.54 BASOPHILS ABSOLUTE COUNT (BEAKER) (test wnls=418) 0.05 K/ L 0.01-0.08 IMMATURE GRANULOCYTES-RELATIVE PERCENT (BEAKER) (test kyem=8498) 0 % 0-1 [id number] 03:04:00* Test Item Value Reference Range Comments PARTIAL THROMBOPLASTIN TIME (BEAKER) (test vrek=475) 40.0 seconds 22.5-36.0 Prior to initiating heparinPOCT-GLUCOSE [id number] 17:44:00* Test Item Value Reference Range Comments POC-GLUCOSE METER (BEAKER) (test wzqo=5309) 148 mg/dL 70-[address] [facility] [address] [facility] [address] BLOOD GAS, [id number] 13:21:00* Test Item Value Reference Range Comments PH ARTERIAL (BEAKER) (test swpv=612) 7.53 7.35-7.45 PCO2 ARTERIAL (BEAKER) (test mdwn=935) 32 mmHg 35-45 PO2 ARTERIAL (BEAKER) (test zcfk=847) 132 mmHg 80-90 O2 SATURATION ARTERIAL (BEAKER) (test cyds=387) 98.9 % 96.0-97.0 HCO3 ARTERIAL (BEAKER) (test azzv=333) 26 mmol/L 21-29 BASE EXCESS ARTERIAL (BEAKER) (test ugox=415) 3.7 mmol/L -2.0-3.0 PATIENT TEMPERATURE (BEAKER) (test cghh=1141) 37.0 C FIO2 (BEAKER) (test imrv=4739) 40.0 % POCT-GLUCOSE [id number] 12:41:00* Test Item Value Reference Range Comments POC-GLUCOSE METER (BEAKER) (test vmle=9381) 166 mg/dL 70-110 TESTED AT [place] [id number] [facility] [address] TROPONIN [id number] 09:55:00* Test Item Value Reference Range Comments TROPONIN I (BEAKER) (test atrn=739) 0.01 ng/mL 0.00-0.03 Troponin I (TnI) levels must be interpreted in the context of the presenting symptoms and the clinical findings. Elevated TnI levels indicate myocardial damage, but are not specific for ischemic heart disease. Elevated TnI levels are seen in patients with other cardiac conditions (including myocarditis and congestive heart failure), and slight TnI elevations occur in patients with other conditions, including sepsis, renal failure, acidosis, acute neurological disease, and persistent tachyarrhythmia.RAD, CHEST, 1 VIEW, NON [id number] 03:44:00Reason for exam:->medistinal abscessShould this be performed at the bedside?->YesFINAL REPORT RAD, CHEST, 1 VIEW, NON DEPT INDICATION: medistinal abscess COMPARISON: Prior day's exam, correlation to CT soft tissue neck October 08, 2017 FINDINGS: Portable frontal view of the chest. IMPRESSION: Support Lines: Stable. Lungs and pleura: Opacification in the superior mediastinum similar to the prior exam. Basilar subsegmental atelectasis and bilateral pleural effusions. The left costophrenic sulcus is excluded from view.Heart and mediastinum: Stable contours. Additional findings: None. Signed: JR Newton Robert MDReport Verified Date/Time: 10/11/2017 03:44:09 Reading Location: [facility] C013Y CT Body Reading Room C METABOLIC [id number] 03:01:00* Test Item Value Reference Range Comments SODIUM (BEAKER) (test lfoq=712) 137 meq/L 136-145 POTASSIUM (BEAKER) (test larr=667) 5.0 meq/L 3.5-5.1 CHLORIDE (BEAKER) (test zqer=881) 107 meq/L 98-107 CO2 (BEAKER) (test rttf=976) 24 meq/L 22-29 BLOOD UREA NITROGEN (BEAKER) (test kghb=796) 20 mg/dL 7-21 CREATININE (BEAKER) (test ydav=959) 0.51 mg/dL 0.57-1.25 GLUCOSE RANDOM (BEAKER) (test bfzj=120) 144 mg/dL 70-105 CALCIUM (BEAKER) (test izij=129) 7.8 mg/dL 8.4-10.2 EGFR (BEAKER) (test idri=8801) 171 mL/min/1.73 sq m ESTIMATED GFR IS NOT ACCURATE CREATININE CLEARANCE IN PREDICTING GLOMERULAR FILTRATION RATE. ESTIMATED GFR IS NOT APPLICABLE FOR DIALYSIS PATIENTS. TROPONIN [id number] 02:37:00* Test Item Value Reference Range Comments TROPONIN I (BEAKER) (test gftv=652) < ng/mL 0.00-0.03 Troponin I (TnI) levels must be interpreted in the context of the presenting symptoms and the clinical findings. Elevated TnI levels indicate myocardial damage, but are not specific for ischemic heart disease. Elevated TnI levels are seen in patients with other cardiac conditions (including myocarditis and congestive heart failure), and slight TnI elevations occur in patients with other conditions, including sepsis, renal failure, acidosis, acute neurological disease, and persistent tachyarrhythmia.[id number] 02:30:00* Test Item Value Reference Range Comments PHOSPHORUS (BEAKER) (test tnht=480) 1.8 mg/dL 2.3-4.7 [id number] 02:30:00* Test Item Value Reference Range Comments MAGNESIUM (BEAKER) (test tpuj=140) 2.6 mg/dL 1.6-2.6 CBC W/PLT COUNT & AUTO [id number] 02:08:00* Test Item Value Reference Range Comments WHITE BLOOD CELL COUNT (BEAKER) (test rtkf=287) 11.2 K/ L 3.5-10.5 RED BLOOD CELL COUNT (BEAKER) (test sczh=125) 3.79 M/ L 4.63-6.08 HEMOGLOBIN (BEAKER) (test yojm=612) 10.3 GM/DL 13.7-17.5 HEMATOCRIT (BEAKER) (test hbqh=555) 32.6 % 40.1-51.0 MEAN CORPUSCULAR VOLUME (BEAKER) (test cmsh=139) 86.0 fL 79.0-92.2 MEAN CORPUSCULAR HEMOGLOBIN (BEAKER) (test tjgk=000) 27.2 pg 25.7-32.2 MEAN CORPUSCULAR HEMOGLOBIN CONC (BEAKER) (test ckxe=681) 31.6 GM/DL 32.3- 36.5 RED CELL DISTRIBUTION WIDTH (BEAKER) (test ptte=126) 20.6 % 11.6-14.4 PLATELET COUNT (BEAKER) (test cuvp=947) 397 K/CU MM 150-450 MEAN PLATELET VOLUME (BEAKER) (test nltx=609) 9.9 fL 9.4-12.4 NUCLEATED RED BLOOD CELLS (BEAKER) (test vetc=117) 0 /100 WBC 0-0 NEUTROPHILS RELATIVE PERCENT (BEAKER) (test fnrk=031) 68 % LYMPHOCYTES RELATIVE PERCENT (BEAKER) (test fshh=893) 21 % MONOCYTES RELATIVE PERCENT (BEAKER) (test damh=183) 10 % EOSINOPHILS RELATIVE PERCENT (BEAKER) (test bjdz=031) 0 % BASOPHILS RELATIVE PERCENT (BEAKER) (test zvgc=649) 0 % NEUTROPHILS ABSOLUTE COUNT (BEAKER) (test alud=736) 7.63 K/ L 1.78-5.38 LYMPHOCYTES ABSOLUTE COUNT (BEAKER) (test ofbw=529) 2.31 K/ L 1.32-3.57 MONOCYTES ABSOLUTE COUNT (BEAKER) (test ccaz=569) 1.07 K/ L 0.30-0.82 EOSINOPHILS ABSOLUTE COUNT (BEAKER) (test cbnd=930) 0.05 K/ L 0.04-0.54 BASOPHILS ABSOLUTE COUNT (BEAKER) (test fzjt=533) 0.03 K/ L 0.01-0.08 IMMATURE GRANULOCYTES-RELATIVE PERCENT (BEAKER) (test comx=8284) 1 % 0-1 CREATINE KINASE (CK), TOTAL AND [id number] 20:56:00* Test Item Value Reference Range Comments CREATINE KINASE TOTAL (BEAKER) (test fasa=217) 42 U/L 29-200 CREATINE KINASE-MB (BEAKER) (test aypq=232) 1.2 ng/mL 0.0-6.6 CREATINE KINASE-MB INDEX (BEAKER) (test pwcu=457) 2.9 % CK-MB Reference Range:<6.7 Normal6.7-10.0 Borderline>10.0 AbnormalTROPONIN [id number] 20:56:00* Test Item Value Reference Range Comments TROPONIN I (BEAKER) (test nvft=106) < ng/mL 0.00-0.03 Troponin I (TnI) levels must be interpreted in the context of the presenting symptoms and the clinical findings. Elevated TnI levels indicate myocardial damage, but are not specific for ischemic heart disease. Elevated TnI levels are seen in patients with other cardiac conditions (including myocarditis and congestive heart failure), and slight TnI elevations occur in patients with other conditions, including sepsis, renal failure, acidosis, acute neurological disease, and persistent tachyarrhythmia.BASIC METABOLIC [id number] 20:51:00 * Test Item Value Reference Range Comments SODIUM (BEAKER) (test vlmn=559) 137 meq/L 136-145 POTASSIUM (BEAKER) (test eebt=494) 3.4 meq/L 3.5-5.1 CHLORIDE (BEAKER) (test tppc=132) 103 meq/L 98-107 CO2 (BEAKER) (test tizv=246) 26 meq/L 22-29 BLOOD UREA NITROGEN (BEAKER) (test ghpa=754) 19 mg/dL 7-21 CREATININE (BEAKER) (test pqvf=810) 0.43 mg/dL 0.57-1.25 GLUCOSE RANDOM (BEAKER) (test kelc=844) 136 mg/dL 70-105 CALCIUM (BEAKER) (test cvwm=977) 7.7 mg/dL 8.4-10.2 EGFR (BEAKER) (test eacu=7464) 208 mL/min/1.73 sq m ESTIMATED GFR IS NOT ACCURATE CREATININE CLEARANCE IN PREDICTING GLOMERULAR FILTRATION RATE. ESTIMATED GFR IS NOT APPLICABLE FOR DIALYSIS PATIENTS. [id number] 20:48:00* Test Item Value Reference Range Comments PHOSPHORUS (BEAKER) (test zbir=592) 1.6 mg/dL 2.3-4.7 [id number] 20:48:00* Test Item Value Reference Range Comments MAGNESIUM (BEAKER) (test lzdw=468) 1.6 mg/dL 1.6-2.6 RAD, CHEST, 1 VIEW, NON [id number] 20:42:00Reason for exam:->Chest painShould this be performed at the bedside?->YesFINAL REPORT CLINICAL INDICATION: Chest pain Comparison: Same dated 0651 hours The cardiomediastinal contours are stable. Central pulmonary vascular congestion and bilateral parenchymal and pleural opacities are unchanged. There is no pneumothorax. Support lines are stable. Signed: Cruz [place]port Verified Date/Time: 10/10/2017 20:42:48 Reading Location: [address] Ortho Consult Reading Room W/PLT COUNT & AUTO [id number] 20:41:00* Test Item Value Reference Range Comments WHITE BLOOD CELL COUNT (BEAKER) (test nmhf=641) 9.5 K/ L 3.5-10.5 RED BLOOD CELL COUNT (BEAKER) (test qlrv=696) 3.56 M/ L 4.63-6.08 HEMOGLOBIN (BEAKER) (test bykx=468) 9.6 GM/DL 13.7-17.5 HEMATOCRIT (BEAKER) (test bsex=598) 30.5 % 40.1-51.0 MEAN CORPUSCULAR VOLUME (BEAKER) (test isbw=817) 85.7 fL 79.0-92.2 MEAN CORPUSCULAR HEMOGLOBIN (BEAKER) (test vvkg=398) 27.0 pg 25.7-32.2 MEAN CORPUSCULAR HEMOGLOBIN CONC (BEAKER) (test bpfi=714) 31.5 GM/DL 32.3- 36.5 RED CELL DISTRIBUTION WIDTH (BEAKER) (test svdr=242) 20.3 % 11.6-14.4 PLATELET COUNT (BEAKER) (test ranf=441) 385 K/CU MM 150-450 MEAN PLATELET VOLUME (BEAKER) (test xiin=718) 9.7 fL 9.4-12.4 NUCLEATED RED BLOOD CELLS (BEAKER) (test homo=477) 0 /100 WBC 0-0 NEUTROPHILS RELATIVE PERCENT (BEAKER) (test rimr=514) 68 % LYMPHOCYTES RELATIVE PERCENT (BEAKER) (test lrkr=573) 22 % MONOCYTES RELATIVE PERCENT (BEAKER) (test vxmm=015) 9 % EOSINOPHILS RELATIVE PERCENT (BEAKER) (test dyhf=224) 0 % BASOPHILS RELATIVE PERCENT (BEAKER) (test plya=371) 1 % NEUTROPHILS ABSOLUTE COUNT (BEAKER) (test hxiy=190) 6.49 K/ L 1.78-5.38 LYMPHOCYTES ABSOLUTE COUNT (BEAKER) (test ufbr=310) 2.05 K/ L 1.32-3.57 MONOCYTES ABSOLUTE COUNT (BEAKER) (test tutw=908) 0.87 K/ L 0.30-0.82 EOSINOPHILS ABSOLUTE COUNT (BEAKER) (test ajjf=113) 0.04 K/ L 0.04-0.54 BASOPHILS ABSOLUTE COUNT (BEAKER) (test hvyz=956) 0.05 K/ L 0.01-0.08 IMMATURE GRANULOCYTES-RELATIVE PERCENT (BEAKER) (test sxmo=6715) 0 % 0-1 [id number] 20:37:00* Test Item Value Reference Range Comments PROTIME (BEAKER) (test vclm=949) 18.6 seconds 11.7-14.7 INR (BEAKER) (test kwxr=424) 1.6 <=5.9 PARTIAL THROMBOPLASTIN TIME (BEAKER) (test uoks=699) 41.1 seconds 22.5-36.0 RECOMMENDED COUMADIN/WARFARIN INR THERAPY RANGESSTANDARD DOSE: 2.0 - 3.0 Includes: PROPHYLAXIS for venous thrombosis, systemic embolization; TREATMENT for venous thrombosis and/or pulmonary embolus.HIGH RISK: Target INR is 2.5-3.5 for patients with mechanical heart valves.POCT-GLUCOSE [id number] 18:09:00 * Test Item Value Reference Range Comments POC-GLUCOSE METER (BEAKER) (test iejh=9069) 177 mg/dL 70-[address] [facility] [address] [facility] [address] [id number] 16:04:00* Test Item Value Reference Range Comments POTASSIUM (BEAKER) (test uxsi=055) 3.4 meq/L 3.5-5.1 [id number] 16:04:00* Test Item Value Reference Range Comments MAGNESIUM (BEAKER) (test jtai=122) 1.9 mg/dL 1.6-2.6 POCT-GLUCOSE [id number] 12:05:00* Test Item Value Reference Range Comments POC-GLUCOSE METER (BEAKER) (test urbu=8337) 155 mg/dL 70-110 TESTED AT [address] [address] RAD, CHEST, 1 VIEW, NON [id number] 07:56:00Reason for exam:->medistinal abscessShould this be performed at the bedside?->YesFINAL REPORT Portable chest CLINICAL HISTORY: Mediastinal abscess. Comparison study : October 09, 2017 FINDINGS: The cardiac silhouette is enlarged. A tracheostomy tube and left-sided central line are seen in place. There is a moderate right-sided pleural effusion with adjacent atelectasis or consolidation. A small left-sided effusion is also seen with adjacent atelectatic changes. Pulmonary venous congestion is noted. No pneumothorax is seen. Degenerative changes are present. IMPRESSION: No significant change. Signed: Harinder Posey MDReport Verified Date/Time: 10/10/2017 07:56:20 Reading Location: [facility] C013Y CT Body Reading Room -GLUCOSE [id number] 06: 17:00* Test Item Value Reference Range Comments POC-GLUCOSE METER (BEAKER) (test uhri=3922) 123 mg/dL 70-[address] [facility] [address] [place] [address] [id number] 06:09:00* Test Item Value Reference Range Comments PHOSPHORUS (BEAKER) (test wozy=718) 1.7 mg/dL 2.3-4.7 [id number] 06:09:00* Test Item Value Reference Range Comments MAGNESIUM (BEAKER) (test grng=666) 1.2 mg/dL 1.6-2.6 BASIC METABOLIC [id number] 06:09:00* Test Item Value Reference Range Comments SODIUM (BEAKER) (test qrpl=300) 140 meq/L 136-145 POTASSIUM (BEAKER) (test muxm=036) 3.3 meq/L 3.5-5.1 CHLORIDE (BEAKER) (test bkgk=373) 102 meq/L 98-107 CO2 (BEAKER) (test ziwm=466) 30 meq/L 22-29 BLOOD UREA NITROGEN (BEAKER) (test owrm=818) 22 mg/dL 7-21 CREATININE (BEAKER) (test qrut=870) 0.42 mg/dL 0.57-1.25 GLUCOSE RANDOM (BEAKER) (test bbyg=763) 131 mg/dL 70-105 CALCIUM (BEAKER) (test akdz=068) 8.2 mg/dL 8.4-10.2 EGFR (BEAKER) (test zafi=8166) 214 mL/min/1.73 sq m ESTIMATED GFR IS NOT ACCURATE CREATININE CLEARANCE IN PREDICTING GLOMERULAR FILTRATION RATE. ESTIMATED GFR IS NOT APPLICABLE FOR DIALYSIS PATIENTS. CBC W/PLT COUNT & AUTO [id number] 05:19:00* Test Item Value Reference Range Comments WHITE BLOOD CELL COUNT (BEAKER) (test hvrk=798) 9.8 K/ L 3.5-10.5 RED BLOOD CELL COUNT (BEAKER) (test eeqh=781) 3.49 M/ L 4.63-6.08 HEMOGLOBIN (BEAKER) (test cxlx=195) 9.2 GM/DL 13.7-17.5 HEMATOCRIT (BEAKER) (test seiw=560) 30.7 % 40.1-51.0 MEAN CORPUSCULAR VOLUME (BEAKER) (test cyfc=247) 88.0 fL 79.0-92.2 MEAN CORPUSCULAR HEMOGLOBIN (BEAKER) (test uwwk=581) 26.4 pg 25.7-32.2 MEAN CORPUSCULAR HEMOGLOBIN CONC (BEAKER) (test gshg=776) 30.0 GM/DL 32.3- 36.5 RED CELL DISTRIBUTION WIDTH (BEAKER) (test mqqf=711) 19.8 % 11.6-14.4 PLATELET COUNT (BEAKER) (test fmyd=602) 408 K/CU MM 150-450 MEAN PLATELET VOLUME (BEAKER) (test ebji=808) 9.9 fL 9.4-12.4 NUCLEATED RED BLOOD CELLS (BEAKER) (test tifs=459) 0 /100 WBC 0-0 NEUTROPHILS RELATIVE PERCENT (BEAKER) (test amrb=594) 68 % LYMPHOCYTES RELATIVE PERCENT (BEAKER) (test leyv=362) 19 % MONOCYTES RELATIVE PERCENT (BEAKER) (test rzyk=284) 10 % EOSINOPHILS RELATIVE PERCENT (BEAKER) (test phxv=343) 2 % BASOPHILS RELATIVE PERCENT (BEAKER) (test fxaf=633) 1 % NEUTROPHILS ABSOLUTE COUNT (BEAKER) (test kysf=428) 6.65 K/ L 1.78-5.38 LYMPHOCYTES ABSOLUTE COUNT (BEAKER) (test pxin=133) 1.84 K/ L 1.32-3.57 MONOCYTES ABSOLUTE COUNT (BEAKER) (test wopr=594) 0.99 K/ L 0.30-0.82 EOSINOPHILS ABSOLUTE COUNT (BEAKER) (test uxys=250) 0.17 K/ L 0.04-0.54 BASOPHILS ABSOLUTE COUNT (BEAKER) (test cqyd=840) 0.06 K/ L 0.01-0.08 IMMATURE GRANULOCYTES-RELATIVE PERCENT (BEAKER) (test muuo=5869) 0 % 0-1 POCT-GLUCOSE [id number] 01:04:00* Test Item Value Reference Range Comments POC-GLUCOSE METER (BEAKER) (test qwpe=1068) 156 mg/dL 70-110 TESTED AT [place] [id number] [facility] [address] POCT-GLUCOSE [id number] 18:25:00* Test Item Value Reference Range Comments POC-GLUCOSE METER (BEAKER) (test axdy=6962) 178 mg/dL 70-110 TESTED AT [place] [id number] [facility] [address] FL, ESOPH, SWALLOW FUNCTION, WITH CINE OR [id number] 16:55:00Reason for exam:->eval for diet advancementFINAL REPORT Modified barium swallow exam with speech pathology service CLINICAL HISTORY: eval for diet advancement IMPRESSION: Please see the speech pathology service report for details. Barium contrast of multiple consistencies is given to the patient to swallow. Fluoroscopic observation is performed during swallowing. There is penetration with thin liquids and nectar. Fluoro time: 1.1 minutes Number of images: 8 Signed: Wil Blackman Verified Date/Time: 10/09/2017 16:55:18 Reading Location: [address] Consult Reading Room [id number] 14:15:00* Test Item Value Reference Range Comments POTASSIUM (BEAKER) (test cyqo=041) 4.0 meq/L 3.5-5.1 [id number] 14:15:00* Test Item Value Reference Range Comments MAGNESIUM (BEAKER) (test hmmb=705) 2.4 mg/dL 1.6-2.6 POCT-GLUCOSE [id number] 12:32:00* Test Item Value Reference Range Comments POC-GLUCOSE METER (BEAKER) (test dvyw=5395) 179 mg/dL 70-110 TESTED AT [address] [address] POCT-GLUCOSE [id number] 06:35:00* Test Item Value Reference Range Comments POC-GLUCOSE METER (BEAKER) (test vglw=8055) 103 mg/dL 70-110 TESTED AT [address] [address] BASIC METABOLIC [id number] 06:12:00* Test Item Value Reference Range Comments SODIUM (BEAKER) (test xfbj=321) 139 meq/L 136-145 POTASSIUM (BEAKER) (test awrs=456) 3.9 meq/L 3.5-5.1 CHLORIDE (BEAKER) (test sshx=170) 102 meq/L 98-107 CO2 (BEAKER) (test ljmc=432) 34 meq/L 22-29 BLOOD UREA NITROGEN (BEAKER) (test btun=608) 20 mg/dL 7-21 CREATININE (BEAKER) (test jycf=593) 0.35 mg/dL 0.57-1.25 GLUCOSE RANDOM (BEAKER) (test dzhw=533) 106 mg/dL 70-105 CALCIUM (BEAKER) (test lewp=312) 7.7 mg/dL 8.4-10.2 EGFR (BEAKER) (test syfu=8193) 264 mL/min/1.73 sq m ESTIMATED GFR IS NOT ACCURATE CREATININE CLEARANCE IN PREDICTING GLOMERULAR FILTRATION RATE. ESTIMATED GFR IS NOT APPLICABLE FOR DIALYSIS PATIENTS. [id number] 05:58:00* Test Item Value Reference Range Comments PHOSPHORUS (BEAKER) (test tjiz=754) 2.9 mg/dL 2.3-4.7 [id number] 05:58:00* Test Item Value Reference Range Comments MAGNESIUM (BEAKER) (test lcdz=594) 1.2 mg/dL 1.6-2.6 CBC W/PLT COUNT & AUTO [id number] 05:21:00* Test Item Value Reference Range Comments WHITE BLOOD CELL COUNT (BEAKER) (test lmpf=658) 7.5 K/ L 3.5-10.5 RED BLOOD CELL COUNT (BEAKER) (test biat=997) 3.10 M/ L 4.63-6.08 HEMOGLOBIN (BEAKER) (test bqbq=346) 8.1 GM/DL 13.7-17.5 HEMATOCRIT (BEAKER) (test aqfl=665) 28.2 % 40.1-51.0 MEAN CORPUSCULAR VOLUME (BEAKER) (test gjdp=062) 91.0 fL 79.0-92.2 MEAN CORPUSCULAR HEMOGLOBIN (BEAKER) (test miqp=855) 26.1 pg 25.7-32.2 MEAN CORPUSCULAR HEMOGLOBIN CONC (BEAKER) (test gmpj=387) 28.7 GM/DL 32.3- 36.5 RED CELL DISTRIBUTION WIDTH (BEAKER) (test wrmq=019) 20.0 % 11.6-14.4 PLATELET COUNT (BEAKER) (test vfdk=163) 344 K/CU MM 150-450 MEAN PLATELET VOLUME (BEAKER) (test bsgi=976) 9.9 fL 9.4-12.4 NUCLEATED RED BLOOD CELLS (BEAKER) (test mdfx=307) 0 /100 WBC 0-0 NEUTROPHILS RELATIVE PERCENT (BEAKER) (test rcbo=734) 58 % LYMPHOCYTES RELATIVE PERCENT (BEAKER) (test wjyq=578) 28 % MONOCYTES RELATIVE PERCENT (BEAKER) (test vfva=487) 8 % EOSINOPHILS RELATIVE PERCENT (BEAKER) (test jclt=906) 4 % BASOPHILS RELATIVE PERCENT (BEAKER) (test uqzr=594) 1 % NEUTROPHILS ABSOLUTE COUNT (BEAKER) (test wmtp=152) 4.34 K/ L 1.78-5.38 LYMPHOCYTES ABSOLUTE COUNT (BEAKER) (test rxpr=558) 2.11 K/ L 1.32-3.57 MONOCYTES ABSOLUTE COUNT (BEAKER) (test ljex=154) 0.60 K/ L 0.30-0.82 EOSINOPHILS ABSOLUTE COUNT (BEAKER) (test drxk=179) 0.32 K/ L 0.04-0.54 BASOPHILS ABSOLUTE COUNT (BEAKER) (test rczj=001) 0.05 K/ L 0.01-0.08 IMMATURE GRANULOCYTES-RELATIVE PERCENT (BEAKER) (test mdjl=4808) 0 % 0-1 RAD, CHEST, 1 VIEW, NON [id number] 03:34:00Reason for exam:->medistinal abscessShould this be performed at the bedside?->YesFINAL REPORT RAD, CHEST, 1 VIEW, NON DEPT INDICATION: medistinal abscess COMPARISON : Prior day's exam FINDINGS: Portable frontal view of the chest. IMPRESSION: Support Lines: Stable port catheter and tracheostomy tube. Lungs and pleura: Worsening of effusions. Scattered subsegmental atelectasis. No pneumothorax.Heart and mediastinum: Stable cardiomediastinal contours.Additional findings: None. Signed: JR Newton Robert MDReport Verified Date/Time: 10/09/2017 03:34:03 Reading Location: [facility] C013Y CT Body Reading Room -GLUCOSE [id number] 01:32:00* Test Item Value Reference Range Comments POC-GLUCOSE METER (BEAKER) (test jkqh=5595) 114 mg/dL 70-110 TESTED AT [address] [address] POCT-GLUCOSE [id number] 18:40:00* Test Item Value Reference Range Comments POC-GLUCOSE METER (BEAKER) (test nnmr=6273) 101 mg/dL 70-110 TESTED AT [address] [address] [address], SOFT TISSUE NECK, [id number] 18:18:00FINAL REPORT CT neck with contrast 10/08/2017 6:13 PM CLINICAL HISTORY: Follow up postoperative infection TECHNIQUE: Axial contrast-enhanced CT images of the neck were obtained. Axially acquired data were reformatted in coronal and sagittal planes for further analysis. This examination was performed according to our departmental dose optimization program, which includes automated exposure control, adjustment of the mA and/or kV according to patient size, and/ or use of iterated reconstruction technique. COMPARISON: 09/12/2017 FINDINGS: There is persistent retropharyngeal/anterior paravertebral fluid extending from C5 to T4. Previously noted abscess anterior to the T1, T2, and T3 vertebral bodies has progressed, with residual phlegmon. There are widely scattered foci of intracollection gas. There is no aerodigestive tract effacement. There is been interval removal of a drainage catheter. Remaining support hardware is unchanged in position. There are nonsuppurative mildly enlarged lymph nodes in the visualized mediastinum. There are large volume right and small volume left pleural effusions, similar in appearance to the prior examination. The remaining visualized soft tissue is without worrisome finding. Chronic appearing postoperative changes remain evident in the cervical spine, with increased density in the C4-T1 vertebral bodies likely reflecting ongoing and/ or sequela of osteomyelitis. IMPRESSION:1. Since 09/12/2017, continued improvement in cervicothoracic retropharyngeal/anterior paravertebral soft tissue infection.2. Similar appearing right greater than left pleural effusions. Signed: Ryder Baker Verified Date/Time: 10/08/2017 18: 18:20 Reading Location: [facility] Radiology Reading Room -GLUCOSE [id number] 12:53:00* Test Item Value Reference Range Comments POC-GLUCOSE METER (BEAKER) (test tyeh=3392) 151 mg/dL 70-110 TESTED AT [address] [address] POCT-GLUCOSE [id number] 05:47:00* Test Item Value Reference Range Comments POC-GLUCOSE METER (BEAKER) (test pxnw=9111) 136 mg/dL 70-[address] [facility] [address] [facility] [address] RAD, CHEST, 1 VIEW, NON [id number] 03:58:00Reason for exam:->medistinal abscessShould this be performed at the bedside?->YesFINAL REPORT CLINICAL INDICATION: Mediastinal abscess Comparison: 10/07/2017 The cardiomediastinal contours are stable. Right greater than left parenchymal and pleural opacities are unchanged. There is no pneumothorax. Support lines are stable. Signed: Cruz Hampton MDReport Verified Date/Time: 10/08/2017 03:58:58 Reading Location: [address] Reading Room W/PLT COUNT & AUTO [id number] 03:27:00* Test Item Value Reference Range Comments WHITE BLOOD CELL COUNT (BEAKER) (test jpit=936) 9.1 K/ L 3.5-10.5 RED BLOOD CELL COUNT (BEAKER) (test dnrz=500) 3.03 M/ L 4.63-6.08 HEMOGLOBIN (BEAKER) (test wdkg=057) 8.2 GM/DL 13.7-17.5 HEMATOCRIT (BEAKER) (test eplw=219) 27.7 % 40.1-51.0 MEAN CORPUSCULAR VOLUME (BEAKER) (test hgzb=073) 91.4 fL 79.0-92.2 MEAN CORPUSCULAR HEMOGLOBIN (BEAKER) (test rtpd=586) 27.1 pg 25.7-32.2 MEAN CORPUSCULAR HEMOGLOBIN CONC (BEAKER) (test geaz=682) 29.6 GM/DL 32.3- 36.5 RED CELL DISTRIBUTION WIDTH (BEAKER) (test zthr=201) 20.3 % 11.6-14.4 PLATELET COUNT (BEAKER) (test efsi=186) 371 K/CU MM 150-450 MEAN PLATELET VOLUME (BEAKER) (test xcwi=296) 9.6 fL 9.4-12.4 NUCLEATED RED BLOOD CELLS (BEAKER) (test hctt=809) 0 /100 WBC 0-0 NEUTROPHILS RELATIVE PERCENT (BEAKER) (test buuw=917) 68 % LYMPHOCYTES RELATIVE PERCENT (BEAKER) (test hghp=330) 20 % MONOCYTES RELATIVE PERCENT (BEAKER) (test bqnh=681) 7 % EOSINOPHILS RELATIVE PERCENT (BEAKER) (test ltcs=353) 4 % BASOPHILS RELATIVE PERCENT (BEAKER) (test hdxi=112) 1 % NEUTROPHILS ABSOLUTE COUNT (BEAKER) (test oamc=931) 6.17 K/ L 1.78-5.38 LYMPHOCYTES ABSOLUTE COUNT (BEAKER) (test cakm=703) 1.84 K/ L 1.32-3.57 MONOCYTES ABSOLUTE COUNT (BEAKER) (test czxk=034) 0.64 K/ L 0.30-0.82 EOSINOPHILS ABSOLUTE COUNT (BEAKER) (test iuuq=477) 0.34 K/ L 0.04-0.54 BASOPHILS ABSOLUTE COUNT (BEAKER) (test ukbp=744) 0.05 K/ L 0.01-0.08 IMMATURE GRANULOCYTES-RELATIVE PERCENT (BEAKER) (test pygp=4712) 0 % 0-1 BASIC METABOLIC [id number] 03:11:00* Test Item Value Reference Range Comments SODIUM (BEAKER) (test zpys=773) 141 meq/L 136-145 POTASSIUM (BEAKER) (test djby=410) 3.6 meq/L 3.5-5.1 CHLORIDE (BEAKER) (test liac=733) 103 meq/L 98-107 CO2 (BEAKER) (test whuq=429) 34 meq/L 22-29 BLOOD UREA NITROGEN (BEAKER) (test wyvo=680) 20 mg/dL 7-21 CREATININE (BEAKER) (test bndy=734) 0.34 mg/dL 0.57-1.25 GLUCOSE RANDOM (BEAKER) (test bemd=573) 128 mg/dL 70-105 CALCIUM (BEAKER) (test kdvj=442) 7.8 mg/dL 8.4-10.2 EGFR (BEAKER) (test oqks=9802) 272 mL/min/1.73 sq m ESTIMATED GFR IS NOT ACCURATE CREATININE CLEARANCE IN PREDICTING GLOMERULAR FILTRATION RATE. ESTIMATED GFR IS NOT APPLICABLE FOR DIALYSIS PATIENTS. [id number] 03:03:00* Test Item Value Reference Range Comments PHOSPHORUS (BEAKER) (test xtvv=739) 2.5 mg/dL 2.3-4.7 [id number] 03:03:00* Test Item Value Reference Range Comments MAGNESIUM (BEAKER) (test wtdj=764) 1.4 mg/dL 1.6-2.6 POCT-GLUCOSE [id number] 23:53:00* Test Item Value Reference Range Comments POC-GLUCOSE METER (BEAKER) (test pjcy=5442) 138 mg/dL 70-110 [address]ED AT [address] [address] POCT-GLUCOSE [id number] 18:19:00* Test Item Value Reference Range Comments POC-GLUCOSE METER (BEAKER) (test thbl=8719) 123 mg/dL 70-110 TESTED AT [address] [address] RAD, CHEST, 1 VIEW, NON [id number] 17:05:00Reason for exam:->sobShould this be performed at the bedside?->YesFINAL REPORT INDICATION : sob COMPARISON: October 07, 2017 at 5:25 AM TECHNIQUE: Chest radiograph, single view, portable technique. FINDINGS / IMPRESSION: Moderate right and small left pleural effusion are unchanged. No pulmonary venous congestion or edema. Tracheostomy tube and left chest port noted. There is no pneumothorax. Osseous structures unremarkable. Signed: Estuardo Peck Verified Date /Time: 10/07/2017 17:05:20 Reading Location: [facility] Reading Room -GLUCOSE [id number] 12:58:00* Test Item Value Reference Range Comments POC-GLUCOSE METER (BEAKER) (test bquz=4861) 139 mg/dL 70-110 TESTED AT [address] [address] POCT-GLUCOSE [id number] 06:05:00* Test Item Value Reference Range Comments POC-GLUCOSE METER (BEAKER) (test mdxf=1192) 122 mg/dL 70-110 TESTED AT [address] [address] RAD, CHEST, 1 VIEW, NON [id number] 05:36:00Reason for exam:->medistinal abscessShould this be performed at the bedside?->YesFINAL REPORT RAD, CHEST, 1 VIEW, NON DEPT INDICATION: medistinal abscess COMPARISON : Prior day's exam FINDINGS: Portable frontal view of the chest. IMPRESSION: Support Lines: Left IJ port catheter is stable. The port has been accessed. Tracheostomy tube projects over the tracheal air column. Lungs and pleura: Unchanged interstitial edema and small effusions bilaterally, right greater than left. No pneumothorax.Heart and mediastinum: Stable contours. Additional findings: None. Signed: JR Aman, Wanda GARCESeport Verified Date/Time: 10/07/2017 05:36:51 Reading Location: [address] Body Reading Room [id number] 05:27:00* Test Item Value Reference Range Comments PHOSPHORUS (BEAKER) (test yzqw=087) 3.3 mg/dL 2.3-4.7 [id number] 05:27:00* Test Item Value Reference Range Comments MAGNESIUM (BEAKER) (test wypg=568) 1.4 mg/dL 1.6-2.6 BASIC METABOLIC [id number] 05:27:00* Test Item Value Reference Range Comments SODIUM (BEAKER) (test gdiu=852) 143 meq/L 136-145 POTASSIUM (BEAKER) (test wuua=714) 4.1 meq/L 3.5-5.1 CHLORIDE (BEAKER) (test dwgu=968) 104 meq/L 98-107 CO2 (BEAKER) (test hqbz=460) 34 meq/L 22-29 BLOOD UREA NITROGEN (BEAKER) (test ihqw=966) 21 mg/dL 7-21 CREATININE (BEAKER) (test ssml=879) 0.34 mg/dL 0.57-1.25 GLUCOSE RANDOM (BEAKER) (test woia=791) 96 mg/dL 70-105 CALCIUM (BEAKER) (test wxup=370) 8.0 mg/dL 8.4-10.2 EGFR (BEAKER) (test hxey=8853) 272 mL/min/1.73 sq m ESTIMATED GFR IS NOT ACCURATE CREATININE CLEARANCE IN PREDICTING GLOMERULAR FILTRATION RATE. ESTIMATED GFR IS NOT APPLICABLE FOR DIALYSIS PATIENTS. CBC W/PLT COUNT & AUTO [id number] 05:11:00* Test Item Value Reference Range Comments WHITE BLOOD CELL COUNT (BEAKER) (test wwow=847) 7.3 K/ L 3.5-10.5 RED BLOOD CELL COUNT (BEAKER) (test iauf=785) 3.29 M/ L 4.63-6.08 HEMOGLOBIN (BEAKER) (test iser=014) 8.8 GM/DL 13.7-17.5 HEMATOCRIT (BEAKER) (test tlas=482) 30.2 % 40.1-51.0 MEAN CORPUSCULAR VOLUME (BEAKER) (test wpht=369) 91.8 fL 79.0-92.2 MEAN CORPUSCULAR HEMOGLOBIN (BEAKER) (test embh=708) 26.7 pg 25.7-32.2 MEAN CORPUSCULAR HEMOGLOBIN CONC (BEAKER) (test zrsq=371) 29.1 GM/DL 32.3- 36.5 RED CELL DISTRIBUTION WIDTH (BEAKER) (test ukxs=334) 20.5 % 11.6-14.4 PLATELET COUNT (BEAKER) (test ibtx=401) 416 K/CU MM 150-450 MEAN PLATELET VOLUME (BEAKER) (test uqyz=963) 10.0 fL 9.4-12.4 NUCLEATED RED BLOOD CELLS (BEAKER) (test yocc=182) 0 /100 WBC 0-0 NEUTROPHILS RELATIVE PERCENT (BEAKER) (test dkio=273) 55 % LYMPHOCYTES RELATIVE PERCENT (BEAKER) (test arey=116) 28 % MONOCYTES RELATIVE PERCENT (BEAKER) (test vayj=440) 11 % EOSINOPHILS RELATIVE PERCENT (BEAKER) (test uibx=125) 6 % BASOPHILS RELATIVE PERCENT (BEAKER) (test kknx=456) 1 % NEUTROPHILS ABSOLUTE COUNT (BEAKER) (test xiei=495) 3.98 K/ L 1.78-5.38 LYMPHOCYTES ABSOLUTE COUNT (BEAKER) (test kswt=056) 2.02 K/ L 1.32-3.57 MONOCYTES ABSOLUTE COUNT (BEAKER) (test sisv=724) 0.79 K/ L 0.30-0.82 EOSINOPHILS ABSOLUTE COUNT (BEAKER) (test xnhb=502) 0.42 K/ L 0.04-0.54 BASOPHILS ABSOLUTE COUNT (BEAKER) (test xodr=629) 0.05 K/ L 0.01-0.08 IMMATURE GRANULOCYTES-RELATIVE PERCENT (BEAKER) (test orju=6698) 1 % 0-1 POCT-GLUCOSE [id number] 23:56:00* Test Item Value Reference Range Comments POC-GLUCOSE METER (BEAKER) (test lvso=4851) 114 mg/dL 70-110 TESTED AT [address] [address] RAD, CHEST, 1 VIEW, NON [id number] 21:16:00Reason for exam:->s/p chest tube removalShould this be performed at the bedside?->YesFINAL REPORT CLINICAL INDICATION: Status post right chest tube removal Comparison: Same dated 0328 hours There is a stable moderate right pleural effusion without pneumothorax after right chest tube removal. The cardiomediastinal contours are stable. Central pulmonary vascular prominence and bilateral parenchymal opacities are unchanged. Remaining support lines are stable. Signed: Cruz Hampton Verified Date/Time: 10/06/2017 21:16:54 Reading Location: [address] Reading Room -GLUCOSE [id number] 18:09:00* Test Item Value Reference Range Comments POC-GLUCOSE METER (BEAKER) (test ampf=4091) 142 mg/dL 70-110 TESTED AT [address] [address] POCT-GLUCOSE [id number] 12:56:00* Test Item Value Reference Range Comments POC-GLUCOSE METER (BEAKER) (test ncau=1895) 123 mg/dL 70-110 TESTED AT [address] [address] POCT-GLUCOSE [id number] 06:04:00* Test Item Value Reference Range Comments POC-GLUCOSE METER (BEAKER) (test bhjo=4210) 121 mg/dL 70-110 TESTED AT [address] [address] BASIC METABOLIC [id number] 05:37:00* Test Item Value Reference Range Comments SODIUM (BEAKER) (test vntk=456) 140 meq/L 136-145 POTASSIUM (BEAKER) (test grba=762) 3.9 meq/L 3.5-5.1 CHLORIDE (BEAKER) (test kztz=502) 104 meq/L 98-107 CO2 (BEAKER) (test hfyc=488) 32 meq/L 22-29 BLOOD UREA NITROGEN (BEAKER) (test zwxg=036) 23 mg/dL 7-21 CREATININE (BEAKER) (test bkwa=992) 0.35 mg/dL 0.57-1.25 GLUCOSE RANDOM (BEAKER) (test zuni=299) 98 mg/dL 70-105 CALCIUM (BEAKER) (test wotn=790) 7.8 mg/dL 8.4-10.2 EGFR (BEAKER) (test fxyx=7644) 264 mL/min/1.73 sq m ESTIMATED GFR IS NOT ACCURATE CREATININE CLEARANCE IN PREDICTING GLOMERULAR FILTRATION RATE. ESTIMATED GFR IS NOT APPLICABLE FOR DIALYSIS PATIENTS. [id number] 05:27:00* Test Item Value Reference Range Comments PHOSPHORUS (BEAKER) (test gkqp=704) 2.8 mg/dL 2.3-4.7 [id number] 05:27:00* Test Item Value Reference Range Comments MAGNESIUM (BEAKER) (test wemk=750) 1.3 mg/dL 1.6-2.6 CBC W/PLT COUNT & AUTO [id number] 04:53:00* Test Item Value Reference Range Comments WHITE BLOOD CELL COUNT (BEAKER) (test clzj=394) 7.3 K/ L 3.5-10.5 RED BLOOD CELL COUNT (BEAKER) (test bwsy=964) 3.09 M/ L 4.63-6.08 HEMOGLOBIN (BEAKER) (test zyic=740) 8.3 GM/DL 13.7-17.5 HEMATOCRIT (BEAKER) (test wpch=416) 28.1 % 40.1-51.0 MEAN CORPUSCULAR VOLUME (BEAKER) (test xech=428) 90.9 fL 79.0-92.2 MEAN CORPUSCULAR HEMOGLOBIN (BEAKER) (test txba=111) 26.9 pg 25.7-32.2 MEAN CORPUSCULAR HEMOGLOBIN CONC (BEAKER) (test hqly=866) 29.5 GM/DL 32.3- 36.5 RED CELL DISTRIBUTION WIDTH (BEAKER) (test ejff=872) 20.7 % 11.6-14.4 PLATELET COUNT (BEAKER) (test ftnl=702) 412 K/CU MM 150-450 MEAN PLATELET VOLUME (BEAKER) (test wrpg=896) 10.2 fL 9.4-12.4 NUCLEATED RED BLOOD CELLS (BEAKER) (test nbyc=404) 0 /100 WBC 0-0 NEUTROPHILS RELATIVE PERCENT (BEAKER) (test sgee=826) 56 % LYMPHOCYTES RELATIVE PERCENT (BEAKER) (test qpas=180) 28 % MONOCYTES RELATIVE PERCENT (BEAKER) (test avvc=421) 10 % EOSINOPHILS RELATIVE PERCENT (BEAKER) (test zglo=115) 6 % BASOPHILS RELATIVE PERCENT (BEAKER) (test flin=810) 1 % NEUTROPHILS ABSOLUTE COUNT (BEAKER) (test wqxm=863) 4.07 K/ L 1.78-5.38 LYMPHOCYTES ABSOLUTE COUNT (BEAKER) (test cfye=484) 2.03 K/ L 1.32-3.57 MONOCYTES ABSOLUTE COUNT (BEAKER) (test anbv=001) 0.71 K/ L 0.30-0.82 EOSINOPHILS ABSOLUTE COUNT (BEAKER) (test kylu=013) 0.43 K/ L 0.04-0.54 BASOPHILS ABSOLUTE COUNT (BEAKER) (test ajnk=051) 0.05 K/ L 0.01-0.08 IMMATURE GRANULOCYTES-RELATIVE PERCENT (BEAKER) (test tgtd=0065) 0 % 0-1 RAD, CHEST, 1 VIEW, NON [id number] 03:41:00Reason for exam:->medistinal abscessShould this be performed at the bedside?->YesFINAL REPORT RAD, CHEST, 1 VIEW, NON DEPT INDICATION: medistinal abscess COMPARISON : Prior day's exam FINDINGS: Portable frontal view of the chest. IMPRESSION: Support Lines: Stable left IJ port catheter. The port has been accessed. Tracheostomy tube projects over the tracheal air column. Lungs and pleura: Persistent moderate right and questionable small left pleural effusions. No new airspace disease. No pneumothorax.Heart and mediastinum: Stable contours. Additional findings: None. Signed: JR Newton Robert MDReport Verified Date/Time: 10/06/2017 03:41:41 Reading Location: [facility] C0[facility] Transitional Reading Room -GLUCOSE [id number] 00:17:00* Test Item Value Reference Range Comments POC-GLUCOSE METER (BEAKER) (test dlsk=6700) 124 mg/dL 70-110 [address]ED AT [address] [address] POCT-GLUCOSE [id number] 18:57:00* Test Item Value Reference Range Comments POC-GLUCOSE METER (BEAKER) (test crut=2589) 100 mg/dL 70-110 TESTED AT [address] [address] POCT-GLUCOSE [id number] 12:04:00* Test Item Value Reference Range Comments POC-GLUCOSE METER (BEAKER) (test umwr=8254) 132 mg/dL 70-110 TESTED AT [address] [address] POCT-GLUCOSE [id number] 05:57:00* Test Item Value Reference Range Comments POC-GLUCOSE METER (BEAKER) (test gmlq=8156) 104 mg/dL 70-110 TESTED AT [address] [address] [id number] 04:54:00* Test Item Value Reference Range Comments PREALBUMIN (BEAKER) (test cbkc=138) 13 mg/dL 14-45 PROTEIN, [id number] 04:52:00* Test Item Value Reference Range Comments TOTAL PROTEIN (BEAKER) (test ycgp=157) 5.8 gm/dL 6.0-8.3 [id number] 04:52:00* Test Item Value Reference Range Comments MAGNESIUM (BEAKER) (test yyxc=130) 1.6 mg/dL 1.6-2.6 [id number] 04:52:00* Test Item Value Reference Range Comments PHOSPHORUS (BEAKER) (test kauw=022) 2.7 mg/dL 2.3-4.7 [id number] 04:52:00* Test Item Value Reference Range Comments ALBUMIN (BEAKER) (test fhhz=8196) 2.0 g/dL 3.5-5.0 CREATINE KINASE (CK)2017-10-05 04:52:00* Test Item Value Reference Range Comments CREATINE KINASE TOTAL (BEAKER) (test dhaq=772) 39 U/L 29-200 BASIC METABOLIC [id number] 04:52:00* Test Item Value Reference Range Comments SODIUM (BEAKER) (test crre=754) 142 meq/L 136-145 POTASSIUM (BEAKER) (test iran=570) 3.6 meq/L 3.5-5.1 CHLORIDE (BEAKER) (test zisz=125) 103 meq/L 98-107 CO2 (BEAKER) (test eqhk=126) 34 meq/L 22-29 BLOOD UREA NITROGEN (BEAKER) (test pdci=656) 19 mg/dL 7-21 CREATININE (BEAKER) (test lrvc=518) 0.35 mg/dL 0.57-1.25 GLUCOSE RANDOM (BEAKER) (test gzdd=036) 121 mg/dL 70-105 CALCIUM (BEAKER) (test yjsy=454) 7.9 mg/dL 8.4-10.2 EGFR (BEAKER) (test uyfp=5893) 264 mL/min/1.73 sq m ESTIMATED GFR IS NOT ACCURATE CREATININE CLEARANCE IN PREDICTING GLOMERULAR FILTRATION RATE. ESTIMATED GFR IS NOT APPLICABLE FOR DIALYSIS PATIENTS. CBC W/PLT COUNT & AUTO [id number] 04:28:00* Test Item Value Reference Range Comments WHITE BLOOD CELL COUNT (BEAKER) (test uioj=290) 7.6 K/ L 3.5-10.5 RED BLOOD CELL COUNT (BEAKER) (test yqts=667) 3.15 M/ L 4.63-6.08 HEMOGLOBIN (BEAKER) (test vcsa=540) 8.4 GM/DL 13.7-17.5 HEMATOCRIT (BEAKER) (test dhrx=212) 28.3 % 40.1-51.0 MEAN CORPUSCULAR VOLUME (BEAKER) (test gxvr=283) 89.8 fL 79.0-92.2 MEAN CORPUSCULAR HEMOGLOBIN (BEAKER) (test ffob=494) 26.7 pg 25.7-32.2 MEAN CORPUSCULAR HEMOGLOBIN CONC (BEAKER) (test dpbz=174) 29.7 GM/DL 32.3- 36.5 RED CELL DISTRIBUTION WIDTH (BEAKER) (test zkqo=475) 20.8 % 11.6-14.4 PLATELET COUNT (BEAKER) (test sprs=993) 429 K/CU MM 150-450 MEAN PLATELET VOLUME (BEAKER) (test zoxj=730) 10.1 fL 9.4-12.4 NUCLEATED RED BLOOD CELLS (BEAKER) (test cuul=167) 0 /100 WBC 0-0 NEUTROPHILS RELATIVE PERCENT (BEAKER) (test zzop=154) 64 % LYMPHOCYTES RELATIVE PERCENT (BEAKER) (test tyeg=610) 20 % MONOCYTES RELATIVE PERCENT (BEAKER) (test rnmf=668) 10 % EOSINOPHILS RELATIVE PERCENT (BEAKER) (test vkvj=731) 6 % BASOPHILS RELATIVE PERCENT (BEAKER) (test rzkj=784) 1 % NEUTROPHILS ABSOLUTE COUNT (BEAKER) (test dtls=116) 4.80 K/ L 1.78-5.38 LYMPHOCYTES ABSOLUTE COUNT (BEAKER) (test rfiv=985) 1.52 K/ L 1.32-3.57 MONOCYTES ABSOLUTE COUNT (BEAKER) (test yukd=485) 0.73 K/ L 0.30-0.82 EOSINOPHILS ABSOLUTE COUNT (BEAKER) (test oqpq=315) 0.44 K/ L 0.04-0.54 BASOPHILS ABSOLUTE COUNT (BEAKER) (test iilp=891) 0.04 K/ L 0.01-0.08 IMMATURE GRANULOCYTES-RELATIVE PERCENT (BEAKER) (test attu=2096) 0 % 0-1 RAD, CHEST, 1 VIEW, NON [id number] 04:28:00Reason for exam:->medistinal abscessShould this be performed at the bedside?->YesFINAL REPORT CLINICAL INDICATION: Mediastinal abscess Comparison: 2017 The cardiomediastinal contours are stable. Central pulmonary vascular congestion and bilateral parenchymal and pleural opacities are unchanged. There is no pneumothorax. Support lines are stable. Signed: Cruz Hampton MDReport Verified Date/Time: 10/05/2017 04:28:52 Reading Location: [address] Reading Room -GLUCOSE [id number] 00:07:00* Test Item Value Reference Range Comments POC-GLUCOSE METER (BEAKER) (test hfvi=2938) 109 mg/dL 70-[address] [facility] [address] [facility] [address] POCT-GLUCOSE [id number] 00:07:00* Test Item Value Reference Range Comments POC-GLUCOSE METER (BEAKER) (test zrih=7978) 121 mg/dL 70-110 TESTED AT [place] [id number] [facility] [address] POCT-GLUCOSE [id number] 18:20:00* Test Item Value Reference Range Comments POC-GLUCOSE METER (BEAKER) (test cyzo=7514) 129 mg/dL 70-110 TESTED AT [address] [address] POCT-GLUCOSE [id number] 13:15:00* Test Item Value Reference Range Comments POC-GLUCOSE METER (BEAKER) (test rubs=8487) 122 mg/dL 70-110 TESTED AT [address] [address] [id number] 11:32:00* Test Item Value Reference Range Comments MAGNESIUM (BEAKER) (test dyyq=268) 1.9 mg/dL 1.6-2.6 CBC W/PLT COUNT & AUTO [id number] 06:34:00* Test Item Value Reference Range Comments WHITE BLOOD CELL COUNT (BEAKER) (test jkmz=813) 6.6 K/ L 3.5-10.5 RED BLOOD CELL COUNT (BEAKER) (test eixa=741) 2.94 M/ L 4.63-6.08 HEMOGLOBIN (BEAKER) (test feip=161) 8.0 GM/DL 13.7-17.5 HEMATOCRIT (BEAKER) (test dfqq=302) 26.7 % 40.1-51.0 MEAN CORPUSCULAR VOLUME (BEAKER) (test ciqh=505) 90.8 fL 79.0-92.2 MEAN CORPUSCULAR HEMOGLOBIN (BEAKER) (test gcux=591) 27.2 pg 25.7-32.2 MEAN CORPUSCULAR HEMOGLOBIN CONC (BEAKER) (test jfgq=451) 30.0 GM/DL 32.3- 36.5 RED CELL DISTRIBUTION WIDTH (BEAKER) (test fnhc=484) 21.1 % 11.6-14.4 PLATELET COUNT (BEAKER) (test zwib=464) 388 K/CU MM 150-450 MEAN PLATELET VOLUME (BEAKER) (test jtyc=256) 9.9 fL 9.4-12.4 NUCLEATED RED BLOOD CELLS (BEAKER) (test xnck=075) 0 /100 WBC 0-0 NEUTROPHILS RELATIVE PERCENT (BEAKER) (test purq=595) 49 % LYMPHOCYTES RELATIVE PERCENT (BEAKER) (test bjkz=769) 32 % MONOCYTES RELATIVE PERCENT (BEAKER) (test jzzl=750) 11 % EOSINOPHILS RELATIVE PERCENT (BEAKER) (test ylvz=360) 8 % BASOPHILS RELATIVE PERCENT (BEAKER) (test agtk=474) 1 % NEUTROPHILS ABSOLUTE COUNT (BEAKER) (test ojcy=638) 3.24 K/ L 1.78-5.38 LYMPHOCYTES ABSOLUTE COUNT (BEAKER) (test gjxd=105) 2.11 K/ L 1.32-3.57 MONOCYTES ABSOLUTE COUNT (BEAKER) (test znzb=618) 0.71 K/ L 0.30-0.82 EOSINOPHILS ABSOLUTE COUNT (BEAKER) (test gdfv=674) 0.52 K/ L 0.04-0.54 BASOPHILS ABSOLUTE COUNT (BEAKER) (test yalq=090) 0.03 K/ L 0.01-0.08 IMMATURE GRANULOCYTES-RELATIVE PERCENT (BEAKER) (test gmuk=8853) 1 % 0-1 BASIC METABOLIC [id number] 05:46:00* Test Item Value Reference Range Comments SODIUM (BEAKER) (test ycwv=963) 138 meq/L 136-145 POTASSIUM (BEAKER) (test fjzc=836) 3.8 meq/L 3.5-5.1 CHLORIDE (BEAKER) (test rytp=348) 102 meq/L 98-107 CO2 (BEAKER) (test nosy=154) 30 meq/L 22-29 BLOOD UREA NITROGEN (BEAKER) (test xhwm=127) 19 mg/dL 7-21 CREATININE (BEAKER) (test pguu=618) 0.36 mg/dL 0.57-1.25 GLUCOSE RANDOM (BEAKER) (test zuqj=468) 101 mg/dL 70-105 CALCIUM (BEAKER) (test novt=451) 7.8 mg/dL 8.4-10.2 EGFR (BEAKER) (test kldk=8397) 255 mL/min/1.73 sq m ESTIMATED GFR IS NOT ACCURATE CREATININE CLEARANCE IN PREDICTING GLOMERULAR FILTRATION RATE. ESTIMATED GFR IS NOT APPLICABLE FOR DIALYSIS PATIENTS. [id number] 05:40:00* Test Item Value Reference Range Comments PHOSPHORUS (BEAKER) (test accd=553) 2.5 mg/dL 2.3-4.7 [id number] 05:40:00* Test Item Value Reference Range Comments MAGNESIUM (BEAKER) (test dfwb=274) 1.4 mg/dL 1.6-2.6 RAD, CHEST, 1 VIEW, NON [id number] 00:50:00Reason for exam:->increasing chest tube drainageShould this be performed at the bedside?->YesFINAL REPORT CLINICAL INDICATION: Increasing chest tube drainage Comparison: 10/03/2017 The cardiomediastinal contours are stable. There is moderate central pulmonary vascular congestion, stable. A small to moderate right pleural effusion appears less conspicuous on today's examination. Right- sided chest tubes have been removed or are below the lower limits of the examination. Please correlate. Bibasilar opacities may reflect a combination of atelectasis and edema but pneumonitis should be excluded clinically. There is no pneumothorax. Support lines are otherwise stable. Signed: Cruz Hampton Verified Date/Time: 2017 00:50:38 Reading Location: [address] Reading Room -GLUCOSE [id number] 00:02:00* Test Item Value Reference Range Comments POC-GLUCOSE METER (BEAKER) (test hjnh=9630) 128 mg/dL 70-110 TESTED AT [place] [id number] [facility] [address] POCT-GLUCOSE [id number] 18:31:00* Test Item Value Reference Range Comments POC-GLUCOSE METER (BEAKER) (test jbsl=3825) 118 mg/dL 70-110 TESTED AT [place] [id number] [facility] [address] [id number] 13:38:00* Test Item Value Reference Range Comments POTASSIUM (BEAKER) (test zlsj=693) 4.2 meq/L 3.5-5.1 [id number] 13:38:00* Test Item Value Reference Range Comments MAGNESIUM (BEAKER) (test zzjj=543) 2.3 mg/dL 1.6-2.6 POCT-GLUCOSE [id number] 12:35:00* Test Item Value Reference Range Comments POC-GLUCOSE METER (BEAKER) (test adgi=4252) 163 mg/dL 70-[address] [facility] [address] [facility] [address] BASIC METABOLIC [id number] 07:43:00* Test Item Value Reference Range Comments SODIUM (BEAKER) (test tbqm=167) 140 meq/L 136-145 POTASSIUM (BEAKER) (test tiia=444) 3.7 meq/L 3.5-5.1 CHLORIDE (BEAKER) (test tjfv=782) 105 meq/L 98-107 CO2 (BEAKER) (test jgxc=617) 31 meq/L 22-29 BLOOD UREA NITROGEN (BEAKER) (test ypym=175) 19 mg/dL 7-21 CREATININE (BEAKER) (test yymc=735) 0.36 mg/dL 0.57-1.25 GLUCOSE RANDOM (BEAKER) (test kgue=812) 103 mg/dL 70-105 CALCIUM (BEAKER) (test bvdv=116) 7.9 mg/dL 8.4-10.2 EGFR (BEAKER) (test lrll=3961) 256 mL/min/1.73 sq m ESTIMATED GFR IS NOT ACCURATE CREATININE CLEARANCE IN PREDICTING GLOMERULAR FILTRATION RATE. ESTIMATED GFR IS NOT APPLICABLE FOR DIALYSIS PATIENTS. [id number] 07:42:00* Test Item Value Reference Range Comments PHOSPHORUS (BEAKER) (test rosg=602) 2.5 mg/dL 2.3-4.7 [id number] 07:42:00* Test Item Value Reference Range Comments MAGNESIUM (BEAKER) (test tsgi=626) 1.4 mg/dL 1.6-2.6 CBC W/PLT COUNT & AUTO [id number] 07:34:00* Test Item Value Reference Range Comments WHITE BLOOD CELL COUNT (BEAKER) (test srlt=987) 6.6 K/ L 3.5-10.5 RED BLOOD CELL COUNT (BEAKER) (test wvdw=933) 2.89 M/ L 4.63-6.08 HEMOGLOBIN (BEAKER) (test sjoy=313) 7.7 GM/DL 13.7-17.5 HEMATOCRIT (BEAKER) (test vjpi=853) 26.6 % 40.1-51.0 MEAN CORPUSCULAR VOLUME (BEAKER) (test aipe=895) 92.0 fL 79.0-92.2 MEAN CORPUSCULAR HEMOGLOBIN (BEAKER) (test ghet=840) 26.6 pg 25.7-32.2 MEAN CORPUSCULAR HEMOGLOBIN CONC (BEAKER) (test gjap=193) 28.9 GM/DL 32.3- 36.5 RED CELL DISTRIBUTION WIDTH (BEAKER) (test cfkl=799) 21.4 % 11.6-14.4 PLATELET COUNT (BEAKER) (test tydt=077) 425 K/CU MM 150-450 MEAN PLATELET VOLUME (BEAKER) (test huzt=288) 10.3 fL 9.4-12.4 NUCLEATED RED BLOOD CELLS (BEAKER) (test thwh=118) 0 /100 WBC 0-0 NEUTROPHILS RELATIVE PERCENT (BEAKER) (test rjve=076) 49 % LYMPHOCYTES RELATIVE PERCENT (BEAKER) (test gfsy=241) 31 % MONOCYTES RELATIVE PERCENT (BEAKER) (test enfr=725) 10 % EOSINOPHILS RELATIVE PERCENT (BEAKER) (test xtvn=929) 9 % BASOPHILS RELATIVE PERCENT (BEAKER) (test sggx=876) 1 % NEUTROPHILS ABSOLUTE COUNT (BEAKER) (test dihu=153) 3.25 K/ L 1.78-5.38 LYMPHOCYTES ABSOLUTE COUNT (BEAKER) (test zqam=609) 2.05 K/ L 1.32-3.57 MONOCYTES ABSOLUTE COUNT (BEAKER) (test dcww=291) 0.65 K/ L 0.30-0.82 EOSINOPHILS ABSOLUTE COUNT (BEAKER) (test ruow=333) 0.57 K/ L 0.04-0.54 BASOPHILS ABSOLUTE COUNT (BEAKER) (test yskc=095) 0.03 K/ L 0.01-0.08 IMMATURE GRANULOCYTES-RELATIVE PERCENT (BEAKER) (test ozet=6427) 1 % 0-1 RAD, CHEST, 1 VIEW, NON [id number] 07:30:00Reason for exam:->medistinal abscessShould this be performed at the bedside?->YesFINAL REPORT Chest dated 10/03/2017 COMPARISON: October 02, 2017 Clinical Information: medistinal abscess Comment: Heart is enlarged. Pulmonary vasculature is indistinct. Interstitial disease is seen bilaterally suggestive of vascular congestion or pulmonary edema. Bilateral pleural effusions present worse on the right. Tracheostomy tube, left IJ central venous catheter, and right pigtail chest tube remain in place. Signed: Leslee June MDReport Verified Date/Time: 10/03/2017 07:30:10 Reading Location: [facility] [facility] B1 C013Y [address] Body Reading Room -GLUCOSE [id number] 00:13:00* Test Item Value Reference Range Comments POC-GLUCOSE METER (BEAKER) (test gema=9939) 132 mg/dL 70-[address] [facility] [address] [facility] [address] POCT-GLUCOSE [id number] 18:00:00* Test Item Value Reference Range Comments POC-GLUCOSE METER (BEAKER) (test wphc=2821) 89 mg/dL 70-110 TESTED AT [place] [id number] [facility] [address] POCT-GLUCOSE [id number] 12:41:00* Test Item Value Reference Range Comments POC-GLUCOSE METER (BEAKER) (test tsmw=0777) 132 mg/dL 70-[address] [facility] [address] [facility] [address] POCT-GLUCOSE [id number] 06:23:00* Test Item Value Reference Range Comments POC-GLUCOSE METER (BEAKER) (test nmsq=7699) 95 mg/dL 70-110 TESTED AT [place] [id number] [facility] [address] BASIC METABOLIC [id number] 05:14:00* Test Item Value Reference Range Comments SODIUM (BEAKER) (test wtuz=758) 141 meq/L 136-145 POTASSIUM (BEAKER) (test jgqt=133) 3.7 meq/L 3.5-5.1 CHLORIDE (BEAKER) (test wsuu=979) 110 meq/L 98-107 CO2 (BEAKER) (test lkgd=532) 25 meq/L 22-29 BLOOD UREA NITROGEN (BEAKER) (test dohm=381) 20 mg/dL 7-21 CREATININE (BEAKER) (test qvif=151) 0.35 mg/dL 0.57-1.25 GLUCOSE RANDOM (BEAKER) (test hcsv=375) 97 mg/dL 70-105 CALCIUM (BEAKER) (test jbdj=792) 7.4 mg/dL 8.4-10.2 EGFR (BEAKER) (test aavb=0385) 265 mL/min/1.73 sq m ESTIMATED GFR IS NOT ACCURATE CREATININE CLEARANCE IN PREDICTING GLOMERULAR FILTRATION RATE. ESTIMATED GFR IS NOT APPLICABLE FOR DIALYSIS PATIENTS. [id number] 05:03:00* Test Item Value Reference Range Comments PHOSPHORUS (BEAKER) (test lumb=701) 2.9 mg/dL 2.3-4.7 [id number] 05:03:00* Test Item Value Reference Range Comments MAGNESIUM (BEAKER) (test reev=926) 1.4 mg/dL 1.6-2.6 CBC W/PLT COUNT & AUTO [id number] 04:40:00* Test Item Value Reference Range Comments WHITE BLOOD CELL COUNT (BEAKER) (test nkrz=697) 7.1 K/ L 3.5-10.5 RED BLOOD CELL COUNT (BEAKER) (test aykw=465) 2.63 M/ L 4.63-6.08 HEMOGLOBIN (BEAKER) (test bmgf=822) 7.1 GM/DL 13.7-17.5 HEMATOCRIT (BEAKER) (test ysod=115) 24.4 % 40.1-51.0 MEAN CORPUSCULAR VOLUME (BEAKER) (test ystu=188) 92.8 fL 79.0-92.2 MEAN CORPUSCULAR HEMOGLOBIN (BEAKER) (test jris=330) 27.0 pg 25.7-32.2 MEAN CORPUSCULAR HEMOGLOBIN CONC (BEAKER) (test rmkq=676) 29.1 GM/DL 32.3- 36.5 RED CELL DISTRIBUTION WIDTH (BEAKER) (test qpiq=870) 22.0 % 11.6-14.4 PLATELET COUNT (BEAKER) (test bygg=575) 370 K/CU MM 150-450 MEAN PLATELET VOLUME (BEAKER) (test pgsl=967) 10.1 fL 9.4-12.4 NUCLEATED RED BLOOD CELLS (BEAKER) (test fayd=496) 0 /100 WBC 0-0 NEUTROPHILS RELATIVE PERCENT (BEAKER) (test irsz=002) 55 % LYMPHOCYTES RELATIVE PERCENT (BEAKER) (test qlec=939) 26 % MONOCYTES RELATIVE PERCENT (BEAKER) (test cvrx=292) 11 % EOSINOPHILS RELATIVE PERCENT (BEAKER) (test fmbk=538) 8 % BASOPHILS RELATIVE PERCENT (BEAKER) (test mkhb=262) 0 % NEUTROPHILS ABSOLUTE COUNT (BEAKER) (test zgsa=098) 3.94 K/ L 1.78-5.38 LYMPHOCYTES ABSOLUTE COUNT (BEAKER) (test fgys=670) 1.82 K/ L 1.32-3.57 MONOCYTES ABSOLUTE COUNT (BEAKER) (test atjx=954) 0.76 K/ L 0.30-0.82 EOSINOPHILS ABSOLUTE COUNT (BEAKER) (test vgqx=190) 0.57 K/ L 0.04-0.54 BASOPHILS ABSOLUTE COUNT (BEAKER) (test kynj=013) 0.03 K/ L 0.01-0.08 IMMATURE GRANULOCYTES-RELATIVE PERCENT (BEAKER) (test sfqw=0802) 0 % 0-1 RAD, CHEST, 1 VIEW, NON [id number] 03:54:00Reason for exam:->medistinal abscessShould this be performed at the bedside?->YesFINAL REPORT CLINICAL INDICATION: Mediastinal abscess Comparison: 10/01/2017 The cardiomediastinal contours are stable. Bilateral parenchymal and pleural opacities are unchanged. There is no pneumothorax. Support lines are stable. Signed: Cruz Hampton Verified Date/Time: 10/02/2017 03:54:37 Reading Location: [address] Reading Room -GLUCOSE [id number] 23:56: 00* Test Item Value Reference Range Comments POC-GLUCOSE METER (BEAKER) (test ojgu=2417) 113 mg/dL 70-110 TESTED AT [address] [address] POCT-GLUCOSE [id number] 18:23:00* Test Item Value Reference Range Comments POC-GLUCOSE METER (BEAKER) (test twxx=2995) 95 mg/dL 70-110 TESTED AT [address] [address] POCT-GLUCOSE [id number] 12:55:00* Test Item Value Reference Range Comments POC-GLUCOSE METER (BEAKER) (test rbht=9219) 107 mg/dL 70-110 TESTED AT [address] [address] RAD, CHEST, 1 VIEW, NON [id number] 07:17:00Reason for exam:->medistinal abscessShould this be performed at the bedside?->YesFINAL REPORT Chest dated 10/01/2017 COMPARISON: September 30, 2017 Clinical Information: medistinal abscess Comment: Heart is enlarged. Pulmonary vasculature is indistinct. Interstitial disease is seen bilaterally suggestive of vascular congestion. There is bilateral pleural effusion with bibasilar compressive atelectasis. Right PICC chest tube, tricuspid tube, and Port-A-Cath remain in place. No pneumothorax is seen. Impression: No interval change. Signed : Leslee June MDReport Verified Date/Time: 10/01/2017 07:17:29 Reading Location : [facility] C013Y CT Body Reading Room -GLUCOSE [id number] 06:25:00* Test Item Value Reference Range Comments POC-GLUCOSE METER (BEAKER) (test bmsa=0800) 120 mg/dL 70-110 TESTED AT [address] [address] BASIC METABOLIC [id number] 04:27:00* Test Item Value Reference Range Comments SODIUM (BEAKER) (test pqki=471) 142 meq/L 136-145 POTASSIUM (BEAKER) (test dmdp=691) 3.6 meq/L 3.5-5.1 CHLORIDE (BEAKER) (test wple=859) 113 meq/L 98-107 CO2 (BEAKER) (test vumt=401) 24 meq/L 22-29 BLOOD UREA NITROGEN (BEAKER) (test hziz=754) 18 mg/dL 7-21 CREATININE (BEAKER) (test nrsh=755) 0.31 mg/dL 0.57-1.25 GLUCOSE RANDOM (BEAKER) (test aulj=788) 98 mg/dL 70-105 CALCIUM (BEAKER) (test ezro=675) 7.3 mg/dL 8.4-10.2 EGFR (BEAKER) (test yfjb=1778) 304 mL/min/1.73 sq m ESTIMATED GFR IS NOT ACCURATE CREATININE CLEARANCE IN PREDICTING GLOMERULAR FILTRATION RATE. ESTIMATED GFR IS NOT APPLICABLE FOR DIALYSIS PATIENTS. [id number] 04:12:00* Test Item Value Reference Range Comments PHOSPHORUS (BEAKER) (test efkh=407) 2.9 mg/dL 2.3-4.7 [id number] 04:12:00* Test Item Value Reference Range Comments MAGNESIUM (BEAKER) (test mgob=250) 1.5 mg/dL 1.6-2.6 CBC W/PLT COUNT & AUTO [id number] 04:04:00* Test Item Value Reference Range Comments WHITE BLOOD CELL COUNT (BEAKER) (test ohor=167) 8.7 K/ L 3.5-10.5 RED BLOOD CELL COUNT (BEAKER) (test knlx=632) 2.81 M/ L 4.63-6.08 HEMOGLOBIN (BEAKER) (test ukul=355) 7.4 GM/DL 13.7-17.5 HEMATOCRIT (BEAKER) (test jahg=590) 25.6 % 40.1-51.0 MEAN CORPUSCULAR VOLUME (BEAKER) (test wenc=662) 91.1 fL 79.0-92.2 MEAN CORPUSCULAR HEMOGLOBIN (BEAKER) (test enqc=527) 26.3 pg 25.7-32.2 MEAN CORPUSCULAR HEMOGLOBIN CONC (BEAKER) (test lnrn=774) 28.9 GM/DL 32.3- 36.5 RED CELL DISTRIBUTION WIDTH (BEAKER) (test awil=542) 22.3 % 11.6-14.4 PLATELET COUNT (BEAKER) (test pbdb=840) 405 K/CU MM 150-450 MEAN PLATELET VOLUME (BEAKER) (test nlpr=583) 10.3 fL 9.4-12.4 NUCLEATED RED BLOOD CELLS (BEAKER) (test zlqs=535) 0 /100 WBC 0-0 NEUTROPHILS RELATIVE PERCENT (BEAKER) (test ybzm=494) 60 % LYMPHOCYTES RELATIVE PERCENT (BEAKER) (test hyzg=170) 22 % MONOCYTES RELATIVE PERCENT (BEAKER) (test cdnr=454) 12 % EOSINOPHILS RELATIVE PERCENT (BEAKER) (test pvtv=071) 6 % BASOPHILS RELATIVE PERCENT (BEAKER) (test jodu=195) 0 % NEUTROPHILS ABSOLUTE COUNT (BEAKER) (test irrr=878) 5.18 K/ L 1.78-5.38 LYMPHOCYTES ABSOLUTE COUNT (BEAKER) (test ovbk=443) 1.90 K/ L 1.32-3.57 MONOCYTES ABSOLUTE COUNT (BEAKER) (test wxtp=456) 1.02 K/ L 0.30-0.82 EOSINOPHILS ABSOLUTE COUNT (BEAKER) (test ipeo=803) 0.51 K/ L 0.04-0.54 BASOPHILS ABSOLUTE COUNT (BEAKER) (test ssgq=776) 0.03 K/ L 0.01-0.08 IMMATURE GRANULOCYTES-RELATIVE PERCENT (BEAKER) (test xafw=2538) 1 % 0-1 POCT-GLUCOSE [id number] 00:40:00* Test Item Value Reference Range Comments POC-GLUCOSE METER (BEAKER) (test ftef=9480) 120 mg/dL 70-110 [address]ED AT [address] [address] POCT-GLUCOSE [id number] 18:12:00* Test Item Value Reference Range Comments POC-GLUCOSE METER (BEAKER) (test hqia=2061) 94 mg/dL 70-110 TESTED AT [address] [address] POCT-GLUCOSE [id number] 12:33:00* Test Item Value Reference Range Comments POC-GLUCOSE METER (BEAKER) (test ipfj=0582) 128 mg/dL 70-110 TESTED AT [address] [address] POCT-GLUCOSE [id number] 05:58:00* Test Item Value Reference Range Comments POC-GLUCOSE METER (BEAKER) (test ldul=6229) 133 mg/dL 70-110 TESTED AT [address] [address] RAD, CHEST, 1 VIEW, NON [id number] 04:55:00Reason for exam:->medistinal abscessShould this be performed at the bedside?->YesFINAL REPORT CLINICAL INDICATION: Mediastinal abscess Comparison: 09/29/2017 The cardiomediastinal contours are stable. Right greater than left parenchymal and pleural opacities are unchanged. There is no pneumothorax. Support lines are stable. Signed: Cruz Hampton Verified Date/Time: 09/30/2017 04:55:44 Reading Location: [address] Reading Room C METABOLIC [id number] 04:36:00* Test Item Value Reference Range Comments SODIUM (BEAKER) (test jzng=733) 138 meq/L 136-145 POTASSIUM (BEAKER) (test tuka=953) 3.5 meq/L 3.5-5.1 CHLORIDE (BEAKER) (test tqzu=139) 110 meq/L 98-107 CO2 (BEAKER) (test xldd=841) 23 meq/L 22-29 BLOOD UREA NITROGEN (BEAKER) (test funv=788) 21 mg/dL 7-21 CREATININE (BEAKER) (test nevx=605) 0.36 mg/dL 0.57-1.25 GLUCOSE RANDOM (BEAKER) (test yznk=901) 104 mg/dL 70-105 CALCIUM (BEAKER) (test mxvo=203) 7.4 mg/dL 8.4-10.2 EGFR (BEAKER) (test llko=5659) 256 mL/min/1.73 sq m ESTIMATED GFR IS NOT ACCURATE CREATININE CLEARANCE IN PREDICTING GLOMERULAR FILTRATION RATE. ESTIMATED GFR IS NOT APPLICABLE FOR DIALYSIS PATIENTS. [id number] 04:17:00* Test Item Value Reference Range Comments PHOSPHORUS (BEAKER) (test bzwj=949) 3.1 mg/dL 2.3-4.7 [id number] 04:17:00* Test Item Value Reference Range Comments MAGNESIUM (BEAKER) (test okic=686) 1.4 mg/dL 1.6-2.6 CBC W/PLT COUNT & AUTO [id number] 04:00:00* Test Item Value Reference Range Comments WHITE BLOOD CELL COUNT (BEAKER) (test teck=273) 9.8 K/ L 3.5-10.5 RED BLOOD CELL COUNT (BEAKER) (test kkmf=842) 2.87 M/ L 4.63-6.08 HEMOGLOBIN (BEAKER) (test fdbb=923) 7.5 GM/DL 13.7-17.5 HEMATOCRIT (BEAKER) (test xkkm=872) 25.3 % 40.1-51.0 MEAN CORPUSCULAR VOLUME (BEAKER) (test pryy=559) 88.2 fL 79.0-92.2 MEAN CORPUSCULAR HEMOGLOBIN (BEAKER) (test wvjg=003) 26.1 pg 25.7-32.2 MEAN CORPUSCULAR HEMOGLOBIN CONC (BEAKER) (test qzty=737) 29.6 GM/DL 32.3- 36.5 RED CELL DISTRIBUTION WIDTH (BEAKER) (test mdzx=805) 23.0 % 11.6-14.4 PLATELET COUNT (BEAKER) (test fcas=935) 438 K/CU MM 150-450 MEAN PLATELET VOLUME (BEAKER) (test qinu=162) 9.4 fL 9.4-12.4 NUCLEATED RED BLOOD CELLS (BEAKER) (test fjoe=900) 0 /100 WBC 0-0 NEUTROPHILS RELATIVE PERCENT (BEAKER) (test sorj=965) 57 % LYMPHOCYTES RELATIVE PERCENT (BEAKER) (test eciw=106) 26 % MONOCYTES RELATIVE PERCENT (BEAKER) (test fpem=250) 11 % EOSINOPHILS RELATIVE PERCENT (BEAKER) (test etda=530) 5 % BASOPHILS RELATIVE PERCENT (BEAKER) (test ghvy=537) 1 % NEUTROPHILS ABSOLUTE COUNT (BEAKER) (test xigs=707) 5.55 K/ L 1.78-5.38 LYMPHOCYTES ABSOLUTE COUNT (BEAKER) (test eznd=841) 2.56 K/ L 1.32-3.57 MONOCYTES ABSOLUTE COUNT (BEAKER) (test wabv=525) 1.04 K/ L 0.30-0.82 EOSINOPHILS ABSOLUTE COUNT (BEAKER) (test sjvk=443) 0.51 K/ L 0.04-0.54 BASOPHILS ABSOLUTE COUNT (BEAKER) (test lxyh=888) 0.05 K/ L 0.01-0.08 IMMATURE GRANULOCYTES-RELATIVE PERCENT (BEAKER) (test firv=0769) 0 % 0-1 POCT-GLUCOSE [id number] 23:54:00* Test Item Value Reference Range Comments POC-GLUCOSE METER (BEAKER) (test hpuu=6582) 105 mg/dL 70-110 TESTED AT [place] [id number] [facility] [address] POCT-GLUCOSE [id number] 18:35:00* Test Item Value Reference Range Comments POC-GLUCOSE METER (BEAKER) (test nrgo=3409) 136 mg/dL 70-110 TESTED AT [place] [id number] [facility] [address] RAD, CHEST, 1 VIEW, NON [id number] 17:15:00Reason for exam:->shortness of breathShould this be performed at the bedside?->YesFINAL REPORT Portable chest. MEDICAL HISTORY: Short of breath. COMPARISON STUDY: September 29, 2017. FINDINGS: The cardiac silhouette is enlarged. A tracheostomy tube, left-sided Port-A-Cath and right-sided chest tube are in place. There has been evacuation of the right-sided pleural effusion with no pneumothorax seen. Blunting of the left costophrenic angle is noted. Bibasilar atelectasis or consolidation is seen. IMPRESSION: Right chest tube insertion with evacuation of effusion. No pneumothorax. No other significant change. Signed: Harinder Posey MDReport Verified Date/Time: 09/29/2017 17:15:17 Reading Location: [address] Consult Reading Room U/S, DRAINAGE, W/ CATH [id number] 14:25: 00Reason for exam:->right pleural effusion. Please leave 10F pigtail in place to drain effusionFINAL REPORT INDICATION:51-year-old male with persistent right pleural effusion. Image guided percutaneous right pleural drainage catheter placement requested. COMPARISON: Chest radiograph September 29, 2017 TECHNIQUE:US guided placement of 10 Australian drainage catheter in the right pleural space. FINDINGS: The procedure was explained to the patient and informed consent was signed. Timeout was performed. The patient was positioned supine oblique in his ICU bed and preliminary images confirmed a moderate right pleural effusion. The patient's skin was prepped and draped in standard sterile fashion. 1% lidocaine was used for local anesthesia. Using a right posterolateral approach and US guidance a 19-gauge introducer needle was advanced into the right pleura. 5 cc of straw-colored fluid were aspirated. A guidewire was placed through the introducer needle and a guided posteriorly. The introducer needle removed and serial dilators 6 Australian and then 8 Australian were used. 10 Australian multisidehole drainage catheter was then placed over the guidewire. Stiffener and guidewire were removed. Catheter was pigtailed, connected to Pleur-evac, and sutured to the patient's skin. Patient tolerated procedure well and was transferred to postprocedure recovery. IMPRESSION: Ultrasound guided placement of 10 Australian drainage catheter in right pleura. Signed: Estuardo Peck Verified Date/Time: 09/29/2017 14:25:23 Reading Location: [place] [id number] Ortho Consult Reading Room -GLUCOSE [id number] 05:54:00* Test Item Value Reference Range Comments POC-GLUCOSE METER (BEAKER) (test viqb=9841) 122 mg/dL 70-[address] [facility] [address] [facility] [address] RAD, CHEST, 1 VIEW, NON [id number] 04:32:00Reason for exam:->medistinal abscessShould this be performed at the bedside?->YesFINAL REPORT EXAMINATION: AP PORTABLE CHEST RADIOGRAPH CLINICAL INDICATION: Mediastinal abscess IMPRESSION: Compared with 09/28/2017 Support tube and catheter positions are unchanged. Relatively stable opacities are again noted in the perihilar regions and lung bases. Although a component of atelectasis is favored, superimposed edema or an underlying pneumonia difficult to exclude. Bilateral pleural effusions are also again suspected, grossly stable. No evidence of new lung consolidation or pneumothorax. Cardiac and mediastinal contours are stable. Signed: Nataly Harman Verified Date/Time: 2016 04:32:59 Reading Location: [place] [id number] Transitional Reading Room C METABOLIC [id number] 03:50:00* Test Item Value Reference Range Comments SODIUM (BEAKER) (test hfzk=111) 141 meq/L 136-145 POTASSIUM (BEAKER) (test bfif=949) 3.5 meq/L 3.5-5.1 CHLORIDE (BEAKER) (test swat=477) 110 meq/L 98-107 CO2 (BEAKER) (test fzek=934) 24 meq/L 22-29 BLOOD UREA NITROGEN (BEAKER) (test ihju=581) 17 mg/dL 7-21 CREATININE (BEAKER) (test evyr=350) 0.40 mg/dL 0.57-1.25 GLUCOSE RANDOM (BEAKER) (test mcdo=621) 98 mg/dL 70-105 CALCIUM (BEAKER) (test mwed=397) 7.7 mg/dL 8.4-10.2 EGFR (BEAKER) (test pddk=7491) 227 mL/min/1.73 sq m ESTIMATED GFR IS NOT ACCURATE CREATININE CLEARANCE IN PREDICTING GLOMERULAR FILTRATION RATE. ESTIMATED GFR IS NOT APPLICABLE FOR DIALYSIS PATIENTS. [id number] 03:47:00* Test Item Value Reference Range Comments PHOSPHORUS (BEAKER) (test zled=220) 3.1 mg/dL 2.3-4.7 [id number] 03:47:00* Test Item Value Reference Range Comments MAGNESIUM (BEAKER) (test zrtu=878) 1.6 mg/dL 1.6-2.6 CBC W/PLT COUNT & AUTO [id number] 03:36:00* Test Item Value Reference Range Comments WHITE BLOOD CELL COUNT (BEAKER) (test kpyj=090) 9.9 K/ L 3.5-10.5 RED BLOOD CELL COUNT (BEAKER) (test zlkm=195) 3.10 M/ L 4.63-6.08 HEMOGLOBIN (BEAKER) (test jocb=685) 8.2 GM/DL 13.7-17.5 HEMATOCRIT (BEAKER) (test guxq=228) 26.9 % 40.1-51.0 MEAN CORPUSCULAR VOLUME (BEAKER) (test drud=891) 86.8 fL 79.0-92.2 MEAN CORPUSCULAR HEMOGLOBIN (BEAKER) (test ojhv=328) 26.5 pg 25.7-32.2 MEAN CORPUSCULAR HEMOGLOBIN CONC (BEAKER) (test xcup=935) 30.5 GM/DL 32.3- 36.5 RED CELL DISTRIBUTION WIDTH (BEAKER) (test mofy=263) 23.4 % 11.6-14.4 PLATELET COUNT (BEAKER) (test kfjc=125) 527 K/CU MM 150-450 MEAN PLATELET VOLUME (BEAKER) (test fhna=144) 9.7 fL 9.4-12.4 NUCLEATED RED BLOOD CELLS (BEAKER) (test irii=612) 0 /100 WBC 0-0 NEUTROPHILS RELATIVE PERCENT (BEAKER) (test llrk=934) 57 % LYMPHOCYTES RELATIVE PERCENT (BEAKER) (test cuuk=442) 26 % MONOCYTES RELATIVE PERCENT (BEAKER) (test rmcp=132) 10 % EOSINOPHILS RELATIVE PERCENT (BEAKER) (test mbpn=789) 6 % BASOPHILS RELATIVE PERCENT (BEAKER) (test jibr=330) 0 % NEUTROPHILS ABSOLUTE COUNT (BEAKER) (test odgy=421) 5.64 K/ L 1.78-5.38 LYMPHOCYTES ABSOLUTE COUNT (BEAKER) (test guxk=268) 2.61 K/ L 1.32-3.57 MONOCYTES ABSOLUTE COUNT (BEAKER) (test sgwa=034) 1.01 K/ L 0.30-0.82 EOSINOPHILS ABSOLUTE COUNT (BEAKER) (test yket=773) 0.58 K/ L 0.04-0.54 BASOPHILS ABSOLUTE COUNT (BEAKER) (test vaki=101) 0.04 K/ L 0.01-0.08 IMMATURE GRANULOCYTES-RELATIVE PERCENT (BEAKER) (test pnln=2268) 1 % 0-1 [id number] 03:36:00* Test Item Value Reference Range Comments PROTIME (BEAKER) (test rvim=435) 17.7 seconds 11.7-14.7 INR (BEAKER) (test zfvb=746) 1.5 <=5.9 PARTIAL THROMBOPLASTIN TIME (BEAKER) (test kdwe=992) 39.9 seconds 22.5-36.0 RECOMMENDED COUMADIN/WARFARIN INR THERAPY RANGESSTANDARD DOSE: 2.0 - 3.0 Includes: PROPHYLAXIS for venous thrombosis, systemic embolization; TREATMENT for venous thrombosis and/or pulmonary embolus.HIGH RISK: Target INR is 2.5-3.5 for patients with mechanical heart valves.PROTHROMBIN [id number] 03:35: 00* Test Item Value Reference Range Comments PROTIME (BEAKER) (test kgpz=403) 17.7 seconds 11.7-14.7 INR (BEAKER) (test xnkb=854) 1.5 <=5.9 RECOMMENDED COUMADIN/WARFARIN INR THERAPY RANGESSTANDARD DOSE: 2.0 - 3.0 Includes: PROPHYLAXIS for venous thrombosis, systemic embolization; TREATMENT for venous thrombosis and/or pulmonary embolus.HIGH RISK: Target INR is 2.5-3.5 for patients with mechanical heart valves.POCT-GLUCOSE [id number] 23:30:00 * Test Item Value Reference Range Comments POC-GLUCOSE METER (BEAKER) (test ewtt=8760) 99 mg/dL 70-[address] [facility] [address] [facility] [address] POCT-GLUCOSE [id number] 11:53:00* Test Item Value Reference Range Comments POC-GLUCOSE METER (BEAKER) (test fcom=9081) 109 mg/dL 70-110 TESTED AT [place] [id number] [facility] [address] [id number] 06:43:00* Test Item Value Reference Range Comments PREALBUMIN (BEAKER) (test vggl=843) 12 mg/dL 14-45 POCT-GLUCOSE [id number] 06:21:00* Test Item Value Reference Range Comments POC-GLUCOSE METER (BEAKER) (test nlad=3134) 86 mg/dL 70-110 TESTED AT [place] [id number] [facility] [address] BASIC METABOLIC [id number] 06:08:00* Test Item Value Reference Range Comments SODIUM (BEAKER) (test mntf=314) 141 meq/L 136-145 POTASSIUM (BEAKER) (test crtl=900) 3.6 meq/L 3.5-5.1 CHLORIDE (BEAKER) (test mmwk=688) 110 meq/L 98-107 CO2 (BEAKER) (test jmoq=862) 24 meq/L 22-29 BLOOD UREA NITROGEN (BEAKER) (test itsr=515) 19 mg/dL 7-21 CREATININE (BEAKER) (test rgyo=668) 0.38 mg/dL 0.57-1.25 GLUCOSE RANDOM (BEAKER) (test udev=399) 105 mg/dL 70-105 CALCIUM (BEAKER) (test qkgq=272) 7.6 mg/dL 8.4-10.2 EGFR (BEAKER) (test qmrb=5572) 241 mL/min/1.73 sq m ESTIMATED GFR IS NOT ACCURATE CREATININE CLEARANCE IN PREDICTING GLOMERULAR FILTRATION RATE. ESTIMATED GFR IS NOT APPLICABLE FOR DIALYSIS PATIENTS. PROTEIN, [id number] 06:02:00* Test Item Value Reference Range Comments TOTAL PROTEIN (BEAKER) (test zjec=168) 5.9 gm/dL 6.0-8.3 [id number] 06:02:00* Test Item Value Reference Range Comments MAGNESIUM (BEAKER) (test zpzn=086) 1.7 mg/dL 1.6-2.6 [id number] 06:02:00* Test Item Value Reference Range Comments PHOSPHORUS (BEAKER) (test fuvd=615) 2.8 mg/dL 2.3-4.7 [id number] 06:02:00* Test Item Value Reference Range Comments ALBUMIN (BEAKER) (test cpfy=9052) 2.0 g/dL 3.5-5.0 CREATINE KINASE (CK)2017-09-28 06:02:00* Test Item Value Reference Range Comments CREATINE KINASE TOTAL (BEAKER) (test lyyb=736) 37 U/L 29-200 CBC W/PLT COUNT & AUTO [id number] 05:41:00* Test Item Value Reference Range Comments WHITE BLOOD CELL COUNT (BEAKER) (test kgxk=495) 7.6 K/ L 3.5-10.5 RED BLOOD CELL COUNT (BEAKER) (test vyij=642) 2.98 M/ L 4.63-6.08 HEMOGLOBIN (BEAKER) (test gioq=803) 7.9 GM/DL 13.7-17.5 HEMATOCRIT (BEAKER) (test lpzd=030) 26.2 % 40.1-51.0 MEAN CORPUSCULAR VOLUME (BEAKER) (test acgm=716) 87.9 fL 79.0-92.2 MEAN CORPUSCULAR HEMOGLOBIN (BEAKER) (test amga=429) 26.5 pg 25.7-32.2 MEAN CORPUSCULAR HEMOGLOBIN CONC (BEAKER) (test fnfe=316) 30.2 GM/DL 32.3- 36.5 RED CELL DISTRIBUTION WIDTH (BEAKER) (test vkdr=815) 23.7 % 11.6-14.4 PLATELET COUNT (BEAKER) (test yjhx=368) 464 K/CU MM 150-450 MEAN PLATELET VOLUME (BEAKER) (test bfqy=097) 9.5 fL 9.4-12.4 NUCLEATED RED BLOOD CELLS (BEAKER) (test eikc=084) 0 /100 WBC 0-0 NEUTROPHILS RELATIVE PERCENT (BEAKER) (test iiqp=582) 51 % LYMPHOCYTES RELATIVE PERCENT (BEAKER) (test flvm=501) 29 % MONOCYTES RELATIVE PERCENT (BEAKER) (test agtl=185) 10 % EOSINOPHILS RELATIVE PERCENT (BEAKER) (test algw=470) 8 % BASOPHILS RELATIVE PERCENT (BEAKER) (test lwgw=862) 1 % NEUTROPHILS ABSOLUTE COUNT (BEAKER) (test vwbs=699) 3.90 K/ L 1.78-5.38 LYMPHOCYTES ABSOLUTE COUNT (BEAKER) (test gtee=277) 2.19 K/ L 1.32-3.57 MONOCYTES ABSOLUTE COUNT (BEAKER) (test cwbt=934) 0.76 K/ L 0.30-0.82 EOSINOPHILS ABSOLUTE COUNT (BEAKER) (test ixre=157) 0.64 K/ L 0.04-0.54 BASOPHILS ABSOLUTE COUNT (BEAKER) (test bkgc=192) 0.05 K/ L 0.01-0.08 IMMATURE GRANULOCYTES-RELATIVE PERCENT (BEAKER) (test gzcd=3565) 1 % 0-1 RAD, CHEST, 1 VIEW, NON [id number] 03:24:00Reason for exam:->medistinal abscessShould this be performed at the bedside?->YesFINAL REPORT RAD, CHEST, 1 VIEW, NON DEPT INDICATION: medistinal abscess COMPARISON : Prior day's exam FINDINGS: Portable frontal view of the chest. IMPRESSION: Support Lines: Stable tracheostomy tube and left IJ central venous catheter. Lungs and pleura: Persistent moderate to large right effusion. Trace left effusion. Appearance of the air spaces are unchanged. No pneumothorax.Heart and mediastinum: Stable contours. Additional findings: None. Signed: JR Newton Robert MDReport Verified Date/Time: 09/28/2017 03:24:17 Reading Location: [address] Reading Room -GLUCOSE [id number] 23:57:00* Test Item Value Reference Range Comments POC-GLUCOSE METER (BEAKER) (test dheo=9779) 107 mg/dL 70-110 TESTED AT [place] [id number] POCT-GLUCOSE [id number] 12:07:00* Test Item Value Reference Range Comments POC-GLUCOSE METER (BEAKER) (test ktna=8154) 127 mg/dL 70-110 TESTED AT [address] [address] BASIC METABOLIC [id number] 07:41:00* Test Item Value Reference Range Comments SODIUM (BEAKER) (test frub=790) 141 meq/L 136-145 POTASSIUM (BEAKER) (test uybr=729) 3.1 meq/L 3.5-5.1 CHLORIDE (BEAKER) (test giyq=771) 109 meq/L 98-107 CO2 (BEAKER) (test qtsb=915) 26 meq/L 22-29 BLOOD UREA NITROGEN (BEAKER) (test bazr=213) 18 mg/dL 7-21 CREATININE (BEAKER) (test frqh=279) 0.35 mg/dL 0.57-1.25 GLUCOSE RANDOM (BEAKER) (test snsa=477) 98 mg/dL 70-105 CALCIUM (BEAKER) (test wizw=109) 7.4 mg/dL 8.4-10.2 EGFR (BEAKER) (test azma=2103) 265 mL/min/1.73 sq m ESTIMATED GFR IS NOT ACCURATE CREATININE CLEARANCE IN PREDICTING GLOMERULAR FILTRATION RATE. ESTIMATED GFR IS NOT APPLICABLE FOR DIALYSIS PATIENTS. [id number] 07:30:00* Test Item Value Reference Range Comments PHOSPHORUS (BEAKER) (test nvla=700) 2.7 mg/dL 2.3-4.7 [id number] 07:30:00* Test Item Value Reference Range Comments MAGNESIUM (BEAKER) (test swmi=741) 1.3 mg/dL 1.6-2.6 CBC W/PLT COUNT & AUTO [id number] 07:29:00* Test Item Value Reference Range Comments WHITE BLOOD CELL COUNT (BEAKER) (test uthk=808) 8.3 K/ L 3.5-10.5 RED BLOOD CELL COUNT (BEAKER) (test frex=054) 2.78 M/ L 4.63-6.08 HEMOGLOBIN (BEAKER) (test jcut=394) 7.3 GM/DL 13.7-17.5 HEMATOCRIT (BEAKER) (test oktl=753) 24.3 % 40.1-51.0 MEAN CORPUSCULAR VOLUME (BEAKER) (test zoup=638) 87.4 fL 79.0-92.2 MEAN CORPUSCULAR HEMOGLOBIN (BEAKER) (test fnaw=674) 26.3 pg 25.7-32.2 MEAN CORPUSCULAR HEMOGLOBIN CONC (BEAKER) (test nedd=037) 30.0 GM/DL 32.3- 36.5 RED CELL DISTRIBUTION WIDTH (BEAKER) (test pgxu=685) 23.3 % 11.6-14.4 PLATELET COUNT (BEAKER) (test pgro=837) 451 K/CU MM 150-450 MEAN PLATELET VOLUME (BEAKER) (test lqox=269) 9.7 fL 9.4-12.4 NUCLEATED RED BLOOD CELLS (BEAKER) (test fhnl=935) 0 /100 WBC 0-0 NEUTROPHILS RELATIVE PERCENT (BEAKER) (test yimn=358) 63 % LYMPHOCYTES RELATIVE PERCENT (BEAKER) (test trri=504) 21 % MONOCYTES RELATIVE PERCENT (BEAKER) (test equv=545) 10 % EOSINOPHILS RELATIVE PERCENT (BEAKER) (test ehxn=453) 5 % BASOPHILS RELATIVE PERCENT (BEAKER) (test ktld=223) 1 % NEUTROPHILS ABSOLUTE COUNT (BEAKER) (test hrks=303) 5.19 K/ L 1.78-5.38 LYMPHOCYTES ABSOLUTE COUNT (BEAKER) (test wmmt=390) 1.72 K/ L 1.32-3.57 MONOCYTES ABSOLUTE COUNT (BEAKER) (test vqde=333) 0.86 K/ L 0.30-0.82 EOSINOPHILS ABSOLUTE COUNT (BEAKER) (test aptj=911) 0.44 K/ L 0.04-0.54 BASOPHILS ABSOLUTE COUNT (BEAKER) (test cqgz=246) 0.05 K/ L 0.01-0.08 IMMATURE GRANULOCYTES-RELATIVE PERCENT (BEAKER) (test cefb=4764) 1 % 0-1 POCT-GLUCOSE [id number] 06:46:00* Test Item Value Reference Range Comments POC-GLUCOSE METER (BEAKER) (test syma=2586) 117 mg/dL 70-110 TESTED AT [place] [id number] [facility] [address] RAD, CHEST, 1 VIEW, NON [id number] 05:58:00Reason for exam:->medistinal abscessShould this be performed at the bedside?->YesFINAL REPORT RAD, CHEST, 1 VIEW, NON DEPT INDICATION: medistinal abscess COMPARISON : Prior day's exam TECHNIQUE: Portable frontal view of the chest. IMPRESSION: Lines and tubes stable.Cardiomediastinal silhouette stable.Stable large bilateral effusions, right greater than left.No pneumothorax.Stable vascular congestion.No acute osseous abnormality. Signed: May Talavera MDReport Verified Date/Time: 09/27/2017 05:58:42 Reading Location: [address] Ortho Consult Reading Room Electronically signed by: MAY TALAVERA MD on 2016 05:58 AM POCT-GLUCOSE [id number] 00:16:00* Test Item Value Reference Range Comments POC-GLUCOSE METER (BEAKER) (test tcgg=9413) 113 mg/dL 70-110 TESTED AT [address] [address] POCT-GLUCOSE [id number] 18:00:00* Test Item Value Reference Range Comments POC-GLUCOSE METER (BEAKER) (test jyxr=0215) 110 mg/dL 70-110 TESTED AT [address] [address] POCT-GLUCOSE [id number] 11:59:00* Test Item Value Reference Range Comments POC-GLUCOSE METER (BEAKER) (test kvbs=0348) 147 mg/dL 70-110 TESTED AT [address] [address] POCT-GLUCOSE [id number] 05:51:00* Test Item Value Reference Range Comments POC-GLUCOSE METER (BEAKER) (test lxzv=6171) 86 mg/dL 70-110 TESTED AT [address] [address] BASIC METABOLIC [id number] 05:27:00* Test Item Value Reference Range Comments SODIUM (BEAKER) (test cltb=873) 140 meq/L 136-145 POTASSIUM (BEAKER) (test qnpr=712) 3.1 meq/L 3.5-5.1 CHLORIDE (BEAKER) (test etfp=046) 106 meq/L 98-107 CO2 (BEAKER) (test yhbp=916) 26 meq/L 22-29 BLOOD UREA NITROGEN (BEAKER) (test ajui=428) 17 mg/dL 7-21 CREATININE (BEAKER) (test jbsq=600) 0.37 mg/dL 0.57-1.25 GLUCOSE RANDOM (BEAKER) (test xodr=356) 104 mg/dL 70-105 CALCIUM (BEAKER) (test adxj=660) 7.4 mg/dL 8.4-10.2 EGFR (BEAKER) (test ucpm=4159) 248 mL/min/1.73 sq m ESTIMATED GFR IS NOT ACCURATE CREATININE CLEARANCE IN PREDICTING GLOMERULAR FILTRATION RATE. ESTIMATED GFR IS NOT APPLICABLE FOR DIALYSIS PATIENTS. [id number] 05:19:00* Test Item Value Reference Range Comments PHOSPHORUS (BEAKER) (test kmze=447) 2.0 mg/dL 2.3-4.7 [id number] 05:19:00* Test Item Value Reference Range Comments MAGNESIUM (BEAKER) (test oazv=387) 1.3 mg/dL 1.6-2.6 CBC W/PLT COUNT & AUTO [id number] 05:04:00* Test Item Value Reference Range Comments WHITE BLOOD CELL COUNT (BEAKER) (test eyas=365) 7.5 K/ L 3.5-10.5 RED BLOOD CELL COUNT (BEAKER) (test gcwx=533) 2.87 M/ L 4.63-6.08 HEMOGLOBIN (BEAKER) (test ilvz=849) 7.5 GM/DL 13.7-17.5 HEMATOCRIT (BEAKER) (test xazv=063) 25.2 % 40.1-51.0 MEAN CORPUSCULAR VOLUME (BEAKER) (test nqqm=438) 87.8 fL 79.0-92.2 MEAN CORPUSCULAR HEMOGLOBIN (BEAKER) (test tgwv=093) 26.1 pg 25.7-32.2 MEAN CORPUSCULAR HEMOGLOBIN CONC (BEAKER) (test odfn=957) 29.8 GM/DL 32.3- 36.5 RED CELL DISTRIBUTION WIDTH (BEAKER) (test zbec=176) 23.2 % 11.6-14.4 PLATELET COUNT (BEAKER) (test ejya=183) 417 K/CU MM 150-450 MEAN PLATELET VOLUME (BEAKER) (test mzcl=143) 10.0 fL 9.4-12.4 NUCLEATED RED BLOOD CELLS (BEAKER) (test rxqu=509) 0 /100 WBC 0-0 NEUTROPHILS RELATIVE PERCENT (BEAKER) (test ybqf=777) 53 % LYMPHOCYTES RELATIVE PERCENT (BEAKER) (test hvze=658) 29 % MONOCYTES RELATIVE PERCENT (BEAKER) (test tzml=461) 11 % EOSINOPHILS RELATIVE PERCENT (BEAKER) (test hjma=450) 6 % BASOPHILS RELATIVE PERCENT (BEAKER) (test unfg=703) 1 % NEUTROPHILS ABSOLUTE COUNT (BEAKER) (test njqh=111) 3.93 K/ L 1.78-5.38 LYMPHOCYTES ABSOLUTE COUNT (BEAKER) (test fmmp=673) 2.19 K/ L 1.32-3.57 MONOCYTES ABSOLUTE COUNT (BEAKER) (test ijsc=159) 0.85 K/ L 0.30-0.82 EOSINOPHILS ABSOLUTE COUNT (BEAKER) (test tnuz=275) 0.45 K/ L 0.04-0.54 BASOPHILS ABSOLUTE COUNT (BEAKER) (test jmdq=230) 0.04 K/ L 0.01-0.08 IMMATURE GRANULOCYTES-RELATIVE PERCENT (BEAKER) (test bmvr=0217) 0 % 0-1 RAD, CHEST, 1 VIEW, NON [id number] 04:36:00Reason for exam:->medistinal abscessShould this be performed at the bedside?->YesFINAL REPORT RAD, CHEST, 1 VIEW, NON DEPT INDICATION: medistinal abscess COMPARISON : Prior day's exam TECHNIQUE: Portable frontal view of the chest. IMPRESSION: Lines and tubes stable.Cardiomediastinal silhouette stable.Stable vascular congestion.Stable large right and moderate left-sided effusion with adjacent airspace disease.No acute osseous abnormality. Signed: May Talavera MDReport Verified Date/Time: 09/26/2017 04:36:30 Reading Location: [address] Ortho Consult Reading Room Electronically signed by: MAY TALAVERA MD on 2016 04:36 AM POCT-GLUCOSE [id number] 00:37:00* Test Item Value Reference Range Comments POC-GLUCOSE METER (BEAKER) (test cogm=4833) 105 mg/dL 70-110 TESTED AT [address] [address] SPUTUM CULTURE + GRAM [id number] 14:20:00* Test Item Value Reference Range Comments CULTURE (BEAKER) (test qhcf=2951) Amikacin (test code=1) Aztreonam (test code=32) Cefepime (test code=51) Ceftazidime (test code=27) Ciprofloxacin (test code=7) Doripenem (test lstf=132) Gentamicin (test code=18) Imipenem (test code=19) Levofloxacin (test code=22) Meropenem (test code=34) Piperacillin (test code=24) Piperacillin + Tazobactam (test code=29) Tobramycin (test code=25) CULTURE (BEAKER) (test feji=1980) PSEUDOMONAS AERUGINOSA 4+ Pseudomonas aeruginosa Amikacin (test code=1) Aztreonam (test code=32) Cefepime (test code=51) Ceftazidime (test code=27) Ciprofloxacin (test code=7) Doripenem (test zkal=342) Gentamicin (test code=18) Imipenem (test code=19) Levofloxacin (test code=22) Meropenem (test code=34) Piperacillin (test code=24) Piperacillin + Tazobactam (test code=29) Tobramycin (test code=25) CULTURE (BEAKER) (test onqp=4562) ACINETOBACTER BAUMANNII COMPLEX 4+ Pseudomonas aeruginosaof a second type Amikacin (test code=1) Ampicillin + Sulbactam (test code=6) Cefepime (test code=51) Ceftazidime (test code=27) Ceftriaxone (test code=52) Ciprofloxacin (test code=7) Gentamicin (test code=18) Imipenem (test code=19) Levofloxacin (test code=22) Meropenem (test code=34) Minocycline (test code=35) Piperacillin (test code=24) Piperacillin + Tazobactam (test code=29) Tetracycline (test code=2) Tobramycin (test code=25) Trimethoprim + Sulfamethoxazole (test code=47) CULTURE (BEAKER) (test nack=7059) 2+ Acinetobacter baumannii complex GRAM STAIN RESULT (BEAKER) (test ghci=2328) 3+ White blood cells seen GRAM STAIN RESULT (BEAKER) (test kygb=312663) 0-5 epithelial cells GRAM STAIN RESULT (BEAKER) (test jqwj=326333) 0-5 epithelial cells Tigecycline (test ytfd=535) Susceptible >0-0 , No Interpretations Established <=0 or >0 GRAM STAIN RESULT (BEAKER) (test ufnu=855312) 1+ gram negative rods <1+ yeastNo Normal respiratory rodney presentPOCT-GLUCOSE [id number] 12:53: 00* Test Item Value Reference Range Comments POC-GLUCOSE METER (BEAKER) (test niis=9172) 122 mg/dL 70-[address] [facility] [address] [facility] [address] POCT-GLUCOSE [id number] 05:56:00* Test Item Value Reference Range Comments POC-GLUCOSE METER (BEAKER) (test knfy=0504) 123 mg/dL 70-110 TESTED AT [place] [id number] [facility] [address] BASIC METABOLIC [id number] 05:37:00* Test Item Value Reference Range Comments SODIUM (BEAKER) (test lbbb=704) 139 meq/L 136-145 POTASSIUM (BEAKER) (test dwnx=511) 3.4 meq/L 3.5-5.1 CHLORIDE (BEAKER) (test vcvl=897) 105 meq/L 98-107 CO2 (BEAKER) (test fehf=939) 28 meq/L 22-29 BLOOD UREA NITROGEN (BEAKER) (test izlo=336) 17 mg/dL 7-21 CREATININE (BEAKER) (test xbtb=456) 0.34 mg/dL 0.57-1.25 GLUCOSE RANDOM (BEAKER) (test txth=092) 102 mg/dL 70-105 CALCIUM (BEAKER) (test jkuy=506) 7.5 mg/dL 8.4-10.2 EGFR (BEAKER) (test dcoy=5579) 274 mL/min/1.73 sq m ESTIMATED GFR IS NOT ACCURATE CREATININE CLEARANCE IN PREDICTING GLOMERULAR FILTRATION RATE. ESTIMATED GFR IS NOT APPLICABLE FOR DIALYSIS PATIENTS. [id number] 05:36:00* Test Item Value Reference Range Comments PHOSPHORUS (BEAKER) (test amax=911) 2.2 mg/dL 2.3-4.7 [id number] 05:36:00* Test Item Value Reference Range Comments MAGNESIUM (BEAKER) (test xeli=735) 1.4 mg/dL 1.6-2.6 CBC W/PLT COUNT & AUTO [id number] 04:34:00* Test Item Value Reference Range Comments WHITE BLOOD CELL COUNT (BEAKER) (test misc=726) 7.3 K/ L 3.5-10.5 RED BLOOD CELL COUNT (BEAKER) (test hsdc=340) 2.77 M/ L 4.63-6.08 HEMOGLOBIN (BEAKER) (test jtce=085) 7.3 GM/DL 13.7-17.5 HEMATOCRIT (BEAKER) (test qinr=536) 24.8 % 40.1-51.0 MEAN CORPUSCULAR VOLUME (BEAKER) (test gbrq=666) 89.5 fL 79.0-92.2 MEAN CORPUSCULAR HEMOGLOBIN (BEAKER) (test gaio=280) 26.4 pg 25.7-32.2 MEAN CORPUSCULAR HEMOGLOBIN CONC (BEAKER) (test wckx=954) 29.4 GM/DL 32.3- 36.5 RED CELL DISTRIBUTION WIDTH (BEAKER) (test apkf=599) 22.9 % 11.6-14.4 PLATELET COUNT (BEAKER) (test tmji=973) 383 K/CU MM 150-450 MEAN PLATELET VOLUME (BEAKER) (test bxjv=435) 10.2 fL 9.4-12.4 NUCLEATED RED BLOOD CELLS (BEAKER) (test zlng=957) 0 /100 WBC 0-0 NEUTROPHILS RELATIVE PERCENT (BEAKER) (test dirk=150) 56 % LYMPHOCYTES RELATIVE PERCENT (BEAKER) (test hwkc=274) 25 % MONOCYTES RELATIVE PERCENT (BEAKER) (test ubjt=721) 12 % EOSINOPHILS RELATIVE PERCENT (BEAKER) (test fdln=219) 6 % BASOPHILS RELATIVE PERCENT (BEAKER) (test mvos=863) 1 % NEUTROPHILS ABSOLUTE COUNT (BEAKER) (test ijsk=229) 4.04 K/ L 1.78-5.38 LYMPHOCYTES ABSOLUTE COUNT (BEAKER) (test xmzl=769) 1.85 K/ L 1.32-3.57 MONOCYTES ABSOLUTE COUNT (BEAKER) (test irbj=117) 0.88 K/ L 0.30-0.82 EOSINOPHILS ABSOLUTE COUNT (BEAKER) (test ocjz=003) 0.44 K/ L 0.04-0.54 BASOPHILS ABSOLUTE COUNT (BEAKER) (test itsp=623) 0.04 K/ L 0.01-0.08 IMMATURE GRANULOCYTES-RELATIVE PERCENT (BEAKER) (test nlfy=0584) 0 % 0-1 RAD, CHEST, 1 VIEW, NON [id number] 03:52:00Reason for exam:->medistinal abscessShould this be performed at the bedside?->YesFINAL REPORT RAD, CHEST, 1 VIEW, NON DEPT INDICATION: medistinal abscess COMPARISON : Prior day's exam FINDINGS: Portable frontal view of the chest. IMPRESSION: Support Lines: Stable. Lungs and pleura: Improved aeration with persistent moderate right and small left effusions. No pneumothorax.Heart and mediastinum: Stable contours. Additional findings: None. Signed: JR Newton Robert MDReport Verified Date/Time: 09/25/2017 03:52:36 Reading Location: [address] Reading Room -GLUCOSE [id number] 00:02:00* Test Item Value Reference Range Comments POC-GLUCOSE METER (URSULAAKER) (test lvgy=3675) 107 mg/dL 70-110 TESTED AT [address] [address] [address], CHEST, WITH [id number] 20:08:00Addendum BeginsREPORT STATUS:A The following addendum is being made to comply with coding criteria, and does not substantially change the findings or recommendations of the original report.Additional technique: Examination was performed after the administration of intravenous contrast. Signed: JR Newton Robert MDReport Verified Date/Time: 09/24/2017 20:08:07 Reading Location : [address] Reading RoomAddendum EndsFINAL REPORT CT, CHEST, WITH CONTRAST INDICATION: eval for undrained collections COMPARISON: August 22, 2017 TECHNIQUE: Noncontrast axially oriented images were obtained from the thoracic inlet through the lung bases. Coronal and sagittal reformats were provided. DOSE REDUCTION: Dose modulation, iterative reconstruction, and/or weight-based adjustment of the mA/kV was utilized to reduce the radiation dose to as low as reasonably achievable. FINDINGS: Lungs and Pleura: Moderate bilateral pleural effusions appear slightly increased in volume compared to the prior examination. There is associated relaxation atelectasis bilaterally in the lower lobes as well as the right middle lobe. Calcified granulomata are present within the lung spaces. Aerated portions of the lungs demonstrate groundglass opacities and septal thickening. No pneumothorax.Central airways: Patent.Mediastinum: Prominent mediastinal lymph nodes are present without pathologic enlargement.Heart and pericardium: Normal cardiac size. No pericardial effusion.Great vessels: Normal calibers. Included upper abdomen: No acute abnormalities.Regional skeletal structures: Intact. Surgical drain in the prevertebral space. Slight scoliotic deformity in the upper thoracic spine. Stabilization hardware incompletely viewed. Additional findings: None. IMPRESSION: Increasing volume of bilateral pleural effusions without discernible loculation. Associated relaxation atelectasis and edema. Surgical changes in the cervical spine incompletely viewed. Signed: JR Newton Robert MDReport Verified Date/Time: 09/12/2017 21:23:39 Reading Location : [address] Reading Room -GLUCOSE [id number] 12:49:00* Test Item Value Reference Range Comments POC-GLUCOSE METER (BEAKER) (test bgkx=7121) 138 mg/dL 70-110 TESTED AT [address] [address] RAD, CHEST, 1 VIEW, NON [id number] 08:51:00Reason for exam:->medistinal abscessShould this be performed at the bedside?->YesFINAL REPORT TECHNIQUE: Frontal chest radiographs dated 09/24/2017. CLINICAL HISTORY: Mediastinal abscess COMPARISON STUDY: Chest radiograph dated 2016 IMPRESSION: Life support tubes and lines are unchanged. Right pleural effusion appears to have increased. There is increased airspace opacity in the left lower lobe along with fullness of the pulmonary vasculature. Findings are compatible with pulmonary edema. No pneumothorax. Cardiomediastinal silhouette is stable in size. No fracture. Degenerative changes are seen in the spine. Signed: Crow Bajwaeport Verified Date/Time: 09/24/2017 08:51:55 Reading Location: [facility] Radiology Reading Room -GLUCOSE [id number] 05: 15:00* Test Item Value Reference Range Comments POC-GLUCOSE METER (BEAKER) (test wxoq=6389) 108 mg/dL 70-[address] [facility] [address] [facility] [address] BASIC METABOLIC [id number] 05:03:00* Test Item Value Reference Range Comments SODIUM (BEAKER) (test gaxi=645) 139 meq/L 136-145 POTASSIUM (BEAKER) (test balh=773) 3.2 meq/L 3.5-5.1 CHLORIDE (BEAKER) (test zfgx=688) 108 meq/L 98-107 CO2 (BEAKER) (test ewar=025) 26 meq/L 22-29 BLOOD UREA NITROGEN (BEAKER) (test inrc=976) 16 mg/dL 7-21 CREATININE (BEAKER) (test hfpo=274) 0.34 mg/dL 0.57-1.25 GLUCOSE RANDOM (BEAKER) (test jzwu=388) 92 mg/dL 70-105 CALCIUM (BEAKER) (test qdyv=787) 7.0 mg/dL 8.4-10.2 EGFR (BEAKER) (test vajc=7923) 274 mL/min/1.73 sq m ESTIMATED GFR IS NOT ACCURATE CREATININE CLEARANCE IN PREDICTING GLOMERULAR FILTRATION RATE. ESTIMATED GFR IS NOT APPLICABLE FOR DIALYSIS PATIENTS. [id number] 05:00:00* Test Item Value Reference Range Comments PHOSPHORUS (BEAKER) (test xbgw=247) 2.1 mg/dL 2.3-4.7 [id number] 05:00:00* Test Item Value Reference Range Comments MAGNESIUM (BEAKER) (test vlsi=185) 1.4 mg/dL 1.6-2.6 CBC W/PLT COUNT & AUTO [id number] 04:44:00* Test Item Value Reference Range Comments WHITE BLOOD CELL COUNT (BEAKER) (test qddj=988) 8.3 K/ L 3.5-10.5 RED BLOOD CELL COUNT (BEAKER) (test kzqu=837) 2.91 M/ L 4.63-6.08 HEMOGLOBIN (BEAKER) (test fyff=381) 7.7 GM/DL 13.7-17.5 HEMATOCRIT (BEAKER) (test vwmt=636) 25.9 % 40.1-51.0 MEAN CORPUSCULAR VOLUME (BEAKER) (test qxxk=479) 89.0 fL 79.0-92.2 MEAN CORPUSCULAR HEMOGLOBIN (BEAKER) (test rkmn=372) 26.5 pg 25.7-32.2 MEAN CORPUSCULAR HEMOGLOBIN CONC (BEAKER) (test xxoa=632) 29.7 GM/DL 32.3- 36.5 RED CELL DISTRIBUTION WIDTH (BEAKER) (test futo=220) 23.1 % 11.6-14.4 PLATELET COUNT (BEAKER) (test gfye=487) 367 K/CU MM 150-450 MEAN PLATELET VOLUME (BEAKER) (test qicy=334) 10.3 fL 9.4-12.4 NUCLEATED RED BLOOD CELLS (BEAKER) (test jejd=262) 0 /100 WBC 0-0 NEUTROPHILS RELATIVE PERCENT (BEAKER) (test uxdb=009) 59 % LYMPHOCYTES RELATIVE PERCENT (BEAKER) (test itqt=662) 23 % MONOCYTES RELATIVE PERCENT (BEAKER) (test bkys=982) 11 % EOSINOPHILS RELATIVE PERCENT (BEAKER) (test kzhe=141) 5 % BASOPHILS RELATIVE PERCENT (BEAKER) (test qopb=563) 1 % NEUTROPHILS ABSOLUTE COUNT (BEAKER) (test nwbz=040) 4.93 K/ L 1.78-5.38 LYMPHOCYTES ABSOLUTE COUNT (BEAKER) (test jsbl=282) 1.95 K/ L 1.32-3.57 MONOCYTES ABSOLUTE COUNT (BEAKER) (test znka=476) 0.94 K/ L 0.30-0.82 EOSINOPHILS ABSOLUTE COUNT (BEAKER) (test ntvy=320) 0.43 K/ L 0.04-0.54 BASOPHILS ABSOLUTE COUNT (BEAKER) (test ebrb=448) 0.04 K/ L 0.01-0.08 IMMATURE GRANULOCYTES-RELATIVE PERCENT (BEAKER) (test kskb=2692) 1 % 0-1 POCT-GLUCOSE [id number] 23:45:00* Test Item Value Reference Range Comments POC-GLUCOSE METER (BEAKER) (test ftft=9443) 142 mg/dL 70-110 TESTED AT [address] [address] POCT-GLUCOSE [id number] 17:41:00* Test Item Value Reference Range Comments POC-GLUCOSE METER (BEAKER) (test czdp=2732) 112 mg/dL 70-110 TESTED AT [place] [id number] [facility] [address] POCT-GLUCOSE [id number] 11:26:00* Test Item Value Reference Range Comments POC-GLUCOSE METER (BEAKER) (test kkbt=2335) 122 mg/dL 70-[address] [facility] [address] [facility] [address] RAD, CHEST, 1 VIEW, NON [id number] 07:33:00Reason for exam:->medistinal abscessShould this be performed at the bedside?->YesFINAL REPORT Chest one view. Clinical history: mediastinal abscess Comparison: Discussion: A frontal chest is provided. Cardiomediastinal contours are unchanged. Lines and tubes are in stable position. Right effusion appears slightly larger or this could be related to differences in patient position. Grossly unchanged bilateral lower lung atelectasis or consolidation. A small left effusion is also present. No pneumothorax. Signed: Wil Blackman Verified Date/Time: 09/23/2017 07:33:03 Reading Location: [facility] Radiology Reading Room Electronically signed by: WIL BLACKMAN M.D. on 09/23 07:33 AM [id number] 06:17:00* Test Item Value Reference Range Comments PHOSPHORUS (BEAKER) (test pfkl=887) 2.6 mg/dL 2.3-4.7 [id number] 06:17:00* Test Item Value Reference Range Comments MAGNESIUM (BEAKER) (test jtzt=110) 1.6 mg/dL 1.6-2.6 BASIC METABOLIC [id number] 06:17:00* Test Item Value Reference Range Comments SODIUM (BEAKER) (test eiek=199) 140 meq/L 136-145 POTASSIUM (BEAKER) (test kria=615) 3.7 meq/L 3.5-5.1 CHLORIDE (BEAKER) (test pgkv=632) 105 meq/L 98-107 CO2 (BEAKER) (test xcwn=920) 31 meq/L 22-29 BLOOD UREA NITROGEN (BEAKER) (test wvku=808) 16 mg/dL 7-21 CREATININE (BEAKER) (test slnf=596) 0.33 mg/dL 0.57-1.25 GLUCOSE RANDOM (BEAKER) (test nitm=793) 90 mg/dL 70-105 CALCIUM (BEAKER) (test pjvu=970) 7.5 mg/dL 8.4-10.2 EGFR (BEAKER) (test btud=9442) 283 mL/min/1.73 sq m ESTIMATED GFR IS NOT ACCURATE CREATININE CLEARANCE IN PREDICTING GLOMERULAR FILTRATION RATE. ESTIMATED GFR IS NOT APPLICABLE FOR DIALYSIS PATIENTS. POCT-GLUCOSE [id number] 06:11:00* Test Item Value Reference Range Comments POC-GLUCOSE METER (BEAKER) (test gigk=8705) 95 mg/dL 70-[address] [facility] [address] [facility] [address] CBC W/PLT COUNT & AUTO [id number] 05:50:00* Test Item Value Reference Range Comments WHITE BLOOD CELL COUNT (BEAKER) (test gvwl=880) 8.1 K/ L 3.5-10.5 RED BLOOD CELL COUNT (BEAKER) (test rrcq=940) 2.82 M/ L 4.63-6.08 HEMOGLOBIN (BEAKER) (test gmbh=292) 7.4 GM/DL 13.7-17.5 HEMATOCRIT (BEAKER) (test fwnq=126) 24.8 % 40.1-51.0 MEAN CORPUSCULAR VOLUME (BEAKER) (test ggjx=706) 87.9 fL 79.0-92.2 MEAN CORPUSCULAR HEMOGLOBIN (BEAKER) (test dpap=332) 26.2 pg 25.7-32.2 MEAN CORPUSCULAR HEMOGLOBIN CONC (BEAKER) (test tqot=732) 29.8 GM/DL 32.3- 36.5 RED CELL DISTRIBUTION WIDTH (BEAKER) (test ymeo=607) 23.5 % 11.6-14.4 PLATELET COUNT (BEAKER) (test dmsj=124) 351 K/CU MM 150-450 MEAN PLATELET VOLUME (BEAKER) (test kbrl=247) 10.4 fL 9.4-12.4 NUCLEATED RED BLOOD CELLS (BEAKER) (test scno=382) 0 /100 WBC 0-0 NEUTROPHILS RELATIVE PERCENT (BEAKER) (test pqrg=258) 61 % LYMPHOCYTES RELATIVE PERCENT (BEAKER) (test igxq=978) 22 % MONOCYTES RELATIVE PERCENT (BEAKER) (test vemg=953) 10 % EOSINOPHILS RELATIVE PERCENT (BEAKER) (test jgzc=119) 6 % BASOPHILS RELATIVE PERCENT (BEAKER) (test kmcb=573) 1 % NEUTROPHILS ABSOLUTE COUNT (BEAKER) (test csgv=523) 4.97 K/ L 1.78-5.38 LYMPHOCYTES ABSOLUTE COUNT (BEAKER) (test bfcm=266) 1.82 K/ L 1.32-3.57 MONOCYTES ABSOLUTE COUNT (BEAKER) (test jpfz=836) 0.82 K/ L 0.30-0.82 EOSINOPHILS ABSOLUTE COUNT (BEAKER) (test zkgt=454) 0.45 K/ L 0.04-0.54 BASOPHILS ABSOLUTE COUNT (BEAKER) (test mdkm=482) 0.05 K/ L 0.01-0.08 IMMATURE GRANULOCYTES-RELATIVE PERCENT (BEAKER) (test fcim=5251) 0 % 0-1 POCT-GLUCOSE [id number] 23:44:00* Test Item Value Reference Range Comments POC-GLUCOSE METER (BEAKER) (test jsdo=2713) 116 mg/dL 70-110 TESTED AT [place] [id number] [facility] [address] LACTATE DEHYDROGENASE (LDH)2017-09-22 23:16:00* Test Item Value Reference Range Comments LACTATE DEHYDROGENASE (BEAKER) (test doho=238) 157 U/L 125-220 LACTATE DEHYDROGENASE (LDH), BODY [id number] 23:15:00* Test Item Value Reference Range Comments LACTATE DEHYDROGENASE FLUID (BEAKER) (test rktb=380) 117 U/L Light's criteria identifies effusions if one or more are pre Absence of reference range indicates that normals have not been defined.Assay performance has not been validated for this type of specimen.PROTEIN, BODY [id number] 23:15:00* Test Item Value Reference Range Comments PROTEIN FLUID (BEAKER) (test cbcv=418) 1.8 g/dL Light's criteria identifies effusions if one or more are pre Absence of reference range indicates that normals have not been defined.Assay performance has not been validated for this type of specimen.POCT-GLUCOSE [id number] 18:11:00* Test Item Value Reference Range Comments POC-GLUCOSE METER (BEAKER) (test ckuv=3681) 107 mg/dL 70-110 TESTED AT [place] [id number] [facility] [address] U/S, [id number] 15:58:00Laterality?->RightReason for exam:-> pleural effusion/ SOBFINAL REPORT Ultrasound guided right thoracentesis: Pre/post procedure diagnosis: Pleural effusion Approach: Right Posterior Lateral Intercostal Sedation: None Local Anesthesia: 1% Xylocaine Findings: The risks, benefits, and alternatives of the procedure were explained. Questions were answered, and informed, written consent was then obtained. After an appropriate site for drainage was found, the skin was prepped and draped, and local anesthesia was given. A 5 F multipurpose catheter was inserted into the right pleural space, and approximately 1900 cc of clear yellow pleural fluid was aspirated. Specimen were collected for the lab. No immediate complications were noted. A post-procedure chest radiograph is pending. Estimated blood loss: None. Impression: Uncomplicated ultrasound- guided right thoracentesis performed by Thania Ferrari PA-C. Signed: Matheus Baires Verified Date/Time: 09/22/2017 15:58:15 Reading Location: [facility] C013X Ortho Consult Reading Room , CHEST, 1 VIEW, NON [id number] 15:46: 00Reason for exam:->rt pleural effusion s/p thoraShould this be performed at the bedside?->YesReason for exam:->rt pleural effusion s/p thoraShould this be performed at the bedside?->YesFINAL REPORT Chest one view. Clinical history: rt pleural effusion s/p thorart pleural effusion s/p thora Comparison: 09/22/2017 Discussion: A frontal chest is provided. Cardiomediastinal contours are unchanged. Lines and tubes are in stable position. There are bilateral pleural effusions. Central vessels appear prominent. No pneumothorax. Signed: Wil Blackman Verified Date/Time: 09/22 15:46:56 Reading Location: [facility] C013W Consult Reading Room [id number] 15:27:00* Test Item Value Reference Range Comments POTASSIUM (BEAKER) (test jrbm=265) 3.7 meq/L 3.5-5.1 [id number] 15:27:00* Test Item Value Reference Range Comments MAGNESIUM (BEAKER) (test drdw=088) 1.9 mg/dL 1.6-2.6 POCT-GLUCOSE [id number] 11:56:00* Test Item Value Reference Range Comments POC-GLUCOSE METER (BEAKER) (test uqtz=8458) 128 mg/dL 70-[address] [facility] [address] [facility] [address] [id number] 10:49:00* Test Item Value Reference Range Comments PROTIME (BEAKER) (test gdwb=078) 17.3 seconds 11.7-14.7 INR (BEAKER) (test bitj=246) 1.4 <=5.9 PARTIAL THROMBOPLASTIN TIME (BEAKER) (test yxbh=863) 41.4 seconds 22.5-36.0 RECOMMENDED COUMADIN/WARFARIN INR THERAPY RANGESSTANDARD DOSE: 2.0 - 3.0 Includes: PROPHYLAXIS for venous thrombosis, systemic embolization; TREATMENT for venous thrombosis and/or pulmonary embolus.HIGH RISK: Target INR is 2.5-3.5 for patients with mechanical heart valves.RAD, CHEST, 1 VIEW, NON [id number] 07:25:00Reason for exam:->medistinal abscessShould this be performed at the bedside?->YesFINAL REPORT Chest one view. Clinical history: mediastinal abscess Comparison: 09/21/2017 Discussion: A frontal chest is provided. Cardiomediastinal contours are unchanged. Lines and tubes are in stable position. Unchanged appearance of moderate-sized layering right pleural effusion. A small left effusion is likely also present. There is pulmonary vascular congestion. No new consolidation, no pneumothorax. Signed: Wil Blackman Verified Date/Time: 09/22/2017 07:25:27 Reading Location: [facility] Radiology Reading Room -GLUCOSE [id number] 06:43:00* Test Item Value Reference Range Comments POC-GLUCOSE METER (BEAKER) (test sefh=7511) 110 mg/dL 70-[address] [facility] [address] [facility] [address] CBC W/PLT COUNT & AUTO [id number] 04:34:00* Test Item Value Reference Range Comments WHITE BLOOD CELL COUNT (BEAKER) (test gays=561) 7.2 K/ L 3.5-10.5 RED BLOOD CELL COUNT (BEAKER) (test sigu=535) 2.72 M/ L 4.63-6.08 HEMOGLOBIN (BEAKER) (test jmmf=412) 7.3 GM/DL 13.7-17.5 HEMATOCRIT (BEAKER) (test zpkq=200) 24.1 % 40.1-51.0 MEAN CORPUSCULAR VOLUME (BEAKER) (test zhbf=428) 88.6 fL 79.0-92.2 MEAN CORPUSCULAR HEMOGLOBIN (BEAKER) (test shiq=739) 26.8 pg 25.7-32.2 MEAN CORPUSCULAR HEMOGLOBIN CONC (BEAKER) (test vohi=533) 30.3 GM/DL 32.3- 36.5 RED CELL DISTRIBUTION WIDTH (BEAKER) (test yanf=826) 23.7 % 11.6-14.4 PLATELET COUNT (BEAKER) (test oxhl=737) 321 K/CU MM 150-450 MEAN PLATELET VOLUME (BEAKER) (test bwah=934) 10.3 fL 9.4-12.4 NUCLEATED RED BLOOD CELLS (BEAKER) (test euej=843) 0 /100 WBC 0-0 NEUTROPHILS RELATIVE PERCENT (BEAKER) (test bgbd=536) 50 % LYMPHOCYTES RELATIVE PERCENT (BEAKER) (test lszc=509) 29 % MONOCYTES RELATIVE PERCENT (BEAKER) (test ysmk=279) 12 % EOSINOPHILS RELATIVE PERCENT (BEAKER) (test fjpn=358) 8 % BASOPHILS RELATIVE PERCENT (BEAKER) (test zxtm=701) 1 % NEUTROPHILS ABSOLUTE COUNT (BEAKER) (test xlwc=257) 3.63 K/ L 1.78-5.38 LYMPHOCYTES ABSOLUTE COUNT (BEAKER) (test tbhy=958) 2.10 K/ L 1.32-3.57 MONOCYTES ABSOLUTE COUNT (BEAKER) (test qyns=055) 0.87 K/ L 0.30-0.82 EOSINOPHILS ABSOLUTE COUNT (BEAKER) (test pfay=182) 0.55 K/ L 0.04-0.54 BASOPHILS ABSOLUTE COUNT (BEAKER) (test aoyj=288) 0.05 K/ L 0.01-0.08 IMMATURE GRANULOCYTES-RELATIVE PERCENT (BEAKER) (test kruk=0605) 0 % 0-1 BASIC METABOLIC [id number] 04:30:00* Test Item Value Reference Range Comments SODIUM (BEAKER) (test oltw=997) 138 meq/L 136-145 POTASSIUM (BEAKER) (test saqt=786) 3.3 meq/L 3.5-5.1 CHLORIDE (BEAKER) (test bcli=426) 105 meq/L 98-107 CO2 (BEAKER) (test slhl=531) 29 meq/L 22-29 BLOOD UREA NITROGEN (BEAKER) (test rzag=913) 19 mg/dL 7-21 CREATININE (BEAKER) (test cmwr=203) 0.34 mg/dL 0.57-1.25 GLUCOSE RANDOM (BEAKER) (test yyre=526) 104 mg/dL 70-105 CALCIUM (BEAKER) (test isrh=750) 7.2 mg/dL 8.4-10.2 EGFR (BEAKER) (test nvuf=2938) 274 mL/min/1.73 sq m ESTIMATED GFR IS NOT ACCURATE CREATININE CLEARANCE IN PREDICTING GLOMERULAR FILTRATION RATE. ESTIMATED GFR IS NOT APPLICABLE FOR DIALYSIS PATIENTS. [id number] 04:28:00* Test Item Value Reference Range Comments PHOSPHORUS (BEAKER) (test bjbm=547) 2.0 mg/dL 2.3-4.7 [id number] 04:28:00* Test Item Value Reference Range Comments MAGNESIUM (BEAKER) (test xrpv=589) 1.4 mg/dL 1.6-2.6 POCT-GLUCOSE [id number] 00:19:00* Test Item Value Reference Range Comments POC-GLUCOSE METER (BEAKER) (test rymh=5227) 93 mg/dL 70-[address] [facility] [address] [facility] [address] POCT-GLUCOSE [id number] 17:52:00* Test Item Value Reference Range Comments POC-GLUCOSE METER (BEAKER) (test auvj=6732) 122 mg/dL 70-[address] [facility] [address] [facility] [address] [id number] 14:47:00* Test Item Value Reference Range Comments MAGNESIUM (BEAKER) (test kdcp=245) 1.9 mg/dL 1.6-2.6 POCT-GLUCOSE [id number] 12:22:00* Test Item Value Reference Range Comments POC-GLUCOSE METER (BEAKER) (test cnnk=8490) 130 mg/dL 70-[address] [facility] [address] [facility] [address] RAD, CHEST, 1 VIEW, NON [id number] 08:05:00Reason for exam:->medistinal abscessShould this be performed at the bedside?->YesFINAL REPORT Chest one view. Clinical history: mediastinal abscess Comparison: 10/2017 Discussion: A frontal chest is provided. Cardiomediastinal contours are unchanged. Lines and tubes are in stable position. There are right greater than left pleural effusions, and mild vascular congestion. No pneumothorax. Signed: Wil Blackman Verified Date/Time: 09/21/2017 08:05:54 Reading Location: [facility] Radiology Reading Room -GLUCOSE [id number] 06:08:00* Test Item Value Reference Range Comments POC-GLUCOSE METER (BEAKER) (test jdcw=3215) 111 mg/dL 70-110 TESTED AT [place] [id number] [facility] [address] [id number] 05:01:00* Test Item Value Reference Range Comments ALBUMIN (BEAKER) (test enop=6238) 1.9 g/dL 3.5-5.0 BASIC METABOLIC [id number] 05:01:00* Test Item Value Reference Range Comments SODIUM (BEAKER) (test fjvm=563) 141 meq/L 136-145 POTASSIUM (BEAKER) (test kuvg=258) 3.6 meq/L 3.5-5.1 CHLORIDE (BEAKER) (test gszu=197) 103 meq/L 98-107 CO2 (BEAKER) (test wgdc=390) 33 meq/L 22-29 BLOOD UREA NITROGEN (BEAKER) (test dbxs=027) 19 mg/dL 7-21 CREATININE (BEAKER) (test yruu=052) 0.35 mg/dL 0.57-1.25 GLUCOSE RANDOM (BEAKER) (test jdfq=164) 116 mg/dL 70-105 CALCIUM (BEAKER) (test ukee=074) 7.5 mg/dL 8.4-10.2 EGFR (BEAKER) (test tbrn=9286) 265 mL/min/1.73 sq m ESTIMATED GFR IS NOT ACCURATE CREATININE CLEARANCE IN PREDICTING GLOMERULAR FILTRATION RATE. ESTIMATED GFR IS NOT APPLICABLE FOR DIALYSIS PATIENTS. PROTEIN, [id number] 04:46:00* Test Item Value Reference Range Comments TOTAL PROTEIN (BEAKER) (test auvz=798) 5.8 gm/dL 6.0-8.3 [id number] 04:46:00* Test Item Value Reference Range Comments MAGNESIUM (BEAKER) (test supm=467) 1.4 mg/dL 1.6-2.6 [id number] 04:46:00* Test Item Value Reference Range Comments PHOSPHORUS (BEAKER) (test lmvb=215) 2.0 mg/dL 2.3-4.7 CREATINE KINASE (CK)2017-09-21 04:46:00* Test Item Value Reference Range Comments CREATINE KINASE TOTAL (BEAKER) (test skmi=687) 31 U/L 29-200 [id number] 04:45:00* Test Item Value Reference Range Comments PREALBUMIN (BEAKER) (test dmzb=515) 11 mg/dL 14-45 CBC W/PLT COUNT & AUTO [id number] 04:19:00* Test Item Value Reference Range Comments WHITE BLOOD CELL COUNT (BEAKER) (test kobg=611) 6.8 K/ L 3.5-10.5 RED BLOOD CELL COUNT (BEAKER) (test osnz=808) 2.84 M/ L 4.63-6.08 HEMOGLOBIN (BEAKER) (test rmhc=867) 7.4 GM/DL 13.7-17.5 HEMATOCRIT (BEAKER) (test uxjl=441) 24.9 % 40.1-51.0 MEAN CORPUSCULAR VOLUME (BEAKER) (test guom=596) 87.7 fL 79.0-92.2 MEAN CORPUSCULAR HEMOGLOBIN (BEAKER) (test qcfq=431) 26.1 pg 25.7-32.2 MEAN CORPUSCULAR HEMOGLOBIN CONC (BEAKER) (test xcav=895) 29.7 GM/DL 32.3- 36.5 RED CELL DISTRIBUTION WIDTH (BEAKER) (test vkyr=734) 23.1 % 11.6-14.4 PLATELET COUNT (BEAKER) (test uprt=726) 307 K/CU MM 150-450 MEAN PLATELET VOLUME (BEAKER) (test tnik=999) 10.8 fL 9.4-12.4 NUCLEATED RED BLOOD CELLS (BEAKER) (test wbvy=903) 0 /100 WBC 0-0 NEUTROPHILS RELATIVE PERCENT (BEAKER) (test wadg=634) 53 % LYMPHOCYTES RELATIVE PERCENT (BEAKER) (test arqf=654) 27 % MONOCYTES RELATIVE PERCENT (BEAKER) (test jntw=878) 13 % EOSINOPHILS RELATIVE PERCENT (BEAKER) (test gkwm=794) 6 % BASOPHILS RELATIVE PERCENT (BEAKER) (test qppr=865) 1 % NEUTROPHILS ABSOLUTE COUNT (BEAKER) (test fehc=606) 3.60 K/ L 1.78-5.38 LYMPHOCYTES ABSOLUTE COUNT (BEAKER) (test gume=167) 1.86 K/ L 1.32-3.57 MONOCYTES ABSOLUTE COUNT (BEAKER) (test frws=729) 0.90 K/ L 0.30-0.82 EOSINOPHILS ABSOLUTE COUNT (BEAKER) (test ddih=644) 0.38 K/ L 0.04-0.54 BASOPHILS ABSOLUTE COUNT (BEAKER) (test mpjw=606) 0.04 K/ L 0.01-0.08 IMMATURE GRANULOCYTES-RELATIVE PERCENT (BEAKER) (test unba=3253) 0 % 0-1 POCT-GLUCOSE [id number] 00:00:00* Test Item Value Reference Range Comments POC-GLUCOSE METER (BEAKER) (test sopk=9160) 124 mg/dL 70-[address] [facility] [address] [place] [address] [id number] 17:55:00* Test Item Value Reference Range Comments POTASSIUM (BEAKER) (test nbme=993) 3.7 meq/L 3.5-5.1 [id number] 17:55:00* Test Item Value Reference Range Comments MAGNESIUM (BEAKER) (test pefq=126) 1.6 mg/dL 1.6-2.6 POCT-GLUCOSE [id number] 17:45:00* Test Item Value Reference Range Comments POC-GLUCOSE METER (BEAKER) (test kbux=5293) 104 mg/dL 70-[address] [facility] [address] [facility] [address] [id number] 12:21:00* Test Item Value Reference Range Comments POTASSIUM (BEAKER) (test glil=644) 3.9 meq/L 3.5-5.1 [id number] 12:21:00* Test Item Value Reference Range Comments MAGNESIUM (BEAKER) (test twgi=204) 1.4 mg/dL 1.6-2.6 POCT-GLUCOSE [id number] 11:24:00* Test Item Value Reference Range Comments POC-GLUCOSE METER (BEAKER) (test clhs=6406) 117 mg/dL 70-[address] [facility] [address] [facility] [address] URINE [id number] 10:41:00* Test Item Value Reference Range Comments CULTURE (BEAKER) (test kvlq=8494) No growth RAD, CHEST, 1 VIEW, NON [id number] 08:43:00Reason for exam:->medistinal abscessShould this be performed at the bedside?->YesFINAL REPORT INDICATION: medistinal abscess COMPARISON: September 19, 2017 TECHNIQUE : Chest radiograph, single view, portable technique. FINDINGS / IMPRESSION: Previously demonstrated large right pleural effusion has decreased in size, now moderate. There is also probable small left pleural effusion. There is pulmonary venous congestion. No pneumothorax. Tracheostomy tube, left chest port , and lower cervical spinal hardware again noted. Signed: Estuardo Peck MDReport Verified Date/Time: 09/20/2017 08:43:48 Reading Location: [address] Transitional Reading Room C METABOLIC [id number] 06:59:00* Test Item Value Reference Range Comments SODIUM (BEAKER) (test unph=353) 143 meq/L 136-145 POTASSIUM (BEAKER) (test gman=128) 3.5 meq/L 3.5-5.1 CHLORIDE (BEAKER) (test gedn=236) 103 meq/L 98-107 CO2 (BEAKER) (test eqqr=526) 32 meq/L 22-29 BLOOD UREA NITROGEN (BEAKER) (test ajla=712) 17 mg/dL 7-21 CREATININE (BEAKER) (test uuyq=577) 0.33 mg/dL 0.57-1.25 GLUCOSE RANDOM (BEAKER) (test fzrn=292) 102 mg/dL 70-105 CALCIUM (BEAKER) (test bbqn=486) 7.6 mg/dL 8.4-10.2 EGFR (BEAKER) (test hakl=4923) 283 mL/min/1.73 sq m ESTIMATED GFR IS NOT ACCURATE CREATININE CLEARANCE IN PREDICTING GLOMERULAR FILTRATION RATE. ESTIMATED GFR IS NOT APPLICABLE FOR DIALYSIS PATIENTS. [id number] 06:57:00* Test Item Value Reference Range Comments PHOSPHORUS (BEAKER) (test tnkz=658) 2.0 mg/dL 2.3-4.7 [id number] 06:57:00* Test Item Value Reference Range Comments MAGNESIUM (BEAKER) (test rfdz=195) 1.3 mg/dL 1.6-2.6 POCT-GLUCOSE [id number] 05:41:00* Test Item Value Reference Range Comments POC-GLUCOSE METER (BEAKER) (test mcxx=8127) 103 mg/dL 70-[address] [facility] [address] [facility] [address] CBC W/PLT COUNT & AUTO [id number] 05:39:00* Test Item Value Reference Range Comments WHITE BLOOD CELL COUNT (BEAKER) (test zibj=417) 7.4 K/ L 3.5-10.5 RED BLOOD CELL COUNT (BEAKER) (test vnbx=244) 2.85 M/ L 4.63-6.08 HEMOGLOBIN (BEAKER) (test omya=686) 7.5 GM/DL 13.7-17.5 HEMATOCRIT (BEAKER) (test xvdt=806) 25.1 % 40.1-51.0 MEAN CORPUSCULAR VOLUME (BEAKER) (test amnb=553) 88.1 fL 79.0-92.2 MEAN CORPUSCULAR HEMOGLOBIN (BEAKER) (test vmhi=117) 26.3 pg 25.7-32.2 MEAN CORPUSCULAR HEMOGLOBIN CONC (BEAKER) (test phgj=732) 29.9 GM/DL 32.3- 36.5 RED CELL DISTRIBUTION WIDTH (BEAKER) (test xoeb=699) 23.0 % 11.6-14.4 PLATELET COUNT (BEAKER) (test rxgr=993) 294 K/CU MM 150-450 MEAN PLATELET VOLUME (BEAKER) (test mgfj=616) 10.8 fL 9.4-12.4 NUCLEATED RED BLOOD CELLS (BEAKER) (test vrsv=327) 0 /100 WBC 0-0 NEUTROPHILS RELATIVE PERCENT (BEAKER) (test jfue=658) 49 % LYMPHOCYTES RELATIVE PERCENT (BEAKER) (test tpha=239) 32 % MONOCYTES RELATIVE PERCENT (BEAKER) (test sybk=193) 13 % EOSINOPHILS RELATIVE PERCENT (BEAKER) (test meke=122) 5 % BASOPHILS RELATIVE PERCENT (BEAKER) (test moyb=842) 1 % NEUTROPHILS ABSOLUTE COUNT (BEAKER) (test owcu=028) 3.64 K/ L 1.78-5.38 LYMPHOCYTES ABSOLUTE COUNT (BEAKER) (test xsal=986) 2.37 K/ L 1.32-3.57 MONOCYTES ABSOLUTE COUNT (BEAKER) (test ilce=510) 0.94 K/ L 0.30-0.82 EOSINOPHILS ABSOLUTE COUNT (BEAKER) (test djhm=212) 0.36 K/ L 0.04-0.54 BASOPHILS ABSOLUTE COUNT (BEAKER) (test ryqh=018) 0.04 K/ L 0.01-0.08 IMMATURE GRANULOCYTES-RELATIVE PERCENT (BEAKER) (test qabd=8694) 0 % 0-1 POCT-GLUCOSE [id number] 00:07:00* Test Item Value Reference Range Comments POC-GLUCOSE METER (BEAKER) (test xsds=2035) 120 mg/dL 70-[address] [facility] [address] [facility] [address] POCT-GLUCOSE [id number] 18:33:00* Test Item Value Reference Range Comments POC-GLUCOSE METER (BEAKER) (test xalf=9676) 147 mg/dL 70-110 TESTED AT [place] [id number] [facility] [address] [id number] 17:17:00* Test Item Value Reference Range Comments POTASSIUM (BEAKER) (test saae=653) 3.5 meq/L 3.5-5.1 POCT-GLUCOSE [id number] 13:11:00* Test Item Value Reference Range Comments POC-GLUCOSE METER (BEAKER) (test nkcm=5672) 126 mg/dL 70-[address] [facility] [address] [facility] [address] RAD, CHEST, 1 VIEW, NON [id number] 08:15:00Reason for exam:->medistinal abscessShould this be performed at the bedside?->YesFINAL REPORT Chest two views AP 09/19/2017 8:14 AM CLINICAL INDICATION: medistinal abscess COMPARISON: 09/18/2017 IMPRESSION: There is a large volume right pleural effusion, with subtotal opacification of the right lung and hemithorax. Hazy opacity in the left lung base suggests a combination of diaphragm en face, small volume pleural fluid, and air space disease, atelectasis versus pneumonia. Cardiomediastinal contours are partially obscured, but stable. The central pulmonary vasculature is not engorged. Support hardware is unchanged in position. Signed: Ryder Baker MDReport Verified Date/Time: 09/19/2017 08:15 :31 Reading Location: [address] Neuro Reading Room C METABOLIC [id number] 06:58:00* Test Item Value Reference Range Comments SODIUM (BEAKER) (test ywbv=563) 140 meq/L 136-145 POTASSIUM (BEAKER) (test odpq=671) 3.6 meq/L 3.5-5.1 CHLORIDE (BEAKER) (test mpls=068) 101 meq/L 98-107 CO2 (BEAKER) (test mrvv=116) 33 meq/L 22-29 BLOOD UREA NITROGEN (BEAKER) (test yhqh=907) 15 mg/dL 7-21 CREATININE (BEAKER) (test bpju=042) 0.34 mg/dL 0.57-1.25 GLUCOSE RANDOM (BEAKER) (test xzye=676) 108 mg/dL 70-105 CALCIUM (BEAKER) (test wlvn=311) 7.3 mg/dL 8.4-10.2 EGFR (BEAKER) (test isvy=0351) 274 mL/min/1.73 sq m ESTIMATED GFR IS NOT ACCURATE CREATININE CLEARANCE IN PREDICTING GLOMERULAR FILTRATION RATE. ESTIMATED GFR IS NOT APPLICABLE FOR DIALYSIS PATIENTS. [id number] 06:46:00* Test Item Value Reference Range Comments PHOSPHORUS (BEAKER) (test fxrd=462) 2.5 mg/dL 2.3-4.7 [id number] 06:45:00* Test Item Value Reference Range Comments PHOSPHORUS (BEAKER) (test emtl=434) 2.5 mg/dL 2.3-4.7 [id number] 06:45:00* Test Item Value Reference Range Comments MAGNESIUM (BEAKER) (test slvh=025) 1.8 mg/dL 1.6-2.6 POCT-GLUCOSE [id number] 05:56:00* Test Item Value Reference Range Comments POC-GLUCOSE METER (BEAKER) (test rpgg=7349) 120 mg/dL 70-[address] [facility] [address] [facility] [address] CBC W/PLT COUNT & AUTO [id number] 05:24:00* Test Item Value Reference Range Comments WHITE BLOOD CELL COUNT (BEAKER) (test yawc=707) 6.4 K/ L 3.5-10.5 RED BLOOD CELL COUNT (BEAKER) (test dnhb=189) 2.80 M/ L 4.63-6.08 HEMOGLOBIN (BEAKER) (test fvsx=865) 7.2 GM/DL 13.7-17.5 HEMATOCRIT (BEAKER) (test zknw=949) 25.0 % 40.1-51.0 MEAN CORPUSCULAR VOLUME (BEAKER) (test whks=223) 89.3 fL 79.0-92.2 MEAN CORPUSCULAR HEMOGLOBIN (BEAKER) (test epzv=348) 25.7 pg 25.7-32.2 MEAN CORPUSCULAR HEMOGLOBIN CONC (BEAKER) (test mtwy=202) 28.8 GM/DL 32.3- 36.5 RED CELL DISTRIBUTION WIDTH (BEAKER) (test ajrl=440) 23.0 % 11.6-14.4 PLATELET COUNT (BEAKER) (test nvwp=756) 295 K/CU MM 150-450 MEAN PLATELET VOLUME (BEAKER) (test nhsh=434) 10.6 fL 9.4-12.4 NUCLEATED RED BLOOD CELLS (BEAKER) (test otvi=350) 0 /100 WBC 0-0 NEUTROPHILS RELATIVE PERCENT (BEAKER) (test tzjw=149) 54 % LYMPHOCYTES RELATIVE PERCENT (BEAKER) (test orko=917) 27 % MONOCYTES RELATIVE PERCENT (BEAKER) (test jibg=273) 12 % EOSINOPHILS RELATIVE PERCENT (BEAKER) (test qhjj=858) 6 % BASOPHILS RELATIVE PERCENT (BEAKER) (test xvfl=369) 1 % NEUTROPHILS ABSOLUTE COUNT (BEAKER) (test xfzz=594) 3.44 K/ L 1.78-5.38 LYMPHOCYTES ABSOLUTE COUNT (BEAKER) (test thfg=086) 1.72 K/ L 1.32-3.57 MONOCYTES ABSOLUTE COUNT (BEAKER) (test bbfn=929) 0.74 K/ L 0.30-0.82 EOSINOPHILS ABSOLUTE COUNT (BEAKER) (test bvxc=866) 0.40 K/ L 0.04-0.54 BASOPHILS ABSOLUTE COUNT (BEAKER) (test xwpj=854) 0.05 K/ L 0.01-0.08 IMMATURE GRANULOCYTES-RELATIVE PERCENT (BEAKER) (test kjmj=4457) 0 % 0-1 POCT-GLUCOSE [id number] 23:41:00* Test Item Value Reference Range Comments POC-GLUCOSE METER (BEAKER) (test fnfw=6861) 121 mg/dL 70-110 [address]ED AT [address] [address] POCT-GLUCOSE [id number] 17:37:00* Test Item Value Reference Range Comments POC-GLUCOSE METER (BEAKER) (test cphf=3164) 136 mg/dL 70-110 TESTED AT [address] [address] [id number] 13:54:00* Test Item Value Reference Range Comments POTASSIUM (BEAKER) (test vxma=234) 3.9 meq/L 3.5-5.1 [id number] 13:54:00* Test Item Value Reference Range Comments MAGNESIUM (BEAKER) (test osjm=530) 1.7 mg/dL 1.6-2.6 POCT-GLUCOSE [id number] 11:43:00* Test Item Value Reference Range Comments POC-GLUCOSE METER (BEAKER) (test fjjw=8542) 148 mg/dL 70-110 TESTED AT [address] [address] URINALYSIS W/ [id number] 11:13:00* Test Item Value Reference Range Comments COLOR (BEAKER) (test mexy=507) Yellow CLARITY (BEAKER) (test hjea=958) Clear SPECIFIC GRAVITY UA (BEAKER) (test zdaq=963) 1.013 1.001-1.035 PH UA (BEAKER) (test ufoo=337) 6.5 5.0-8.0 PROTEIN UA (BEAKER) (test qqeo=925) 20 mg/dL Negative GLUCOSE UA (BEAKER) (test jzxy=348) Negative Negative KETONES UA (BEAKER) (test fyno=808) Negative Negative BILIRUBIN UA (BEAKER) (test gxbj=588) Negative Negative BLOOD UA (BEAKER) (test yhkx=128) Moderate Negative NITRITE UA (BEAKER) (test bwmh=136) Negative Negative LEUKOCYTE ESTERASE UA (BEAKER) (test rnnr=573) Small Negative UROBILINOGEN UA (BEAKER) (test powe=188) 0.2 mg/dL 0.2-1.0 RBC UA (BEAKER) (test pzon=792) 104 /HPF WBC UA (BEAKER) (test liqf=942) 14 /HPF BACTERIA (BEAKER) (test gsjn=186) Occasional MUCUS (BEAKER) (test lwac=1488) Rare SOURCE(BEAKER) (test bkln=9189) Urine, Walker [place], ESOPH, SWALLOW FUNCTION, WITH CINE OR [id number] 10:57:00Reason for exam:->eval swallow functionFINAL REPORT Modified barium swallow. CLINICAL HISTORY: eval swallow function. COMPARISON STUDY: None available. FINDINGS: Under the direction of patient's speech pathologist, the patient ingested thin barium, thick barium, barium-coated crackers and barium pur\\[id number]\\[id number]. Please refer to the speech pathology notes for further discussion. Fluoroscopy time: 1.2 minutes. One image. Signed: Harinder Posey MDReport Verified Date/Time: 09/18/2017 10:57:37 Reading Location: [address] Ultrasound Reading Room , CHEST, 1 VIEW, NON [id number] 09:50:00Reason for exam:->medistinal abscessShould this be performed at the bedside?->YesFINAL REPORT CHEST ONE VIEW HISTORY: Mediastinal abscess COMPARISON: 09/17/2017 FINDINGS: Single portable AP examination of the chest was performed. Moderate right and minimal left pleural effusions, unchanged in appearance. Mild perihilar edema on the right and areas of bibasilar atelectasis are also unchanged. No pneumothorax is identified. The cardiac shadow is partially obscured. Left central venous port catheter tip is in the region of the distal superior vena cava. Tracheostomy tube tip is well above the luis. Posterior fusion hardware in the cervical spine is partially imaged. Signed: Jo Babb MDReport Verified Date/Time: 09/18/2017 09:50:21 Reading Location: [facility] Radiology Reading Room -GLUCOSE [id number] 06:02:00* Test Item Value Reference Range Comments POC-GLUCOSE METER (BEAKER) (test yint=9325) 115 mg/dL 70-[address] [facility] [address] [place] [id number] BASIC METABOLIC [id number] 05:17:00* Test Item Value Reference Range Comments SODIUM (BEAKER) (test cvdw=370) 139 meq/L 136-145 POTASSIUM (BEAKER) (test ojaa=426) 3.6 meq/L 3.5-5.1 CHLORIDE (BEAKER) (test kvgp=935) 100 meq/L 98-107 CO2 (BEAKER) (test pzkc=439) 35 meq/L 22-29 BLOOD UREA NITROGEN (BEAKER) (test wugw=388) 18 mg/dL 7-21 CREATININE (BEAKER) (test uhsm=233) 0.34 mg/dL 0.57-1.25 GLUCOSE RANDOM (BEAKER) (test phfw=489) 105 mg/dL 70-105 CALCIUM (BEAKER) (test ffqy=732) 7.6 mg/dL 8.4-10.2 EGFR (BEAKER) (test sgrq=3735) 274 mL/min/1.73 sq m ESTIMATED GFR IS NOT ACCURATE CREATININE CLEARANCE IN PREDICTING GLOMERULAR FILTRATION RATE. ESTIMATED GFR IS NOT APPLICABLE FOR DIALYSIS PATIENTS. [id number] 05:15:00* Test Item Value Reference Range Comments PHOSPHORUS (BEAKER) (test txbh=567) 3.0 mg/dL 2.3-4.7 [id number] 05:15:00* Test Item Value Reference Range Comments MAGNESIUM (BEAKER) (test vquz=250) 1.8 mg/dL 1.6-2.6 CBC W/PLT COUNT & AUTO [id number] 04:41:00* Test Item Value Reference Range Comments WHITE BLOOD CELL COUNT (BEAKER) (test fzti=884) 7.1 K/ L 3.5-10.5 RED BLOOD CELL COUNT (BEAKER) (test iyru=584) 2.96 M/ L 4.63-6.08 HEMOGLOBIN (BEAKER) (test rhhj=770) 7.7 GM/DL 13.7-17.5 HEMATOCRIT (BEAKER) (test wmky=013) 26.4 % 40.1-51.0 MEAN CORPUSCULAR VOLUME (BEAKER) (test vdqq=548) 89.2 fL 79.0-92.2 MEAN CORPUSCULAR HEMOGLOBIN (BEAKER) (test ykxn=754) 26.0 pg 25.7-32.2 MEAN CORPUSCULAR HEMOGLOBIN CONC (BEAKER) (test apwo=490) 29.2 GM/DL 32.3- 36.5 RED CELL DISTRIBUTION WIDTH (BEAKER) (test dtnb=521) 23.2 % 11.6-14.4 PLATELET COUNT (BEAKER) (test hzqp=337) 286 K/CU MM 150-450 MEAN PLATELET VOLUME (BEAKER) (test foel=999) 10.6 fL 9.4-12.4 NUCLEATED RED BLOOD CELLS (BEAKER) (test nbmc=160) 0 /100 WBC 0-0 NEUTROPHILS RELATIVE PERCENT (BEAKER) (test wfyd=239) 57 % LYMPHOCYTES RELATIVE PERCENT (BEAKER) (test meuc=049) 24 % MONOCYTES RELATIVE PERCENT (BEAKER) (test uimi=373) 11 % EOSINOPHILS RELATIVE PERCENT (BEAKER) (test urrv=339) 6 % BASOPHILS RELATIVE PERCENT (BEAKER) (test kgho=258) 1 % NEUTROPHILS ABSOLUTE COUNT (BEAKER) (test tesn=742) 4.04 K/ L 1.78-5.38 LYMPHOCYTES ABSOLUTE COUNT (BEAKER) (test muqg=624) 1.72 K/ L 1.32-3.57 MONOCYTES ABSOLUTE COUNT (BEAKER) (test ugrt=152) 0.77 K/ L 0.30-0.82 EOSINOPHILS ABSOLUTE COUNT (BEAKER) (test mtop=637) 0.45 K/ L 0.04-0.54 BASOPHILS ABSOLUTE COUNT (BEAKER) (test cvxg=178) 0.06 K/ L 0.01-0.08 IMMATURE GRANULOCYTES-RELATIVE PERCENT (BEAKER) (test cbwm=7318) 0 % 0-1 POCT-GLUCOSE [id number] 00:05:00* Test Item Value Reference Range Comments POC-GLUCOSE METER (BEAKER) (test zbrc=8288) 93 mg/dL 70-110 [address]ED AT [address] [address] POCT-GLUCOSE [id number] 18:51:00* Test Item Value Reference Range Comments POC-GLUCOSE METER (BEAKER) (test rxuh=6538) 110 mg/dL 70-110 TESTED AT [address] [address] POCT-GLUCOSE [id number] 12:57:00* Test Item Value Reference Range Comments POC-GLUCOSE METER (BEAKER) (test inln=3903) 113 mg/dL 70-110 TESTED AT [address] [address] CREATINE KINASE (CK)2017-09-17 09:28:00* Test Item Value Reference Range Comments CREATINE KINASE TOTAL (BEAKER) (test bmst=441) 34 U/L 29-200 CBC W/PLT COUNT & AUTO [id number] 09:17:00* Test Item Value Reference Range Comments WHITE BLOOD CELL COUNT (BEAKER) (test jucb=469) 6.3 K/ L 3.5-10.5 RED BLOOD CELL COUNT (BEAKER) (test ufbu=300) 2.86 M/ L 4.63-6.08 HEMOGLOBIN (BEAKER) (test ovks=725) 7.4 GM/DL 13.7-17.5 HEMATOCRIT (BEAKER) (test hrok=630) 25.5 % 40.1-51.0 MEAN CORPUSCULAR VOLUME (BEAKER) (test vmrf=639) 89.2 fL 79.0-92.2 MEAN CORPUSCULAR HEMOGLOBIN (BEAKER) (test dcgq=798) 25.9 pg 25.7-32.2 MEAN CORPUSCULAR HEMOGLOBIN CONC (BEAKER) (test qbqv=946) 29.0 GM/DL 32.3- 36.5 RED CELL DISTRIBUTION WIDTH (BEAKER) (test etql=702) 23.1 % 11.6-14.4 PLATELET COUNT (BEAKER) (test ddqp=449) 255 K/CU MM 150-450 MEAN PLATELET VOLUME (BEAKER) (test lmbn=736) 10.4 fL 9.4-12.4 NUCLEATED RED BLOOD CELLS (BEAKER) (test skhr=189) 0 /100 WBC 0-0 NEUTROPHILS RELATIVE PERCENT (BEAKER) (test cpwa=441) 55 % LYMPHOCYTES RELATIVE PERCENT (BEAKER) (test wuhk=166) 29 % MONOCYTES RELATIVE PERCENT (BEAKER) (test joti=481) 10 % EOSINOPHILS RELATIVE PERCENT (BEAKER) (test nppd=333) 5 % BASOPHILS RELATIVE PERCENT (BEAKER) (test eood=921) 1 % NEUTROPHILS ABSOLUTE COUNT (BEAKER) (test jpcy=792) 3.43 K/ L 1.78-5.38 LYMPHOCYTES ABSOLUTE COUNT (BEAKER) (test yhah=418) 1.83 K/ L 1.32-3.57 MONOCYTES ABSOLUTE COUNT (BEAKER) (test jeqs=957) 0.64 K/ L 0.30-0.82 EOSINOPHILS ABSOLUTE COUNT (BEAKER) (test zgoe=959) 0.33 K/ L 0.04-0.54 BASOPHILS ABSOLUTE COUNT (BEAKER) (test qpqf=342) 0.05 K/ L 0.01-0.08 IMMATURE GRANULOCYTES-RELATIVE PERCENT (BEAKER) (test jbht=3533) 0 % 0-1 RAD, CHEST, 1 VIEW, NON [id number] 06:29:00Reason for exam:->medistinal abscessShould this be performed at the bedside?->YesFINAL REPORT RAD, CHEST, 1 VIEW, NON DEPT INDICATION: medistinal abscess COMPARISON : Prior day's exam TECHNIQUE: Portable frontal view of the chest. IMPRESSION: Lines and tubes stable.Cardiomediastinal silhouette stable.Stable large bilateral pleural effusions.No active pulmonary edema.No acute osseous abnormality. Signed: May Talavera MDReport Verified Date/Time: 09/17/2017 06 :29:40 Reading Location: [address] Consult Reading Room - GLUCOSE [id number] 06:21:00* Test Item Value Reference Range Comments POC-GLUCOSE METER (BEAKER) (test aayd=4673) 91 mg/dL 70-[address] [facility] [address] [facility] [address] BASIC METABOLIC [id number] 04:37:00* Test Item Value Reference Range Comments SODIUM (BEAKER) (test qbnd=920) 140 meq/L 136-145 POTASSIUM (BEAKER) (test wzvt=477) 3.6 meq/L 3.5-5.1 CHLORIDE (BEAKER) (test wzol=914) 102 meq/L 98-107 CO2 (BEAKER) (test fxbz=500) 33 meq/L 22-29 BLOOD UREA NITROGEN (BEAKER) (test kfjz=404) 16 mg/dL 7-21 CREATININE (BEAKER) (test tjdn=216) 0.34 mg/dL 0.57-1.25 GLUCOSE RANDOM (BEAKER) (test tbia=597) 93 mg/dL 70-105 CALCIUM (BEAKER) (test fqwf=952) 7.6 mg/dL 8.4-10.2 EGFR (BEAKER) (test neiv=6828) 274 mL/min/1.73 sq m ESTIMATED GFR IS NOT ACCURATE CREATININE CLEARANCE IN PREDICTING GLOMERULAR FILTRATION RATE. ESTIMATED GFR IS NOT APPLICABLE FOR DIALYSIS PATIENTS. [id number] 04:28:00* Test Item Value Reference Range Comments PHOSPHORUS (BEAKER) (test jgga=759) 2.7 mg/dL 2.3-4.7 [id number] 04:28:00* Test Item Value Reference Range Comments MAGNESIUM (BEAKER) (test uyfw=268) 1.2 mg/dL 1.6-2.6 CBC W/PLT COUNT & AUTO [id number] 04:13:00* Test Item Value Reference Range Comments WHITE BLOOD CELL COUNT (BEAKER) (test kllc=741) 7.2 K/ L 3.5-10.5 RED BLOOD CELL COUNT (BEAKER) (test vmaw=840) 2.98 M/ L 4.63-6.08 HEMOGLOBIN (BEAKER) (test reor=209) 7.7 GM/DL 13.7-17.5 HEMATOCRIT (BEAKER) (test ndtt=512) 26.6 % 40.1-51.0 MEAN CORPUSCULAR VOLUME (BEAKER) (test cota=761) 89.3 fL 79.0-92.2 MEAN CORPUSCULAR HEMOGLOBIN (BEAKER) (test rfio=466) 25.8 pg 25.7-32.2 MEAN CORPUSCULAR HEMOGLOBIN CONC (BEAKER) (test edze=900) 28.9 GM/DL 32.3- 36.5 RED CELL DISTRIBUTION WIDTH (BEAKER) (test xvcl=646) 23.5 % 11.6-14.4 PLATELET COUNT (BEAKER) (test epfc=780) 269 K/CU MM 150-450 MEAN PLATELET VOLUME (BEAKER) (test xnnc=927) 10.6 fL 9.4-12.4 NUCLEATED RED BLOOD CELLS (BEAKER) (test qftp=104) 0 /100 WBC 0-0 NEUTROPHILS RELATIVE PERCENT (BEAKER) (test sntg=796) 51 % LYMPHOCYTES RELATIVE PERCENT (BEAKER) (test jiew=649) 30 % MONOCYTES RELATIVE PERCENT (BEAKER) (test iflj=332) 13 % EOSINOPHILS RELATIVE PERCENT (BEAKER) (test ekzw=284) 5 % BASOPHILS RELATIVE PERCENT (BEAKER) (test lrai=778) 1 % NEUTROPHILS ABSOLUTE COUNT (BEAKER) (test pukk=510) 3.67 K/ L 1.78-5.38 LYMPHOCYTES ABSOLUTE COUNT (BEAKER) (test fzol=351) 2.13 K/ L 1.32-3.57 MONOCYTES ABSOLUTE COUNT (BEAKER) (test nioi=537) 0.90 K/ L 0.30-0.82 EOSINOPHILS ABSOLUTE COUNT (BEAKER) (test bbcu=853) 0.39 K/ L 0.04-0.54 BASOPHILS ABSOLUTE COUNT (BEAKER) (test qdlm=844) 0.05 K/ L 0.01-0.08 IMMATURE GRANULOCYTES-RELATIVE PERCENT (BEAKER) (test pucu=6867) 1 % 0-1 POCT-GLUCOSE [id number] 00:04:00* Test Item Value Reference Range Comments POC-GLUCOSE METER (BEAKER) (test cjvs=9016) 121 mg/dL 70-[address] [facility] [address] [facility] [address] POCT-GLUCOSE [id number] 18:41:00* Test Item Value Reference Range Comments POC-GLUCOSE METER (BEAKER) (test fhts=6573) 109 mg/dL 70-[address] [facility] [address] [facility] [address] POCT-GLUCOSE [id number] 12:00:00* Test Item Value Reference Range Comments POC-GLUCOSE METER (BEAKER) (test hsmz=4145) 94 mg/dL 70-[address] [facility] [address] [facility] [address] BODY FLUID CULTURE + GRAM [id number] 11:24:00* Test Item Value Reference Range Comments CULTURE (BEAKER) (test gbsc=5581) No growth GRAM STAIN RESULT (BEAKER) (test lcyk=8143) 1+ WBCs GRAM STAIN RESULT (BEAKER) (test ufum=46821) No organisms seen BODY FLUID CULTURE + GRAM [id number] 11:21:00* Test Item Value Reference Range Comments CULTURE (BEAKER) (test ducd=2504) No growth GRAM STAIN RESULT (BEAKER) (test fmqs=0795) No WBCs GRAM STAIN RESULT (BEAKER) (test zkze=91901) No organisms seen POCT-GLUCOSE [id number] 08:56:00* Test Item Value Reference Range Comments POC-GLUCOSE METER (BEAKER) (test nrpl=7199) 162 mg/dL 70-110 TESTED AT [place] [id number] [facility] [address] RAD, CHEST, 1 VIEW, NON [id number] 07:28:00Reason for exam:->medistinal abscessShould this be performed at the bedside?->YesFINAL REPORT HISTORY : mediastinal abscess. Comparison: 09/15/2017 Comment: Single portable view of the chest was obtained. The correct silhouette size is enlarged. There are findings of pulmonary venous congestion. No pneumothorax is seen. There are eioxi-hfrdzhbm-ysoww bilateral pleural effusions with adjacent areas of airspace disease/consolidation. Support lines and tubes are unchanged. Postsurgical changes/hardware are seen over the lower neck/upper mediastinal region with a possible drain in place. Signed: Fatoumata Francisco Verified Date/Time: 09/16/2017 07:28:17 Reading Location: [facility] Diagnostic Imaging Reading Room - [place] [address] [id number] 05:08:00* Test Item Value Reference Range Comments PHOSPHORUS (BEAKER) (test kxzs=321) 1.7 mg/dL 2.3-4.7 [id number] 05:08:00* Test Item Value Reference Range Comments MAGNESIUM (BEAKER) (test akmm=310) 1.7 mg/dL 1.6-2.6 BASIC METABOLIC [id number] 05:08:00* Test Item Value Reference Range Comments SODIUM (BEAKER) (test wgya=225) 141 meq/L 136-145 POTASSIUM (BEAKER) (test kvsf=323) 4.2 meq/L 3.5-5.1 CHLORIDE (BEAKER) (test kvxp=865) 104 meq/L 98-107 CO2 (BEAKER) (test xray=922) 30 meq/L 22-29 BLOOD UREA NITROGEN (BEAKER) (test gdci=437) 12 mg/dL 7-21 CREATININE (BEAKER) (test nhyi=879) 0.39 mg/dL 0.57-1.25 GLUCOSE RANDOM (BEAKER) (test ujhr=249) 113 mg/dL 70-105 CALCIUM (BEAKER) (test vzzk=120) 8.0 mg/dL 8.4-10.2 EGFR (BEAKER) (test sjpo=3657) 234 mL/min/1.73 sq m ESTIMATED GFR IS NOT ACCURATE CREATININE CLEARANCE IN PREDICTING GLOMERULAR FILTRATION RATE. ESTIMATED GFR IS NOT APPLICABLE FOR DIALYSIS PATIENTS. CBC W/PLT COUNT & AUTO [id number] 04:48:00* Test Item Value Reference Range Comments WHITE BLOOD CELL COUNT (BEAKER) (test jtiw=151) 10.5 K/ L 3.5-10.5 RED BLOOD CELL COUNT (BEAKER) (test lwqw=308) 3.63 M/ L 4.63-6.08 HEMOGLOBIN (BEAKER) (test zueo=538) 9.2 GM/DL 13.7-17.5 HEMATOCRIT (BEAKER) (test owap=672) 31.8 % 40.1-51.0 MEAN CORPUSCULAR VOLUME (BEAKER) (test lkrp=956) 87.6 fL 79.0-92.2 MEAN CORPUSCULAR HEMOGLOBIN (BEAKER) (test coag=731) 25.3 pg 25.7-32.2 MEAN CORPUSCULAR HEMOGLOBIN CONC (BEAKER) (test xyig=287) 28.9 GM/DL 32.3- 36.5 RED CELL DISTRIBUTION WIDTH (BEAKER) (test hnrz=656) 23.6 % 11.6-14.4 PLATELET COUNT (BEAKER) (test ujse=520) 358 K/CU MM 150-450 MEAN PLATELET VOLUME (BEAKER) (test sden=195) 10.8 fL 9.4-12.4 NUCLEATED RED BLOOD CELLS (BEAKER) (test ufsa=901) 0 /100 WBC 0-0 NEUTROPHILS RELATIVE PERCENT (BEAKER) (test anjj=394) 66 % LYMPHOCYTES RELATIVE PERCENT (BEAKER) (test bwbv=405) 18 % MONOCYTES RELATIVE PERCENT (BEAKER) (test fxlv=124) 11 % EOSINOPHILS RELATIVE PERCENT (BEAKER) (test jpbp=756) 4 % BASOPHILS RELATIVE PERCENT (BEAKER) (test hgri=809) 1 % NEUTROPHILS ABSOLUTE COUNT (BEAKER) (test eqbh=017) 6.91 K/ L 1.78-5.38 LYMPHOCYTES ABSOLUTE COUNT (BEAKER) (test omtw=262) 1.84 K/ L 1.32-3.57 MONOCYTES ABSOLUTE COUNT (BEAKER) (test kvvj=968) 1.19 K/ L 0.30-0.82 EOSINOPHILS ABSOLUTE COUNT (BEAKER) (test vcxh=619) 0.41 K/ L 0.04-0.54 BASOPHILS ABSOLUTE COUNT (BEAKER) (test mhfi=447) 0.06 K/ L 0.01-0.08 IMMATURE GRANULOCYTES-RELATIVE PERCENT (BEAKER) (test jhzf=4501) 1 % 0-1 POCT-GLUCOSE [id number] 00:15:00* Test Item Value Reference Range Comments POC-GLUCOSE METER (BEAKER) (test oect=9590) 140 mg/dL 70-[address] [facility] [address] [facility] [address] POCT-GLUCOSE [id number] 18:05:00* Test Item Value Reference Range Comments POC-GLUCOSE METER (BEAKER) (test wjfr=7505) 112 mg/dL 70-110 TESTED AT [address] [address] BASIC METABOLIC [id number] 17:23:00* Test Item Value Reference Range Comments SODIUM (BEAKER) (test bbcn=867) 140 meq/L 136-145 POTASSIUM (BEAKER) (test aqou=900) 4.2 meq/L 3.5-5.1 CHLORIDE (BEAKER) (test tbov=491) 103 meq/L 98-107 CO2 (BEAKER) (test pwqz=545) 33 meq/L 22-29 BLOOD UREA NITROGEN (BEAKER) (test iuve=964) 13 mg/dL 7-21 CREATININE (BEAKER) (test rroy=260) 0.33 mg/dL 0.57-1.25 GLUCOSE RANDOM (BEAKER) (test kxlw=596) 119 mg/dL 70-105 CALCIUM (BEAKER) (test yhwa=896) 7.5 mg/dL 8.4-10.2 EGFR (BEAKER) (test okbb=2942) 283 mL/min/1.73 sq m ESTIMATED GFR IS NOT ACCURATE CREATININE CLEARANCE IN PREDICTING GLOMERULAR FILTRATION RATE. ESTIMATED GFR IS NOT APPLICABLE FOR DIALYSIS PATIENTS. [id number] 17:16:00* Test Item Value Reference Range Comments POTASSIUM (BEAKER) (test uzvm=901) 4.2 meq/L 3.5-5.1 RAD, CHEST, 1 VIEW, NON [id number] 13:58:00Reason for exam:->CT removalShould this be performed at the bedside?->YesFINAL REPORT Chest one view. Clinical history: CT removal Comparison: September 15, 2017 Discussion: A frontal chest is provided. Lines and tubes are unchanged. Stable cardiomediastinal contours. There are qugxu-lr-odkyeshn bilateral pleural effusions. There is also vascular congestion and interstitial edema. No pneumothorax. Signed: Wil Blackmanepbernard Verified Date/Time: 09/15/2017 13:58: 52 Reading Location: [address] Consult Reading Room -GLUCOSE [id number] 12:20:00* Test Item Value Reference Range Comments POC-GLUCOSE METER (BEAKER) (test otyl=5082) 138 mg/dL 70-[address] [facility] [address] [place] [address] MISCELLANEOUS LAB [id number] 10:22:00* Test Item Value Reference Range Comments SCAN RESULT (test jltn=[id number]) MISCELLANEOUS LAB [id number] 10:21:00* Test Item Value Reference Range Comments SCAN RESULT (test ivbv=[id number]) RAD, CHEST, 1 VIEW, NON [id number] 07:25:00Reason for exam:->medistinal abscessShould this be performed at the bedside?->YesFINAL REPORT Chest one view. Clinical history: mediastinal abscess Comparison: 09/14 Discussion: A frontal chest is provided. Lines and tubes are in stable position. Unchanged cardiac mediastinal contours. There are small to moderate bilateral pleural effusions as before. Central vessels appear slightly prominent. No new consolidation, no pneumothorax. Signed: Wil Blackman Verified Date/Time: 09/15/2017 07:25:44 Reading Location: [facility] Radiology Reading Room Electronically signed by: WIL BLACKMAN M.D. on 09/15 07:25 AM POCT-GLUCOSE [id number] 06:24:00* Test Item Value Reference Range Comments POC-GLUCOSE METER (BEAKER) (test seqq=8289) 115 mg/dL 70-[address] [facility] [address] [facility] [address] CBC W/PLT COUNT & AUTO [id number] 05:38:00* Test Item Value Reference Range Comments WHITE BLOOD CELL COUNT (BEAKER) (test xdtb=944) 7.2 K/ L 3.5-10.5 RED BLOOD CELL COUNT (BEAKER) (test fkuu=836) 2.95 M/ L 4.63-6.08 HEMOGLOBIN (BEAKER) (test ueeh=300) 7.6 GM/DL 13.7-17.5 HEMATOCRIT (BEAKER) (test nuxd=842) 25.7 % 40.1-51.0 MEAN CORPUSCULAR VOLUME (BEAKER) (test mowg=440) 87.1 fL 79.0-92.2 MEAN CORPUSCULAR HEMOGLOBIN (BEAKER) (test fdvm=263) 25.8 pg 25.7-32.2 MEAN CORPUSCULAR HEMOGLOBIN CONC (BEAKER) (test yleh=790) 29.6 GM/DL 32.3- 36.5 RED CELL DISTRIBUTION WIDTH (BEAKER) (test wbvh=436) 22.5 % 11.6-14.4 PLATELET COUNT (BEAKER) (test yenq=082) 245 K/CU MM 150-450 MEAN PLATELET VOLUME (BEAKER) (test yowx=995) 11.5 fL 9.4-12.4 NUCLEATED RED BLOOD CELLS (BEAKER) (test igip=769) 0 /100 WBC 0-0 NEUTROPHILS RELATIVE PERCENT (BEAKER) (test glbw=418) 56 % LYMPHOCYTES RELATIVE PERCENT (BEAKER) (test uwod=565) 26 % MONOCYTES RELATIVE PERCENT (BEAKER) (test ihwo=449) 13 % EOSINOPHILS RELATIVE PERCENT (BEAKER) (test sqcz=540) 5 % BASOPHILS RELATIVE PERCENT (BEAKER) (test amxx=919) 0 % NEUTROPHILS ABSOLUTE COUNT (BEAKER) (test shov=805) 4.07 K/ L 1.78-5.38 LYMPHOCYTES ABSOLUTE COUNT (BEAKER) (test ychy=941) 1.86 K/ L 1.32-3.57 MONOCYTES ABSOLUTE COUNT (BEAKER) (test nfce=595) 0.92 K/ L 0.30-0.82 EOSINOPHILS ABSOLUTE COUNT (BEAKER) (test ohsz=849) 0.33 K/ L 0.04-0.54 BASOPHILS ABSOLUTE COUNT (BEAKER) (test dyrp=216) 0.03 K/ L 0.01-0.08 IMMATURE GRANULOCYTES-RELATIVE PERCENT (BEAKER) (test mvvd=5549) 0 % 0-1 BASIC METABOLIC [id number] 05:26:00* Test Item Value Reference Range Comments SODIUM (BEAKER) (test kbuv=216) 142 meq/L 136-145 POTASSIUM (BEAKER) (test obbj=640) 3.8 meq/L 3.5-5.1 CHLORIDE (BEAKER) (test zmlz=877) 106 meq/L 98-107 CO2 (BEAKER) (test ougv=671) 32 meq/L 22-29 BLOOD UREA NITROGEN (BEAKER) (test yhpq=038) 14 mg/dL 7-21 CREATININE (BEAKER) (test wlpu=456) 0.33 mg/dL 0.57-1.25 GLUCOSE RANDOM (BEAKER) (test ukjd=349) 109 mg/dL 70-105 CALCIUM (BEAKER) (test dkaz=289) 7.2 mg/dL 8.4-10.2 EGFR (BEAKER) (test xpcb=3976) 283 mL/min/1.73 sq m ESTIMATED GFR IS NOT ACCURATE CREATININE CLEARANCE IN PREDICTING GLOMERULAR FILTRATION RATE. ESTIMATED GFR IS NOT APPLICABLE FOR DIALYSIS PATIENTS. [id number] 05:25:00* Test Item Value Reference Range Comments PHOSPHORUS (BEAKER) (test pnbo=956) 2.1 mg/dL 2.3-4.7 [id number] 05:25:00* Test Item Value Reference Range Comments MAGNESIUM (BEAKER) (test tntv=993) 1.4 mg/dL 1.6-2.6 POCT-GLUCOSE [id number] 23:41:00* Test Item Value Reference Range Comments POC-GLUCOSE METER (BEAKER) (test zlcj=4801) 129 mg/dL 70-[address] [facility] [address] [facility] [address] POCT-GLUCOSE [id number] 18:33:00* Test Item Value Reference Range Comments POC-GLUCOSE METER (BEAKER) (test zsad=6728) 93 mg/dL 70-110 TESTED AT [place] [address] [facility] [address] [id number] 15:02:00* Test Item Value Reference Range Comments MAGNESIUM (BEAKER) (test rpdx=311) 1.9 mg/dL 1.6-2.6 CREATINE KINASE (CK)2017-09-14 15:02:00* Test Item Value Reference Range Comments CREATINE KINASE TOTAL (BEAKER) (test gbdg=184) 31 U/L 29-200 BODY FLUID CELL COUNT WITH [id number] 12:31:00* Test Item Value Reference Range Comments APPEARANCE FLUID (BEAKER) (test jhhd=985) Hazy Clear COLOR FLUID (BEAKER) (test lmwn=197) Yellow Colorless, Straw RBC FLUID (BEAKER) (test lkba=868) 2000 /cu mm <=1 ADJUSTED WBC FLUID (BEAKER) (test pkik=9707) 1157 /cu mm <=5 LINING CELLS (BEAKER) (test soxi=3167) 12 /cu mm <=1 NEUTROPHILS FLUID (BEAKER) (test vqow=2284) 84 % LYMPHS FLUID (BEAKER) (test inxx=954) 7 % MONO/MACROPHAGE FLUID (BEAKER) (test fbwa=571) 6 % EOSINOPHILS FLUID (BEAKER) (test kyht=346) 3 % BASO FLUID (BEAKER) (test tbph=070) 0 % CONTAINER BODY FLUID (BEAKER) (test mvpq=6402) EDTA Tube POCT-GLUCOSE [id number] 12:16:00* Test Item Value Reference Range Comments POC-GLUCOSE METER (BEAKER) (test gpxx=2587) 150 mg/dL 70-[address] [facility] [address] [facility] [address] [id number] 11:57:00* Test Item Value Reference Range Comments POTASSIUM (BEAKER) (test smfu=582) 4.1 meq/L 3.5-5.1 AMYLASE, BODY [id number] 10:44:00* Test Item Value Reference Range Comments AMYLASE FLUID (BEAKER) (test mokm=924) 12 U/L 30-110 Absence of reference range indicates that normals have not been defined.Assay performance has not been validated for this type of specimen.LACTATE DEHYDROGENASE (LDH), BODY [id number] 10:44:00* Test Item Value Reference Range Comments LACTATE DEHYDROGENASE FLUID (BEAKER) (test qkxf=534) 279 U/L Light's criteria identifies effusions if one or more are pre Absence of reference range indicates that normals have not been defined.Assay performance has not been validated for this type of specimen.PROTEIN, BODY [id number] 10:44:00* Test Item Value Reference Range Comments PROTEIN FLUID (BEAKER) (test vuss=940) 1.8 g/dL Light's criteria identifies effusions if one or more are pre Absence of reference range indicates that normals have not been defined.Assay performance has not been validated for this type of specimen.TRIGLYCERIDES, BODY [id number] 10:44:00* Test Item Value Reference Range Comments TRIGLYCERIDES FLUID (BEAKER) (test gemj=980) 15 mg/dL Reference Range: No Normals Assay performance has not been validated for this type of specimen.GLUCOSE, BODY [id number] 10:44:00* Test Item Value Reference Range Comments GLUCOSE, BODY FLUID (BEAKER) (test wyey=3850) 105 mg/dL 70-110 Absence of reference range indicates that normals have not been defined.Assay performance has not been validated for this type of specimen.SPECIFIC GRAVITY, BODY [id number] 10:39:00* Test Item Value Reference Range Comments SP GRAVITY MISCELLANEOUS (BEAKER) (test pyik=725) 1.005 Reference Range: No NormalsPH, BODY [id number] 10:39:00* Test Item Value Reference Range Comments PH, BODY FLUID (BEAKER) (test eobu=8145) 8.50 POCT-GLUCOSE [id number] 06:40:00* Test Item Value Reference Range Comments POC-GLUCOSE METER (BEAKER) (test oxsd=9012) 135 mg/dL 70-[address] [facility] [address] [facility] [address] HEPATIC FUNCTION [id number] 06:03:00* Test Item Value Reference Range Comments TOTAL PROTEIN (BEAKER) (test mgde=631) 5.2 gm/dL 6.0-8.3 ALBUMIN (BEAKER) (test nhiu=6298) 1.8 g/dL 3.5-5.0 BILIRUBIN TOTAL (BEAKER) (test anql=061) 0.3 mg/dL 0.2-1.2 BILIRUBIN DIRECT (BEAKER) (test uthd=374) 0.2 mg/dL 0.1-0.5 ALKALINE PHOSPHATASE (BEAKER) (test pgpf=661) 143 U/L 40-150 AST (SGOT) (BEAKER) (test avnh=883) 27 U/L 5-34 ALT (SGPT) (BEAKER) (test tuxv=990) 18 U/L 6-55 BASIC METABOLIC [id number] 06:03:00* Test Item Value Reference Range Comments SODIUM (BEAKER) (test qxgj=881) 140 meq/L 136-145 POTASSIUM (BEAKER) (test mhyt=392) 3.9 meq/L 3.5-5.1 CHLORIDE (BEAKER) (test ozcd=116) 103 meq/L 98-107 CO2 (BEAKER) (test kbgt=565) 34 meq/L 22-29 BLOOD UREA NITROGEN (BEAKER) (test qwxh=526) 15 mg/dL 7-21 CREATININE (BEAKER) (test ssye=987) 0.34 mg/dL 0.57-1.25 GLUCOSE RANDOM (BEAKER) (test zasz=986) 115 mg/dL 70-105 CALCIUM (BEAKER) (test fwev=672) 7.1 mg/dL 8.4-10.2 EGFR (BEAKER) (test akrz=8804) 274 mL/min/1.73 sq m ESTIMATED GFR IS NOT ACCURATE CREATININE CLEARANCE IN PREDICTING GLOMERULAR FILTRATION RATE. ESTIMATED GFR IS NOT APPLICABLE FOR DIALYSIS PATIENTS. [id number] 06:00:00* Test Item Value Reference Range Comments PHOSPHORUS (BEAKER) (test zdqv=721) 2.1 mg/dL 2.3-4.7 [id number] 06:00:00* Test Item Value Reference Range Comments MAGNESIUM (BEAKER) (test fmed=283) 1.3 mg/dL 1.6-2.6 [id number] 05:52:00* Test Item Value Reference Range Comments PREALBUMIN (BEAKER) (test kndk=603) 8 mg/dL 14-45 CBC W/PLT COUNT & AUTO [id number] 04:56:00* Test Item Value Reference Range Comments WHITE BLOOD CELL COUNT (BEAKER) (test hzjn=707) 8.6 K/ L 3.5-10.5 RED BLOOD CELL COUNT (BEAKER) (test akso=115) 2.65 M/ L 4.63-6.08 HEMOGLOBIN (BEAKER) (test espj=101) 6.7 GM/DL 13.7-17.5 HEMATOCRIT (BEAKER) (test depx=069) 23.1 % 40.1-51.0 MEAN CORPUSCULAR VOLUME (BEAKER) (test jnem=372) 87.2 fL 79.0-92.2 MEAN CORPUSCULAR HEMOGLOBIN (BEAKER) (test hchx=399) 25.3 pg 25.7-32.2 MEAN CORPUSCULAR HEMOGLOBIN CONC (BEAKER) (test qnvq=329) 29.0 GM/DL 32.3- 36.5 RED CELL DISTRIBUTION WIDTH (BEAKER) (test vbkf=816) 23.0 % 11.6-14.4 PLATELET COUNT (BEAKER) (test layi=636) 248 K/CU MM 150-450 MEAN PLATELET VOLUME (BEAKER) (test mczn=641) 11.2 fL 9.4-12.4 NUCLEATED RED BLOOD CELLS (BEAKER) (test qopk=916) 0 /100 WBC 0-0 NEUTROPHILS RELATIVE PERCENT (BEAKER) (test zqkm=993) 69 % LYMPHOCYTES RELATIVE PERCENT (BEAKER) (test gune=867) 17 % MONOCYTES RELATIVE PERCENT (BEAKER) (test mqvp=193) 10 % EOSINOPHILS RELATIVE PERCENT (BEAKER) (test ovri=716) 4 % BASOPHILS RELATIVE PERCENT (BEAKER) (test rebd=866) 1 % NEUTROPHILS ABSOLUTE COUNT (BEAKER) (test hcwz=656) 5.93 K/ L 1.78-5.38 LYMPHOCYTES ABSOLUTE COUNT (BEAKER) (test wwoi=851) 1.44 K/ L 1.32-3.57 MONOCYTES ABSOLUTE COUNT (BEAKER) (test yfek=575) 0.85 K/ L 0.30-0.82 EOSINOPHILS ABSOLUTE COUNT (BEAKER) (test pfkg=374) 0.30 K/ L 0.04-0.54 BASOPHILS ABSOLUTE COUNT (BEAKER) (test szro=080) 0.05 K/ L 0.01-0.08 IMMATURE GRANULOCYTES-RELATIVE PERCENT (BEAKER) (test peis=6538) 1 % 0-1 RAD, CHEST, 1 VIEW, NON [id number] 03:47:00Reason for exam:->medistinal abscessShould this be performed at the bedside?->YesFINAL REPORT Comparison exam: 09/13/2017 Bilateral pleural effusions and lower lobe atelectasis unchanged. Stable cardiomediastinal contours. Appropriate position of the support hardware. Signed: Jimbo Shaikh Verified Date/Time: 09/14/2017 03:47:02 Reading Location: [address] Ortho Consult Reading Room 03 :47 AM POCT-GLUCOSE [id number] 00:09:00* Test Item Value Reference Range Comments POC-GLUCOSE METER (BEAKER) (test kwpk=9307) 123 mg/dL 70-110 [address]ED AT [address] [address] U/S, DRAINAGE, W/ CATH [id number] 19:17:00Reason for exam:->right pleural effusion drainage and pigtail catheterFINAL REPORT PROCEDURE: Ultrasound-guided placement of right pleural drainage catheter. INDICATION: 51-year-old man with right pleural effusion. COMPARISON: Chest CT 09/12/2017. DESCRIPTION: After obtaining informed written consent, the patient was brought to the procedure room and placed in the supine position. Preliminary ultrasound scan revealed right pleural effusion. A clear path to the pleural effusion was identified. The overlying skin was prepped and draped in the usual, sterile fashion and local 1% lidocaine anesthesia was administered. Under ultrasound guidance, an 8 Australian all-purpose drainage catheter was inserted into the anterolateral right chest and placed into the right pleural space via trocar technique. Approximately 50 cc of serous fluid was aspirated. The catheter was affixed to the skin and connected to Pleur- evac. Samples were sent for analysis. IMPRESSION:Ultrasound-guided placement of 8 Australian right pleural drainage catheter. Signed: Christina Prescott Verified Date/Time: 09/13/2017 19:17:19 Reading Location: [facility] C013Y CT Body Reading Room Electronically signed by: CHRISTINA PRESCOTT MD on 2016 07:17 PM AMYLASE, BODY [id number] 18:23:00* Test Item Value Reference Range Comments AMYLASE FLUID (BEAKER) (test lggs=106) 11 U/L 30-110 Absence of reference range indicates that normals have not been defined.Assay performance has not been validated for this type of specimen.POCT-GLUCOSE [id number] 18:12:00* Test Item Value Reference Range Comments POC-GLUCOSE METER (BEAKER) (test cdgk=6333) 98 mg/dL 70-[address] [facility] [address] [facility] [address] POCT-GLUCOSE [id number] 12:21:00* Test Item Value Reference Range Comments POC-GLUCOSE METER (BEAKER) (test yvts=5076) 143 mg/dL 70-[address] [facility] [address] [facility] [address] [id number] 11:57:00* Test Item Value Reference Range Comments PARTIAL THROMBOPLASTIN TIME (BEAKER) (test yoic=509) 38.7 seconds 22.5-36.0 PROTHROMBIN TIME/[id number] 11:56:00* Test Item Value Reference Range Comments PROTIME (BEAKER) (test ghzw=044) 16.9 seconds 11.7-14.7 INR (BEAKER) (test jlym=942) 1.4 <=5.9 RECOMMENDED COUMADIN/WARFARIN INR THERAPY RANGESSTANDARD DOSE: 2.0 - 3.0 Includes: PROPHYLAXIS for venous thrombosis, systemic embolization; TREATMENT for venous thrombosis and/or pulmonary embolus.HIGH RISK: Target INR is 2.5-3.5 for patients with mechanical heart valves.CBC W/PLT COUNT & AUTO [id number] 07:56:00* Test Item Value Reference Range Comments WHITE BLOOD CELL COUNT (BEAKER) (test rzku=596) 8.0 K/ L 3.5-10.5 RED BLOOD CELL COUNT (BEAKER) (test edzg=885) 3.11 M/ L 4.63-6.08 HEMOGLOBIN (BEAKER) (test hmjc=863) 7.9 GM/DL 13.7-17.5 HEMATOCRIT (BEAKER) (test lfwp=546) 27.0 % 40.1-51.0 MEAN CORPUSCULAR VOLUME (BEAKER) (test bblh=845) 86.8 fL 79.0-92.2 MEAN CORPUSCULAR HEMOGLOBIN (BEAKER) (test jedn=016) 25.4 pg 25.7-32.2 MEAN CORPUSCULAR HEMOGLOBIN CONC (BEAKER) (test ycii=579) 29.3 GM/DL 32.3- 36.5 RED CELL DISTRIBUTION WIDTH (BEAKER) (test mjxa=480) 23.0 % 11.6-14.4 PLATELET COUNT (BEAKER) (test zetk=843) 275 K/CU MM 150-450 MEAN PLATELET VOLUME (BEAKER) (test yevy=342) 11.4 fL 9.4-12.4 NUCLEATED RED BLOOD CELLS (BEAKER) (test cfzh=387) 0 /100 WBC 0-0 NEUTROPHILS RELATIVE PERCENT (BEAKER) (test mkuw=609) 61 % LYMPHOCYTES RELATIVE PERCENT (BEAKER) (test frqb=134) 20 % MONOCYTES RELATIVE PERCENT (BEAKER) (test trxl=393) 12 % EOSINOPHILS RELATIVE PERCENT (BEAKER) (test pkkg=953) 5 % BASOPHILS RELATIVE PERCENT (BEAKER) (test aqgh=570) 1 % NEUTROPHILS ABSOLUTE COUNT (BEAKER) (test mmxb=092) 4.87 K/ L 1.78-5.38 LYMPHOCYTES ABSOLUTE COUNT (BEAKER) (test vcsy=798) 1.62 K/ L 1.32-3.57 MONOCYTES ABSOLUTE COUNT (BEAKER) (test atob=115) 0.92 K/ L 0.30-0.82 EOSINOPHILS ABSOLUTE COUNT (BEAKER) (test zlxu=427) 0.43 K/ L 0.04-0.54 BASOPHILS ABSOLUTE COUNT (BEAKER) (test kacm=547) 0.08 K/ L 0.01-0.08 IMMATURE GRANULOCYTES-RELATIVE PERCENT (BEAKER) (test fwad=7963) 1 % 0-1 BASIC METABOLIC [id number] 07:56:00* Test Item Value Reference Range Comments SODIUM (BEAKER) (test ngoy=026) 138 meq/L 136-145 POTASSIUM (BEAKER) (test vzps=695) 3.9 meq/L 3.5-5.1 CHLORIDE (BEAKER) (test xvee=384) 102 meq/L 98-107 CO2 (BEAKER) (test inga=764) 32 meq/L 22-29 BLOOD UREA NITROGEN (BEAKER) (test sgmd=390) 14 mg/dL 7-21 CREATININE (BEAKER) (test gllv=109) 0.34 mg/dL 0.57-1.25 GLUCOSE RANDOM (BEAKER) (test keaq=160) 106 mg/dL 70-105 CALCIUM (BEAKER) (test ehdj=618) 7.6 mg/dL 8.4-10.2 EGFR (BEAKER) (test xcfs=2844) 274 mL/min/1.73 sq m ESTIMATED GFR IS NOT ACCURATE CREATININE CLEARANCE IN PREDICTING GLOMERULAR FILTRATION RATE. ESTIMATED GFR IS NOT APPLICABLE FOR DIALYSIS PATIENTS. BASIC METABOLIC [id number] 05:28:00* Test Item Value Reference Range Comments SODIUM (BEAKER) (test yaqc=055) 138 meq/L 136-145 POTASSIUM (BEAKER) (test xcky=955) 3.9 meq/L 3.5-5.1 CHLORIDE (BEAKER) (test kgwv=407) 103 meq/L 98-107 CO2 (BEAKER) (test memc=928) 31 meq/L 22-29 BLOOD UREA NITROGEN (BEAKER) (test wlvh=019) 14 mg/dL 7-21 CREATININE (BEAKER) (test lsgh=570) 0.35 mg/dL 0.57-1.25 GLUCOSE RANDOM (BEAKER) (test zjwc=120) 113 mg/dL 70-105 CALCIUM (BEAKER) (test pbbf=913) 7.5 mg/dL 8.4-10.2 EGFR (BEAKER) (test swvk=0815) 265 mL/min/1.73 sq m ESTIMATED GFR IS NOT ACCURATE CREATININE CLEARANCE IN PREDICTING GLOMERULAR FILTRATION RATE. ESTIMATED GFR IS NOT APPLICABLE FOR DIALYSIS PATIENTS. CBC W/PLT COUNT & AUTO [id number] 05:28:00* Test Item Value Reference Range Comments WHITE BLOOD CELL COUNT (BEAKER) (test xbur=467) 8.5 K/ L 3.5-10.5 RED BLOOD CELL COUNT (BEAKER) (test nqka=796) 3.14 M/ L 4.63-6.08 HEMOGLOBIN (BEAKER) (test giat=069) 7.9 GM/DL 13.7-17.5 HEMATOCRIT (BEAKER) (test thps=173) 27.2 % 40.1-51.0 MEAN CORPUSCULAR VOLUME (BEAKER) (test qbgl=663) 86.6 fL 79.0-92.2 MEAN CORPUSCULAR HEMOGLOBIN (BEAKER) (test bfgj=685) 25.2 pg 25.7-32.2 MEAN CORPUSCULAR HEMOGLOBIN CONC (BEAKER) (test mguf=595) 29.0 GM/DL 32.3- 36.5 RED CELL DISTRIBUTION WIDTH (BEAKER) (test dmko=320) 22.8 % 11.6-14.4 PLATELET COUNT (BEAKER) (test euey=581) 273 K/CU MM 150-450 MEAN PLATELET VOLUME (BEAKER) (test xwfs=478) 11.2 fL 9.4-12.4 NUCLEATED RED BLOOD CELLS (BEAKER) (test zqas=625) 0 /100 WBC 0-0 NEUTROPHILS RELATIVE PERCENT (BEAKER) (test zmzf=983) 60 % LYMPHOCYTES RELATIVE PERCENT (BEAKER) (test qzsp=352) 22 % MONOCYTES RELATIVE PERCENT (BEAKER) (test ldnj=995) 11 % EOSINOPHILS RELATIVE PERCENT (BEAKER) (test lfqu=038) 5 % BASOPHILS RELATIVE PERCENT (BEAKER) (test akbs=561) 1 % NEUTROPHILS ABSOLUTE COUNT (BEAKER) (test tugd=617) 5.12 K/ L 1.78-5.38 LYMPHOCYTES ABSOLUTE COUNT (BEAKER) (test vgrb=864) 1.89 K/ L 1.32-3.57 MONOCYTES ABSOLUTE COUNT (BEAKER) (test pwhp=788) 0.96 K/ L 0.30-0.82 EOSINOPHILS ABSOLUTE COUNT (BEAKER) (test czhp=088) 0.40 K/ L 0.04-0.54 BASOPHILS ABSOLUTE COUNT (BEAKER) (test dkhd=648) 0.07 K/ L 0.01-0.08 IMMATURE GRANULOCYTES-RELATIVE PERCENT (BEAKER) (test ange=8368) 1 % 0-1 [id number] 05:27:00* Test Item Value Reference Range Comments PHOSPHORUS (BEAKER) (test kylz=566) 2.2 mg/dL 2.3-4.7 [id number] 05:27:00* Test Item Value Reference Range Comments MAGNESIUM (BEAKER) (test mfpp=575) 1.3 mg/dL 1.6-2.6 POCT-GLUCOSE [id number] 05:25:00* Test Item Value Reference Range Comments POC-GLUCOSE METER (BEAKER) (test spms=7136) 140 mg/dL 70-110 TESTED AT [place] [address] RAD, CHEST, 1 VIEW, NON [id number] 03:36:00Reason for exam:->medistinal abscessShould this be performed at the bedside?->YesFINAL REPORT Comparison exam: 09/12/2017 Bilateral pleural effusions, right greater than left, unchanged. Retrocardiac left lower lobe atelectasis/consolidation. Stable cardiomediastinal contours. Appropriately positioned tracheostomy tube. Left chest port terminates in the superior vena cava. Signed: Jimbo Shaikh MDReport Verified Date/Time: 09/13/2017 03:36:17 Reading Location: [facility] C0X Ortho Consult Reading Room -GLUCOSE [id number] 00:28:00* Test Item Value Reference Range Comments POC-GLUCOSE METER (BEAKER) (test ssvz=8980) 161 mg/dL 70-110 [address]ED AT [address] [address] POCT-GLUCOSE [id number] 18:05:00* Test Item Value Reference Range Comments POC-GLUCOSE METER (BEAKER) (test vghz=6535) 104 mg/dL 70-110 TESTED AT [place] [id number] [facility] [address] CT, SOFT TISSUE NECK, [id number] 18:00:00FINAL REPORT CT neck soft tissues with contrast Comparison: September 01, 2017 Reason for exam: eval for undrained collections ; Discussion: Multiple axial CT images of the neck are provided after IV contrast evaluated from the supraorbital region to the upper chest level. Dose modulation, iterative reconstruction, and/or weight based adjustment of the mA/kV was utilized to reduce the radiation dose to as low as reasonably achievable. The retropharyngeal/prevertebral process is again noted extending from the hypopharynx level to the upper thoracic spine estimated T4/5 level. Regional drains are in place. Visible loculated fluid is suspected in the upper thoracic regions of involvement with the largest fluid collection estimated at 2 to 3 cm craniocaudal and transverse dimension 1 cm along the left-sided ventrolateral spine region. Right-sided paratracheal lymph nodes are visible. No other grossly apparent fluid collection. Bilateral pleural effusions appear larger. Impressions: Persistent suspected loculated retropharyngeal region and paraspinal fluid in the upper thoracic spine as discussed. The appearance is overall improved from the September 01 study. Pleural effusions appear worse. Signed: Evin Griggs Verified Date/Time: 09/12/2017 18:00:01 Reading Location: [address] Neuro Reading Room -GLUCOSE [id number] 12:15:00* Test Item Value Reference Range Comments POC-GLUCOSE METER (BEAKER) (test ctcq=6104) 125 mg/dL 70-110 TESTED AT [place] [id number] [facility] [address] RAD, CHEST, 1 VIEW, NON [id number] 07:26:00Reason for exam:->medistinal abscessShould this be performed at the bedside?->YesFINAL REPORT TECHNIQUE: Frontal view of the chest. INDICATION: 51-year-old man with mediastinal abscess. COMPARISON: Chest radiograph 09/11/2017. FINDINGS: LINES/ TUBES: Unchanged tracheostomy tube and left internal jugular power injectable chest port. LUNGS: Persistent central pulmonary venous congestion with mild interstitial edema. PLEURA: No significant change in size of the bilateral pleural effusions, moderate on the right and small on the left. HEART AND MEDIASTINUM: The enlarged cardiomediastinal silhouette is unchanged. SOFT TISSUES AND BONES: Partially visualized cervical fusion hardware. IMPRESSION: No significant change since 09/11/2017. Signed: Christina Prescott MDReport Verified Date/Time: 09/12/2017 07:26:52 Reading Location: [facility] C013Y CT Body Reading Room Electronically signed by: CHRISTINA PRESCOTT MD on 2016 07:26 AM POCT-GLUCOSE [id number] 05:49:00* Test Item Value Reference Range Comments POC-GLUCOSE METER (BEAKER) (test ldin=0279) 146 mg/dL 70-110 [address]ED AT [address] [address] BASIC METABOLIC [id number] 05:42:00* Test Item Value Reference Range Comments SODIUM (BEAKER) (test oggk=890) 140 meq/L 136-145 POTASSIUM (BEAKER) (test itlv=536) 4.0 meq/L 3.5-5.1 CHLORIDE (BEAKER) (test bvsx=910) 104 meq/L 98-107 CO2 (BEAKER) (test gpsb=735) 30 meq/L 22-29 BLOOD UREA NITROGEN (BEAKER) (test spqi=926) 17 mg/dL 7-21 CREATININE (BEAKER) (test lyge=106) 0.37 mg/dL 0.57-1.25 GLUCOSE RANDOM (BEAKER) (test yiln=605) 115 mg/dL 70-105 CALCIUM (BEAKER) (test fqma=593) 7.6 mg/dL 8.4-10.2 EGFR (BEAKER) (test lmdd=8254) 248 mL/min/1.73 sq m ESTIMATED GFR IS NOT ACCURATE CREATININE CLEARANCE IN PREDICTING GLOMERULAR FILTRATION RATE. ESTIMATED GFR IS NOT APPLICABLE FOR DIALYSIS PATIENTS. CBC W/PLT COUNT & AUTO [id number] 05:42:00* Test Item Value Reference Range Comments WHITE BLOOD CELL COUNT (BEAKER) (test omfb=965) 9.5 K/ L 3.5-10.5 RED BLOOD CELL COUNT (BEAKER) (test glwh=356) 3.36 M/ L 4.63-6.08 HEMOGLOBIN (BEAKER) (test npyz=300) 8.4 GM/DL 13.7-17.5 HEMATOCRIT (BEAKER) (test apzj=973) 28.7 % 40.1-51.0 MEAN CORPUSCULAR VOLUME (BEAKER) (test ukjp=262) 85.4 fL 79.0-92.2 MEAN CORPUSCULAR HEMOGLOBIN (BEAKER) (test hiiy=938) 25.0 pg 25.7-32.2 MEAN CORPUSCULAR HEMOGLOBIN CONC (BEAKER) (test afxn=473) 29.3 GM/DL 32.3- 36.5 RED CELL DISTRIBUTION WIDTH (BEAKER) (test yybd=939) 22.7 % 11.6-14.4 PLATELET COUNT (BEAKER) (test ygnh=074) 289 K/CU MM 150-450 MEAN PLATELET VOLUME (BEAKER) (test nmgb=224) 11.7 fL 9.4-12.4 NUCLEATED RED BLOOD CELLS (BEAKER) (test hgtl=002) 0 /100 WBC 0-0 NEUTROPHILS RELATIVE PERCENT (BEAKER) (test usyu=106) 57 % LYMPHOCYTES RELATIVE PERCENT (BEAKER) (test jmog=219) 26 % MONOCYTES RELATIVE PERCENT (BEAKER) (test zmyz=370) 12 % EOSINOPHILS RELATIVE PERCENT (BEAKER) (test lggj=354) 3 % BASOPHILS RELATIVE PERCENT (BEAKER) (test wgkc=525) 1 % NEUTROPHILS ABSOLUTE COUNT (BEAKER) (test rdcg=546) 5.42 K/ L 1.78-5.38 LYMPHOCYTES ABSOLUTE COUNT (BEAKER) (test ihdv=025) 2.48 K/ L 1.32-3.57 MONOCYTES ABSOLUTE COUNT (BEAKER) (test fkox=583) 1.14 K/ L 0.30-0.82 EOSINOPHILS ABSOLUTE COUNT (BEAKER) (test obdy=708) 0.32 K/ L 0.04-0.54 BASOPHILS ABSOLUTE COUNT (BEAKER) (test vbub=777) 0.08 K/ L 0.01-0.08 IMMATURE GRANULOCYTES-RELATIVE PERCENT (BEAKER) (test ojmf=7714) 1 % 0-1 [id number] 05:33:00* Test Item Value Reference Range Comments PHOSPHORUS (BEAKER) (test gucp=761) 2.2 mg/dL 2.3-4.7 [id number] 05:33:00* Test Item Value Reference Range Comments MAGNESIUM (BEAKER) (test ywtv=340) 1.7 mg/dL 1.6-2.6 POCT-GLUCOSE [id number] 00:24:00* Test Item Value Reference Range Comments POC-GLUCOSE METER (BEAKER) (test qrux=5463) 140 mg/dL 70-110 [address]ED AT [address] [address] OCCULT BLOOD, [id number] 18:11:00* Test Item Value Reference Range Comments FECAL OCCULT BLOOD (BEAKER) (test rqrm=908) Negative Negative POCT-GLUCOSE [id number] 18:10:00* Test Item Value Reference Range Comments POC-GLUCOSE METER (BEAKER) (test dhfh=3573) 106 mg/dL 70-110 TESTED AT [address] [address] POCT-GLUCOSE [id number] 12:29:00* Test Item Value Reference Range Comments POC-GLUCOSE METER (BEAKER) (test kwli=0949) 108 mg/dL 70-110 TESTED AT [address] [address] POCT-GLUCOSE [id number] 06:32:00* Test Item Value Reference Range Comments POC-GLUCOSE METER (BEAKER) (test wyda=5690) 120 mg/dL 70-110 TESTED AT [address] [address] [id number] 06:06:00* Test Item Value Reference Range Comments PHOSPHORUS (BEAKER) (test tygh=081) 1.7 mg/dL 2.3-4.7 [id number] 06:06:00* Test Item Value Reference Range Comments MAGNESIUM (BEAKER) (test wbla=296) 1.5 mg/dL 1.6-2.6 BASIC METABOLIC [id number] 06:06:00* Test Item Value Reference Range Comments SODIUM (BEAKER) (test paqg=471) 141 meq/L 136-145 POTASSIUM (BEAKER) (test dinh=291) 3.7 meq/L 3.5-5.1 CHLORIDE (BEAKER) (test xeei=726) 104 meq/L 98-107 CO2 (BEAKER) (test mxpj=109) 34 meq/L 22-29 BLOOD UREA NITROGEN (BEAKER) (test kmxz=450) 18 mg/dL 7-21 CREATININE (BEAKER) (test hxzy=792) 0.32 mg/dL 0.57-1.25 GLUCOSE RANDOM (BEAKER) (test abkn=498) 100 mg/dL 70-105 CALCIUM (BEAKER) (test sfzs=005) 7.3 mg/dL 8.4-10.2 EGFR (BEAKER) (test lmiq=0634) 293 mL/min/1.73 sq m ESTIMATED GFR IS NOT ACCURATE CREATININE CLEARANCE IN PREDICTING GLOMERULAR FILTRATION RATE. ESTIMATED GFR IS NOT APPLICABLE FOR DIALYSIS PATIENTS. CBC W/PLT COUNT & AUTO [id number] 06:04:00* Test Item Value Reference Range Comments WHITE BLOOD CELL COUNT (BEAKER) (test orfg=201) 7.1 K/ L 3.5-10.5 RED BLOOD CELL COUNT (BEAKER) (test qngq=893) 2.85 M/ L 4.63-6.08 HEMOGLOBIN (BEAKER) (test svni=151) 7.1 GM/DL 13.7-17.5 HEMATOCRIT (BEAKER) (test jncb=576) 24.5 % 40.1-51.0 MEAN CORPUSCULAR VOLUME (BEAKER) (test fyay=930) 86.0 fL 79.0-92.2 MEAN CORPUSCULAR HEMOGLOBIN (BEAKER) (test pknk=429) 24.9 pg 25.7-32.2 MEAN CORPUSCULAR HEMOGLOBIN CONC (BEAKER) (test naet=760) 29.0 GM/DL 32.3- 36.5 RED CELL DISTRIBUTION WIDTH (BEAKER) (test vofr=212) 22.3 % 11.6-14.4 PLATELET COUNT (BEAKER) (test wabv=434) 212 K/CU MM 150-450 MEAN PLATELET VOLUME (BEAKER) (test uwmm=741) 11.9 fL 9.4-12.4 NUCLEATED RED BLOOD CELLS (BEAKER) (test qvwd=554) 0 /100 WBC 0-0 NEUTROPHILS RELATIVE PERCENT (BEAKER) (test lkxk=811) 54 % LYMPHOCYTES RELATIVE PERCENT (BEAKER) (test ulsg=262) 30 % MONOCYTES RELATIVE PERCENT (BEAKER) (test tehv=852) 12 % EOSINOPHILS RELATIVE PERCENT (BEAKER) (test zpog=514) 3 % BASOPHILS RELATIVE PERCENT (BEAKER) (test iosc=336) 1 % NEUTROPHILS ABSOLUTE COUNT (BEAKER) (test uoam=662) 3.84 K/ L 1.78-5.38 LYMPHOCYTES ABSOLUTE COUNT (BEAKER) (test jigp=472) 2.15 K/ L 1.32-3.57 MONOCYTES ABSOLUTE COUNT (BEAKER) (test jyzf=757) 0.83 K/ L 0.30-0.82 EOSINOPHILS ABSOLUTE COUNT (BEAKER) (test ukcm=262) 0.24 K/ L 0.04-0.54 BASOPHILS ABSOLUTE COUNT (BEAKER) (test ylpn=911) 0.04 K/ L 0.01-0.08 IMMATURE GRANULOCYTES-RELATIVE PERCENT (BEAKER) (test yygf=9218) 0 % 0-1 RAD, CHEST, 1 VIEW, NON [id number] 03:48:00Reason for exam:->medistinal abscessShould this be performed at the bedside?->YesFINAL REPORT RAD, CHEST, 1 VIEW, NON DEPT INDICATION: medistinal abscess COMPARISON : Prior day's exam FINDINGS: Portable frontal view of the chest. IMPRESSION: Support Lines: Stable. Lungs and pleura: Unchanged interstitial congestion. Redistribution of pleural effusions due to changes in positioning with respect to the prior exam. No pneumothorax.Heart and mediastinum: Stable contours. Additional findings: None. Signed: JR Newton Robert MDReport Verified Date/Time: 09/11/2017 03:48:17 Reading Location: [address] Reading Room -GLUCOSE [id number] 23:48:00* Test Item Value Reference Range Comments POC-GLUCOSE METER (BEAKER) (test yrel=9466) 130 mg/dL 70-[address] [facility] [address] [facility] [address] POCT-GLUCOSE [id number] 18:28:00* Test Item Value Reference Range Comments POC-GLUCOSE METER (BEAKER) (test szvi=8850) 118 mg/dL 70-[address] [facility] [address] [facility] [address] POCT-GLUCOSE [id number] 11:59:00* Test Item Value Reference Range Comments POC-GLUCOSE METER (BEAKER) (test paoz=4762) 135 mg/dL 70-[address] [facility] [address] [facility] [address] POCT-GLUCOSE [id number] 06:31:00* Test Item Value Reference Range Comments POC-GLUCOSE METER (BEAKER) (test wlsj=8526) 129 mg/dL 70-[address] [facility] [address] [facility] [address] BASIC METABOLIC [id number] 05:39:00* Test Item Value Reference Range Comments SODIUM (BEAKER) (test aqad=396) 142 meq/L 136-145 POTASSIUM (BEAKER) (test vfxt=789) 3.9 meq/L 3.5-5.1 CHLORIDE (BEAKER) (test mjyx=836) 104 meq/L 98-107 CO2 (BEAKER) (test aunv=488) 35 meq/L 22-29 BLOOD UREA NITROGEN (BEAKER) (test niqy=165) 22 mg/dL 7-21 CREATININE (BEAKER) (test atqo=411) 0.34 mg/dL 0.57-1.25 GLUCOSE RANDOM (BEAKER) (test sevf=553) 96 mg/dL 70-105 CALCIUM (BEAKER) (test zpap=043) 7.4 mg/dL 8.4-10.2 EGFR (BEAKER) (test rxkw=2782) 274 mL/min/1.73 sq m ESTIMATED GFR IS NOT ACCURATE CREATININE CLEARANCE IN PREDICTING GLOMERULAR FILTRATION RATE. ESTIMATED GFR IS NOT APPLICABLE FOR DIALYSIS PATIENTS. [id number] 05:37:00* Test Item Value Reference Range Comments PHOSPHORUS (BEAKER) (test sjkx=897) 1.9 mg/dL 2.3-4.7 [id number] 05:37:00* Test Item Value Reference Range Comments MAGNESIUM (BEAKER) (test qugc=687) 1.6 mg/dL 1.6-2.6 CBC W/PLT COUNT & AUTO [id number] 05:03:00* Test Item Value Reference Range Comments WHITE BLOOD CELL COUNT (BEAKER) (test jzoo=854) 8.4 K/ L 3.5-10.5 RED BLOOD CELL COUNT (BEAKER) (test luuh=020) 2.99 M/ L 4.63-6.08 HEMOGLOBIN (BEAKER) (test wuan=889) 7.4 GM/DL 13.7-17.5 HEMATOCRIT (BEAKER) (test babk=384) 25.4 % 40.1-51.0 MEAN CORPUSCULAR VOLUME (BEAKER) (test gdkq=767) 84.9 fL 79.0-92.2 MEAN CORPUSCULAR HEMOGLOBIN (BEAKER) (test ykad=281) 24.7 pg 25.7-32.2 MEAN CORPUSCULAR HEMOGLOBIN CONC (BEAKER) (test oxmh=780) 29.1 GM/DL 32.3- 36.5 RED CELL DISTRIBUTION WIDTH (BEAKER) (test bmif=633) 21.9 % 11.6-14.4 PLATELET COUNT (BEAKER) (test hwmp=315) 203 K/CU MM 150-450 MEAN PLATELET VOLUME (BEAKER) (test yuse=353) 11.5 fL 9.4-12.4 NUCLEATED RED BLOOD CELLS (BEAKER) (test bwqu=173) 0 /100 WBC 0-0 NEUTROPHILS RELATIVE PERCENT (BEAKER) (test zsla=134) 65 % LYMPHOCYTES RELATIVE PERCENT (BEAKER) (test ffpi=121) 21 % MONOCYTES RELATIVE PERCENT (BEAKER) (test cpmx=986) 10 % EOSINOPHILS RELATIVE PERCENT (BEAKER) (test emcx=715) 3 % BASOPHILS RELATIVE PERCENT (BEAKER) (test qmfw=171) 1 % NEUTROPHILS ABSOLUTE COUNT (BEAKER) (test tmqx=690) 5.40 K/ L 1.78-5.38 LYMPHOCYTES ABSOLUTE COUNT (BEAKER) (test trwh=777) 1.78 K/ L 1.32-3.57 MONOCYTES ABSOLUTE COUNT (BEAKER) (test sufe=437) 0.85 K/ L 0.30-0.82 EOSINOPHILS ABSOLUTE COUNT (BEAKER) (test stfq=095) 0.23 K/ L 0.04-0.54 BASOPHILS ABSOLUTE COUNT (BEAKER) (test zuwh=667) 0.05 K/ L 0.01-0.08 IMMATURE GRANULOCYTES-RELATIVE PERCENT (BEAKER) (test asxg=8685) 1 % 0-1 RAD, CHEST, 1 VIEW, NON [id number] 03:44:00Reason for exam:->medistinal abscessShould this be performed at the bedside?->YesFINAL REPORT Comparison exam: 09/09/2017 Pulmonary venous congestion and bilateral pleural effusion/lower lobe atelectasis, unchanged. Stable cardiomediastinal contours. Appropriately positioned tracheostomy tube. Left chest port terminates in the superior vena cava. Signed: Jimbo Shaikh MDReport Verified Date/Time: 09/10/2017 03:44:26 Reading Location: [facility] [id number] Ortho Consult Reading Room Electronically signed by: JIMBO SHAIKH M.D. on 09/10 03:44 AM POCT-GLUCOSE [id number] 00:02:00* Test Item Value Reference Range Comments POC-GLUCOSE METER (BEAKER) (test kllp=8335) 111 mg/dL 70-[address] [facility] [address] [facility] [address] POCT-GLUCOSE [id number] 18:36:00* Test Item Value Reference Range Comments POC-GLUCOSE METER (BEAKER) (test gcmg=4327) 122 mg/dL 70-110 TESTED AT [place] [id number] [facility] [address] AMYLASE, BODY [id number] 14:37:00* Test Item Value Reference Range Comments AMYLASE FLUID (BEAKER) (test uqee=876) [address] U/L Absence of reference range indicates that normals have not been defined.Assay performance has not been validated for this type of specimen.FL, ESOPH, SWALLOW FUNCTION, WITH CINE OR [id number] 13:00:00Reason for exam:->to check for persistent leak. known prior perforation 29cm from the teethFINAL REPORT Esophagram Reason for study: History of esophageal perforation and mediastinal abscess, evaluate perforation/leak Discussion: Given the concern for esophageal perforation and history of aspiration during recent modified barium swallow, the patient drank approximately 8 ounces of Isovue-300 contrast material without incident. The esophagus is normal in appearance. No leak or obstruction is seen. No aspiration is identified. The visualized proximal stomach is unremarkable. Impression: Unremarkable esophagram. No leak, obstruction, or aspiration seen Eight fluoroscopic images of the chest were obtained. Fluoroscopy time-1.3 minutes. Signed: Juarez Martinez MDReport Verified Date/Time: 09/09/2017 13:00:11 Reading Location: [facility] C013Y CT Body Reading Room C METABOLIC [id number] 04:25:00* Test Item Value Reference Range Comments SODIUM (BEAKER) (test wacs=082) 143 meq/L 136-145 POTASSIUM (BEAKER) (test eicg=436) 4.1 meq/L 3.5-5.1 CHLORIDE (BEAKER) (test ayfr=906) 105 meq/L 98-107 CO2 (BEAKER) (test qnus=676) 36 meq/L 22-29 BLOOD UREA NITROGEN (BEAKER) (test jdns=317) 24 mg/dL 7-21 CREATININE (BEAKER) (test dkhv=764) 0.33 mg/dL 0.57-1.25 GLUCOSE RANDOM (BEAKER) (test xdkj=282) 99 mg/dL 70-105 CALCIUM (BEAKER) (test grcs=557) 7.5 mg/dL 8.4-10.2 EGFR (BEAKER) (test lklz=9100) 283 mL/min/1.73 sq m ESTIMATED GFR IS NOT ACCURATE CREATININE CLEARANCE IN PREDICTING GLOMERULAR FILTRATION RATE. ESTIMATED GFR IS NOT APPLICABLE FOR DIALYSIS PATIENTS. [id number] 04:23:00* Test Item Value Reference Range Comments PHOSPHORUS (BEAKER) (test xikf=612) 2.0 mg/dL 2.3-4.7 [id number] 04:23:00* Test Item Value Reference Range Comments MAGNESIUM (BEAKER) (test odov=250) 2.1 mg/dL 1.6-2.6 RAD, CHEST, 1 VIEW, NON [id number] 04:19:00Reason for exam:->medistinal abscessShould this be performed at the bedside?->YesFINAL REPORT RAD, CHEST, 1 VIEW, NON DEPT INDICATION: medistinal abscess COMPARISON : Prior day's exam FINDINGS: Portable frontal view of the chest. IMPRESSION: Support Lines: Stable. Lungs and pleura: Unchanged airspace and pleural opacities. No pneumothorax.Heart and mediastinum: Stable contours. Additional findings: None. Signed: JR Aman, Wanda Sheth Verified Date/Time: 09/09/2017 04:19:26 Reading Location: [address] Reading Room W/ PLT COUNT & AUTO [id number] 04:04:00* Test Item Value Reference Range Comments WHITE BLOOD CELL COUNT (BEAKER) (test zfun=542) 7.4 K/ L 3.5-10.5 RED BLOOD CELL COUNT (BEAKER) (test wpxy=619) 3.24 M/ L 4.63-6.08 HEMOGLOBIN (BEAKER) (test fhbi=254) 7.9 GM/DL 13.7-17.5 HEMATOCRIT (BEAKER) (test snga=384) 27.4 % 40.1-51.0 MEAN CORPUSCULAR VOLUME (BEAKER) (test lywv=299) 84.6 fL 79.0-92.2 MEAN CORPUSCULAR HEMOGLOBIN (BEAKER) (test majb=985) 24.4 pg 25.7-32.2 MEAN CORPUSCULAR HEMOGLOBIN CONC (BEAKER) (test qdxl=932) 28.8 GM/DL 32.3- 36.5 RED CELL DISTRIBUTION WIDTH (BEAKER) (test sdnx=739) 21.1 % 11.6-14.4 PLATELET COUNT (BEAKER) (test syox=888) 224 K/CU MM 150-450 MEAN PLATELET VOLUME (BEAKER) (test rvcg=178) 12.0 fL 9.4-12.4 NUCLEATED RED BLOOD CELLS (BEAKER) (test yvaw=942) 0 /100 WBC 0-0 NEUTROPHILS RELATIVE PERCENT (BEAKER) (test mkii=827) 49 % LYMPHOCYTES RELATIVE PERCENT (BEAKER) (test gtkv=428) 31 % MONOCYTES RELATIVE PERCENT (BEAKER) (test cloj=659) 14 % EOSINOPHILS RELATIVE PERCENT (BEAKER) (test mqge=524) 5 % BASOPHILS RELATIVE PERCENT (BEAKER) (test fwkj=885) 1 % NEUTROPHILS ABSOLUTE COUNT (BEAKER) (test mgwp=380) 3.60 K/ L 1.78-5.38 LYMPHOCYTES ABSOLUTE COUNT (BEAKER) (test tmmj=785) 2.28 K/ L 1.32-3.57 MONOCYTES ABSOLUTE COUNT (BEAKER) (test ctsy=857) 1.01 K/ L 0.30-0.82 EOSINOPHILS ABSOLUTE COUNT (BEAKER) (test itzo=418) 0.37 K/ L 0.04-0.54 BASOPHILS ABSOLUTE COUNT (BEAKER) (test nukx=643) 0.04 K/ L 0.01-0.08 IMMATURE GRANULOCYTES-RELATIVE PERCENT (BEAKER) (test tojc=6024) 1 % 0-1 [id number] 19:22:00* Test Item Value Reference Range Comments POTASSIUM (BEAKER) (test svkn=934) 4.0 meq/L 3.5-5.1 [id number] 19:22:00* Test Item Value Reference Range Comments MAGNESIUM (BEAKER) (test ipet=814) 1.7 mg/dL 1.6-2.6 [id number] 19:22:00* Test Item Value Reference Range Comments PHOSPHORUS (BEAKER) (test qyfu=893) 2.5 mg/dL 2.3-4.7 FUNGUS CULTURE + [id number] 14:11:00* Test Item Value Reference Range Comments CULTURE (BEAKER) (test gmsh=8734) <1+ Same organism has been isolated from cultures(s) of the same body site and collection date. Repeat identification and susceptibility testing performed only after consultation with the clinical microbiology laboratory.Refer to previous culture ofCandida tropicalis FUNGUS SMEAR (BEAKER) (test izfh=0199) No fungi seen TOBRAMYCIN LEVEL, [id number] 13:23:00* Test Item Value Reference Range Comments TOBRAMYCIN TROUGH (BEAKER) (test wrmu=577) 0.2 ug/mL 0.5-1.0 Dosing: Target Level (mcg/mL)1-1.5 mg/kg q 8-12 HR 0.5-1.03 -7 mg/kg q 24 HR <0.5Please obtain tobramycin trough 30 min prior to scheduled 1200 dose. Hold dose if level >1. Thank you!CBC W/PLT COUNT & AUTO [id number] 07:30:00* Test Item Value Reference Range Comments WHITE BLOOD CELL COUNT (BEAKER) (test dxmp=634) 6.4 K/ L 3.5-10.5 RED BLOOD CELL COUNT (BEAKER) (test tdco=888) 3.47 M/ L 4.63-6.08 HEMOGLOBIN (BEAKER) (test daxf=805) 8.5 GM/DL 13.7-17.5 HEMATOCRIT (BEAKER) (test mnxo=178) 29.6 % 40.1-51.0 MEAN CORPUSCULAR VOLUME (BEAKER) (test ujkp=215) 85.3 fL 79.0-92.2 MEAN CORPUSCULAR HEMOGLOBIN (BEAKER) (test hiqj=587) 24.5 pg 25.7-32.2 MEAN CORPUSCULAR HEMOGLOBIN CONC (BEAKER) (test rgfl=894) 28.7 GM/DL 32.3- 36.5 RED CELL DISTRIBUTION WIDTH (BEAKER) (test adkk=182) 20.7 % 11.6-14.4 PLATELET COUNT (BEAKER) (test jikt=454) 254 K/CU MM 150-450 MEAN PLATELET VOLUME (BEAKER) (test yxls=035) 11.6 fL 9.4-12.4 NUCLEATED RED BLOOD CELLS (BEAKER) (test lrnt=321) 0 /100 WBC 0-0 NEUTROPHILS RELATIVE PERCENT (BEAKER) (test djnt=940) 49 % LYMPHOCYTES RELATIVE PERCENT (BEAKER) (test ieka=114) 34 % MONOCYTES RELATIVE PERCENT (BEAKER) (test guaf=927) 11 % EOSINOPHILS RELATIVE PERCENT (BEAKER) (test wtfr=728) 5 % BASOPHILS RELATIVE PERCENT (BEAKER) (test royx=235) 1 % NEUTROPHILS ABSOLUTE COUNT (BEAKER) (test qalt=461) 3.10 K/ L 1.78-5.38 LYMPHOCYTES ABSOLUTE COUNT (BEAKER) (test wnzj=858) 2.13 K/ L 1.32-3.57 MONOCYTES ABSOLUTE COUNT (BEAKER) (test omtl=451) 0.70 K/ L 0.30-0.82 EOSINOPHILS ABSOLUTE COUNT (BEAKER) (test przn=066) 0.29 K/ L 0.04-0.54 BASOPHILS ABSOLUTE COUNT (BEAKER) (test neur=300) 0.06 K/ L 0.01-0.08 IMMATURE GRANULOCYTES-RELATIVE PERCENT (BEAKER) (test mxop=9202) 1 % 0-1 [id number] 07:24:00* Test Item Value Reference Range Comments PHOSPHORUS (BEAKER) (test hyhx=684) 1.3 mg/dL 2.3-4.7 BASIC METABOLIC [id number] 06:57:00* Test Item Value Reference Range Comments SODIUM (BEAKER) (test gafd=008) 144 meq/L 136-145 POTASSIUM (BEAKER) (test jkxg=179) 3.4 meq/L 3.5-5.1 CHLORIDE (BEAKER) (test ruql=165) 102 meq/L 98-107 CO2 (BEAKER) (test easf=836) 38 meq/L 22-29 BLOOD UREA NITROGEN (BEAKER) (test jksw=475) 26 mg/dL 7-21 CREATININE (BEAKER) (test yzlk=371) 0.35 mg/dL 0.57-1.25 GLUCOSE RANDOM (BEAKER) (test vpru=525) 107 mg/dL 70-105 CALCIUM (BEAKER) (test njsu=090) 7.7 mg/dL 8.4-10.2 EGFR (BEAKER) (test vwsr=3121) 265 mL/min/1.73 sq m ESTIMATED GFR IS NOT ACCURATE CREATININE CLEARANCE IN PREDICTING GLOMERULAR FILTRATION RATE. ESTIMATED GFR IS NOT APPLICABLE FOR DIALYSIS PATIENTS. [id number] 06:44:00* Test Item Value Reference Range Comments MAGNESIUM (BEAKER) (test dihk=087) 1.4 mg/dL 1.6-2.6 RAD, CHEST, 1 VIEW, NON [id number] 03:50:00Reason for exam:->medistinal abscessShould this be performed at the bedside?->YesFINAL REPORT RAD, CHEST, 1 VIEW, NON DEPT INDICATION: medistinal abscess COMPARISON : Prior day's exam FINDINGS: Portable frontal view of the chest. IMPRESSION: Support Lines: Stable. Lungs and pleura: Stable bilateral effusions. Associated relaxation atelectasis noted. No pneumothorax.Heart and mediastinum: Stable contours. Additional findings: None. Signed: JR Newton Robert MDReport Verified Date/Time: 09/08/2017 03:50:10 Reading Location: [address] Reading Room Electronically signed by: WANDA NEWTON on 03:50 AM CREATINE KINASE (CK)2017-09-07 16:26:00* Test Item Value Reference Range Comments CREATINE KINASE TOTAL (BEAKER) (test xbtw=410) 22 U/L 29-200 SURGICALLY OBTAINED CULTURE + GRAM [id number] 10:47:00* Test Item Value Reference Range Comments CULTURE (BEAKER) (test lrpn=4292) Amikacin (test code=1) Ampicillin + Sulbactam (test code=6) Cefepime (test code=51) Ceftazidime (test code=27) Ciprofloxacin (test code=7) Gentamicin (test code=18) Imipenem (test code=19) Levofloxacin (test code=22) Meropenem (test code=34) Piperacillin + Tazobactam (test code=29) Tobramycin (test code=25) Trimethoprim + Sulfamethoxazole (test code=47) Tigecycline (test bgmr=979) Susceptible >0-0 , No Interpretations Established <=0 or >0 Tobramycin (test code=25) Susceptible 0-4 , Resistant <0 or >4 Trimethoprim + Sulfamethoxazole (test code=47) Susceptible 0-40 , Resistant <0 or >40 CULTURE (BEAKER) (test mcbn=9983) VANCOMYCIN RESISTANT ENTEROCOCCUS SPECIES 1+ Acinetobacter baumannii complex Ampicillin (test code=26) Linezolid (test code=40) Vancomycin (test code=13) Daptomycin (test code=59) CULTURE (BEAKER) (test fmtd=2114) <1+ Vancomycin resistant Enterococcus species CULTURE (BEAKER) (test kemp=1095) MELY TROPICALIS <1+ Mely tropicalis 5-Flurocytosine (test pkpg=427) Caspofungin acetate (test paye=870) Fluconazole (test aabp=928) Itraconazole (test hsne=827) Micafungin (test ewys=291) Voriconazole (test srku=582) Amphotericin B (test ixjp=283) Susceptible >0-0 , No Interpretations Established <=0 or >0 Caspofungin acetate (test hfjs=201) Susceptible 0-0.25 , Non Fluconazole (test cxmh=303) Susceptible 0-2 , Dose Dependent Susceptible < 0 or >2 , Resi Itraconazole (test fyyp=415) Susceptible 0-0.125 , Dose Dependent Susceptible <0 or >.125 Micafungin (test uhfl=776) Susceptible 0-0.25 , Non Posaconazole (test ncpl=194) Susceptible >0-0 , No Interpretations Established <=0 or >0 Voriconazole (test axgf=461) Susceptible 0-0.12 , Dose Dependent Susceptible <0 or >.12 , CULTURE (BEAKER) (test ztie=3650) 1+ Lactobacillus species GRAM STAIN RESULT (BEAKER) (test capr=2901) No WBCs GRAM STAIN RESULT (BEAKER) (test wler=767449) No organisms seen RAD, CHEST, 1 VIEW, NON [id number] 04:49:00Reason for exam:->medistinal abscessShould this be performed at the bedside?->YesFINAL REPORT Comparison exam: 09/06/2017 Bilateral pleural effusions right greater than left and lower lobe airspace opacities, unchanged. Stable cardiomediastinal contours. Appropriate position of the support hardware. Signed: Jimbo Shaikh MDReport Verified Date/Time: 09/07/2017 04:49:16 Reading Location: [facility] C013X Ortho Consult Reading Room [id number] 04:39 :00* Test Item Value Reference Range Comments PHOSPHORUS (BEAKER) (test eeom=037) 1.1 mg/dL 2.3-4.7 BASIC METABOLIC [id number] 04:26:00* Test Item Value Reference Range Comments SODIUM (BEAKER) (test tuvf=175) 144 meq/L 136-145 POTASSIUM (BEAKER) (test lktt=422) 3.2 meq/L 3.5-5.1 CHLORIDE (BEAKER) (test aedx=468) 102 meq/L 98-107 CO2 (BEAKER) (test gdyr=551) 39 meq/L 22-29 BLOOD UREA NITROGEN (BEAKER) (test necy=073) 19 mg/dL 7-21 CREATININE (BEAKER) (test bsob=209) 0.37 mg/dL 0.57-1.25 GLUCOSE RANDOM (BEAKER) (test galj=309) 148 mg/dL 70-105 CALCIUM (BEAKER) (test gchb=408) 7.6 mg/dL 8.4-10.2 EGFR (BEAKER) (test wrgh=3145) 248 mL/min/1.73 sq m ESTIMATED GFR IS NOT ACCURATE CREATININE CLEARANCE IN PREDICTING GLOMERULAR FILTRATION RATE. ESTIMATED GFR IS NOT APPLICABLE FOR DIALYSIS PATIENTS. [id number] 04:26:00* Test Item Value Reference Range Comments ALBUMIN (BEAKER) (test djkn=1934) 1.9 g/dL 3.5-5.0 [id number] 04:23:00* Test Item Value Reference Range Comments PREALBUMIN (BEAKER) (test nqee=618) 7 mg/dL 14-45 PROTEIN, [id number] 04:19:00* Test Item Value Reference Range Comments TOTAL PROTEIN (BEAKER) (test yaon=837) 5.3 gm/dL 6.0-8.3 [id number] 04:19:00* Test Item Value Reference Range Comments MAGNESIUM (BEAKER) (test ncdw=566) 1.3 mg/dL 1.6-2.6 CBC W/PLT COUNT & AUTO [id number] 03:52:00* Test Item Value Reference Range Comments WHITE BLOOD CELL COUNT (BEAKER) (test zfrw=102) 7.5 K/ L 3.5-10.5 RED BLOOD CELL COUNT (BEAKER) (test vhwz=620) 3.35 M/ L 4.63-6.08 HEMOGLOBIN (BEAKER) (test ykus=116) 8.4 GM/DL 13.7-17.5 HEMATOCRIT (BEAKER) (test vbbu=683) 28.4 % 40.1-51.0 MEAN CORPUSCULAR VOLUME (BEAKER) (test tgvk=950) 84.8 fL 79.0-92.2 MEAN CORPUSCULAR HEMOGLOBIN (BEAKER) (test ibgh=603) 25.1 pg 25.7-32.2 MEAN CORPUSCULAR HEMOGLOBIN CONC (BEAKER) (test vpdt=290) 29.6 GM/DL 32.3- 36.5 RED CELL DISTRIBUTION WIDTH (BEAKER) (test thml=003) 19.8 % 11.6-14.4 PLATELET COUNT (BEAKER) (test teqz=710) 232 K/CU MM 150-450 MEAN PLATELET VOLUME (BEAKER) (test ksns=887) 10.7 fL 9.4-12.4 NUCLEATED RED BLOOD CELLS (BEAKER) (test zxdf=772) 0 /100 WBC 0-0 NEUTROPHILS RELATIVE PERCENT (BEAKER) (test bzqw=219) 50 % LYMPHOCYTES RELATIVE PERCENT (BEAKER) (test ivgp=969) 33 % MONOCYTES RELATIVE PERCENT (BEAKER) (test ufwm=173) 13 % EOSINOPHILS RELATIVE PERCENT (BEAKER) (test hasq=602) 2 % BASOPHILS RELATIVE PERCENT (BEAKER) (test uywl=148) 1 % NEUTROPHILS ABSOLUTE COUNT (BEAKER) (test siam=712) 3.73 K/ L 1.78-5.38 LYMPHOCYTES ABSOLUTE COUNT (BEAKER) (test ebji=156) 2.49 K/ L 1.32-3.57 MONOCYTES ABSOLUTE COUNT (BEAKER) (test lfts=879) 0.99 K/ L 0.30-0.82 EOSINOPHILS ABSOLUTE COUNT (BEAKER) (test jyzo=856) 0.18 K/ L 0.04-0.54 BASOPHILS ABSOLUTE COUNT (BEAKER) (test jyue=708) 0.04 K/ L 0.01-0.08 IMMATURE GRANULOCYTES-RELATIVE PERCENT (BEAKER) (test iglj=1267) 1 % 0-1 BLOOD [id number] 00:00:00* Test Item Value Reference Range Comments CULTURE (BEAKER) (test ymgh=8940) No growth in 5 days BLOOD [id number] 18:00:00* Test Item Value Reference Range Comments CULTURE (BEAKER) (test gcir=6611) No growth in 5 days BLOOD GAS, [id number] 06:04:00* Test Item Value Reference Range Comments PH ARTERIAL (BEAKER) (test duhv=062) 7.46 7.35-7.45 PCO2 ARTERIAL (BEAKER) (test obmj=923) 55 mmHg 35-45 PO2 ARTERIAL (BEAKER) (test rlky=989) 102 mmHg 80-90 O2 SATURATION ARTERIAL (BEAKER) (test qzlr=448) 97.7 % 96.0-97.0 HCO3 ARTERIAL (BEAKER) (test wsqe=634) 38 mmol/L 21-29 BASE EXCESS ARTERIAL (BEAKER) (test vhpv=300) 12.3 mmol/L -2.0-3.0 PATIENT TEMPERATURE (BEAKER) (test yvst=2716) 37.5 C FIO2 (BEAKER) (test zgqf=8925) 60.0 % BASIC METABOLIC [id number] 05:37:00* Test Item Value Reference Range Comments SODIUM (BEAKER) (test nplw=870) 142 meq/L 136-145 POTASSIUM (BEAKER) (test yvxg=456) 3.7 meq/L 3.5-5.1 CHLORIDE (BEAKER) (test yfnl=775) 104 meq/L 98-107 CO2 (BEAKER) (test jfef=683) 35 meq/L 22-29 BLOOD UREA NITROGEN (BEAKER) (test srlg=075) 16 mg/dL 7-21 CREATININE (BEAKER) (test cwpr=708) 0.38 mg/dL 0.57-1.25 GLUCOSE RANDOM (BEAKER) (test axhw=906) 135 mg/dL 70-105 CALCIUM (BEAKER) (test rpuu=292) 7.4 mg/dL 8.4-10.2 EGFR (BEAKER) (test nmam=3037) 241 mL/min/1.73 sq m ESTIMATED GFR IS NOT ACCURATE CREATININE CLEARANCE IN PREDICTING GLOMERULAR FILTRATION RATE. ESTIMATED GFR IS NOT APPLICABLE FOR DIALYSIS PATIENTS. RAD, CHEST, 1 VIEW, NON [id number] 05:23:00Reason for exam:->medistinal abscessShould this be performed at the bedside?->YesFINAL REPORT Comparison exam: 09/05/2017 Pulmonary venous congestion and bilateral pleural effusions, right greater than left, unchanged. Stable retrocardiac left lower lobe atelectasis/consolidation. Stable cardiomediastinal contours. Appropriate position of the support hardware. Signed: Jimbo Shaikh MDReport Verified Date/Time: 09/06/2017 05:23:00 Reading Location: [address] Ortho Consult Reading Room [id number] 05:20:00* Test Item Value Reference Range Comments PHOSPHORUS (BEAKER) (test gwwd=565) 1.7 mg/dL 2.3-4.7 CBC W/PLT COUNT & AUTO [id number] 04:43:00* Test Item Value Reference Range Comments WHITE BLOOD CELL COUNT (BEAKER) (test pral=588) 7.3 K/ L 3.5-10.5 RED BLOOD CELL COUNT (BEAKER) (test wahj=400) 3.40 M/ L 4.63-6.08 HEMOGLOBIN (BEAKER) (test nfeq=263) 8.4 GM/DL 13.7-17.5 HEMATOCRIT (BEAKER) (test uffn=044) 29.1 % 40.1-51.0 MEAN CORPUSCULAR VOLUME (BEAKER) (test oohf=724) 85.6 fL 79.0-92.2 MEAN CORPUSCULAR HEMOGLOBIN (BEAKER) (test zjqf=639) 24.7 pg 25.7-32.2 MEAN CORPUSCULAR HEMOGLOBIN CONC (BEAKER) (test kldm=220) 28.9 GM/DL 32.3- 36.5 RED CELL DISTRIBUTION WIDTH (BEAKER) (test zqwv=263) 19.3 % 11.6-14.4 PLATELET COUNT (BEAKER) (test jkeg=241) 251 K/CU MM 150-450 MEAN PLATELET VOLUME (BEAKER) (test iokc=823) 11.3 fL 9.4-12.4 NUCLEATED RED BLOOD CELLS (BEAKER) (test jxlo=372) 0 /100 WBC 0-0 NEUTROPHILS RELATIVE PERCENT (BEAKER) (test nowg=466) 57 % LYMPHOCYTES RELATIVE PERCENT (BEAKER) (test ntib=082) 27 % MONOCYTES RELATIVE PERCENT (BEAKER) (test fwvu=949) 12 % EOSINOPHILS RELATIVE PERCENT (BEAKER) (test aakk=595) 3 % BASOPHILS RELATIVE PERCENT (BEAKER) (test wpsz=559) 1 % NEUTROPHILS ABSOLUTE COUNT (BEAKER) (test axtq=575) 4.16 K/ L 1.78-5.38 LYMPHOCYTES ABSOLUTE COUNT (BEAKER) (test watn=272) 1.96 K/ L 1.32-3.57 MONOCYTES ABSOLUTE COUNT (BEAKER) (test zqqd=863) 0.85 K/ L 0.30-0.82 EOSINOPHILS ABSOLUTE COUNT (BEAKER) (test zsne=152) 0.19 K/ L 0.04-0.54 BASOPHILS ABSOLUTE COUNT (BEAKER) (test lhmm=893) 0.07 K/ L 0.01-0.08 IMMATURE GRANULOCYTES-RELATIVE PERCENT (BEAKER) (test wlha=2414) 1 % 0-1 RAD, CHEST, 1 VIEW, NON [id number] 07:01:00Reason for exam:->medistinal abscessShould this be performed at the bedside?->YesFINAL REPORT Comparison exam: 09/04/2017 Bilateral pleural effusions and lower lobe atelectasis unchanged. Stable cardiomediastinal contours. Appropriate position of the support hardware. Signed: Jimbo Shaikh MDReport Verified Date/Time: 09/05/2017 07:01:31 Reading Location: [facility] C013X Ortho Consult Reading Room 07 :01 AM BASIC METABOLIC [id number] 06:54:00* Test Item Value Reference Range Comments SODIUM (BEAKER) (test rqge=798) 142 meq/L 136-145 POTASSIUM (BEAKER) (test rrwm=430) 3.4 meq/L 3.5-5.1 CHLORIDE (BEAKER) (test cskt=967) 104 meq/L 98-107 CO2 (BEAKER) (test kvwc=750) 36 meq/L 22-29 BLOOD UREA NITROGEN (BEAKER) (test wgah=933) 10 mg/dL 7-21 CREATININE (BEAKER) (test ogau=522) 0.36 mg/dL 0.57-1.25 GLUCOSE RANDOM (BEAKER) (test qagv=069) 104 mg/dL 70-105 CALCIUM (BEAKER) (test auon=674) 7.6 mg/dL 8.4-10.2 EGFR (BEAKER) (test ymgw=8961) 256 mL/min/1.73 sq m ESTIMATED GFR IS NOT ACCURATE CREATININE CLEARANCE IN PREDICTING GLOMERULAR FILTRATION RATE. ESTIMATED GFR IS NOT APPLICABLE FOR DIALYSIS PATIENTS. [id number] 06:21:00* Test Item Value Reference Range Comments PHOSPHORUS (BEAKER) (test onzl=673) 2.6 mg/dL 2.3-4.7 CBC W/PLT COUNT & AUTO [id number] 05:30:00* Test Item Value Reference Range Comments WHITE BLOOD CELL COUNT (BEAKER) (test uvvy=510) 7.8 K/ L 3.5-10.5 RED BLOOD CELL COUNT (BEAKER) (test supl=329) 3.53 M/ L 4.63-6.08 HEMOGLOBIN (BEAKER) (test uefc=344) 8.6 GM/DL 13.7-17.5 HEMATOCRIT (BEAKER) (test srot=527) 30.7 % 40.1-51.0 MEAN CORPUSCULAR VOLUME (BEAKER) (test rmju=933) 87.0 fL 79.0-92.2 MEAN CORPUSCULAR HEMOGLOBIN (BEAKER) (test fwlz=014) 24.4 pg 25.7-32.2 MEAN CORPUSCULAR HEMOGLOBIN CONC (BEAKER) (test twxs=502) 28.0 GM/DL 32.3- 36.5 RED CELL DISTRIBUTION WIDTH (BEAKER) (test xfww=568) 19.0 % 11.6-14.4 PLATELET COUNT (BEAKER) (test ljbs=163) 269 K/CU MM 150-450 MEAN PLATELET VOLUME (BEAKER) (test vwtp=628) 10.6 fL 9.4-12.4 NUCLEATED RED BLOOD CELLS (BEAKER) (test xsgi=432) 0 /100 WBC 0-0 NEUTROPHILS RELATIVE PERCENT (BEAKER) (test zapm=312) 61 % LYMPHOCYTES RELATIVE PERCENT (BEAKER) (test jcwp=548) 23 % MONOCYTES RELATIVE PERCENT (BEAKER) (test jpwt=679) 11 % EOSINOPHILS RELATIVE PERCENT (BEAKER) (test nhko=797) 3 % BASOPHILS RELATIVE PERCENT (BEAKER) (test ihhi=296) 1 % NEUTROPHILS ABSOLUTE COUNT (BEAKER) (test qzls=409) 4.76 K/ L 1.78-5.38 LYMPHOCYTES ABSOLUTE COUNT (BEAKER) (test zkih=675) 1.79 K/ L 1.32-3.57 MONOCYTES ABSOLUTE COUNT (BEAKER) (test zjmg=386) 0.88 K/ L 0.30-0.82 EOSINOPHILS ABSOLUTE COUNT (BEAKER) (test ggds=616) 0.26 K/ L 0.04-0.54 BASOPHILS ABSOLUTE COUNT (BEAKER) (test bxpw=539) 0.08 K/ L 0.01-0.08 IMMATURE GRANULOCYTES-RELATIVE PERCENT (BEAKER) (test iipf=7973) 1 % 0-1 [id number] 06:05:00* Test Item Value Reference Range Comments PHOSPHORUS (BEAKER) (test juko=800) 2.7 mg/dL 2.3-4.7 BASIC METABOLIC [id number] 06:05:00* Test Item Value Reference Range Comments SODIUM (BEAKER) (test gjhu=125) 142 meq/L 136-145 POTASSIUM (BEAKER) (test rcwv=651) 3.6 meq/L 3.5-5.1 CHLORIDE (BEAKER) (test mqar=595) 107 meq/L 98-107 CO2 (BEAKER) (test wbqg=004) 31 meq/L 22-29 BLOOD UREA NITROGEN (BEAKER) (test ncpz=405) 8 mg/dL 7-21 CREATININE (BEAKER) (test aprs=963) 0.34 mg/dL 0.57-1.25 GLUCOSE RANDOM (BEAKER) (test zipr=237) 116 mg/dL 70-105 CALCIUM (BEAKER) (test jflm=136) 7.4 mg/dL 8.4-10.2 EGFR (BEAKER) (test yiva=1713) 274 mL/min/1.73 sq m ESTIMATED GFR IS NOT ACCURATE CREATININE CLEARANCE IN PREDICTING GLOMERULAR FILTRATION RATE. ESTIMATED GFR IS NOT APPLICABLE FOR DIALYSIS PATIENTS. CBC W/PLT COUNT & AUTO [id number] 05:11:00* Test Item Value Reference Range Comments WHITE BLOOD CELL COUNT (BEAKER) (test eeal=056) 7.5 K/ L 3.5-10.5 RED BLOOD CELL COUNT (BEAKER) (test bctz=092) 3.34 M/ L 4.63-6.08 HEMOGLOBIN (BEAKER) (test cjvk=834) 8.1 GM/DL 13.7-17.5 HEMATOCRIT (BEAKER) (test xtae=266) 29.2 % 40.1-51.0 MEAN CORPUSCULAR VOLUME (BEAKER) (test ndyb=412) 87.4 fL 79.0-92.2 MEAN CORPUSCULAR HEMOGLOBIN (BEAKER) (test nvce=966) 24.3 pg 25.7-32.2 MEAN CORPUSCULAR HEMOGLOBIN CONC (BEAKER) (test jngs=805) 27.7 GM/DL 32.3- 36.5 RED CELL DISTRIBUTION WIDTH (BEAKER) (test hjnv=030) 18.9 % 11.6-14.4 PLATELET COUNT (BEAKER) (test ycye=200) 264 K/CU MM 150-450 MEAN PLATELET VOLUME (BEAKER) (test fyaz=251) 10.4 fL 9.4-12.4 NUCLEATED RED BLOOD CELLS (BEAKER) (test pnqu=469) 0 /100 WBC 0-0 NEUTROPHILS RELATIVE PERCENT (BEAKER) (test aqif=842) 65 % LYMPHOCYTES RELATIVE PERCENT (BEAKER) (test kifk=361) 20 % MONOCYTES RELATIVE PERCENT (BEAKER) (test fhsm=133) 12 % EOSINOPHILS RELATIVE PERCENT (BEAKER) (test qxcy=648) 3 % BASOPHILS RELATIVE PERCENT (BEAKER) (test ghlf=418) 1 % NEUTROPHILS ABSOLUTE COUNT (BEAKER) (test hpzn=679) 4.85 K/ L 1.78-5.38 LYMPHOCYTES ABSOLUTE COUNT (BEAKER) (test cfei=549) 1.49 K/ L 1.32-3.57 MONOCYTES ABSOLUTE COUNT (BEAKER) (test cwmx=993) 0.88 K/ L 0.30-0.82 EOSINOPHILS ABSOLUTE COUNT (BEAKER) (test dnvy=776) 0.19 K/ L 0.04-0.54 BASOPHILS ABSOLUTE COUNT (BEAKER) (test glpb=192) 0.06 K/ L 0.01-0.08 IMMATURE GRANULOCYTES-RELATIVE PERCENT (BEAKER) (test gkex=9020) 0 % 0-1 RAD, CHEST, 1 VIEW, NON [id number] 04:33:00Reason for exam:->medistinal abscessShould this be performed at the bedside?->YesFINAL REPORT Comparison exam: 09/03/2017 Right pleural effusion and bilateral predominately lower lobe consolidation/atelectasis unchanged. Stable cardiomediastinal contours. Appropriately positioned tracheostomy tube. Left chest port terminates in the distal superior vena cava. Signed: Jimbo Shaikh Verified Date/Time: 09/04/2017 04:33:36 Reading Location: [address] Ortho Consult Reading Room [id number] 13:43:00* Test Item Value Reference Range Comments POTASSIUM (BEAKER) (test xsox=997) 4.2 meq/L 3.5-5.1 CBC W/PLT COUNT & AUTO [id number] 05:25:00* Test Item Value Reference Range Comments WHITE BLOOD CELL COUNT (BEAKER) (test xmlg=454) 8.2 K/ L 3.5-10.5 RED BLOOD CELL COUNT (BEAKER) (test gzsp=095) 3.46 M/ L 4.63-6.08 HEMOGLOBIN (BEAKER) (test fkbk=373) 8.6 GM/DL 13.7-17.5 HEMATOCRIT (BEAKER) (test poew=069) 29.2 % 40.1-51.0 MEAN CORPUSCULAR VOLUME (BEAKER) (test fdwt=368) 84.4 fL 79.0-92.2 MEAN CORPUSCULAR HEMOGLOBIN (BEAKER) (test epjl=565) 24.9 pg 25.7-32.2 MEAN CORPUSCULAR HEMOGLOBIN CONC (BEAKER) (test yhjg=639) 29.5 GM/DL 32.3- 36.5 RED CELL DISTRIBUTION WIDTH (BEAKER) (test ssic=220) 18.7 % 11.6-14.4 PLATELET COUNT (BEAKER) (test qsda=008) 327 K/CU MM 150-450 MEAN PLATELET VOLUME (BEAKER) (test fgkh=160) 10.0 fL 9.4-12.4 NUCLEATED RED BLOOD CELLS (BEAKER) (test nqjd=587) 0 /100 WBC 0-0 NEUTROPHILS RELATIVE PERCENT (BEAKER) (test qahw=042) 56 % LYMPHOCYTES RELATIVE PERCENT (BEAKER) (test onvh=249) 30 % MONOCYTES RELATIVE PERCENT (BEAKER) (test nimg=233) 12 % EOSINOPHILS RELATIVE PERCENT (BEAKER) (test lnlu=725) 1 % BASOPHILS RELATIVE PERCENT (BEAKER) (test toky=023) 1 % NEUTROPHILS ABSOLUTE COUNT (BEAKER) (test gwgt=798) 4.56 K/ L 1.78-5.38 LYMPHOCYTES ABSOLUTE COUNT (BEAKER) (test hjiz=875) 2.46 K/ L 1.32-3.57 MONOCYTES ABSOLUTE COUNT (BEAKER) (test vnmi=184) 0.99 K/ L 0.30-0.82 EOSINOPHILS ABSOLUTE COUNT (BEAKER) (test mrwk=577) 0.11 K/ L 0.04-0.54 BASOPHILS ABSOLUTE COUNT (BEAKER) (test llof=731) 0.06 K/ L 0.01-0.08 IMMATURE GRANULOCYTES-RELATIVE PERCENT (BEAKER) (test igcq=2719) 0 % 0-1 BASIC METABOLIC [id number] 05:11:00* Test Item Value Reference Range Comments SODIUM (BEAKER) (test yscf=193) 143 meq/L 136-145 POTASSIUM (BEAKER) (test bbgo=570) 3.1 meq/L 3.5-5.1 CHLORIDE (BEAKER) (test atyh=734) 106 meq/L 98-107 CO2 (BEAKER) (test brhh=102) 30 meq/L 22-29 BLOOD UREA NITROGEN (BEAKER) (test siyj=644) 10 mg/dL 7-21 CREATININE (BEAKER) (test ofav=114) 0.37 mg/dL 0.57-1.25 GLUCOSE RANDOM (BEAKER) (test xict=658) 95 mg/dL 70-105 CALCIUM (BEAKER) (test bokh=597) 7.7 mg/dL 8.4-10.2 EGFR (BEAKER) (test nkrp=1440) 248 mL/min/1.73 sq m ESTIMATED GFR IS NOT ACCURATE CREATININE CLEARANCE IN PREDICTING GLOMERULAR FILTRATION RATE. ESTIMATED GFR IS NOT APPLICABLE FOR DIALYSIS PATIENTS. [id number] 05:00:00* Test Item Value Reference Range Comments PHOSPHORUS (BEAKER) (test lpxs=048) 2.6 mg/dL 2.3-4.7 RAD, CHEST, 1 VIEW, NON [id number] 04:13:00Reason for exam:->medistinal abscessShould this be performed at the bedside?->YesFINAL REPORT Comparison exam: 09/02/2017 Bilateral pleural effusions, right greater than left, and bilateral lower lobe consolidation/atelectasis, unchanged. Stable cardiomediastinal contours. Appropriate position of the support hardware. Signed: Jimbo Shaikh MDReport Verified Date/Time: 09/03 04:13:33 Reading Location: [facility] C013X Ortho Consult Reading Room [id number] 04:52:00* Test Item Value Reference Range Comments PHOSPHORUS (BEAKER) (test wuxi=747) 2.5 mg/dL 2.3-4.7 BASIC METABOLIC [id number] 04:52:00* Test Item Value Reference Range Comments SODIUM (BEAKER) (test jatw=030) 142 meq/L 136-145 POTASSIUM (BEAKER) (test qgcy=227) 3.2 meq/L 3.5-5.1 CHLORIDE (BEAKER) (test texm=377) 103 meq/L 98-107 CO2 (BEAKER) (test mtqq=669) 32 meq/L 22-29 BLOOD UREA NITROGEN (BEAKER) (test zlhg=476) 9 mg/dL 7-21 CREATININE (BEAKER) (test jlhx=291) 0.38 mg/dL 0.57-1.25 GLUCOSE RANDOM (BEAKER) (test gqmq=687) 92 mg/dL 70-105 CALCIUM (BEAKER) (test vfen=383) 8.1 mg/dL 8.4-10.2 EGFR (BEAKER) (test rpib=3055) 241 mL/min/1.73 sq m ESTIMATED GFR IS NOT ACCURATE CREATININE CLEARANCE IN PREDICTING GLOMERULAR FILTRATION RATE. ESTIMATED GFR IS NOT APPLICABLE FOR DIALYSIS PATIENTS. TOBRAMYCIN LEVEL, [id number] 04:39:00* Test Item Value Reference Range Comments TOBRAMYCIN RANDOM (BEAKER) (test lqxu=742) 0.6 ug/mL Reference Range: No NormalsCBC W/PLT COUNT & AUTO [id number] 04:28: 00* Test Item Value Reference Range Comments WHITE BLOOD CELL COUNT (BEAKER) (test amcy=550) 14.3 K/ L 3.5-10.5 RED BLOOD CELL COUNT (BEAKER) (test htep=199) 3.90 M/ L 4.63-6.08 HEMOGLOBIN (BEAKER) (test xsfw=855) 9.4 GM/DL 13.7-17.5 HEMATOCRIT (BEAKER) (test crrs=158) 32.3 % 40.1-51.0 MEAN CORPUSCULAR VOLUME (BEAKER) (test aowq=738) 82.8 fL 79.0-92.2 MEAN CORPUSCULAR HEMOGLOBIN (BEAKER) (test lavl=664) 24.1 pg 25.7-32.2 MEAN CORPUSCULAR HEMOGLOBIN CONC (BEAKER) (test bufw=987) 29.1 GM/DL 32.3- 36.5 RED CELL DISTRIBUTION WIDTH (BEAKER) (test nkmw=811) 18.1 % 11.6-14.4 PLATELET COUNT (BEAKER) (test mihw=807) 411 K/CU MM 150-450 MEAN PLATELET VOLUME (BEAKER) (test ajbz=194) 9.0 fL 9.4-12.4 NUCLEATED RED BLOOD CELLS (BEAKER) (test sidb=404) 0 /100 WBC 0-0 NEUTROPHILS RELATIVE PERCENT (BEAKER) (test aozh=636) 83 % LYMPHOCYTES RELATIVE PERCENT (BEAKER) (test ygrc=159) 9 % MONOCYTES RELATIVE PERCENT (BEAKER) (test uxze=584) 6 % EOSINOPHILS RELATIVE PERCENT (BEAKER) (test omrh=279) 1 % BASOPHILS RELATIVE PERCENT (BEAKER) (test exdc=804) 1 % NEUTROPHILS ABSOLUTE COUNT (BEAKER) (test dfrf=079) 11.87 K/ L 1.78-5.38 LYMPHOCYTES ABSOLUTE COUNT (BEAKER) (test rsyd=666) 1.27 K/ L 1.32-3.57 MONOCYTES ABSOLUTE COUNT (BEAKER) (test nrdl=379) 0.85 K/ L 0.30-0.82 EOSINOPHILS ABSOLUTE COUNT (BEAKER) (test njdi=233) 0.15 K/ L 0.04-0.54 BASOPHILS ABSOLUTE COUNT (BEAKER) (test svnq=062) 0.08 K/ L 0.01-0.08 IMMATURE GRANULOCYTES-RELATIVE PERCENT (BEAKER) (test xkrp=3002) 0 % 0-1 RAD, CHEST, 1 VIEW, NON [id number] 04:01:00Reason for exam:->medistinal abscessShould this be performed at the bedside?->YesFINAL REPORT Comparison exam: 09/01/2017 Bilateral pleural effusions, right greater than left, and bilateral predominately lower lobe and right central airspace opacities, unchanged. Stable cardiomediastinal contours. Left chest port terminates in the superior vena cava. Signed: Jimbo Shaikh Verified Date/Time: 09/02/2017 04:01:57 Reading Location: [address] Consult Reading Room Electronically signed by: JIMBO SHAIKH M.D. on 09/02 04:01 AM TISSUE [id number] 14:36:00Surgical Pathology Report Case: [id number] Authorizing Provider: Leroy Oliveira MD Collected: 08/28/2017 1809 Ordering Location: [facility] PERIOPERATIVE Received: 0800 SERVICES Pathologist: Roberto Herndon MD Specimens: A ) - Soft Tissue, Other, pre vertebral phlegmon B) - Explant, plate and screws from previous surgery PART A PRE-VERTEBRAL SOFT TISSUE, BIOPSY:SQUAMOUS MUCOSA WITH MARKED ACUTE INFLAMMATION AND ABSCESS FORMATION.PART B PLATE AND SCREWS, REMOVAL: (GROSS DIAGNOSIS) Signing Pathologist Direct Phone Line : [phone] signed by Roberto Herndon MD on 09/01/2017 at 2:36 [id number], [id number] A. Prevertebral phlegmon. B. Plate and screwsA. The specimen is received in a formalin-filled container labeled with the patient 's information and labeled "prevertebral phlegmon" and consists of multiple ragged fragments of bowei-red soft tissue ranging from 0.2 to 1.4 cm, submitted entirely in A1.B. The specimen is received in a fluidless container labeled with the patient's information and labeled "plate and screws from previous surgery" and consists of eight screws all measuring 1.6 cm in length and a metal plate measuring 5 x 1.3 x 0.2 cm. The specimen is submitted for gross identification. CG/ew TOBRAMYCIN LEVEL, [id number] 14:20:00* Test Item Value Reference Range Comments TOBRAMYCIN TROUGH (BEAKER) (test jtys=812) 2.3 ug/mL 0.5-1.0 Dosing: Target Level (mcg/mL)1-1.5 mg/kg q 8-12 HR 0.5-1.03 -7 mg/kg q 24 HR <[id number] 13:45:00* Test Item Value Reference Range Comments MAGNESIUM (BEAKER) (test wcai=263) 1.8 mg/dL 1.6-2.6 ANAEROBIC [id number] 13:27:00* Test Item Value Reference Range Comments CULTURE (BEAKER) (test oigm=6397) No anaerobes isolated BLOOD [id number] 13:00:00* Test Item Value Reference Range Comments CULTURE (URSULAAKER) (test tdhg=3287) No growth in [address], SOFT TISSUE NECK, [id number] 08:11:00FINAL REPORT CT neck soft tissues with contrast Comparison: August 28, 2017 Reason for exam: eval mediastinal abscess ; Discussion: Multiple axial CT images of the neck are provided after IV contrast evaluated from the orbital region to the upper chest level. Dose modulation, iterative reconstruction, and/ or weight based adjustment of the mA/kV was utilized to reduce the radiation dose to as low as reasonably achievable. Intracranial and intraorbital contents are unremarkable. There is a tracheostomy. Aerodigestive tract region at and above the oropharynx is unremarkable. There is interval placement of a right-sided drain that extends along the anterior aspect of the spine from C4 to T1. The retropharyngeal space abscess extending to the upper mediastinum tracking along the right side of the esophagus is again noted, improved with diminished air foci. Persistent potentially multiloculated fluid is noted, greatest in the T2/T3 level. Cervical spine fusion postoperative changes are again noted from C4 to T1, solid in appearance from C4 to C7. Hardware causes streak artifact limiting the evaluation of the spinal canal contents. I could not exclude extension of infection into the spinal canal with a significant central canal stenosis. If indicated, cervical spine MRI could be ordered. Inflammatory changes and swelling extending to the right-sided piriform sinus region where there is effacement of the regional hypopharyngeal airway. Sclerotic changes are seen involving the vertebral bodies from C4 to T1, nonspecific in nature. Chronic osteomyelitis can have this appearance but I do not see any destructive lucency associated with regional surgical hardware. Consider correlation with perioperative imaging which is not available for comparison. Impressions: Interval drain placement with improved but persistent potentially multilocular retropharyngeal and upper mediastinal abscess as discussed. Sclerotic vertebral changes are noted chronic in appearance but potentially of clinical concern. See discussion above. Signed: Evin Griggs Verified Date/Time: 09/01/2017 08:11:26 Reading Location: [facility] C013V Neuro Reading Room /CONCENTRATION [id number] 07:22:00* Test Item Value Reference Range Comments CONCENTRATION CHARGED (BEAKER) (test nnab=5212) Done [id number] 05:40:00* Test Item Value Reference Range Comments PHOSPHORUS (BEAKER) (test ijmw=349) 2.3 mg/dL 2.3-4.7 [id number] 05:40:00* Test Item Value Reference Range Comments MAGNESIUM (BEAKER) (test ycje=912) 1.6 mg/dL 1.6-2.6 BASIC METABOLIC [id number] 05:40:00* Test Item Value Reference Range Comments SODIUM (BEAKER) (test romy=206) 141 meq/L 136-145 POTASSIUM (BEAKER) (test nugo=362) 3.0 meq/L 3.5-5.1 CHLORIDE (BEAKER) (test iviy=455) 103 meq/L 98-107 CO2 (BEAKER) (test tzgk=825) 29 meq/L 22-29 BLOOD UREA NITROGEN (BEAKER) (test rrho=694) 7 mg/dL 7-21 CREATININE (BEAKER) (test ldfc=363) 0.40 mg/dL 0.57-1.25 GLUCOSE RANDOM (BEAKER) (test yoht=839) 103 mg/dL 70-105 CALCIUM (BEAKER) (test rrpf=390) 8.0 mg/dL 8.4-10.2 EGFR (BEAKER) (test unww=7248) 227 mL/min/1.73 sq m ESTIMATED GFR IS NOT ACCURATE CREATININE CLEARANCE IN PREDICTING GLOMERULAR FILTRATION RATE. ESTIMATED GFR IS NOT APPLICABLE FOR DIALYSIS PATIENTS. CBC W/PLT COUNT & AUTO [id number] 05:32:00* Test Item Value Reference Range Comments WHITE BLOOD CELL COUNT (BEAKER) (test prfw=202) 11.6 K/ L 3.5-10.5 RED BLOOD CELL COUNT (BEAKER) (test eocg=861) 3.69 M/ L 4.63-6.08 HEMOGLOBIN (BEAKER) (test bloz=686) 9.1 GM/DL 13.7-17.5 HEMATOCRIT (BEAKER) (test ayfr=647) 30.7 % 40.1-51.0 MEAN CORPUSCULAR VOLUME (BEAKER) (test lsmz=342) 83.2 fL 79.0-92.2 MEAN CORPUSCULAR HEMOGLOBIN (BEAKER) (test hcmo=691) 24.7 pg 25.7-32.2 MEAN CORPUSCULAR HEMOGLOBIN CONC (BEAKER) (test xstr=442) 29.6 GM/DL 32.3- 36.5 RED CELL DISTRIBUTION WIDTH (BEAKER) (test uqmm=541) 17.6 % 11.6-14.4 PLATELET COUNT (BEAKER) (test kfze=219) 412 K/CU MM 150-450 MEAN PLATELET VOLUME (BEAKER) (test rwgv=523) 9.0 fL 9.4-12.4 NUCLEATED RED BLOOD CELLS (BEAKER) (test qsix=436) 0 /100 WBC 0-0 NEUTROPHILS RELATIVE PERCENT (BEAKER) (test ovjx=156) 74 % LYMPHOCYTES RELATIVE PERCENT (BEAKER) (test kswg=678) 14 % MONOCYTES RELATIVE PERCENT (BEAKER) (test ssmb=958) 8 % EOSINOPHILS RELATIVE PERCENT (BEAKER) (test xumh=644) 2 % BASOPHILS RELATIVE PERCENT (BEAKER) (test jxwx=636) 1 % NEUTROPHILS ABSOLUTE COUNT (BEAKER) (test duiz=938) 8.62 K/ L 1.78-5.38 LYMPHOCYTES ABSOLUTE COUNT (BEAKER) (test dybq=848) 1.65 K/ L 1.32-3.57 MONOCYTES ABSOLUTE COUNT (BEAKER) (test qatw=499) 0.93 K/ L 0.30-0.82 EOSINOPHILS ABSOLUTE COUNT (BEAKER) (test vghl=032) 0.25 K/ L 0.04-0.54 BASOPHILS ABSOLUTE COUNT (BEAKER) (test ddwv=741) 0.09 K/ L 0.01-0.08 IMMATURE GRANULOCYTES-RELATIVE PERCENT (BEAKER) (test rceu=9725) 1 % 0-1 RAD, CHEST, 1 VIEW, NON [id number] 04:34:00Reason for exam:->medistinal abscessShould this be performed at the bedside?->YesFINAL REPORT EXAMINATION: AP PORTABLE CHEST RADIOGRAPH CLINICAL INDICATION: Mediastinal abscess IMPRESSION: Compared with 08/31/2017. Support tube and catheter positions are unchanged. Pleural effusions the bilateral pleural effusions and adjacent lung opacities are grossly stable. No definite evidence of new lung consolidation or pneumothorax. Cardiac and mediastinal contours are also stable. In summary, no significant interval change. Signed: Nataly Harmaneport Verified Date/Time: 09/01/2017 04:34:40 Reading Location: [address] Reading Room , CHEST, WITH [id number] 03:02:00FINAL REPORT CT scan of the chest: CLINICAL HISTORY: Evaluate mediastinal abscess Comparison exam: CT scan of the chest 08/28/2017 TECHNIQUE: CT scan of the chest with intravenous contrast. Dose modulation, iterative reconstruction, and/or weight based adjustment of the mA/kV was utilized to reduce the radiation dose to as low as reasonably achievable. FINDINGS: Multiloculated superior mediastinal/paravertebral abscess measuring approximately 1.5 x 2.5 x 3.8 cm decreased significantly in size when compared to 08/28/2017 predominantly due to a decrease in the volume of gas within the abscess. The tip of a surgical drain is located at the superior margin of the mediastinal abscess. Extensive bilateral lower lobe basilar consolidation/ atelectasis similar to 08/28/2017. Nonspecific right upper lobe ground glass opacities, new when compared to 08/28/2017. Calcified pulmonary granulomas. Bilateral pleural effusions, medium-sized on the right and small on the left similar to 08/28/2017. Appropriately positioned tracheostomy tube. Normal trachea. Debris/secretions in the right bronchus intermedius and right lower lobe bronchus. Normal great vessels, thoracic aorta, and central pulmonary arteries. Left chest port with the catheter tip located in the superior vena cava. Small nonspecific prevascular and paratracheal lymph nodes. Normal heart. No pericardial effusion. 11 mm focal area of bony destruction adjacent to the superior mediastinal abscess involving the left lateral T3 vertebral body cortex and extending into the medullary cavity. Stable when compared to 2016. Normal muscles and subcutaneous fat. IMPRESSION: 1. Multiloculated superior mediastinal/paravertebral abscess measuring approximately 1.5 x 2.5 x 3.8 cm decreased significantly in size when compared to 08/28/2017 predominantly due to a decrease in the volume of gas within the abscess. The tip of a surgical drain is located at the superior margin of the mediastinal abscess. 2. 11 mm focal area of bony destruction adjacent to the superior mediastinal abscess involving the left lateral T3 vertebral body cortex and extending into the medullary cavity. Stable when compared to 08/28/2017. The findings are most consistent with osteomyelitis. Posterior fusion hardware in the cervical spine. 3. Extensive bilateral lower lobe basilar consolidation/ atelectasis similar to 08/28/2017. Bilateral pleural effusions, medium-sized on the right and small on the left similar to 08/28/2017. 4. Nonspecific right upper lobe ground glass opacities, new when compared to 08/28/2017. Signed: Jimbo Shaikheport Verified Date/Time: 09/01/2017 03:02:07 Reading Location : [facility] B1 C013X Ortho Consult Reading Room [id number] 19:59:00* Test Item Value Reference Range Comments MAGNESIUM (BEAKER) (test rbgz=637) 1.3 mg/dL 1.6-2.6 BASIC METABOLIC [id number] 19:59:00* Test Item Value Reference Range Comments SODIUM (BEAKER) (test tujp=215) 141 meq/L 136-145 POTASSIUM (BEAKER) (test gwaf=050) 3.1 meq/L 3.5-5.1 CHLORIDE (BEAKER) (test ziis=451) 103 meq/L 98-107 CO2 (BEAKER) (test lwlb=883) 31 meq/L 22-29 BLOOD UREA NITROGEN (BEAKER) (test tbtd=508) 5 mg/dL 7-21 CREATININE (BEAKER) (test leqn=259) 0.40 mg/dL 0.57-1.25 GLUCOSE RANDOM (BEAKER) (test zcbn=693) 101 mg/dL 70-105 CALCIUM (BEAKER) (test khip=589) 8.0 mg/dL 8.4-10.2 EGFR (BEAKER) (test gjyn=7251) 227 mL/min/1.73 sq m ESTIMATED GFR IS NOT ACCURATE CREATININE CLEARANCE IN PREDICTING GLOMERULAR FILTRATION RATE. ESTIMATED GFR IS NOT APPLICABLE FOR DIALYSIS PATIENTS. CREATINE KINASE (CK)2017-08-31 19:59:00* Test Item Value Reference Range Comments CREATINE KINASE TOTAL (BEAKER) (test wsoq=124) 26 U/L 29-200 CBC W/PLT COUNT & AUTO [id number] 19:32:00* Test Item Value Reference Range Comments WHITE BLOOD CELL COUNT (BEAKER) (test ixtx=710) 12.3 K/ L 3.5-10.5 RED BLOOD CELL COUNT (BEAKER) (test asaw=643) 4.13 M/ L 4.63-6.08 HEMOGLOBIN (BEAKER) (test bayj=903) 10.3 GM/DL 13.7-17.5 HEMATOCRIT (BEAKER) (test bbuy=399) 33.9 % 40.1-51.0 MEAN CORPUSCULAR VOLUME (BEAKER) (test ofou=726) 82.1 fL 79.0-92.2 MEAN CORPUSCULAR HEMOGLOBIN (BEAKER) (test bljb=526) 24.9 pg 25.7-32.2 MEAN CORPUSCULAR HEMOGLOBIN CONC (BEAKER) (test eyvv=928) 30.4 GM/DL 32.3- 36.5 RED CELL DISTRIBUTION WIDTH (BEAKER) (test vdpt=983) 17.6 % 11.6-14.4 PLATELET COUNT (BEAKER) (test xgpk=721) 487 K/CU MM 150-450 MEAN PLATELET VOLUME (BEAKER) (test hicw=336) 9.1 fL 9.4-12.4 NUCLEATED RED BLOOD CELLS (BEAKER) (test cuzo=928) 0 /100 WBC 0-0 NEUTROPHILS RELATIVE PERCENT (BEAKER) (test btlg=082) 72 % LYMPHOCYTES RELATIVE PERCENT (BEAKER) (test pnkr=402) 15 % MONOCYTES RELATIVE PERCENT (BEAKER) (test qqwt=390) 9 % EOSINOPHILS RELATIVE PERCENT (BEAKER) (test xpiy=457) 3 % BASOPHILS RELATIVE PERCENT (BEAKER) (test bzsd=685) 1 % NEUTROPHILS ABSOLUTE COUNT (BEAKER) (test qgum=259) 8.82 K/ L 1.78-5.38 LYMPHOCYTES ABSOLUTE COUNT (BEAKER) (test qykx=594) 1.85 K/ L 1.32-3.57 MONOCYTES ABSOLUTE COUNT (BEAKER) (test pslk=688) 1.04 K/ L 0.30-0.82 EOSINOPHILS ABSOLUTE COUNT (BEAKER) (test gcyr=276) 0.38 K/ L 0.04-0.54 BASOPHILS ABSOLUTE COUNT (BEAKER) (test rzpy=449) 0.11 K/ L 0.01-0.08 IMMATURE GRANULOCYTES-RELATIVE PERCENT (BEAKER) (test cdtn=6497) 1 % 0-1 RAD, ABDOMEN/KUB, 1 VIEW [id number] 11:13:00Reason for exam:->abdominal distensionShould this be performed at the bedside?->YesFINAL REPORT Abdomen one view INDICATION: Abdominal distention COMPARISON: 2016 IMPRESSION: Two frontal images of the abdomen were provided. A gastrostomy tube is in place. An IVC filter is again noted. There is contrast residue in scattered bowel loops with mild bowel loop prominence that could indicate adynamic ileus. Short-term radiographic follow-up can be obtained if obstruction remains of concern. Free air and air fluid levels are not well assessed on a supine study. There are degenerative changes in the spine and hips. The imaged lower chest is similar to earlier today. Signed: Stfean Barrios Verified Date/Time: 08/31/2017 11:13:18 Reading Location: [facility] Reading Room , CHEST, 1 VIEW, NON [id number] 04: 59:00Reason for exam:->medistinal abscessShould this be performed at the bedside ?->YesFINAL REPORT CLINICAL INDICATION: Mediastinal abscess Comparison: 08/30/2017 The patient is rotated to the right. The cardiomediastinal contours are grossly stable. Central pulmonary vascular prominence and bilateral parenchymal and pleural opacities are similar within variation of acquisition technique. There is no pneumothorax. Support lines are stable. Signed: Cruz Hampton Verified Date/Time: 08/31/2017 04:59:58 Reading Location: [address] Reading Room [id number] 03: 32:00* Test Item Value Reference Range Comments PREALBUMIN (BEAKER) (test umyq=420) 5 mg/dL 14-45 PROTEIN, [id number] 03:30:00* Test Item Value Reference Range Comments TOTAL PROTEIN (BEAKER) (test jqjs=460) 6.3 gm/dL 6.0-8.3 [id number] 03:30:00* Test Item Value Reference Range Comments PHOSPHORUS (BEAKER) (test ufal=588) 2.3 mg/dL 2.3-4.7 BASIC METABOLIC [id number] 03:30:00* Test Item Value Reference Range Comments SODIUM (BEAKER) (test yuma=770) 143 meq/L 136-145 POTASSIUM (BEAKER) (test ujfm=552) 3.2 meq/L 3.5-5.1 CHLORIDE (BEAKER) (test pwyk=835) 103 meq/L 98-107 CO2 (BEAKER) (test bccm=082) 32 meq/L 22-29 BLOOD UREA NITROGEN (BEAKER) (test ixlv=812) 3 mg/dL 7-21 CREATININE (BEAKER) (test jcpg=712) 0.49 mg/dL 0.57-1.25 GLUCOSE RANDOM (BEAKER) (test phzp=802) 91 mg/dL 70-105 CALCIUM (BEAKER) (test qkwm=539) 8.4 mg/dL 8.4-10.2 EGFR (BEAKER) (test ndug=1673) 179 mL/min/1.73 sq m ESTIMATED GFR IS NOT ACCURATE CREATININE CLEARANCE IN PREDICTING GLOMERULAR FILTRATION RATE. ESTIMATED GFR IS NOT APPLICABLE FOR DIALYSIS PATIENTS. [id number] 03:30:00* Test Item Value Reference Range Comments ALBUMIN (BEAKER) (test wfva=3737) 2.5 g/dL 3.5-5.0 CBC W/PLT COUNT & AUTO [id number] 03:28:00* Test Item Value Reference Range Comments WHITE BLOOD CELL COUNT (BEAKER) (test fyia=451) 10.9 K/ L 3.5-10.5 RED BLOOD CELL COUNT (BEAKER) (test cnst=909) 4.01 M/ L 4.63-6.08 HEMOGLOBIN (BEAKER) (test bwxe=888) 9.7 GM/DL 13.7-17.5 HEMATOCRIT (BEAKER) (test bwit=666) 32.6 % 40.1-51.0 MEAN CORPUSCULAR VOLUME (BEAKER) (test bbdc=346) 81.3 fL 79.0-92.2 MEAN CORPUSCULAR HEMOGLOBIN (BEAKER) (test cche=063) 24.2 pg 25.7-32.2 MEAN CORPUSCULAR HEMOGLOBIN CONC (BEAKER) (test vsfd=384) 29.8 GM/DL 32.3- 36.5 RED CELL DISTRIBUTION WIDTH (BEAKER) (test mypq=101) 17.2 % 11.6-14.4 PLATELET COUNT (BEAKER) (test sego=558) 548 K/CU MM 150-450 MEAN PLATELET VOLUME (BEAKER) (test qrrw=732) 8.8 fL 9.4-12.4 NUCLEATED RED BLOOD CELLS (BEAKER) (test gzux=768) 0 /100 WBC 0-0 NEUTROPHILS RELATIVE PERCENT (BEAKER) (test iuzc=107) 66 % LYMPHOCYTES RELATIVE PERCENT (BEAKER) (test xevy=273) 22 % MONOCYTES RELATIVE PERCENT (BEAKER) (test otlp=044) 9 % EOSINOPHILS RELATIVE PERCENT (BEAKER) (test jfuc=263) 3 % BASOPHILS RELATIVE PERCENT (BEAKER) (test nnsm=980) 1 % NEUTROPHILS ABSOLUTE COUNT (BEAKER) (test vcjv=540) 7.18 K/ L 1.78-5.38 LYMPHOCYTES ABSOLUTE COUNT (BEAKER) (test lncy=337) 2.37 K/ L 1.32-3.57 MONOCYTES ABSOLUTE COUNT (BEAKER) (test xfom=053) 0.95 K/ L 0.30-0.82 EOSINOPHILS ABSOLUTE COUNT (BEAKER) (test ccos=288) 0.33 K/ L 0.04-0.54 BASOPHILS ABSOLUTE COUNT (BEAKER) (test hufn=090) 0.07 K/ L 0.01-0.08 IMMATURE GRANULOCYTES-RELATIVE PERCENT (BEAKER) (test yecx=4339) 0 % 0-1 POTASSIUM-STAT [id number] 12:09:00* Test Item Value Reference Range Comments POTASSIUM (BEAKER) (test bjdw=314) 3.8 meq/L 3.6-5.5 URINE [id number] 10:51:00* Test Item Value Reference Range Comments CULTURE (BEAKER) (test aqcj=8433) >100,000 col/mL Mely glabrata [id number] 04:33:00* Test Item Value Reference Range Comments PHOSPHORUS (BEAKER) (test dfzw=459) 2.8 mg/dL 2.3-4.7 BASIC METABOLIC [id number] 04:33:00* Test Item Value Reference Range Comments SODIUM (BEAKER) (test mrqs=308) 144 meq/L 136-145 POTASSIUM (BEAKER) (test kjoj=793) 2.9 meq/L 3.5-5.1 CHLORIDE (BEAKER) (test rhov=626) 106 meq/L 98-107 CO2 (BEAKER) (test icye=110) 30 meq/L 22-29 BLOOD UREA NITROGEN (BEAKER) (test zinq=421) 4 mg/dL 7-21 CREATININE (BEAKER) (test zrgd=002) 0.46 mg/dL 0.57-1.25 GLUCOSE RANDOM (BEAKER) (test zfxg=020) 110 mg/dL 70-105 CALCIUM (BEAKER) (test ebsb=620) 8.2 mg/dL 8.4-10.2 EGFR (BEAKER) (test vhkj=9006) 193 mL/min/1.73 sq m ESTIMATED GFR IS NOT ACCURATE CREATININE CLEARANCE IN PREDICTING GLOMERULAR FILTRATION RATE. ESTIMATED GFR IS NOT APPLICABLE FOR DIALYSIS PATIENTS. RAD, CHEST, 1 VIEW, NON [id number] 04:22:00Reason for exam:->eval mediastinal abscessShould this be performed at the bedside?->YesFINAL REPORT RAD, CHEST, 1 VIEW, NON DEPT INDICATION: eval mediastinal abscess COMPARISON: Prior day's exam FINDINGS: Portable frontal view of the chest. IMPRESSION: Support Lines: Left IJ central venous catheter terminates over the superior vena cava. Tracheostomy tube projects over the tracheal air column. Lungs and pleura: Basilar congestive changes and emphysematous disease are stable. Unchanged volume of bilateral pleural effusions. No pneumothorax.Heart and mediastinum: Unchanged appearance of the mediastinal contours.Additional findings: None. Signed: JR Newton Robert MDReport Verified Date/Time: 08/30/2017 04:22:50 Reading Location: [facility] C013Y CT Body Reading Room W/PLT COUNT & AUTO [id number] 04:03:00* Test Item Value Reference Range Comments WHITE BLOOD CELL COUNT (BEAKER) (test isoa=262) 10.9 K/ L 3.5-10.5 RED BLOOD CELL COUNT (BEAKER) (test ofwr=265) 3.74 M/ L 4.63-6.08 HEMOGLOBIN (BEAKER) (test qbbg=324) 9.1 GM/DL 13.7-17.5 HEMATOCRIT (BEAKER) (test dkyz=268) 30.5 % 40.1-51.0 MEAN CORPUSCULAR VOLUME (BEAKER) (test jicw=887) 81.6 fL 79.0-92.2 MEAN CORPUSCULAR HEMOGLOBIN (BEAKER) (test toln=188) 24.3 pg 25.7-32.2 MEAN CORPUSCULAR HEMOGLOBIN CONC (BEAKER) (test hgxk=568) 29.8 GM/DL 32.3- 36.5 RED CELL DISTRIBUTION WIDTH (BEAKER) (test vpss=857) 17.0 % 11.6-14.4 PLATELET COUNT (BEAKER) (test hqej=819) 506 K/CU MM 150-450 MEAN PLATELET VOLUME (BEAKER) (test nbht=532) 8.5 fL 9.4-12.4 NUCLEATED RED BLOOD CELLS (BEAKER) (test wxbs=439) 0 /100 WBC 0-0 NEUTROPHILS RELATIVE PERCENT (BEAKER) (test ycvu=251) 76 % LYMPHOCYTES RELATIVE PERCENT (BEAKER) (test jede=955) 13 % MONOCYTES RELATIVE PERCENT (BEAKER) (test ejaw=176) 8 % EOSINOPHILS RELATIVE PERCENT (BEAKER) (test zwep=488) 2 % BASOPHILS RELATIVE PERCENT (BEAKER) (test metj=380) 1 % NEUTROPHILS ABSOLUTE COUNT (BEAKER) (test ckqv=841) 8.28 K/ L 1.78-5.38 LYMPHOCYTES ABSOLUTE COUNT (BEAKER) (test hxdk=111) 1.44 K/ L 1.32-3.57 MONOCYTES ABSOLUTE COUNT (BEAKER) (test cqtx=097) 0.87 K/ L 0.30-0.82 EOSINOPHILS ABSOLUTE COUNT (BEAKER) (test klzg=065) 0.18 K/ L 0.04-0.54 BASOPHILS ABSOLUTE COUNT (BEAKER) (test wdum=069) 0.06 K/ L 0.01-0.08 IMMATURE GRANULOCYTES-RELATIVE PERCENT (BEAKER) (test zvrd=5549) 1 % 0-1 [id number] 11:34:00* Test Item Value Reference Range Comments MAGNESIUM (BEAKER) (test hspr=746) 1.5 mg/dL 1.6-2.6 BASIC METABOLIC [id number] 11:34:00* Test Item Value Reference Range Comments SODIUM (BEAKER) (test slbz=385) 144 meq/L 136-145 POTASSIUM (BEAKER) (test pytx=631) 3.5 meq/L 3.5-5.1 CHLORIDE (BEAKER) (test mgdx=777) 107 meq/L 98-107 CO2 (BEAKER) (test zgfy=575) 27 meq/L 22-29 BLOOD UREA NITROGEN (BEAKER) (test bkul=480) 4 mg/dL 7-21 CREATININE (BEAKER) (test hgwz=152) 0.39 mg/dL 0.57-1.25 GLUCOSE RANDOM (BEAKER) (test ysvw=822) 86 mg/dL 70-105 CALCIUM (BEAKER) (test kfmn=687) 8.4 mg/dL 8.4-10.2 EGFR (BEAKER) (test lsuh=1538) 234 mL/min/1.73 sq m ESTIMATED GFR IS NOT ACCURATE CREATININE CLEARANCE IN PREDICTING GLOMERULAR FILTRATION RATE. ESTIMATED GFR IS NOT APPLICABLE FOR DIALYSIS PATIENTS. BLOOD GAS, [id number] 11:10:00* Test Item Value Reference Range Comments PH ARTERIAL (BEAKER) (test rjiw=463) 7.38 7.35-7.45 PCO2 ARTERIAL (BEAKER) (test mlth=413) 50 mmHg 35-45 PO2 ARTERIAL (BEAKER) (test dick=629) 199 mmHg 80-90 O2 SATURATION ARTERIAL (BEAKER) (test dzzr=375) 99.3 % 96.0-97.0 HCO3 ARTERIAL (BEAKER) (test bvbm=062) 29 mmol/L 21-29 BASE EXCESS ARTERIAL (BEAKER) (test ferm=844) 3.5 mmol/L -2.0-3.0 PATIENT TEMPERATURE (BEAKER) (test jxnm=9957) 36.9 C FIO2 (BEAKER) (test yedb=4050) 40.0 % RAD, SPINE, CERVICAL, 2 OR 3 [id number] 10:07:00Reason for exam:->evaluate status post hardware removal, AP and lateral viewShould this be performed at the bedside?->YesFINAL REPORT Cervical spine dated August 29, 2017 COMPARISON: August 28, 2017 Comment: Since prior examination, there is interval removal of the sideplate and hepatic sclerosis in the anterior aspect of the lower cervical spine. The posterior fusion hardware remains in place. There is prevertebral soft tissue swelling in the lower cervical spine from post procedure changes. Signed: Leslee June MDReport Verified Date/Time: 08/29/2017 10:07:33 Reading Location: [facility] C013X Ortho Consult Reading Room Electronically signed by: LESLEE JUNE M.D. on 2016 10:07 AM VANCOMYCIN LEVEL, [id number] 08:48:00* Test Item Value Reference Range Comments VANCOMYCIN TROUGH (BEAKER) (test iqyp=755) 15.9 ug/mL 10.0-20.0 CBC W/PLT COUNT & AUTO [id number] 05:49:00* Test Item Value Reference Range Comments WHITE BLOOD CELL COUNT (BEAKER) (test hdwr=047) 10.3 K/ L 3.5-10.5 RED BLOOD CELL COUNT (BEAKER) (test eqbx=487) 3.05 M/ L 4.63-6.08 HEMOGLOBIN (BEAKER) (test uouh=777) 7.1 GM/DL 13.7-17.5 HEMATOCRIT (BEAKER) (test mduw=626) 25.2 % 40.1-51.0 MEAN CORPUSCULAR VOLUME (BEAKER) (test qoyx=971) 82.6 fL 79.0-92.2 MEAN CORPUSCULAR HEMOGLOBIN (BEAKER) (test olar=317) 23.3 pg 25.7-32.2 MEAN CORPUSCULAR HEMOGLOBIN CONC (BEAKER) (test oiye=350) 28.2 GM/DL 32.3- 36.5 RED CELL DISTRIBUTION WIDTH (BEAKER) (test pjqa=831) 18.2 % 11.6-14.4 PLATELET COUNT (BEAKER) (test ddfy=262) 535 K/CU MM 150-450 MEAN PLATELET VOLUME (BEAKER) (test ngch=380) 8.9 fL 9.4-12.4 NUCLEATED RED BLOOD CELLS (BEAKER) (test bpyg=937) 0 /100 WBC 0-0 NEUTROPHILS RELATIVE PERCENT (BEAKER) (test umqu=971) 76 % LYMPHOCYTES RELATIVE PERCENT (BEAKER) (test ncra=039) 11 % MONOCYTES RELATIVE PERCENT (BEAKER) (test xypm=671) 8 % EOSINOPHILS RELATIVE PERCENT (BEAKER) (test ppgc=756) 3 % BASOPHILS RELATIVE PERCENT (BEAKER) (test uwoo=955) 1 % NEUTROPHILS ABSOLUTE COUNT (BEAKER) (test nnvj=805) 7.85 K/ L 1.78-5.38 LYMPHOCYTES ABSOLUTE COUNT (BEAKER) (test bjgz=737) 1.16 K/ L 1.32-3.57 MONOCYTES ABSOLUTE COUNT (BEAKER) (test qkup=669) 0.84 K/ L 0.30-0.82 EOSINOPHILS ABSOLUTE COUNT (BEAKER) (test emti=079) 0.34 K/ L 0.04-0.54 BASOPHILS ABSOLUTE COUNT (BEAKER) (test pqgi=113) 0.05 K/ L 0.01-0.08 IMMATURE GRANULOCYTES-RELATIVE PERCENT (BEAKER) (test jejy=9194) 1 % 0-1 BASIC METABOLIC [id number] 05:20:00* Test Item Value Reference Range Comments SODIUM (BEAKER) (test vavf=769) 146 meq/L 136-145 POTASSIUM (BEAKER) (test huhy=265) 2.6 meq/L 3.5-5.1 CHLORIDE (BEAKER) (test buhj=192) 108 meq/L 98-107 CO2 (BEAKER) (test evly=772) 31 meq/L 22-29 BLOOD UREA NITROGEN (BEAKER) (test qwly=266) 4 mg/dL 7-21 CREATININE (BEAKER) (test mpzv=131) 0.40 mg/dL 0.57-1.25 GLUCOSE RANDOM (BEAKER) (test ffcb=089) 85 mg/dL 70-105 CALCIUM (BEAKER) (test akjp=641) 8.2 mg/dL 8.4-10.2 EGFR (BEAKER) (test aqaa=7888) 227 mL/min/1.73 sq m ESTIMATED GFR IS NOT ACCURATE CREATININE CLEARANCE IN PREDICTING GLOMERULAR FILTRATION RATE. ESTIMATED GFR IS NOT APPLICABLE FOR DIALYSIS PATIENTS. HIV-1 ANTIGEN WITH HIV-1/2 [id number] 05:14:00* Test Item Value Reference Range Comments HIV-1 ANTIGEN WITH HIV 1\\T\\2 ANTIBODY (2) (BEAKER) (test dpgz=9120) Nonreactive Nonreactive [id number] 05:02:00* Test Item Value Reference Range Comments PHOSPHORUS (BEAKER) (test xyrx=203) 3.8 mg/dL 2.3-4.7 [id number] 05:02:00* Test Item Value Reference Range Comments MAGNESIUM (BEAKER) (test nqcv=810) 1.6 mg/dL 1.6-2.6 RAD, CHEST, 1 VIEW, NON [id number] 04:22:00Reason for exam:->medistinal abscessShould this be performed at the bedside?->YesFINAL REPORT CLINICAL INDICATION: Mediastinal abscess Comparison: 08/28/2017 The cardiomediastinal contours are stable. Bilateral parenchymal and pleural opacities are unchanged. There is no pneumothorax. Support lines are stable. Signed: Cruz [place] Verified Date/Time: 08/29/2017 04:22:38 Reading Location: [address] Reading Room , CHEST, WITH [id number] 15:01:00FINAL REPORT CT of the chest, with contrast Clinical History: mediastinal abscess Technique: CT of the chest is performed with intravenous contrast administration. This exam was performed according to our departmental dose optimization program which includes automated exposure control, adjustment of the mA and/or kV according to patient's size and/or use of iterative reconstructive technique. Comparison Film: CT dated August 25, 2017, performed at an outside institution Discussion: Tracheostomy tube and left Port-A-Cath are seen. There is a multiloculated abscess in the posterior aspect of superior mediastinum, posterior to the trachea and abutting the spine , causing leftward deviation of the esophagus. It measures up to 6 cm in width, 2.3 cm in AP dimension, and at least 10 cm in length. Compared to the prior exam , it has decreased fluid component, and increased amount of air. The superior aspect of this collection is not entirely imaged on chest CT, please refer to concurrent cervical spine CT for discussion. Sclerosis is noted in the cervical spine vertebral bodies, as well as T1. Additionally, there is a lucency in the left aspect of T3 vertebral body, worrisome for osteomyelitis. There are several mildly enlarged mediastinal lymph nodes, and right greater than left enlarged hilar nodes, which can be reactive. Heart and pericardium are unremarkable. There is a small loculated right pleural effusion, and trace left effusion. There is consolidation in both lower lobes, right greater than left, as well as the posterior aspect of the middle lobe. Extent of disease has increased since the previous CT, particularly on the right. Debris/secretions are seen in the right mainstem and interlobar bronchus with occlusion of distal airways. Partially imaged upper abdomen is unremarkable. Impression: Superior mediastinal abscess extending to the lower neck, containing decreased amount of fluid compared to August 25, 2017. There is lucency in the left aspect of the T3 vertebral body, concerning for osteomyelitis. Small, loculated right pleural effusion. Trace left effusion. Bilateral lower lung consolidation, progressed on the right compared to August 25, 2017. There is secretions/ debris within right-sided airways. Signed: Wil Blackmanort Verified Date/Time : 08/28/2017 15:01:27 Reading Location: [address] Body Reading Room , SPINE, CERVICAL, [id number] 14:56:00FINAL REPORT CT cervical spine with contrast INDICATION: Mediastinal abscess. COMPARISON: None available TECHNIQUE: Axial intravenous contrast enhanced CT images of the cervical spine were obtained. Axially acquired data were reformatted in coronal and sagittal planes for further analysis. This exam was performed according to our departmental dose optimization program which includes automated exposure control, adjustment of the mA and/or kV according to patient size and/or use of iterative reconstruction technique. FINDINGS:A partially imaged multiloculated gas and fluid containing collection in the upper mediastinum is consistent with the history of mediastinal abscess. There is prevertebral extension, with gas foci contiguous with anterior cervical spinal fusion hardware from C4 to C7. Gas locules extending into the left greater than right C4-5 neural foramen, right C6-7 neural foramen. Conspicuous osseous sclerosis from C5 to T1 is probably secondary to infection. There is vertebral osteolysis at T3 reflecting direct extension of infection. There are intervertebral grafts at C4-5, C5-6, and C6-7, which appear incorporated. Anterior plate and screw hardware is intact , without offset or evident loosening. There are posterior spinal fusion changes from C4 to T1 lateral mass screws at C4-C5 bilaterally and bilateral C7 and T1 pedicle screws. The left greater than right C7 pedicle screws are medially positioned and effaced the lateral recesses. A cerclage wire encircles the C4-T1 spinous processes. Cervical vertebral height and alignment are otherwise maintained. The spinal canal and neural foramina are not well assessed without intrathecal contrast. There is calcification in the right side of the spinal canal at C5-6. Allowing for artifacts, no high grade canal compromise is evident. A tracheostomy tube and left jugular line are noted. Mediastinal lymphadenopathy is likely reactive given the above noted infection. The infectious process closely approximates the left side of the esophagus where there is wall thickening. Esophageal perforation as an etiology of the mediastinal abscess cannot be excluded. IMPRESSION: 1. Partially imaged mediastinal abscess with T3 vertebral osteolysis in keeping with direct extension of infection and gas and edema extension along the prevertebral space encompassing C4-C7 anterior fusion hardware. Osseous sclerosis from C5 to T1 may be reactive or due to ongoing osteomyelitis. 2. Intervertebral grafts at C4- 5, C5-6, and C6-7 with evident osseous fusion. Posterior spinal fusion from C4 to T1 with medially positioned C7 pedicle screws. 3. Esophageal wall thickening and likely involvement by mediastinal infection. Esophageal perforation as an etiology of the abscess cannot be excluded. 4. Mediastinal lymphadenopathy, presumably reactive. Signed: Stefan Barrios Verified Date/Time: 08/28/2017 14:56:33 Reading Location: [facility] Radiology Reading Room , SPINE, CERVICAL, 2 OR 3 [id number] 12:35:00Reason for exam:->preop evaluation, AP and lateral viewShould this be performed at the bedside?-> YesFINAL REPORT Cervical spine two views Discussion: Posterior element hardware extends from C4 to T1. Ventral fusion with plate and screws extends from C4 to C7. There is normal alignment. Signed: Evin Griggs Verified Date/Time: 08/28/2017 12:35:05 Reading Location: [facility] C0[facility] Consult Reading Room [id number] 09:58:00* Test Item Value Reference Range Comments PREALBUMIN (BEAKER) (test nrfk=999) 6 mg/dL 14-45 Specimen markedly hemolyzed VANCOMYCIN LEVEL, [id number] 09:55:00* Test Item Value Reference Range Comments VANCOMYCIN TROUGH (BEAKER) (test cqax=230) 16.7 ug/mL 10.0-20.0 RAD, CHEST, 1 VIEW, NON [id number] 09:07:00Reason for exam:->mediastinal massShould this be performed at the bedside?->YesFINAL REPORT TECHNIQUE: Frontal chest radiographs dated 08/28/2017. CLINICAL HISTORY: Mediastinal mass COMPARISON STUDY: Chest radiograph dated 08/27/2017 IMPRESSION: Life support tubes and lines are unchanged. A right-sided PICC terminates in the right axilla. Stable small right pleural effusion and stable bibasilar atelectasis. No pneumothorax. Cardiomediastinal silhouette is stable in size. No pulmonary edema. Degenerative changes are seen in the shoulders. Bones are osteopenic. Cervical fusion hardware is partially visualized. Signed: Crow Bajwaeport Verified Date/Time: 08/28/2017 09:07:49 Reading Location: [facility] Radiology Reading Room [id number] 04:49:00* Test Item Value Reference Range Comments PHOSPHORUS (BEAKER) (test ieuw=637) 1.8 mg/dL 2.3-4.7 [id number] 04:49:00* Test Item Value Reference Range Comments MAGNESIUM (BEAKER) (test bnmv=864) 1.6 mg/dL 1.6-2.6 BASIC METABOLIC [id number] 04:49:00* Test Item Value Reference Range Comments SODIUM (BEAKER) (test wway=194) 142 meq/L 136-145 POTASSIUM (BEAKER) (test icdp=028) 2.8 meq/L 3.5-5.1 CHLORIDE (BEAKER) (test gtwa=278) 105 meq/L 98-107 CO2 (BEAKER) (test vago=085) 28 meq/L 22-29 BLOOD UREA NITROGEN (BEAKER) (test ayss=652) 4 mg/dL 7-21 CREATININE (BEAKER) (test tylf=254) 0.41 mg/dL 0.57-1.25 GLUCOSE RANDOM (BEAKER) (test khxs=360) 93 mg/dL 70-105 CALCIUM (BEAKER) (test hrvr=512) 8.6 mg/dL 8.4-10.2 EGFR (BEAKER) (test ieav=5263) 220 mL/min/1.73 sq m ESTIMATED GFR IS NOT ACCURATE CREATININE CLEARANCE IN PREDICTING GLOMERULAR FILTRATION RATE. ESTIMATED GFR IS NOT APPLICABLE FOR DIALYSIS PATIENTS. CBC W/PLT COUNT & AUTO [id number] 04:47:00* Test Item Value Reference Range Comments WHITE BLOOD CELL COUNT (BEAKER) (test fkfs=328) 11.0 K/ L 3.5-10.5 RED BLOOD CELL COUNT (BEAKER) (test sewb=645) 3.46 M/ L 4.63-6.08 HEMOGLOBIN (BEAKER) (test mvzq=888) 8.2 GM/DL 13.7-17.5 HEMATOCRIT (BEAKER) (test glwc=299) 27.3 % 40.1-51.0 MEAN CORPUSCULAR VOLUME (BEAKER) (test qhid=698) 78.9 fL 79.0-92.2 MEAN CORPUSCULAR HEMOGLOBIN (BEAKER) (test ijds=093) 23.7 pg 25.7-32.2 MEAN CORPUSCULAR HEMOGLOBIN CONC (BEAKER) (test uzws=941) 30.0 GM/DL 32.3- 36.5 RED CELL DISTRIBUTION WIDTH (BEAKER) (test ycaq=431) 17.7 % 11.6-14.4 PLATELET COUNT (BEAKER) (test rpny=142) 697 K/CU MM 150-450 MEAN PLATELET VOLUME (BEAKER) (test baea=272) 8.8 fL 9.4-12.4 NUCLEATED RED BLOOD CELLS (BEAKER) (test gkya=363) 0 /100 WBC 0-0 NEUTROPHILS RELATIVE PERCENT (BEAKER) (test vesb=040) 72 % LYMPHOCYTES RELATIVE PERCENT (BEAKER) (test pkre=591) 17 % MONOCYTES RELATIVE PERCENT (BEAKER) (test isnz=665) 7 % EOSINOPHILS RELATIVE PERCENT (BEAKER) (test pyzb=942) 3 % BASOPHILS RELATIVE PERCENT (BEAKER) (test nral=039) 1 % NEUTROPHILS ABSOLUTE COUNT (BEAKER) (test bqhd=168) 7.94 K/ L 1.78-5.38 LYMPHOCYTES ABSOLUTE COUNT (BEAKER) (test syxo=104) 1.88 K/ L 1.32-3.57 MONOCYTES ABSOLUTE COUNT (BEAKER) (test waia=165) 0.74 K/ L 0.30-0.82 EOSINOPHILS ABSOLUTE COUNT (BEAKER) (test ihfq=759) 0.28 K/ L 0.04-0.54 BASOPHILS ABSOLUTE COUNT (BEAKER) (test vcih=775) 0.05 K/ L 0.01-0.08 IMMATURE GRANULOCYTES-RELATIVE PERCENT (BEAKER) (test deea=3769) 1 % 0-1 RAD, ABDOMEN/KUB, 1 VIEW [id number] 21:36:00Reason for exam:->abdominal distensionFINAL REPORT Two frontal supine views of the abdomen HISTORY: Abdominal distention COMPARISON: Outside CT from 08/25/2017 IMPRESSION: Mildly distended air-filled stomach and small bowel may suggest ileus or early partial obstruction. Previously measured oral contrast material is seen in the colon. No definite free intraperitoneal air is seen, however dedicated upright views or CT is suggested if there is high clinical suspicion of free intraperitoneal air. Bibasilar atelectasis at the lung bases. Trace bilateral pleural effusions. IVC filter overlies the right paraspinal region. Degenerative changes in the lower lumbar spine and bilateral hips. Signed: Rad Olson MDReport Verified Date/Time: 08/27/2017 21:36:59 Reading Location: [facility] C013W Consult Reading Room D GAS, [id number] 20:19:00* Test Item Value Reference Range Comments PH ARTERIAL (BEAKER) (test tuva=574) 7.49 7.35-7.45 PCO2 ARTERIAL (BEAKER) (test owqj=832) 40 mmHg 35-45 PO2 ARTERIAL (BEAKER) (test ewkp=190) 70 mmHg 80-90 O2 SATURATION ARTERIAL (BEAKER) (test mrrc=978) 95.2 % 96.0-97.0 HCO3 ARTERIAL (BEAKER) (test hthg=585) 30 mmol/L 21-29 BASE EXCESS ARTERIAL (BEAKER) (test uypv=821) 6.1 mmol/L -2.0-3.0 PATIENT TEMPERATURE (BEAKER) (test rvhp=2513) 37.0 C FIO2 (BEAKER) (test eybg=9378) 50.0 % POCT-GLUCOSE [id number] 18:49:00* Test Item Value Reference Range Comments POC-GLUCOSE METER (BEAKER) (test znfi=3290) 110 mg/dL 70-[address] [facility] [address] [facility] [address] BLOOD GAS, [id number] 18:25:00* Test Item Value Reference Range Comments PH ARTERIAL (BEAKER) (test cuwh=548) 7.52 7.35-7.45 PCO2 ARTERIAL (BEAKER) (test vgls=353) 35 mmHg 35-45 PO2 ARTERIAL (BEAKER) (test rrvt=306) 43 mmHg 80-90 O2 SATURATION ARTERIAL (BEAKER) (test sjma=741) 86.5 % 96.0-97.0 HCO3 ARTERIAL (BEAKER) (test uwzp=402) 29 mmol/L 21-29 BASE EXCESS ARTERIAL (BEAKER) (test xnmq=655) 5.4 mmol/L -2.0-3.0 PATIENT TEMPERATURE (BEAKER) (test agoi=1516) 35.9 C FIO2 (BEAKER) (test ogxr=4093) 50.0 % URINALYSIS W/ REFLEX URINE [id number] 11:22:00* Test Item Value Reference Range Comments COLOR (BEAKER) (test uxrq=459) Yellow CLARITY (BEAKER) (test ircp=667) Hazy SPECIFIC GRAVITY UA (BEAKER) (test mats=612) 1.008 1.001-1.035 PH UA (BEAKER) (test qegr=157) 5.5 5.0-8.0 PROTEIN UA (BEAKER) (test mtvw=577) 30 mg/dL Negative GLUCOSE UA (BEAKER) (test ybae=146) Negative Negative KETONES UA (BEAKER) (test qogu=203) Negative Negative BILIRUBIN UA (BEAKER) (test hwnn=343) Negative Negative BLOOD UA (BEAKER) (test jczp=240) Moderate Negative NITRITE UA (BEAKER) (test hilr=572) Negative Negative LEUKOCYTE ESTERASE UA (BEAKER) (test lixt=321) Large Negative UROBILINOGEN UA (BEAKER) (test nbiq=916) 0.2 mg/dL 0.2-1.0 RBC UA (BEAKER) (test yuum=919) 16 /HPF WBC UA (BEAKER) (test jian=299) 81 /HPF BACTERIA (BEAKER) (test zccw=647) Occasional MUCUS (BEAKER) (test vtmc=8179) Few GRANULAR CASTS (BEAKER) (test crun=493) 31 /LPF CASTS (BEAKER) (test lvqk=2804) 4 /LPF SOURCE(BEAKER) (test ghos=9573) BLOOD GAS, [id number] 06:58:00* Test Item Value Reference Range Comments PH ARTERIAL (BEAKER) (test sztf=087) 7.32 7.35-7.45 PCO2 ARTERIAL (BEAKER) (test zldi=742) 65 mmHg 35-45 PO2 ARTERIAL (BEAKER) (test rhxj=375) 192 mmHg 80-90 O2 SATURATION ARTERIAL (BEAKER) (test cjki=286) 99.2 % 96.0-97.0 HCO3 ARTERIAL (BEAKER) (test chym=750) 32 mmol/L 21-29 BASE EXCESS ARTERIAL (BEAKER) (test izsp=870) 5.1 mmol/L -2.0-3.0 PATIENT TEMPERATURE (BEAKER) (test gjaf=1920) 37.0 C FIO2 (BEAKER) (test dupr=2586) 50.0 % RAD, CHEST, 1 VIEW, NON [id number] 04:45:00Reason for exam:->PNAShould this be performed at the bedside?->YesFINAL REPORT RAD, CHEST , 1 VIEW, NON DEPT INDICATION: PNA COMPARISON: None FINDINGS: Portable frontal view of the chest. IMPRESSION: Support Lines: Tracheostomy tube incompletely viewed in projecting over the tracheal air column. A left IJ port catheter terminates over the superior vena cava. Lungs and pleura: Small right pleural effusion and associated relaxation atelectasis. Questionable developing consolidation in the right base. No pneumothorax.Heart and mediastinum: Unremarkable cardiac size. Normal aortic caliber.Additional findings: None. Signed: JR [facility] Verified Date/Time: 08/27/2017 04:45: 40 Reading Location: [facility] B1 C013Y CT Body Reading Room TIC FUNCTION [id number] 02:49:00* Test Item Value Reference Range Comments TOTAL PROTEIN (BEAKER) (test ebzb=737) 6.5 gm/dL 6.0-8.3 ALBUMIN (BEAKER) (test axsl=2311) 2.7 g/dL 3.5-5.0 BILIRUBIN TOTAL (BEAKER) (test llju=962) 0.7 mg/dL 0.2-1.2 BILIRUBIN DIRECT (BEAKER) (test azus=413) 0.3 mg/dL 0.1-0.5 ALKALINE PHOSPHATASE (BEAKER) (test ednz=268) 97 U/L 40-150 AST (SGOT) (BEAKER) (test ftew=683) 15 U/L 5-34 ALT (SGPT) (BEAKER) (test uujx=883) 10 U/L 6-55 BASIC METABOLIC [id number] 02:49:00* Test Item Value Reference Range Comments SODIUM (BEAKER) (test lbwl=753) 141 meq/L 136-145 POTASSIUM (BEAKER) (test iudg=605) 3.5 meq/L 3.5-5.1 CHLORIDE (BEAKER) (test gsjl=572) 105 meq/L 98-107 CO2 (BEAKER) (test xmqg=151) 29 meq/L 22-29 BLOOD UREA NITROGEN (BEAKER) (test jlfq=626) 6 mg/dL 7-21 CREATININE (BEAKER) (test bptc=536) 0.42 mg/dL 0.57-1.25 GLUCOSE RANDOM (BEAKER) (test nrkd=496) 112 mg/dL 70-105 CALCIUM (BEAKER) (test fvul=911) 8.5 mg/dL 8.4-10.2 EGFR (BEAKER) (test kiov=3607) 214 mL/min/1.73 sq m ESTIMATED GFR IS NOT ACCURATE CREATININE CLEARANCE IN PREDICTING GLOMERULAR FILTRATION RATE. ESTIMATED GFR IS NOT APPLICABLE FOR DIALYSIS PATIENTS. URINALYSIS W/ [id number] 02:41:00* Test Item Value Reference Range Comments COLOR (BEAKER) (test mbie=030) Yellow CLARITY (BEAKER) (test ojfg=834) Hazy SPECIFIC GRAVITY UA (BEAKER) (test jovs=543) 1.011 1.001-1.035 PH UA (BEAKER) (test ppou=263) 5.5 5.0-8.0 PROTEIN UA (BEAKER) (test xrwb=931) 30 mg/dL Negative GLUCOSE UA (BEAKER) (test romn=059) Negative Negative KETONES UA (BEAKER) (test dgdn=283) Negative Negative BILIRUBIN UA (BEAKER) (test dafg=650) Negative Negative BLOOD UA (BEAKER) (test fmgh=871) Moderate Negative NITRITE UA (BEAKER) (test zskv=635) Negative Negative LEUKOCYTE ESTERASE UA (BEAKER) (test akky=220) Moderate Negative UROBILINOGEN UA (BEAKER) (test kvrr=676) 0.2 mg/dL 0.2-1.0 RBC UA (BEAKER) (test djdg=551) 34 /HPF WBC UA (BEAKER) (test hrxf=838) 8 /HPF BACTERIA (BEAKER) (test djdm=643) Occasional MUCUS (BEAKER) (test exhx=3714) Few HYALINE CASTS (BEAKER) (test xzvl=850) 5 /LPF CRYSTALS, URINE (BEAKER) (test rlbx=2808) Few CALCIUM OXALATE CRYSTALS (BEAKER) (test vbpq=271) Occasional YEAST (BEAKER) (test uixl=8541) Moderate SOURCE(BEAKER) (test wbbe=7711) Urine, Walker PROTHROMBIN TIME/[id number] 02:41:00* Test Item Value Reference Range Comments PROTIME (BEAKER) (test sqeo=539) 20.1 seconds 11.7-14.7 INR (BEAKER) (test peqj=917) 1.7 <=5.9 RECOMMENDED COUMADIN/WARFARIN INR THERAPY RANGESSTANDARD DOSE: 2.0 - 3.0 Includes: PROPHYLAXIS for venous thrombosis, systemic embolization; TREATMENT for venous thrombosis and/or pulmonary embolus.HIGH RISK: Target INR is 2.5-3.5 for patients with mechanical heart valves.CBC W/PLT COUNT & AUTO [id number] 02:35:00* Test Item Value Reference Range Comments WHITE BLOOD CELL COUNT (BEAKER) (test fiai=221) 13.5 K/ L 3.5-10.5 RED BLOOD CELL COUNT (BEAKER) (test tpmx=883) 3.57 M/ L 4.63-6.08 HEMOGLOBIN (BEAKER) (test zhzt=978) 8.5 GM/DL 13.7-17.5 HEMATOCRIT (BEAKER) (test hgor=070) 29.0 % 40.1-51.0 MEAN CORPUSCULAR VOLUME (BEAKER) (test ucgr=047) 81.2 fL 79.0-92.2 MEAN CORPUSCULAR HEMOGLOBIN (BEAKER) (test yhse=843) 23.8 pg 25.7-32.2 MEAN CORPUSCULAR HEMOGLOBIN CONC (BEAKER) (test jcel=043) 29.3 GM/DL 32.3- 36.5 RED CELL DISTRIBUTION WIDTH (BEAKER) (test edce=483) 17.4 % 11.6-14.4 PLATELET COUNT (BEAKER) (test dikh=216) 663 K/CU MM 150-450 MEAN PLATELET VOLUME (BEAKER) (test sbbq=464) 8.7 fL 9.4-12.4 NUCLEATED RED BLOOD CELLS (BEAKER) (test kqdh=317) 0 /100 WBC 0-0 NEUTROPHILS RELATIVE PERCENT (BEAKER) (test dehd=296) 82 % LYMPHOCYTES RELATIVE PERCENT (BEAKER) (test twze=194) 8 % MONOCYTES RELATIVE PERCENT (BEAKER) (test hrql=333) 7 % EOSINOPHILS RELATIVE PERCENT (BEAKER) (test ljpw=134) 2 % BASOPHILS RELATIVE PERCENT (BEAKER) (test xibp=881) 0 % NEUTROPHILS ABSOLUTE COUNT (BEAKER) (test hgsz=375) 11.05 K/ L 1.78-5.38 LYMPHOCYTES ABSOLUTE COUNT (BEAKER) (test vxyx=503) 1.05 K/ L 1.32-3.57 MONOCYTES ABSOLUTE COUNT (BEAKER) (test yuld=996) 0.96 K/ L 0.30-0.82 EOSINOPHILS ABSOLUTE COUNT (BEAKER) (test wonq=671) 0.27 K/ L 0.04-0.54 BASOPHILS ABSOLUTE COUNT (BEAKER) (test egno=552) 0.05 K/ L 0.01-0.08 IMMATURE GRANULOCYTES-RELATIVE PERCENT (BEAKER) (test jpbn=6852) 1 % 0-1
[2018-01-19] MEDS ORDERED: VANCOMYCIN 1GM/NS 250 ML 250 ML IV STA (14:49)
[2018-01-19] MEDS ORDERED: PIPER-TAZ 3.375 GM 50 ML IV STA (14:49)
[2018-01-19 14:56] LABS: BASOPHILS % 0.3 % (0.0-1.0); BILIRUBIN,URINE NEGATIVE (NEGATIVE); EOSINOPHILS % 0.1 % (0.0-6.0); HEMATOCRIT 26.6 % (38.2-49.6); HEMOGLOBIN 8.2 g/dL (14.0-18.0); KETONES,URINE NEGATIVE (NEGATIVE); LEUKOCYTE ESTERASE ,URINE TRACE (NEGATIVE); LYMPHOCYTES # (AUTO) 1.7 (1.0-3.2); LYMPHOCYTES % 12.5 % (18.0-39.1); MEAN CORPUSCULAR HEMOGLOBIN 23.7 pg (28-32); MEAN CORPUSCULAR HGB CONC 30.8 g/dL (31-35); MEAN CORPUSCULAR VOLUME 76.9 fL (81-99); MONOCYTES # (AUTO) 1.4 (0.2-0.8); NEUTROPHILS # (AUTO) 10.4 (2.1-6.9); NEUTROPHILS % 76.3 % (38.7-80.0); NITRITE,URINE NEGATIVE (NEGATIVE); PLATELET COUNT 276 x10e3/uL (140-360); RED BLOOD COUNT 3.46 x10e6/uL (4.3-5.7); RED CELL DISTRIBUTION WIDTH 18.6 % (11.7-14.4); URINE UROBILINOGEN 0.2 mg/dL (0.2 - 1)
[2018-01-19 14:58] LABS: CLARITY,URINE SL CLOUDY (CLEAR); COLOR,URINE YELLOW (YELLOW); PROTEIN,URINE DIPSTICK 1+ (NEGATIVE)
[2018-01-19] MEDS ORDERED: ACETAMINOPHEN 1000 MG/100 ML IV STA (15:07)
[2018-01-19 15:10] LABS: ALANINE AMINOTRANSFERASE 47 IU/L (0-55); ALBUMIN 2.9 g/dL (3.5-5.0); ALBUMIN/GLOBULIN RATIO 0.6 (0.8-2.0); ALKALINE PHOSPHATASE 130 IU/L (40-150); ANION GAP 13.5 mmol/L (8-16); BACTERIA,URINE FEW /HPF; BLOOD UREA NITROGEN 38 mg/dL (7-26); BUN/CREATININE RATIO 63 (6-25); CALCIUM 8.9 mg/dL (8.4-10.2); CALCIUM OXALATE CRYSTALS,UR MODERATE (FEW); CARBON DIOXIDE 34 mmol/L (22-29); CHLORIDE 93 mmol/L (98-107); CREATINE KINASE 61 IU/L (30-200); EPITHELIAL CELLS,URINE RARE /LPF; EST GLOMERULAR FILTRATION RATE > 60 ML/MIN (60-); GLUCOSE 132 mg/dL (74-118); POTASSIUM 4.5 mmol/L (3.5-5.1); RBC,URINE 21-50 /HPF (0-5); SODIUM 136 mmol/L (136-145)
[2018-01-19] MEDS ORDERED: LORAZEPAM INJ 2 MG/ML VIAL IV ONE (15:30)
[2018-01-19] MEDS ORDERED: AMIODARONE HCL200 MG PO (15:30)
[2018-01-19] MEDS ORDERED: ALPRAZOLAM0.5 MG PEG (15:30)
[2018-01-19] MEDS ORDERED: ACETYLCYST200 MG/1 M NEB (15:30)
[2018-01-19] MEDS ORDERED: AMIKACIN S1000 MG/4 IV (15:30)
[2018-01-19] MEDS ORDERED: ACETAMINOPHEN325 M1 PEG ×2 (15:30→15:59)
[2018-01-19 15:43] LABS: INR 1.58; PROTHROMBIN TIME 17.7 seconds (11.9-14.5)
[2018-01-19 15:44] LABS: PARTIAL THROMBOPLASTIN TIME 48.7 seconds (23.8-35.5)
[2018-01-19] MEDS ORDERED: MIDODRINE HCL2.5 MG PEG (15:59)
[2018-01-19] MEDS ORDERED: FLUCONAZOLE100 MG PEG (15:59)
[2018-01-19] MEDS ORDERED: LYRICA50 MG PEG (15:59)
[2018-01-19] MEDS ORDERED: IPRAT-ALBUT 0.5-3 ML NEB (15:59)
[2018-01-19] MEDS ORDERED: BROVANA15 MCG/2 M NEB (15:59)
[2018-01-19] MEDS ORDERED: NORMAL SALINE FL2 ML IV (15:59)
[2018-01-19] MEDS ORDERED: COLACE100 MG/10 PO (15:59)
[2018-01-19] MEDS ORDERED: CYMBALTA30 MG PEG (15:59)
[2018-01-19] MEDS ORDERED: OXYBUTYNIN CHLOR5 MG PEG (15:59)
[2018-01-19] MEDS ORDERED: HEPARIN LO100 UNIT/4 IV (15:59)
[2018-01-19] MEDS ORDERED: FLUDROCORTISON0.1 MG PEG (15:59)
[2018-01-19] MEDS ORDERED: MAGNESIUM OXID400 MG PEG (15:59)
[2018-01-19] MEDS ORDERED: DURAGESIC1 EAC1 TD (15:59)
[2018-01-19] MEDS ORDERED: TIZANIDINE HCL4 MG PEG (15:59)
[2018-01-19] MEDS ORDERED: NORCO 5-325 TA1 EACH PEG (15:59)
[2018-01-19] MEDS ORDERED: HYDROMORPHONE HC2 MG PEG (15:59)
[2018-01-19] MEDS ORDERED: TEMAZEPAM15 MG PEG (15:59)
[2018-01-19] MEDS ORDERED: TAB-A-VITE1 EACH PEG (15:59)
[2018-01-19] MEDS ORDERED: CHLORHEXIDINE118 ML PO (15:59)
[2018-01-19] MEDS ORDERED: NYSTATIN1 EAC1 TOP (15:59)
[2018-01-19] MEDS ORDERED: FLUDROCORTISON0.1 MG PO (15:59)
[2018-01-19] MEDS ORDERED: MINOCYCLINE HCL50 MG PEG (15:59)
--- NOTE | 2018-01-19 16:35 | Diagnostic Imaging Report ---
PROCEDURE: A single AP view of the chest. COMPARISON: None. INDICATIONS: fever, pneumonia FINDINGS: Lines/tubes: Tracheostomy tube in place.. Lungs: The lungs are well inflated. Patchy right infrahilar opacity. Linear opacity projecting in the left costophrenic angle. There is no evidence of pulmonary edema. Pleura: There is no pleural effusion or pneumothorax. Heart and mediastinum: Cardiac silhouette is unremarkable. Pulmonary vasculature is normal. Bones and soft tissues: No acute bony abnormality. Fusion hardware in the lower cervical/upper thoracic spine. IMPRESSION: 1. patchy right infrahilar opacity may reflect atelectasis, aspiration or developing pneumonia, in the appropriate clinical setting. 2. Left lower lung subsegmental atelectasis or scarring. Hamilton Cuenca M.D. Dictated by: Hamilton Cuenca M.D. on 01/19/2018 at 16:34 Electronically approved by: Hamilton Cuenca M.D. on 01/19/2018 at 16:34
[2018-01-19] MEDS ORDERED: SODIUM CHLORIDE 0.9% 1000ML 1,000 ML IV STA (16:54)
[2018-01-19] MEDS ORDERED: IBUPROFEN 100 MG/5 ML SUSP NG ONE (17:30)
[2018-01-19 18:19] LABS: ABG HCO3 40 mmol/L (23-28); ABG PCO2 58 mmHg (41-51); ABG PH 7.44 (7.31-7.41); ABG PO2 154 mmHg (80-105)
[2018-01-19] MEDS ORDERED: ACETAMINOPHEN 325 MG TAB PEG PRN (18:30)
[2018-01-19] MEDS ORDERED: MEROPENEM 500MG 500 MG in SODIUM CHLORIDE 0.9% 50ML 50 ML IV SCH (18:30)
[2018-01-19] MEDS ORDERED: MEROPENEM 500 MG VIAL IV ONE (18:45)
[2018-01-19 18:48] LABS: % IRON SATURATION 4 % (15-50); IRON 9 ug/dL (65-175); TOTAL IRON BINDING CAPACITY 223 ug/dL (261-478); TRANSFERRIN 159 mg/dL (174-364)
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
[2018-01-19] MEDS: SODIUM CHLORIDE 0.9% IV SCH (19:52)
[2018-01-19] MEDS: SODIUM CHLORIDE 0.9% 1000ML 1,000 ML IV SCH ×2 (19:52→20:59)
[2018-01-19] MEDS: AMIKACIN SULFATE IV SCH (19:52)
[2018-01-19] MEDS: ALBUTEROL/IPRATROPIUM 3 ML NEB NEB SCH (20:15)
[2018-01-19] MEDS ORDERED: NOREPINEPHRINE BITARTRATE/ NS 250 ML IV PRN (20:30)
[2018-01-19] MEDS ORDERED: FENTANYL 75MCG/HR PATCH TD SCH (20:30)
[2018-01-19] MEDS: HEPARIN SOD (PORCINE) 5,000 UNIT/ML VIAL SC SCH (20:58)
[2018-01-19] MEDS: TOBRAMYCIN 40MG/ML 30ML MDV INH SCH ×2 (20:59→21:30)
[2018-01-19] MEDS: HYDROMORPHONE 1MG/1ML INJ IV PRN ×2 (20:59→21:07)
[2018-01-19] MEDS ORDERED: TOBRAMYCIN 40 MG/ML 2ML VIAL NEB SCH (21:00)
[2018-01-19 21:27] LABS: ABG PH 7.42 (7.31-7.41)
[2018-01-19] MEDS ORDERED: PIPER-TAZ 3.375 GM 50 ML IV SCH (22:00)
[2018-01-19] MEDS ORDERED: MIDAZOLAM 2MG/1ML ORAL LIQUID PEG ONE (22:00)
[2018-01-20] VITALS (28 sets, daily range): BP systolic 97–162; BP diastolic 55–93
[2018-01-20] MEDS: ALBUTEROL/IPRATROPIUM 3 ML NEB NEB SCH ×7 (00:15→23:00)
[2018-01-20] MEDS: HYDROMORPHONE 1MG/1ML INJ IV PRN ×8 (00:15→22:03)
[2018-01-20] MEDS: ONDANSETRON HCL INJ 2 MG/ML VIAL IV PRN ×2 (00:16→23:16)
[2018-01-20] MEDS: HYDROMORPHONE HCL 2 MG TAB PO PRN ×3 (00:16→20:20)
[2018-01-20] MEDS: ACETYLCYSTEINE 20% INHAL SOLN 30 ML VIAL INH SCH (02:00)
[2018-01-20] MEDS: SODIUM CHLORIDE 0.9% 1000ML 1,000 ML IV SCH (05:27)
[2018-01-20 05:55] LABS: BASOPHILS % 0.4 % (0.0-1.0); EOSINOPHILS # (AUTO) 0.1 (0.0-0.4); EOSINOPHILS % 0.8 % (0.0-6.0); HEMATOCRIT 23.9 % (38.2-49.6); LYMPHOCYTES # (AUTO) 1.4 (1.0-3.2); LYMPHOCYTES % 14.4 % (18.0-39.1); MEAN CORPUSCULAR HEMOGLOBIN 23.8 pg (28-32); MEAN CORPUSCULAR HGB CONC 30.5 g/dL (31-35); MEAN CORPUSCULAR VOLUME 77.9 fL (81-99); MONOCYTES # (AUTO) 1.1 (0.2-0.8); NEUTROPHILS # (AUTO) 7.1 (2.1-6.9); NEUTROPHILS % 72.8 % (38.7-80.0); PLATELET COUNT 225 x10e3/uL (140-360); RED BLOOD COUNT 3.07 x10e6/uL (4.3-5.7); RED CELL DISTRIBUTION WIDTH 18.6 % (11.7-14.4)
[2018-01-20 06:05] LABS: HEMOGLOBIN 7.3 g/dL (14.0-18.0)
[2018-01-20 06:14] LABS: ANION GAP 9.3 mmol/L (8-16); BLOOD UREA NITROGEN 25 mg/dL (7-26); BUN/CREATININE RATIO 61 (6-25); CALCIUM 8.1 mg/dL (8.4-10.2); CARBON DIOXIDE 32 mmol/L (22-29); CHLORIDE 103 mmol/L (98-107); CREATININE, SERUM 0.41 mg/dL (0.72-1.25); EST GLOMERULAR FILTRATION RATE > 60 ML/MIN (60-); GLUCOSE 96 mg/dL (74-118); POTASSIUM 3.3 mmol/L (3.5-5.1); SODIUM 141 mmol/L (136-145)
--- NOTE | 2018-01-20 06:25 | Diagnostic Imaging Report ---
CHEST SINGLE (PORTABLE), 01/20/2018 7:00 AM Technique: CHEST SINGLE (PORTABLE) Comparison: 01/19/2018 Clinical history: Shortness of breath Findings: See Impression Impression: Limited portable technique with right costophrenic angle excluded. 1. Lines/Tubes: Tracheostomy and partially imaged cervical thoracic hardware. 2. Stable cardiomediastinal silhouette. 3. Persistent bibasilar opacities which could reflect atelectasis/aspiration/consolidation. Possible underlying right pleural fluid. Signed by: Dr Radha Hernandez MD on 01/20/2018 6:21 AM
[2018-01-20 06:47] LABS: ALBUMIN 2.5 g/dL (3.5-5.0); BILIRUBIN,DIRECT 0.3 mg/dL (0.0-0.5); CHOL/HDL RATIO 5.8 (3.9-4.7); MAGNESIUM 1.6 MG/DL (1.3-2.1); PHOSPHORUS 2.7 MG/DL (2.3-4.7)
[2018-01-20] MEDS: SODIUM CHLORIDE 0.9% IV SCH (06:55)
[2018-01-20] MEDS: AMIKACIN SULFATE IV SCH (06:55)
[2018-01-20] MEDS: TOBRAMYCIN 40MG/ML 30ML MDV INH SCH ×2 (06:56→21:00)
[2018-01-20] MEDS: IRON SUCROSE 100 MG in SODIUM CHLORIDE 0.9% 100 ML 100 ML IV SCH (08:45)
[2018-01-20] MEDS ORDERED: AMIODARONE HCL 200 MG TAB PO SCH (09:00)
[2018-01-20] MEDS ORDERED: MAGNESIUM OXIDE 400 MG TAB PEG SCH (09:00)
[2018-01-20] MEDS ORDERED: AMIKACIN IV SCH (09:00)
[2018-01-20] MEDS: COLLAGENASE OINTMENT 30 GM TUBE TP SCH ×2 (09:00→17:15)
[2018-01-20] MEDS ORDERED: VANCOMYCIN 1GM/NS 250 ML 250 ML IV SCH (09:00)
[2018-01-20] MEDS: HEPARIN SOD (PORCINE) 5,000 UNIT/ML VIAL SC SCH ×2 (09:00→20:21)
[2018-01-20] MEDS: FLUCONAZOLE 100 MG TAB PEG SCH (09:00)
[2018-01-20] MEDS: DOCUSATE SODIUM LIQD 100 MG/10 ML UDC PO SCH (09:00)
[2018-01-20] MEDS: DULOXETINE HCL 30 MG DELAYED RELEASE PEG SCH (09:00)
[2018-01-20] MEDS: FLUDROCORTISONE ACETATE 0.1 MG TAB PEG SCH (09:00)
[2018-01-20 11:00] LABS: ABG HCO3 31 mmol/L (23-28); ABG PCO2 51 mmHg (41-51); ABG PH 7.39 (7.31-7.41); ABG PO2 69 mmHg (80-105)
[2018-01-20] MEDS ORDERED: SODIUM CHLORIDE 0.9% 250ML 250 ML ONE ×2 (11:47→16:33)
[2018-01-20] MEDS ORDERED: POTASSIUM CHLORIDE 20MEQ/100ML 100 ML IV ONE (15:45)
[2018-01-20] MEDS ORDERED: CEFTAROLINE FOSAMIL ACETATE 600 MG in SODIUM CHLORIDE 0.9% 250ML 250 ML IV SCH (18:00)
[2018-01-20] MEDS ORDERED: DIGOXIN INJ 0.25 MG/ML 2 ML AMP ONE (18:59)
[2018-01-20] MEDS ORDERED: DIGOXIN INJ 0.25 MG/ML 2 ML AMP IV ONE (19:15)
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
[2018-01-20] MEDS ORDERED: DILTIAZEM HCL 5 MG/ML 5 ML VIAL IV ONE (19:55)
[2018-01-20] MEDS: CEFTAROLINE FOSAMIL ACETATE 600 MG in SODIUM CHLORIDE 0.9% 250ML 250 ML IV SCH (20:30)
[2018-01-20] MEDS ORDERED: AMIODARONE HCL 900 MG in DEXTROSE 5% 500ML 500 ML IV SCH (21:00)
[2018-01-20] MEDS ORDERED: AMIODARONE 900MG 500 ML IV ONE (21:07)
[2018-01-20] MEDS: MIDAZOLAM HCL 2 MG/2 ML VIAL IV PRN (23:16)
[2018-01-20] MEDS: ACETAMINOPHEN 325 MG/10 ML UDC PEG PRN (23:20)
[2018-01-21] VITALS (29 sets, daily range): BP systolic 111–173; BP diastolic 62–117
[2018-01-21] MEDS: HYDROMORPHONE 1MG/1ML INJ IV PRN ×6 (02:00→23:51)
[2018-01-21] MEDS: ALBUTEROL/IPRATROPIUM 3 ML NEB NEB SCH ×6 (03:00→23:05)
[2018-01-21] MEDS ORDERED: AMIODARONE HCL 900 MG in DEXTROSE 5% 500ML 500 ML IV SCH (03:00)
[2018-01-21] MEDS: HYDROMORPHONE HCL 2 MG TAB PO PRN ×3 (03:07→23:40)
[2018-01-21] MEDS: MIDAZOLAM HCL 2 MG/2 ML VIAL IV PRN (03:16)
[2018-01-21] MEDS: HYDROCORTISONE SOD SUCCINATE 100 MG VIAL IV SCH ×3 (05:22→22:22)
[2018-01-21 06:56] LABS: BASOPHILS # (AUTO) 0.1 (0.0-0.1); BASOPHILS % 0.8 % (0.0-1.0); EOSINOPHILS # (AUTO) 0.3 (0.0-0.4); EOSINOPHILS % 4.3 % (0.0-6.0); HEMATOCRIT 23.4 % (38.2-49.6); LYMPHOCYTES # (AUTO) 1.1 (1.0-3.2); LYMPHOCYTES % 18.2 % (18.0-39.1); MEAN CORPUSCULAR HEMOGLOBIN 23.7 pg (28-32); MEAN CORPUSCULAR HGB CONC 30.3 g/dL (31-35); MEAN CORPUSCULAR VOLUME 78.3 fL (81-99); MONOCYTES # (AUTO) 0.7 (0.2-0.8); MONOCYTES % 11.5 % (4.4-11.3); NEUTROPHILS # (AUTO) 3.8 (2.1-6.9); NEUTROPHILS % 64.4 % (38.7-80.0); PLATELET COUNT 237 x10e3/uL (140-360); RED BLOOD COUNT 2.99 x10e6/uL (4.3-5.7); RED CELL DISTRIBUTION WIDTH 18.5 % (11.7-14.4)
[2018-01-21 07:02] LABS: HEMOGLOBIN 7.1 g/dL (14.0-18.0)
[2018-01-21 07:05] LABS: INR 1.57; PROTHROMBIN TIME 17.6 seconds (11.9-14.5)
[2018-01-21 07:06] LABS: PARTIAL THROMBOPLASTIN TIME 52.3 seconds (23.8-35.5)
[2018-01-21 07:20] LABS: ANION GAP 10.5 mmol/L (8-16); BLOOD UREA NITROGEN 11 mg/dL (7-26); BUN/CREATININE RATIO 28 (6-25); CALCIUM 8.5 mg/dL (8.4-10.2); CARBON DIOXIDE 31 mmol/L (22-29); CHLORIDE 102 mmol/L (98-107); CREATININE, SERUM 0.39 mg/dL (0.72-1.25); EST GLOMERULAR FILTRATION RATE > 60 ML/MIN (60-); GLUCOSE 93 mg/dL (74-118); MAGNESIUM 1.4 MG/DL (1.3-2.1); POTASSIUM 3.5 mmol/L (3.5-5.1); SODIUM 140 mmol/L (136-145)
[2018-01-21] MEDS: ACETYLCYSTEINE 20% INHAL SOLN 30 ML VIAL INH SCH ×2 (07:20→18:52)
[2018-01-21 07:29] LABS: THYROID STIMULATING HORMONE 1.231 uIU/mL (0.350-4.940)
[2018-01-21] MEDS: TOBRAMYCIN 40MG/ML 30ML MDV INH SCH ×2 (07:48→18:53)
[2018-01-21] MEDS: CEFTAROLINE FOSAMIL ACETATE 600 MG in SODIUM CHLORIDE 0.9% 250ML 250 ML IV SCH ×2 (08:00→19:55)
[2018-01-21] MEDS: IRON SUCROSE 100 MG in SODIUM CHLORIDE 0.9% 100 ML 100 ML IV SCH (08:45)
[2018-01-21] MEDS: COLLAGENASE OINTMENT 30 GM TUBE TP SCH ×2 (08:46→17:19)
[2018-01-21] MEDS: DULOXETINE HCL 30 MG DELAYED RELEASE PEG SCH (09:00)
[2018-01-21] MEDS: DOCUSATE SODIUM LIQD 100 MG/10 ML UDC PO SCH (09:00)
[2018-01-21] MEDS: FLUCONAZOLE 100 MG TAB PEG SCH (09:00)
[2018-01-21] MEDS: FLUDROCORTISONE ACETATE 0.1 MG TAB PEG SCH (09:00)
[2018-01-21] MEDS: HEPARIN SOD (PORCINE) 5,000 UNIT/ML VIAL SC SCH ×2 (09:00→21:00)
[2018-01-21] MEDS ORDERED: SODIUM CHLORIDE 0.9% 250ML 250 ML ONE (09:43)
[2018-01-21] MEDS ORDERED: MAGNESIUM SULFATE 2GM/50ML 50 ML IV ONE (11:15)
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
[2018-01-21] MEDS ORDERED: POTASSIUM CHLORIDE 20MEQ/100ML 200 ML IV ONE (14:30)
[2018-01-21] MEDS ORDERED: SODIUM CHLORIDE 0.9% 250ML 250 ML IV ONE (14:30)
[2018-01-21] MEDS: AMIODARONE HCL 200 MG TAB PO SCH (17:19)
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
[2018-01-22] VITALS (56 sets, daily range): BP systolic 141–181; BP diastolic 65–136
[2018-01-22] MEDS: ALBUTEROL/IPRATROPIUM 3 ML NEB NEB SCH ×6 (03:10→23:25)
[2018-01-22] MEDS: HYDROMORPHONE 1MG/1ML INJ IV PRN ×5 (03:51→20:15)
[2018-01-22] MEDS: HYDROCORTISONE SOD SUCCINATE 100 MG VIAL IV SCH ×3 (05:26→20:15)
[2018-01-22 06:13] LABS: BASOPHILS % 0.4 % (0.0-1.0); EOSINOPHILS % 0.6 % (0.0-6.0); HEMOGLOBIN 7.9 g/dL (14.0-18.0); LYMPHOCYTES # (AUTO) 1.9 (1.0-3.2); LYMPHOCYTES % 27.6 % (18.0-39.1); MEAN CORPUSCULAR HEMOGLOBIN 23.8 pg (28-32); MEAN CORPUSCULAR HGB CONC 30.4 g/dL (31-35); MEAN CORPUSCULAR VOLUME 78.3 fL (81-99); MONOCYTES # (AUTO) 1.1 (0.2-0.8); MONOCYTES % 15.7 % (4.4-11.3); NEUTROPHILS # (AUTO) 3.8 (2.1-6.9); NEUTROPHILS % 55.4 % (38.7-80.0); PLATELET COUNT 255 x10e3/uL (140-360); RED BLOOD COUNT 3.32 x10e6/uL (4.3-5.7)
[2018-01-22 06:40] LABS: ALANINE AMINOTRANSFERASE 31 IU/L (0-55); ALBUMIN 2.6 g/dL (3.5-5.0); ALBUMIN/GLOBULIN RATIO 0.5 (0.8-2.0); ALKALINE PHOSPHATASE 127 IU/L (40-150); ANION GAP 10.5 mmol/L (8-16); BLOOD UREA NITROGEN 14 mg/dL (7-26); BUN/CREATININE RATIO 31 (6-25); CALCIUM 8.9 mg/dL (8.4-10.2); CARBON DIOXIDE 33 mmol/L (22-29); CHLORIDE 100 mmol/L (98-107); CREATININE, SERUM 0.45 mg/dL (0.72-1.25); EST GLOMERULAR FILTRATION RATE > 60 ML/MIN (60-); GLUCOSE 111 mg/dL (74-118); POTASSIUM 3.5 mmol/L (3.5-5.1); SODIUM 140 mmol/L (136-145)
[2018-01-22] MEDS: ACETYLCYSTEINE 20% INHAL SOLN 30 ML VIAL INH SCH ×2 (06:50→19:20)
[2018-01-22] MEDS: DOCUSATE SODIUM LIQD 100 MG/10 ML UDC PO SCH (07:17)
[2018-01-22] MEDS: DULOXETINE HCL 30 MG DELAYED RELEASE PEG SCH (07:17)
[2018-01-22] MEDS: FLUCONAZOLE 100 MG TAB PEG SCH (07:17)
[2018-01-22] MEDS: AMIODARONE HCL 200 MG TAB PO SCH ×2 (07:18→17:23)
[2018-01-22] MEDS: HYDROMORPHONE HCL 2 MG TAB PO PRN ×3 (07:18→23:37)
[2018-01-22] MEDS: TOBRAMYCIN 40MG/ML 30ML MDV INH SCH ×2 (07:25→21:30)
[2018-01-22] MEDS: CEFTAROLINE FOSAMIL ACETATE 600 MG in SODIUM CHLORIDE 0.9% 250ML 250 ML IV SCH ×2 (08:24→20:15)
[2018-01-22] MEDS: ACETAMINOPHEN 325 MG/10 ML UDC PEG PRN (10:09)
[2018-01-22] MEDS: HEPARIN SOD (PORCINE) 5,000 UNIT/ML VIAL SC SCH ×2 (10:09→20:15)
[2018-01-22] MEDS: IRON SUCROSE 100 MG in SODIUM CHLORIDE 0.9% 100 ML 100 ML IV SCH (10:53)
--- NOTE | 2018-01-22 13:37 | Diagnostic Imaging Report ---
PROCEDURE:X-RAY MODIFIED BARIUM SWALLOW COMPARISON:None. INDICATIONS:Possible aspiration DISCUSSION:Fluoroscopic examination was performed in conjunction with speech pathology, during swallowing of a variety of thin and thick liquid consistencies. Fluoroscopy time: 1minute and 53 seconds Total dose: 187.29 cGycm2 CONCLUSION:No penetration or aspiration. Please see the report from speech pathology for complete details. Jordan De La Rosa D.O. Dictated by: Jordan De La Rosa D.O. on 01/22/2018 at 13:37 Electronically approved by: Jordan De La Rosa D.O. on 01/22/2018 at 13:37
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
[2018-01-22] MEDS: COLLAGENASE OINTMENT 30 GM TUBE TP SCH (17:23)
[2018-01-22] MEDS: ONDANSETRON HCL INJ 2 MG/ML VIAL IV PRN (23:37)
[2018-01-23] VITALS (20 sets, daily range): BP systolic 129–186; BP diastolic 63–96
[2018-01-23] MEDS: HYDROMORPHONE 1MG/1ML INJ IV PRN ×3 (00:41→22:35)
[2018-01-23] MEDS: MIDAZOLAM HCL 2 MG/2 ML VIAL IV PRN ×2 (01:11→20:00)
[2018-01-23] MEDS: ONDANSETRON HCL INJ 2 MG/ML VIAL IV PRN ×2 (02:30→22:36)
[2018-01-23] MEDS: ALBUTEROL/IPRATROPIUM 3 ML NEB NEB SCH ×6 (03:05→22:45)
[2018-01-23] MEDS: LORAZEPAM INJ 2 MG/ML VIAL IV PRN ×2 (03:28→23:45)
[2018-01-23] MEDS: ACETAMINOPHEN 325 MG/10 ML UDC PEG PRN (03:47)
[2018-01-23] MEDS: ACETYLCYSTEINE 20% INHAL SOLN 30 ML VIAL INH SCH ×2 (07:00→19:00)
[2018-01-23] MEDS: HYDROMORPHONE HCL 2 MG TAB PO PRN ×2 (07:05→19:20)
[2018-01-23 07:18] LABS: ANION GAP 10.3 mmol/L (8-16); BLOOD UREA NITROGEN 18 mg/dL (7-26); BUN/CREATININE RATIO 36 (6-25); CALCIUM 9.1 mg/dL (8.4-10.2); CARBON DIOXIDE 35 mmol/L (22-29); CHLORIDE 97 mmol/L (98-107); EST GLOMERULAR FILTRATION RATE > 60 ML/MIN (60-); GLUCOSE 113 mg/dL (74-118); POTASSIUM 3.3 mmol/L (3.5-5.1); SODIUM 139 mmol/L (136-145)
[2018-01-23] MEDS: TOBRAMYCIN 40MG/ML 30ML MDV INH SCH ×2 (07:50→19:20)
[2018-01-23] MEDS: DULOXETINE HCL 30 MG DELAYED RELEASE PEG SCH (07:53)
[2018-01-23] MEDS: AMIODARONE HCL 200 MG TAB PO SCH ×2 (07:54→18:02)
[2018-01-23] MEDS: COLLAGENASE OINTMENT 30 GM TUBE TP SCH ×2 (07:54→18:02)
[2018-01-23] MEDS: DOCUSATE SODIUM LIQD 100 MG/10 ML UDC PO SCH (07:54)
[2018-01-23] MEDS: HEPARIN SOD (PORCINE) 5,000 UNIT/ML VIAL SC SCH ×2 (07:54→20:14)
[2018-01-23] MEDS: FLUCONAZOLE 100 MG TAB PEG SCH (07:54)
[2018-01-23] MEDS: POTASSIUM CHLORIDE 20MEQ/15ML UDC NG PRN (08:30)
[2018-01-23] MEDS: HYDROCORTISONE SOD SUCCINATE 100 MG VIAL IV SCH (10:38)
[2018-01-23] MEDS: CEFTAROLINE FOSAMIL ACETATE 600 MG in SODIUM CHLORIDE 0.9% 250ML 250 ML IV SCH (10:39)
[2018-01-23 16:15] LABS: HEMATOCRIT 30.4 % (38.2-49.6); HEMOGLOBIN 8.9 g/dL (14.0-18.0); LYMPHOCYTES % 28.1 % (18.0-39.1); MEAN CORPUSCULAR HEMOGLOBIN 23.7 pg (28-32); MEAN CORPUSCULAR HGB CONC 29.3 g/dL (31-35); MEAN CORPUSCULAR VOLUME 80.9 fL (81-99); MONOCYTES % 15.2 % (4.4-11.3); NEUTROPHILS % 54.4 % (38.7-80.0); PLATELET COUNT 225 x10e3/uL (140-360); RED BLOOD COUNT 3.76 x10e6/uL (4.3-5.7); RED CELL DISTRIBUTION WIDTH 18.9 % (11.7-14.4)
[2018-01-23 16:16] LABS: BASOPHILS % 0.6 % (0.0-1.0); EOSINOPHILS % 0.2 % (0.0-6.0); LYMPHOCYTES # (AUTO) 1.3 (1.0-3.2); MONOCYTES # (AUTO) 0.7 (0.2-0.8); NEUTROPHILS # (AUTO) 2.6 (2.1-6.9)
[2018-01-23] MEDS ORDERED: MEROPENEM 500 MG VIAL ONE (17:55)
[2018-01-23] MEDS: MEROPENEM 500MG 500 MG in SODIUM CHLORIDE 0.9% 50ML 50 ML IV SCH ×2 (18:02→23:45)
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
[2018-01-24] VITALS (41 sets, daily range): BP systolic 88–186; BP diastolic 59–112
[2018-01-24] MEDS: HYDROMORPHONE HCL 2 MG TAB PO PRN ×4 (01:40→18:01)
[2018-01-24] MEDS: ONDANSETRON HCL INJ 2 MG/ML VIAL IV PRN ×4 (02:15→22:45)
[2018-01-24] MEDS: MIDAZOLAM HCL 2 MG/2 ML VIAL IV PRN ×3 (02:16→22:45)
[2018-01-24] MEDS: HYDROMORPHONE 1MG/1ML INJ IV PRN ×5 (02:33→21:00)
[2018-01-24] MEDS: ALBUTEROL/IPRATROPIUM 3 ML NEB NEB SCH ×6 (03:00→22:45)
[2018-01-24] MEDS: LORAZEPAM INJ 2 MG/ML VIAL IV PRN ×3 (04:12→21:00)
[2018-01-24] MEDS: MEROPENEM 500MG 500 MG in SODIUM CHLORIDE 0.9% 50ML 50 ML IV SCH (05:21)
[2018-01-24 06:19] LABS: BASOPHILS # (AUTO) 0.1 (0.0-0.1); BASOPHILS % 0.8 % (0.0-1.0); EOSINOPHILS # (AUTO) 0.3 (0.0-0.4); HEMOGLOBIN 8.8 g/dL (14.0-18.0); LYMPHOCYTES # (AUTO) 1.7 (1.0-3.2); LYMPHOCYTES % 25.7 % (18.0-39.1); MEAN CORPUSCULAR HEMOGLOBIN 23.5 pg (28-32); MEAN CORPUSCULAR HGB CONC 29.3 g/dL (31-35); MEAN CORPUSCULAR VOLUME 80.2 fL (81-99); MONOCYTES % 15.4 % (4.4-11.3); NEUTROPHILS # (AUTO) 3.5 (2.1-6.9); NEUTROPHILS % 53.2 % (38.7-80.0); PLATELET COUNT 272 x10e3/uL (140-360); RED BLOOD COUNT 3.74 x10e6/uL (4.3-5.7); RED CELL DISTRIBUTION WIDTH 18.8 % (11.7-14.4)
[2018-01-24 06:35] LABS: ANION GAP 12.4 mmol/L (8-16); BLOOD UREA NITROGEN 15 mg/dL (7-26); BUN/CREATININE RATIO 32 (6-25); CALCIUM 9.5 mg/dL (8.4-10.2); CARBON DIOXIDE 38 mmol/L (22-29); CHLORIDE 96 mmol/L (98-107); CREATININE, SERUM 0.47 mg/dL (0.72-1.25); EST GLOMERULAR FILTRATION RATE > 60 ML/MIN (60-); GLUCOSE 94 mg/dL (74-118); MAGNESIUM 1.4 MG/DL (1.3-2.1); POTASSIUM 3.4 mmol/L (3.5-5.1); SODIUM 143 mmol/L (136-145)
[2018-01-24] MEDS: ACETYLCYSTEINE 20% INHAL SOLN 30 ML VIAL INH SCH ×2 (07:00→19:46)
[2018-01-24] MEDS ORDERED: AMIODARONE HCL 900 MG in DEXTROSE 5% 500ML 500 ML IV SCH ×3 (07:15→18:00)
[2018-01-24] MEDS: TOBRAMYCIN 40MG/ML 30ML MDV INH SCH ×2 (07:21→20:00)
[2018-01-24] MEDS ORDERED: AMIODARONE 900MG 500 ML IV SCH ×2 (07:30→13:00)
[2018-01-24] MEDS: DULOXETINE HCL 30 MG DELAYED RELEASE PEG SCH (08:33)
[2018-01-24] MEDS: FLUCONAZOLE 100 MG TAB PEG SCH (08:33)
[2018-01-24] MEDS: DOCUSATE SODIUM LIQD 100 MG/10 ML UDC PO SCH (08:33)
[2018-01-24] MEDS: HEPARIN SOD (PORCINE) 5,000 UNIT/ML VIAL SC SCH ×2 (08:34→21:00)
[2018-01-24] MEDS: POTASSIUM CHLORIDE 20MEQ/15ML UDC NG PRN (09:12)
[2018-01-24] MEDS: ACETAMINOPHEN 325 MG/10 ML UDC PEG PRN (09:12)
[2018-01-24] MEDS: COLLAGENASE OINTMENT 30 GM TUBE TP SCH ×2 (09:55→17:54)
[2018-01-24] MEDS ORDERED: DIGOXIN INJ 0.25 MG/ML 2 ML AMP IV SCH (10:30)
[2018-01-24] MEDS ORDERED: MAGNESIUM SULFATE 2GM/50ML 50 ML IV SCH (12:45)
[2018-01-24] MEDS ORDERED: POTASSIUM CHLORIDE 20MEQ/15ML UDC NG SCH (12:47)
[2018-01-24] MEDS: MEROPENEM 500 MG VIAL IV SCH ×2 (14:00→17:55)
--- NOTE | 2018-01-24 17:39 | Progress Note ---
DATE: INFECTIOUS DISEASE PROGRESS NOTE SUBJECTIVE: Mr. Kenyon remains in ICU. He remains very ill. Continues to have fever. PHYSICAL EXAMINATION VITAL SIGNS: Temperature 100.9, heart rate 155, respiration 22, blood pressure 114/82. GENERAL: He is very weak. HEENT: He is normocephalic. NECK: Supple. With trach. CHEST: A few rhonchi bilaterally. HEART: S1 and S2. No S3 or S4, no murmur. ABDOMEN: Soft. Bowel sounds present. EXTREMITIES: No edema. His blood cultures remain negative. White count is 6.49, hemoglobin 8.8, hematocrit of 30. Sodium 143, potassium 3.4, creatinine 0.47. Currently on meropenem and inhaled tobramycin as well as fluconazole. IMPRESSION: Fever. The plan is to finish 8 days antibiotic. I am still concerned that he has weak cough. A chest x-ray which was done back on January 20 showed persistent opacity. However, there is no aspiration. Will continue with the same. Prognosis is poor. Will follow. Job#: [id number] EV
[2018-01-25] VITALS (142 sets, daily range): BP systolic 72–206; BP diastolic 37–104
[2018-01-25] MEDS: HYDROMORPHONE HCL 2 MG TAB PO PRN ×4 (00:15→19:55)
[2018-01-25] MEDS: MEROPENEM 500 MG VIAL IV SCH ×4 (00:40→18:20)
[2018-01-25] MEDS: HYDROMORPHONE 1MG/1ML INJ IV PRN ×6 (01:00→22:25)
[2018-01-25] MEDS: LORAZEPAM INJ 2 MG/ML VIAL IV PRN ×4 (01:58→16:45)
[2018-01-25] MEDS: ALBUTEROL/IPRATROPIUM 3 ML NEB NEB SCH ×6 (02:35→23:30)
[2018-01-25] MEDS: MIDAZOLAM HCL 2 MG/2 ML VIAL IV PRN ×4 (04:38→18:20)
[2018-01-25] MEDS: ONDANSETRON HCL INJ 2 MG/ML VIAL IV PRN ×3 (04:39→16:45)
[2018-01-25] MEDS: ACETAMINOPHEN 325 MG/10 ML UDC PEG PRN ×2 (04:49→23:31)
[2018-01-25] MEDS ORDERED: HYDRALAZINE HCL 20 MG/ML VIAL ONE (05:59)
[2018-01-25] MEDS ORDERED: HYDRALAZINE HCL 20 MG/ML VIAL IV PRN (06:00)
[2018-01-25 06:24] LABS: BASOPHILS # (AUTO) 0.1 (0.0-0.1); BASOPHILS % 0.7 % (0.0-1.0); EOSINOPHILS # (AUTO) 0.5 (0.0-0.4); EOSINOPHILS % 5.6 % (0.0-6.0); HEMATOCRIT 31.7 % (38.2-49.6); HEMOGLOBIN 9.4 g/dL (14.0-18.0); LYMPHOCYTES # (AUTO) 2.1 (1.0-3.2); LYMPHOCYTES % 24.7 % (18.0-39.1); MEAN CORPUSCULAR HEMOGLOBIN 23.4 pg (28-32); MEAN CORPUSCULAR HGB CONC 29.7 g/dL (31-35); MEAN CORPUSCULAR VOLUME 79.1 fL (81-99); MONOCYTES # (AUTO) 0.9 (0.2-0.8); MONOCYTES % 10.5 % (4.4-11.3); NEUTROPHILS # (AUTO) 4.9 (2.1-6.9); NEUTROPHILS % 57.7 % (38.7-80.0); PLATELET COUNT 339 x10e3/uL (140-360); RED BLOOD COUNT 4.01 x10e6/uL (4.3-5.7); RED CELL DISTRIBUTION WIDTH 19.7 % (11.7-14.4)
[2018-01-25 06:43] LABS: ANION GAP 13.1 mmol/L (8-16); BLOOD UREA NITROGEN 17 mg/dL (7-26); BUN/CREATININE RATIO 34 (6-25); CALCIUM 9.6 mg/dL (8.4-10.2); CARBON DIOXIDE 37 mmol/L (22-29); CHLORIDE 94 mmol/L (98-107); EST GLOMERULAR FILTRATION RATE > 60 ML/MIN (60-); GLUCOSE 107 mg/dL (74-118); POTASSIUM 4.1 mmol/L (3.5-5.1); SODIUM 140 mmol/L (136-145)
[2018-01-25] MEDS: ACETYLCYSTEINE 20% INHAL SOLN 30 ML VIAL INH SCH ×2 (07:25→19:15)
[2018-01-25] MEDS: TOBRAMYCIN 40MG/ML 30ML MDV INH SCH ×2 (07:25→19:00)
[2018-01-25] MEDS: COLLAGENASE OINTMENT 30 GM TUBE TP SCH ×2 (09:00→17:00)
[2018-01-25] MEDS: FLUCONAZOLE 100 MG TAB PEG SCH (09:35)
[2018-01-25] MEDS: DULOXETINE HCL 30 MG DELAYED RELEASE PEG SCH (09:35)
[2018-01-25] MEDS: DOCUSATE SODIUM LIQD 100 MG/10 ML UDC PO SCH (09:35)
[2018-01-25] MEDS: HEPARIN SOD (PORCINE) 5,000 UNIT/ML VIAL SC SCH ×2 (15:17→20:53)
--- NOTE | 2018-01-25 15:30 | Progress Note ---
DATE: January 25, 2018 Mr. Kenyon is still in the ICU alert, but weak. I did discuss with him my impression that I think the patient is very ill. He has a very weak cough. You can notice that he has a very weak chest movement, and is maybe zero cough. The patient is aware of that, but he still wants me to do everything possible. He is not ready for Hospice, and he is not ready for DNR yet he said. The patient remains in the ICU with weak cough as mentioned above. His laboratory data was reviewed. White count 8.5, hemoglobin 9.4, hematocrit 31. Sodium 140, potassium 4.1, creatinine 0.5. His culture has no new data. PHYSICAL EXAM GENERAL: He is alert but very weak. VITALS: Stable currently. Afebrile now, but he has been running fever of 100.9 with T-max of 102. HEENT: Normocephalic. NECK: Supple. CHEST: Few rhonchi, coarse. ABDOMEN: Soft. IMPRESSION: Fever. Not so sure what is the source at the present time. We know he had pneumonia. He may be having recurrent pneumonia. The patient is currently in the intensive care unit. Will keep him on meropenem and Diflucan. He is at risk for having recurrent infection and multidrug-resistant pathogen. I am going to order computerized tomography of the abdomen and pelvis just to rule out any intra-abdominal process. Will follow. Job#: [id number] MARY
--- NOTE | 2018-01-25 18:15 | Diagnostic Imaging Report ---
PROCEDURE:CT ABDOMEN AND PELVIS WITH CONTRAST COMPARISON:No relevant priors. INDICATIONS:COLITIS, sepsis TECHNIQUE: Multidetector CT scanning of the abdomen and pelvis was performed after the administration of 100 cc of nonionic contrast. Oral contrast was administered. Coronal and sagittal reformations were obtained. Routine protocol performed. FINDINGS: Lung bases: Bibasilar airspace disease suggestive of atelectasis and possibly infiltrate, particularly in the right middle lobe and right lower lobe. There is fluid tracking along the right major fissure. Posterior layering right pleural effusion measures 8 mm. The heart is enlarged. There are calcified granulomata in the lung bases. The distal esophagus is collapsed. Liver: Measures 18 cm in length. The contours are lobulated. No discrete mass. Biliary: The gallbladder is present and appears normal. No biliary ductal dilatation. Spleen: Normal size and attenuation without mass. Pancreas: Mild fatty atrophy without mass or ductal dilatation. Adrenal Glands: Nodule in the right adrenal gland measures 7 mm. Left adrenal gland contains 2 tiny hypodensities in the apex each measuring 3 mm. Kidneys: Tiny intrarenal calculi measuring 4 mm or less. No hydronephrosis. There is symmetric enhancement of the kidneys. No enhancing mass. Potential cyst in the lower pole of the left kidney measures 14 mm. Potential cyst in the interpolar cortex of the right kidney measures 8 mm. Gastrointestinal: Percutaneous gastrostomy is in appropriate position without surrounding fluid collection. Small bowel is normal in diameter and wall thickness. Contrast is present throughout. Large bowels well-opacified. Small amount of fluoroscopic barium is present. Left lower quadrant colostomy is present without parastomal hernia. No pericolonic inflammation. The Prescott's pouch is collapsed. The appendix is not visualized and may be absent. Vasculature: The aorta is normal in diameter. Scattered calcifications are present. Filter in the IVC terminates below the confluence of the renal veins. No surrounding thrombus. Peritoneum/Retroperitoneum: No free fluid or fluid collection. Lymph node: Lymph nodes in the janak hepatis measure up to 1.3 x 2.8 cm. Left periaortic lymph nodes measure up to 1.2 x 1.7 cm. No enlarged lymph nodes along the pelvic sidewalls. The lymph nodes are increased in number measuring up to 2 cm. Bladder: Suprapubic catheter is present. The bladder merida are thickened. No surrounding fluid collection. The ureters are not dilated. Musculoskeletal: Mild degenerative changes of the spine. There is sclerosis of the ischial tuberosities posterior sacrum, coccyx, and posterior right ilium with overlying soft tissue thickening. No periosteal new bone formation. No fluid collections are adjacent. No evidence of fracture. Mild to moderate degenerative changes of the hips. No compression deformities of the visualized spine. No soft tissue fluid collections. The muscles are atrophic. CONCLUSION: 1. Bibasilar pulmonary consolidation, particularly in the right lung, suggestive of pneumonia and atelectasis. Small right pleural effusion. 2. No bowel obstruction or inflammation. No CT evidence of colitis 3. Sclerosis of the skeleton with overlying soft tissue thickening suggestive of healed decubitus ulcers. No active ulcers are appreciated by CT. Correlation with physical exam is recommended, however. 4. Punctate intrarenal calculi. No obstructive uropathy. 5. Diffuse bladder wall thickening is suggestive of chronic cystitis. 6. Mild hepatomegaly. 7. Nonspecific prominent abdominal, retroperitoneal, and inguinal lymph nodes. 8. Cardiomegaly. 9. Medical devices in appropriate position. Dictated by: Arabella Tomlin M.D. on 01/25/2018 at 18:15 Electronically approved by: Arabella Tomlin M.D. on 01/25/2018 at 18:15
[2018-01-25] MEDS: AMIODARONE HCL 200 MG TAB PO SCH (18:20)
[2018-01-25] MEDS ORDERED: SODIUM CHLORIDE 0.9% 50ML 50 ML ONE (21:01)
[2018-01-25] MEDS ORDERED: IOPAMIDOL 370 MG/ML 200 ML INFUS..BTL INJ ONE (21:01)
[2018-01-26] VITALS: BP 168/83
[2018-01-26] MEDS: MEROPENEM 500 MG VIAL IV SCH ×4 (00:28→17:07)
[2018-01-26] MEDS: ALBUTEROL/IPRATROPIUM 3 ML NEB NEB SCH ×6 (00:45→20:20)
[2018-01-26] MEDS: HYDROMORPHONE 1MG/1ML INJ IV PRN ×5 (03:18→20:30)
[2018-01-26 03:49] VITALS: BP 136/97
[2018-01-26] MEDS: ACETAMINOPHEN 325 MG/10 ML UDC PEG PRN (04:30)
[2018-01-26] MEDS: ACETYLCYSTEINE 20% INHAL SOLN 30 ML VIAL INH SCH ×2 (07:35→20:20)
[2018-01-26] MEDS: TOBRAMYCIN 40MG/ML 30ML MDV INH SCH (07:50)
[2018-01-26 08:00] VITALS: BP 135/75
[2018-01-26] MEDS: FLUCONAZOLE 100 MG TAB PEG SCH (09:06)
[2018-01-26] MEDS: DOCUSATE SODIUM LIQD 100 MG/10 ML UDC PO SCH (09:06)
[2018-01-26] MEDS: HEPARIN SOD (PORCINE) 5,000 UNIT/ML VIAL SC SCH (09:07)
[2018-01-26] MEDS: COLLAGENASE OINTMENT 30 GM TUBE TP SCH ×2 (09:07→17:00)
[2018-01-26] MEDS: AMIODARONE HCL 200 MG TAB PO SCH ×2 (09:15→17:07)
[2018-01-26] MEDS: DULOXETINE HCL 30 MG DELAYED RELEASE PEG SCH (09:50)
[2018-01-26] MEDS: PANTOPRAZOLE 40 MG 10ML VIAL IV SCH (11:41)
[2018-01-26 12:00] VITALS: BP 139/92
[2018-01-26] MEDS: ONDANSETRON HCL INJ 2 MG/ML VIAL IV PRN ×2 (14:40→23:03)
[2018-01-26] MEDS: LORAZEPAM INJ 2 MG/ML VIAL IV PRN (14:40)
[2018-01-26 16:00] VITALS: BP 135/78
[2018-01-26 20:30] VITALS: BP 132/77
[2018-01-27] VITALS: BP 144/84
[2018-01-27] MEDS: LORAZEPAM INJ 2 MG/ML VIAL IV PRN ×2 (00:03→17:00)
[2018-01-27] MEDS: MEROPENEM 500 MG VIAL IV SCH ×4 (00:03→21:14)
[2018-01-27] MEDS: HYDROMORPHONE 1MG/1ML INJ IV PRN ×6 (00:56→23:34)
[2018-01-27] MEDS: ONDANSETRON HCL INJ 2 MG/ML VIAL IV PRN ×5 (02:35→23:34)
[2018-01-27] MEDS: ALBUTEROL/IPRATROPIUM 3 ML NEB NEB SCH ×6 (03:00→23:25)
[2018-01-27 04:54] VITALS: BP 103/66
[2018-01-27] MEDS: ACETYLCYSTEINE 20% INHAL SOLN 30 ML VIAL INH SCH ×2 (07:00→19:55)
[2018-01-27 08:03] VITALS: BP 143/86
[2018-01-27] MEDS: DOCUSATE SODIUM LIQD 100 MG/10 ML UDC PO SCH (09:00)
[2018-01-27] MEDS: COLLAGENASE OINTMENT 30 GM TUBE TP SCH ×2 (09:00→21:00)
[2018-01-27] MEDS: DULOXETINE HCL 30 MG DELAYED RELEASE PEG SCH (11:15)
[2018-01-27] MEDS: AMIODARONE HCL 200 MG TAB PO SCH ×2 (11:15→20:56)
[2018-01-27] MEDS: PANTOPRAZOLE 40 MG 10ML VIAL IV SCH (11:15)
[2018-01-27 12:00] VITALS: BP 141/80
[2018-01-27 16:00] VITALS: BP 126/76
[2018-01-27] MEDS ORDERED: KETOROLAC TROMETHAMINE 30 MG/ML VIAL IV ONE ×2 (17:55→22:30)
--- NOTE | 2018-01-27 19:52 | Diagnostic Imaging Report ---
EXAM: ABDOMEN-1VIEW (KUB) DATE: 01/27/2018 3:35 PM INDICATION: \S\abd pain \[id number] \S\1600 COMPARISON: None FINDINGS: Left aspect of the abdomen not included. Patient refused repeat exam. IVC filter present. Left lower quadrant ostomy changes present. Gastric distention present. There is contrast present in the distal colon. No distinct small bowel obstructive changes identified within limitations of supine positioning. Degenerative changes present hips. IMPRESSION: As above. Signed by: Dr. Cole Jarquin MD on 01/27/2018 7:49 PM
[2018-01-27 20:36] VITALS: BP 136/81
[2018-01-28] VITALS: BP 130/96
[2018-01-28] MEDS: LORAZEPAM INJ 2 MG/ML VIAL IV PRN ×2 (00:48→23:05)
[2018-01-28] MEDS: ALBUTEROL/IPRATROPIUM 3 ML NEB NEB SCH ×5 (03:25→23:30)
[2018-01-28 04:18] VITALS: BP 133/82
[2018-01-28] MEDS: HYDROMORPHONE 1MG/1ML INJ IV PRN ×4 (04:30→21:42)
[2018-01-28] MEDS: ONDANSETRON HCL INJ 2 MG/ML VIAL IV PRN ×4 (04:30→21:43)
[2018-01-28] MEDS: MEROPENEM 500 MG VIAL IV SCH ×3 (06:00→21:09)
[2018-01-28 06:10] LABS: BASOPHILS % 0.4 % (0.0-1.0); EOSINOPHILS # (AUTO) 0.3 (0.0-0.4); HEMOGLOBIN 9.9 g/dL (14.0-18.0); LYMPHOCYTES # (AUTO) 2.5 (1.0-3.2); LYMPHOCYTES % 21.6 % (18.0-39.1); MEAN CORPUSCULAR HEMOGLOBIN 23.6 pg (28-32); MEAN CORPUSCULAR HGB CONC 30.9 g/dL (31-35); MEAN CORPUSCULAR VOLUME 76.2 fL (81-99); MONOCYTES # (AUTO) 0.9 (0.2-0.8); MONOCYTES % 8.2 % (4.4-11.3); NEUTROPHILS # (AUTO) 7.5 (2.1-6.9); PLATELET COUNT 406 x10e3/uL (140-360); RED CELL DISTRIBUTION WIDTH 22.2 % (11.7-14.4)
[2018-01-28 06:30] LABS: ANION GAP 13.6 mmol/L (8-16); BLOOD UREA NITROGEN 33 mg/dL (7-26); BUN/CREATININE RATIO 58 (6-25); CALCIUM 8.8 mg/dL (8.4-10.2); CARBON DIOXIDE 27 mmol/L (22-29); CHLORIDE 99 mmol/L (98-107); CREATININE, SERUM 0.57 mg/dL (0.72-1.25); EST GLOMERULAR FILTRATION RATE > 60 ML/MIN (60-); GLUCOSE 122 mg/dL (74-118); MAGNESIUM 2.1 MG/DL (1.3-2.1); POTASSIUM 4.6 mmol/L (3.5-5.1); SODIUM 135 mmol/L (136-145)
[2018-01-28] MEDS: ACETYLCYSTEINE 20% INHAL SOLN 30 ML VIAL INH SCH ×2 (07:00→19:00)
[2018-01-28 08:00] VITALS: BP 121/67
[2018-01-28] MEDS: COLLAGENASE OINTMENT 30 GM TUBE TP SCH ×2 (09:51→21:00)
[2018-01-28] MEDS: PANTOPRAZOLE 40 MG 10ML VIAL IV SCH (09:53)
[2018-01-28] MEDS: DULOXETINE HCL 30 MG DELAYED RELEASE PEG SCH (09:53)
[2018-01-28] MEDS: AMIODARONE HCL 200 MG TAB PO SCH ×2 (09:53→21:00)
[2018-01-28] MEDS: DOCUSATE SODIUM LIQD 100 MG/10 ML UDC PO SCH (10:02)
[2018-01-28 10:19] LABS: LYMPHOCYTES % (MANUAL) 23 % (19-48); MONOCYTES % (MANUAL) 10 % (3.4-9.0); NEUTROPHILS % (MANUAL) 66 % (40-74)
[2018-01-28 10:20] LABS: ANISOCYTOSIS MODERATE; PLATELET ESTIMATE ADEQUATE; POIKILOCYTOSIS MODERATE; RBC MORPHOLOGY COMMENT ABNORMAL
[2018-01-28 10:21] LABS: HYPOCHROMASIA SLIGHT; PLATELET MORPHOLOGY COMMENT NORMAL
[2018-01-28 12:00] VITALS: BP 129/77
[2018-01-28 16:00] VITALS: BP 120/78
[2018-01-28 20:00] VITALS: BP 113/64
[2018-01-28] MEDS: ACETAMINOPHEN 325 MG/10 ML UDC NG PRN (21:09)
[2018-01-29] VITALS (7 sets, daily range): BP systolic 116–145; BP diastolic 63–78
[2018-01-29] MEDS: ALBUTEROL/IPRATROPIUM 3 ML NEB NEB SCH ×4 (03:00→23:30)
[2018-01-29] MEDS: MEROPENEM 500 MG VIAL IV SCH ×3 (05:56→21:10)
[2018-01-29] MEDS: ACETYLCYSTEINE 20% INHAL SOLN 30 ML VIAL INH SCH ×2 (06:30→19:00)
[2018-01-29] MEDS: DOCUSATE SODIUM LIQD 100 MG/10 ML UDC PO SCH (09:00)
[2018-01-29] MEDS: AMIODARONE HCL 200 MG TAB PO SCH ×2 (09:00→21:10)
[2018-01-29] MEDS: DULOXETINE HCL 30 MG DELAYED RELEASE PEG SCH (09:00)
[2018-01-29] MEDS: PANTOPRAZOLE 40 MG 10ML VIAL IV SCH (09:00)
[2018-01-29] MEDS: COLLAGENASE OINTMENT 30 GM TUBE TP SCH (09:00)
[2018-01-29] MEDS: LORAZEPAM INJ 2 MG/ML VIAL IV PRN (10:25)
[2018-01-29] MEDS: HYDROMORPHONE 1MG/1ML INJ IV PRN ×3 (14:24→21:20)
[2018-01-29] MEDS: ONDANSETRON HCL INJ 2 MG/ML VIAL IV PRN (21:20)
[2018-01-30] VITALS (12 sets, daily range): BP systolic 63–150; BP diastolic 34–76
[2018-01-30] MEDS: HYDROMORPHONE 1MG/1ML INJ IV PRN ×6 (01:39→23:30)
[2018-01-30] MEDS: MIDODRINE 2.5 MG TAB PO SCH ×2 (01:43→17:00)
[2018-01-30] MEDS: ONDANSETRON HCL INJ 2 MG/ML VIAL IV PRN ×5 (02:54→19:25)
[2018-01-30] MEDS: COLLAGENASE OINTMENT 30 GM TUBE TP SCH ×3 (02:58→21:00)
[2018-01-30] MEDS: ALBUTEROL/IPRATROPIUM 3 ML NEB NEB SCH ×6 (03:30→23:30)
[2018-01-30] MEDS: MEROPENEM 500 MG VIAL IV SCH ×3 (05:19→21:18)
[2018-01-30] MEDS: ACETYLCYSTEINE 20% INHAL SOLN 30 ML VIAL INH SCH ×2 (07:50→19:00)
[2018-01-30] MEDS: DOCUSATE SODIUM LIQD 100 MG/10 ML UDC PO SCH (09:48)
[2018-01-30] MEDS: PANTOPRAZOLE 40 MG 10ML VIAL IV SCH (09:48)
[2018-01-30] MEDS: AMIODARONE HCL 200 MG TAB PO SCH ×2 (09:48→21:18)
[2018-01-30] MEDS: DULOXETINE HCL 30 MG DELAYED RELEASE PEG SCH (09:48)
[2018-01-30] MEDS: SODIUM CHLORIDE FLUSH 10 ML SYR INJ PRN ×3 (12:10→14:42)
[2018-01-30] MEDS: LORAZEPAM INJ 2 MG/ML VIAL IV PRN ×2 (13:03→22:50)
--- NOTE | 2018-01-30 14:45 | Progress Note ---
DATE: January 30, 2018 INTERNAL MEDICINE PROGRESS NOTE COVERING FOR: Dr. Vicente. SUBJECTIVE: Mr. Kenyon was seen and examined at bedside. He has tracheostomy in place. He is on tracheostomy collar, 96% oxygen saturation, 1.8 liters in and 1.6 liters out recorded. Patient is able to talk with some early dyspnea. He is able to utilize his assist device as well. He was not given any this morning, so it is the concern that he has right now. REVIEW OF SYSTEMS: No diarrhea, no rash. OBJECTIVE: VITAL SIGNS: Afebrile. Vital signs noted per electronic record. GENERAL: No acute distress, alert and calm, in bed. HEENT: Normocephalic, atraumatic. NECK: Supple. Trach in place. LUNGS: Bilateral air entry, rare rhonchi. CARDIOVASCULAR: S1 and S2. No murmurs, rubs, or gallops. ABDOMEN: Soft, nontender. EXTREMITIES: No clubbing. No cyanosis. There is small edema. INTEGUMENT: No rash. There is no purpura. LABS: No new updates today. IMPRESSION AND PLAN 1. Febrile syndrome, pneumonia. 2. Febrile syndrome with abnormal bladder imaging, chronic and acute cystitis. 3. Lymph nodes, per abdomen and pelvic CT. 4. Quadriplegic. 5. Chronic respiratory failure. 6. Hepatitis C. 7. Multiple decubitus ulcers. 8. Deep venous thrombosis. Continue current treatment. Pulmonary is managing the tracheostomy and secretions. Continue IV antibiotics. Continue to mobilize the patient and give restorative care and prevent decubitus ulcers from worsening. Continue cardiac medications. Continue diet, which we have modified. Job#: [id number] VAS
[2018-01-30] MEDS: TIZANIDINE HCL 4 MG TAB PO SCH (18:45)
[2018-01-31] VITALS (51 sets, daily range): BP systolic 78–158; BP diastolic 48–84
[2018-01-31] MEDS: HYDROMORPHONE 1MG/1ML INJ IV PRN ×5 (03:30→20:13)
[2018-01-31] MEDS: ALBUTEROL/IPRATROPIUM 3 ML NEB NEB SCH ×6 (03:40→23:10)
[2018-01-31] MEDS: MEROPENEM 500 MG VIAL IV SCH ×3 (05:42→21:04)
[2018-01-31] MEDS: ACETYLCYSTEINE 20% INHAL SOLN 30 ML VIAL INH SCH ×2 (07:08→19:45)
[2018-01-31] MEDS: LORAZEPAM INJ 2 MG/ML VIAL IV PRN ×3 (07:30→21:15)
[2018-01-31] MEDS: COLLAGENASE OINTMENT 30 GM TUBE TP SCH ×2 (09:00→21:00)
[2018-01-31] MEDS: AMIODARONE HCL 200 MG TAB PO SCH ×2 (09:00→21:04)
[2018-01-31] MEDS: DOCUSATE SODIUM LIQD 100 MG/10 ML UDC PO SCH (09:00)
[2018-01-31] MEDS: MIDODRINE 2.5 MG TAB PO SCH ×2 (09:55→17:44)
[2018-01-31] MEDS: DULOXETINE HCL 30 MG DELAYED RELEASE PEG SCH (09:55)
[2018-01-31] MEDS: TIZANIDINE HCL 4 MG TAB PO SCH ×2 (09:55→17:00)
[2018-01-31] MEDS: PANTOPRAZOLE 40 MG 10ML VIAL IV SCH (09:55)
[2018-01-31] MEDS: ACETAMINOPHEN 325 MG/10 ML UDC NG PRN ×2 (10:13→13:50)
[2018-01-31] MEDS ORDERED: NALOXONE HCL INJ 0.4 MG/ML AMP ONE ×2 (10:52→11:07)
[2018-01-31] MEDS ORDERED: SODIUM CHLORIDE 0.9% 1000ML 1,000 ML ONE ×2 (10:58→12:20)
[2018-01-31] MEDS ORDERED: ALTEPLASE RECOMBINANT 2 MG/2 ML VIAL ONE (11:33)
[2018-01-31 11:54] LABS: BASOPHILS # (AUTO) 0.1 (0.0-0.1); BASOPHILS % 0.5 % (0.0-1.0); EOSINOPHILS # (AUTO) 0.4 (0.0-0.4); EOSINOPHILS % 3.6 % (0.0-6.0); HEMATOCRIT 30.9 % (38.2-49.6); HEMOGLOBIN 9.6 g/dL (14.0-18.0); LYMPHOCYTES # (AUTO) 3.1 (1.0-3.2); MEAN CORPUSCULAR HEMOGLOBIN 24.2 pg (28-32); MEAN CORPUSCULAR HGB CONC 31.1 g/dL (31-35); MONOCYTES # (AUTO) 0.9 (0.2-0.8); MONOCYTES % 7.8 % (4.4-11.3); NEUTROPHILS # (AUTO) 6.5 (2.1-6.9); NEUTROPHILS % 59.6 % (38.7-80.0); PLATELET COUNT 465 x10e3/uL (140-360); RED BLOOD COUNT 3.96 x10e6/uL (4.3-5.7); RED CELL DISTRIBUTION WIDTH 22.1 % (11.7-14.4)
--- NOTE | 2018-01-31 11:59 | Diagnostic Imaging Report ---
EXAM: XR CHEST 1 VIEW DATE: 01/31/2018 11:13 AM INDICATION: ] Response COMPARISON: 01/20/2018 FINDINGS: Lines and Tubes: Tracheostomy appliance stable. Cervical hardware. Heart and Mediastinum: Heart is enlarged. Lungs and Pleura: Perihilar and infrahilar opacities present. Bones and Soft Tissues: No acute findings. IMPRESSION: 1. Perihilar and infrahilar opacities could represent edema or pneumonia. Signed by: Dr. Cole Jarquin MD on 01/31/2018 11:55 AM
[2018-01-31 12:12] LABS: ANION GAP 12.3 mmol/L (8-16); BLOOD UREA NITROGEN 42 mg/dL (7-26); BUN/CREATININE RATIO 81 (6-25); CARBON DIOXIDE 28 mmol/L (22-29); CHLORIDE 100 mmol/L (98-107); CREATININE, SERUM 0.52 mg/dL (0.72-1.25); EST GLOMERULAR FILTRATION RATE > 60 ML/MIN (60-); GLUCOSE 122 mg/dL (74-118); POTASSIUM 4.3 mmol/L (3.5-5.1); SODIUM 136 mmol/L (136-145)
[2018-01-31] MEDS ORDERED: SODIUM CHLORIDE 0.9% 500ML 500 ML IV ONE (12:15)
[2018-01-31 12:22] LABS: ABG HCO3 33 mmol/L (23-28); ABG PCO2 51 mmHg (41-51); ABG PH 7.42 (7.31-7.41); ABG PO2 386 mmHg (80-105)
[2018-01-31] MEDS: NOREPINEPHRINE INJ 4MG/4ML 8 MG in DEXTROSE 5% 250ML 250 ML IV SCH ×2 (12:47→18:18)
--- NOTE | 2018-01-31 14:06 | Progress Note ---
DATE: January 31, 2018 INTERNAL MEDICINE PROGRESS NOTE COVERING FOR: Dr. Vicente. SUBJECTIVE: Mr. Kenyon was seen and examined at bedside. There was significant worsening in his condition today. Patient had acute drop in heart rate. He had a drop in blood pressure. He also developed altered mental status and obtundation simultaneously. Patient was moved to the ICU. After multiple attempts at suctioning, there was no proof that there was a mucus plug in place. He was seen by fighter pilot and other physicians in the interim. In 2.6 liters, 2.5 liters out. He was started on dopamine and remains on that at this time. He is currently sleepy, but he awakens and he moves his bilateral arms weakly, possibly at baseline. REVIEW OF SYSTEMS: No ability to get reliably as he seems little bit too sleepy to participate in full evaluation. OBJECTIVE HEENT: Normocephalic, atraumatic. NECK: Supple. Throat midline. Trach in place. LUNGS: Bilateral air entry, few rhonchi. CARDIOVASCULAR: S1 and S2. No murmurs, rubs, or gallops. ABDOMEN: Soft and nontender. EXTREMITIES: No clubbing. No cyanosis. There is baseline small edema. INTEGUMENT: No rash. No purpura. LABS: White count 11, 31 hematocrit, and 465 platelets. Blood gas was 7.42/51/386. Chemistries finally came back with potassium 4.3, 42 BUN, and 0.5 creatinine. Glucose has been controlled; it was 135 earlier. Calcium 9.0. DIAGNOSTIC DATA: Chest x-ray with perihilar and infrahilar opacities, could be pneumonia. IMPRESSION 1. Critical hypotension, shock. 2. Encephalopathy, worsened, under evaluation. 3. Pneumonia. 4. History of abnormal bladder imaging, chronic and acute cystitis. 5. Quadriplegic state. 6. Chronic respiratory failure. 7. Lymph nodes in the abdomen and pelvis per CAT scan. 8. Multiple decubitus ulcers. 9. History of deep venous thrombosis. PLAN: Continue current treatment at this time. Dopamine ongoing, but may be switched out to Levophed. Midodrine was added yesterday. Follow up, of note he was just started on new muscle relaxants and consideration would be if this is too much for him to tolerate. Continue to follow blood pressure control and give him Levophed as needed. Amiodarone still ongoing. Continue to toilet his airways as treatable. Job#: [id number] KATTY
[2018-01-31] MEDS: ONDANSETRON HCL INJ 2 MG/ML VIAL IV PRN (19:33)
[2018-01-31] MEDS: HEPARIN SOD (PORCINE) 5,000 UNIT/ML VIAL SC SCH (20:13)
[2018-01-31] MEDS ORDERED: METHYLPREDNISOLONE SOD SUCC 40 MG/ML VIAL IV SCH (21:00)
[2018-02-01] VITALS (125 sets, daily range): BP systolic 56–225; BP diastolic 31–115
[2018-02-01] MEDS: ONDANSETRON HCL INJ 2 MG/ML VIAL IV PRN ×3 (01:00→07:48)
[2018-02-01] MEDS: HYDROMORPHONE 1MG/1ML INJ IV PRN ×5 (01:00→23:50)
[2018-02-01] MEDS: LORAZEPAM INJ 2 MG/ML VIAL IV PRN ×5 (01:30→13:55)
[2018-02-01] MEDS: ALBUTEROL/IPRATROPIUM 3 ML NEB NEB SCH ×6 (02:10→23:45)
[2018-02-01] MEDS: MEROPENEM 500 MG VIAL IV SCH (05:32)
[2018-02-01 06:07] LABS: BASOPHILS % 0.4 % (0.0-1.0); HEMOGLOBIN 9.5 g/dL (14.0-18.0); LYMPHOCYTES # (AUTO) 1.2 (1.0-3.2); LYMPHOCYTES % 15.2 % (18.0-39.1); MEAN CORPUSCULAR HEMOGLOBIN 23.8 pg (28-32); MEAN CORPUSCULAR HGB CONC 30.6 g/dL (31-35); MEAN CORPUSCULAR VOLUME 77.7 fL (81-99); MONOCYTES # (AUTO) 0.1 (0.2-0.8); MONOCYTES % 1.3 % (4.4-11.3); NEUTROPHILS # (AUTO) 6.3 (2.1-6.9); NEUTROPHILS % 82.6 % (38.7-80.0); PLATELET COUNT 465 x10e3/uL (140-360); RED BLOOD COUNT 3.99 x10e6/uL (4.3-5.7); RED CELL DISTRIBUTION WIDTH 22.5 % (11.7-14.4)
[2018-02-01 06:26] LABS: ALANINE AMINOTRANSFERASE 54 IU/L (0-55); ALBUMIN/GLOBULIN RATIO 0.7 (0.8-2.0); ALKALINE PHOSPHATASE 113 IU/L (40-150); ANION GAP 12.6 mmol/L (8-16); BLOOD UREA NITROGEN 28 mg/dL (7-26); BUN/CREATININE RATIO 58 (6-25); CALCIUM 8.9 mg/dL (8.4-10.2); CARBON DIOXIDE 28 mmol/L (22-29); CHLORIDE 101 mmol/L (98-107); CREATININE, SERUM 0.48 mg/dL (0.72-1.25); EST GLOMERULAR FILTRATION RATE > 60 ML/MIN (60-); GLUCOSE 146 mg/dL (74-118); POTASSIUM 4.6 mmol/L (3.5-5.1); SODIUM 137 mmol/L (136-145)
--- NOTE | 2018-02-01 06:46 | Diagnostic Imaging Report ---
EXAM: XR CHEST 1 VIEW DATE: 02/01/2018 7:00 AM INDICATION: Shortness of breath COMPARISON: 01/31/2018 FINDINGS: Lines and Tubes: Tracheostomy appliance and cervical orthopedic hardware present. Heart and Mediastinum: The heart remains prominent. Lungs and Pleura: Mild perihilar and infrahilar opacities are similar. Bones and Soft Tissues: No acute findings. IMPRESSION: 1. Perihilar and infrahilar opacities suggesting edema and/or pneumonia, stable. Signed by: Dr. Cole Jarquin MD on 02/01/2018 6:40 AM
[2018-02-01 07:29] LABS: ANISOCYTOSIS SLIGHT; HOWELL-JOLLY BODIES FEW; HYPOCHROMASIA SLIGHT; LYMPHOCYTES % (MANUAL) 21 % (19-48); MONOCYTES % (MANUAL) 1 % (3.4-9.0); NEUTROPHILS % (MANUAL) 77 % (40-74); POIKILOCYTOSIS SLIGHT
[2018-02-01 07:30] LABS: ELLIPTOCYTE, RBC SLIGHT
[2018-02-01 07:31] LABS: PLATELET ESTIMATE ADEQUATE; PLATELET MORPHOLOGY COMMENT NORMAL; RBC MORPHOLOGY COMMENT ABNORMAL
[2018-02-01] MEDS: COLLAGENASE OINTMENT 30 GM TUBE TP SCH ×2 (09:00→21:32)
[2018-02-01] MEDS: HEPARIN SOD (PORCINE) 5,000 UNIT/ML VIAL SC SCH ×2 (09:00→21:48)
[2018-02-01] MEDS: AMIODARONE HCL 200 MG TAB PO SCH (09:00)
[2018-02-01] MEDS: DOCUSATE SODIUM LIQD 100 MG/10 ML UDC PO SCH (09:00)
[2018-02-01] MEDS: PANTOPRAZOLE 40 MG 10ML VIAL IV SCH (09:00)
[2018-02-01] MEDS: MIDODRINE 2.5 MG TAB PO SCH ×2 (09:00→20:08)
[2018-02-01] MEDS: DULOXETINE HCL 30 MG DELAYED RELEASE PEG SCH (09:00)
[2018-02-01] MEDS: TIZANIDINE HCL 4 MG TAB PO SCH ×2 (09:00→20:08)
[2018-02-01] MEDS ORDERED: NOREPINEPHRINE INJ 4MG/4ML 8 MG in DEXTROSE 5% 250ML 250 ML IV SCH (11:00)
[2018-02-01] MEDS: SODIUM CHLORIDE 0.9% 1000ML 1,000 ML IV SCH ×14 (11:01→23:13)
[2018-02-01 11:43] LABS: ABG HCO3 32 mmol/L (23-28); ABG PCO2 37 mmHg (41-51); ABG PH 7.55 (7.31-7.41); ABG PO2 187 mmHg (80-105)
[2018-02-01] MEDS ORDERED: SODIUM CHLORIDE 0.9% 500ML 500 ML IV ONE (12:15)
[2018-02-01] MEDS: METRONIDAZOLE 500MG/NS 100ML 100 ML IV SCH ×2 (13:55→20:45)
[2018-02-01] MEDS: ACETAMINOPHEN 325 MG/10 ML UDC NG PRN (14:05)
[2018-02-01] MEDS: NOREPINEPHRINE 8 MG/D5W 250 ML 250 ML IV SCH ×2 (18:15→21:49)
[2018-02-01] MEDS: ACETYLCYSTEINE 20% INHAL SOLN 30 ML VIAL INH SCH (19:00)
[2018-02-02] VITALS (63 sets, daily range): BP systolic 63–172; BP diastolic 37–95
[2018-02-02] MEDS: SODIUM CHLORIDE 0.9% 1000ML 1,000 ML IV SCH ×11 (00:14→10:24)
[2018-02-02] MEDS: LORAZEPAM INJ 2 MG/ML VIAL IV PRN ×5 (01:43→19:56)
[2018-02-02] MEDS: METRONIDAZOLE 500MG/NS 100ML 100 ML IV SCH ×3 (02:02→17:42)
[2018-02-02] MEDS: ALBUTEROL/IPRATROPIUM 3 ML NEB NEB SCH ×5 (03:00→20:00)
[2018-02-02] MEDS: HYDROMORPHONE 1MG/1ML INJ IV PRN ×5 (03:56→22:13)
[2018-02-02 06:15] LABS: BASOPHILS # (AUTO) 0.1 (0.0-0.1); BASOPHILS % 0.6 % (0.0-1.0); EOSINOPHILS # (AUTO) 0.2 (0.0-0.4); EOSINOPHILS % 1.5 % (0.0-6.0); HEMATOCRIT 30.1 % (38.2-49.6); HEMOGLOBIN 9.3 g/dL (14.0-18.0); LYMPHOCYTES # (AUTO) 3.2 (1.0-3.2); LYMPHOCYTES % 29.9 % (18.0-39.1); MEAN CORPUSCULAR HEMOGLOBIN 24.1 pg (28-32); MEAN CORPUSCULAR HGB CONC 30.9 g/dL (31-35); MONOCYTES # (AUTO) 0.9 (0.2-0.8); MONOCYTES % 8.7 % (4.4-11.3); NEUTROPHILS # (AUTO) 6.4 (2.1-6.9); PLATELET COUNT 494 x10e3/uL (140-360); RED BLOOD COUNT 3.86 x10e6/uL (4.3-5.7); RED CELL DISTRIBUTION WIDTH 22.8 % (11.7-14.4)
[2018-02-02 06:39] LABS: ANION GAP 11.9 mmol/L (8-16); BLOOD UREA NITROGEN 37 mg/dL (7-26); BUN/CREATININE RATIO 82 (6-25); CALCIUM 9.3 mg/dL (8.4-10.2); CARBON DIOXIDE 29 mmol/L (22-29); CHLORIDE 104 mmol/L (98-107); CREATININE, SERUM 0.45 mg/dL (0.72-1.25); EST GLOMERULAR FILTRATION RATE > 60 ML/MIN (60-); GLUCOSE 106 mg/dL (74-118); POTASSIUM 3.9 mmol/L (3.5-5.1); SODIUM 141 mmol/L (136-145)
[2018-02-02] MEDS: ACETYLCYSTEINE 20% INHAL SOLN 30 ML VIAL INH SCH ×2 (07:15→20:00)
[2018-02-02 07:28] LABS: PLATELET ESTIMATE SLIGHTLY INCREASED; PLATELET MORPHOLOGY COMMENT FEW LARGE; RBC MORPHOLOGY COMMENT ABNORMAL
[2018-02-02 07:29] LABS: ANISOCYTOSIS SLIG; ELLIPTOCYTE, RBC SLIGHT; HYPOCHROMASIA MODERATE; POIKILOCYTOSIS SLIG
[2018-02-02] MEDS ORDERED: METHYLPREDNISOLONE SOD SUCC 40 MG/ML VIAL IV SCH (07:30)
[2018-02-02] MEDS: COLLAGENASE OINTMENT 30 GM TUBE TP SCH ×2 (09:00→20:29)
[2018-02-02] MEDS: DOCUSATE SODIUM LIQD 100 MG/10 ML UDC PO SCH (09:00)
[2018-02-02] MEDS: DULOXETINE HCL 30 MG DELAYED RELEASE PEG SCH (09:33)
[2018-02-02] MEDS: PANTOPRAZOLE 40 MG 10ML VIAL IV SCH (09:33)
[2018-02-02] MEDS: TIZANIDINE HCL 4 MG TAB PO SCH ×2 (09:33→17:00)
[2018-02-02] MEDS: HEPARIN SOD (PORCINE) 5,000 UNIT/ML VIAL SC SCH ×2 (09:34→20:16)
[2018-02-02] MEDS: MIDODRINE 2.5 MG TAB PO SCH (10:28)
[2018-02-02] MEDS ORDERED: HYDROMORPHONE 1MG/1ML INJ IV STA (14:13)
[2018-02-02] MEDS: MIDODRINE HCL 5 MG TABLET PO SCH (17:00)
[2018-02-03] VITALS (71 sets, daily range): BP systolic 54–207; BP diastolic 29–97
[2018-02-03] MEDS: ALBUTEROL/IPRATROPIUM 3 ML NEB NEB SCH ×7 (00:15→23:24)
[2018-02-03] MEDS: LORAZEPAM INJ 2 MG/ML VIAL IV PRN (00:49)
[2018-02-03] MEDS: METRONIDAZOLE 500MG/NS 100ML 100 ML IV SCH ×3 (01:33→18:30)
[2018-02-03] MEDS: HYDROMORPHONE 1MG/1ML INJ IV PRN ×3 (02:17→16:54)
[2018-02-03] MEDS: ONDANSETRON HCL INJ 2 MG/ML VIAL IV PRN ×2 (03:34→10:39)
[2018-02-03] MEDS: ACETYLCYSTEINE 20% INHAL SOLN 30 ML VIAL INH SCH ×2 (07:55→23:24)
[2018-02-03] MEDS: PREDNISONE 10 MG TAB PO SCH (09:00)
[2018-02-03] MEDS: HEPARIN SOD (PORCINE) 5,000 UNIT/ML VIAL SC SCH ×2 (09:00→21:18)
[2018-02-03] MEDS: PANTOPRAZOLE 40 MG 10ML VIAL IV SCH (09:00)
[2018-02-03] MEDS: TIZANIDINE HCL 4 MG TAB PO SCH ×2 (09:00→16:53)
[2018-02-03] MEDS: DULOXETINE HCL 30 MG DELAYED RELEASE PEG SCH (09:00)
[2018-02-03] MEDS: MIDODRINE HCL 5 MG TABLET PO SCH ×3 (09:00→20:50)
[2018-02-03] MEDS: DOCUSATE SODIUM LIQD 100 MG/10 ML UDC PO SCH (09:00)
[2018-02-03] MEDS: COLLAGENASE OINTMENT 30 GM TUBE TP SCH ×2 (12:05→20:50)
[2018-02-03] MEDS ORDERED: NALOXONE HCL 2MG/2 ML SYRINGE ONE (12:22)
[2018-02-03] MEDS ORDERED: SODIUM CHLORIDE 0.9% 1000ML 1,000 ML ONE (12:25)
[2018-02-03] MEDS ORDERED: ATROPINE SULFATE 0.1 MG/ML 10ML SYR ONE (12:38)
[2018-02-03] MEDS ORDERED: LORAZEPAM INJ 2 MG/ML VIAL IV PRN (15:30)
[2018-02-03] MEDS: NOREPINEPHRINE 8 MG/D5W 250 ML 250 ML IV SCH (19:00)
[2018-02-03] MEDS: ACETAMINOPHEN 325 MG/10 ML UDC NG PRN (21:00)
[2018-02-04] VITALS (98 sets, daily range): BP systolic 65–199; BP diastolic 40–98
[2018-02-04] MEDS: HYDROCODONE/APAP 5MG-325MG TAB PO PRN ×3 (01:00→23:32)
[2018-02-04] MEDS: METRONIDAZOLE 500MG/NS 100ML 100 ML IV SCH ×3 (01:18→18:52)
[2018-02-04] MEDS: ALBUTEROL/IPRATROPIUM 3 ML NEB NEB SCH ×6 (03:20→23:45)
[2018-02-04] MEDS: ACETYLCYSTEINE 20% INHAL SOLN 30 ML VIAL INH SCH ×2 (06:58→19:15)
[2018-02-04] MEDS: HYDROMORPHONE 1MG/1ML INJ IV PRN ×4 (09:25→21:46)
[2018-02-04] MEDS: PANTOPRAZOLE 40 MG 10ML VIAL IV SCH (09:53)
[2018-02-04] MEDS: DULOXETINE HCL 30 MG DELAYED RELEASE PEG SCH (09:53)
[2018-02-04] MEDS: PREDNISONE 10 MG TAB PO SCH (09:53)
[2018-02-04] MEDS: MIDODRINE HCL 5 MG TABLET PO SCH ×3 (09:53→20:40)
[2018-02-04] MEDS: DOCUSATE SODIUM LIQD 100 MG/10 ML UDC PO SCH (09:53)
[2018-02-04] MEDS: TIZANIDINE HCL 4 MG TAB PO SCH ×2 (09:54→17:00)
[2018-02-04] MEDS: COLLAGENASE OINTMENT 30 GM TUBE TP SCH ×2 (09:55→21:00)
[2018-02-04] MEDS: HEPARIN SOD (PORCINE) 5,000 UNIT/ML VIAL SC SCH ×2 (09:59→20:40)
[2018-02-04] MEDS: ACETAMINOPHEN 325 MG/10 ML UDC NG PRN (13:00)
[2018-02-04] MEDS: NOREPINEPHRINE 8 MG/D5W 250 ML 250 ML IV SCH (18:11)
[2018-02-05] VITALS (21 sets, daily range): BP systolic 82–154; BP diastolic 48–98
[2018-02-05] MEDS: HYDROMORPHONE 1MG/1ML INJ IV PRN ×3 (01:26→11:17)
[2018-02-05] MEDS: METRONIDAZOLE 500MG/NS 100ML 100 ML IV SCH ×2 (02:37→11:17)
[2018-02-05] MEDS: ALBUTEROL/IPRATROPIUM 3 ML NEB NEB SCH ×2 (02:45→07:09)
[2018-02-05] MEDS: ONDANSETRON HCL INJ 2 MG/ML VIAL IV PRN (06:15)
[2018-02-05] MEDS: ACETYLCYSTEINE 20% INHAL SOLN 30 ML VIAL INH SCH (07:09)
[2018-02-05] MEDS: PANTOPRAZOLE 40 MG 10ML VIAL IV SCH (08:03)
[2018-02-05] MEDS: DULOXETINE HCL 30 MG DELAYED RELEASE PEG SCH (08:03)
[2018-02-05] MEDS: PREDNISONE 10 MG TAB PO SCH (08:03)
[2018-02-05] MEDS: MIDODRINE HCL 5 MG TABLET PO SCH (08:03)
[2018-02-05] MEDS: TIZANIDINE HCL 4 MG TAB PO SCH (08:03)
[2018-02-05] MEDS: DOCUSATE SODIUM LIQD 100 MG/10 ML UDC PO SCH (08:03)
[2018-02-05] MEDS: HEPARIN SOD (PORCINE) 5,000 UNIT/ML VIAL SC SCH (09:01)
[2018-02-05] MEDS: COLLAGENASE OINTMENT 30 GM TUBE TP SCH (09:01)
[2018-02-05] MEDS ORDERED: GABAPENTIN 300 MG CAP PO SCH (12:15)
[2018-02-05] MEDS ORDERED: HYDROMORPHONE 1MG/1ML INJ IV PRN (15:30)
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
== END 2018-02-05 13:20 | DRG 871 ==
LOC: ER 14:39 → ICU 17:52 → IMCU 01-25 21:59 → ICU 01-31 11:46
PROVIDERS: ADMIT Internal Medicine; ATTEND Internal Medicine
PROC: 02HV33Z Insertion of Infusion Device into Superior Vena Cava, Percutaneous Approach (ICD-10-PCS; principal; 2018-01-19)
PROC: 5A1935Z Respiratory Ventilation, Less than 24 Consecutive Hours (ICD-10-PCS; principal; 2018-01-19)
PROC: 5A1935Z Respiratory Ventilation, Less than 24 Consecutive Hours (ICD-10-PCS; 2018-01-20)
DX: A41.9 Sepsis, unspecified organism (principal); J15.1 Pneumonia due to Pseudomonas; J96.21 Acute and chronic respiratory failure with hypoxia; R57.8 Other shock; G82.53 Quadriplegia, C5-C7 complete; G93.40 Encephalopathy, unspecified; E43 Unspecified severe protein-calorie malnutrition; J96.22 Acute and chronic respiratory failure with hypercapnia; T83.512A Infection and inflammatory reaction due to nephrostomy catheter, initial encounter; N39.0 Urinary tract infection, site not specified; N30.00 Acute cystitis without hematuria; R65.20 Severe sepsis without septic shock; B96.5 Pseudomonas (aeruginosa) (mallei) (pseudomallei) as the cause of diseases classified elsewhere; Z16.30 Resistance to unspecified antimicrobial drugs; L89.222 Pressure ulcer of left hip, stage 2; L89.212 Pressure ulcer of right hip, stage 2; L89.622 Pressure ulcer of left heel, stage 2; L89.612 Pressure ulcer of right heel, stage 2; Z93.1 Gastrostomy status; Z16.35 Resistance to multiple antimicrobial drugs; Z93.0 Tracheostomy status; E87.6 Hypokalemia; I48.0 Paroxysmal atrial fibrillation; Z93.3 Colostomy status; Z86.718 Personal history of other venous thrombosis and embolism; E83.42 Hypomagnesemia; N30.20 Other chronic cystitis without hematuria; B19.20 Unspecified viral hepatitis C without hepatic coma; D50.0 Iron deficiency anemia secondary to blood loss (chronic); R19.7 Diarrhea, unspecified; F41.9 Anxiety disorder, unspecified; G89.4 Chronic pain syndrome
CPT/HCPCS: 36415; 36600; 71045; 74018; 74177; 74230; 74470; 80048; 80053; 80061; 80076; 81001; 82533; 82550; 82553; 82805; 82948; 83540; 83605; 83735; 84100; 84134; 84443; 84466; 84484; 85025; 85610; 85730; 86850; 86900; 86920; 87040; 87070; 87086; 87186; 87205; 87493; 92522; 93005; 94002; 94003; 94640; 96365; 96366; 96372; 96375; 96376; 99285; J0360; J0712; J1160; J1170; J1644; J1720; J1756; J1885; J2060; J2185; J2250; J2310; J2405; J2543; J2920; J2997; J3260; J3370; J3480; J7030; J7040; J7050; Q9967